=== PATIENT | female | born 1945 | race Caucasian/White ===

== ENCOUNTER → 2016-02-29 | Outpatient (CLI) | payer MEDICARE ==
[~2016-02-29] MED LIST: ASPI81TA85 PO; BRIL90TA PO; CALTTAB10 PO; FARX1TAB2 PO; FERR325T3 PO; GLIP2.5T6 PO; INDE1CAP5 PO; IRBE150T12 PO; METF1000 PO; METO25TAB PO; OMEP40CA2 PO; SIMV40TA2 PO
[2016-02-29 13:32] LABS: BASO % 0.5 % (0.0-1.0); EOS # 0.2 K/mm3 (0.0-0.50); EOS % 5.9 % (0.0-3.0); LARGE UNSTAINED CELL # 0.1 K/mm3 (0.0-0.4); LARGE UNSTAINED CELL % 2.6 % (0.0-4.0); LYMPH # 1.1 K/mm3 (1.5-4.5); LYMPH % 27.1 % (24.0-44.0); MEAN CORPUSCULAR HEMOGLOBIN 29.6 pg (27.0-33.0); MEAN CORPUSCULAR HGB CONC 32.6 g/dl (32.0-36.5); MEAN CORPUSCULAR VOLUME 90.7 fl (80.0-96.0); MONO # 0.3 K/mm3 (0.0-0.8); NEUTROPHILS # 2.3 K/mm3 (1.8-7.7); NEUTROPHILS % 55.9 % (36.0-66.0); PLATELET COUNT, AUTOMATED 119 k/mm3 (150-450); RED CELL DISTRIBUTION WIDTH 12.7 % (11.5-14.5); WHITE BLOOD COUNT 4.1 K/mm3 (4.0-10.0)
[2016-02-29 13:44] LABS: VITAMIN B12 LEVEL 396 PG/ML
[2016-02-29 13:45] LABS: FOLATE 14.1 NG/ML
[2016-02-29 14:07] LABS: ALBUMIN 3.6 GM/DL (3.2-5.2); ALBUMIN/GLOBULIN RATIO 1.13 (1.00-1.93); ALKALINE PHOSPHATASE 115 U/L (45-117); ALT/SGPT 27 U/L (12-78); ANION GAP 9 MEQ/L (8-16); AST/SGOT 19 U/L (15-37); BILIRUBIN,TOTAL 0.6 MG/DL (0.2-1.0); BLOOD UREA NITROGEN 12 MG/DL (7-18); CALCIUM LEVEL 9.6 MG/DL (8.8-10.2); CARBON DIOXIDE LEVEL 29 MEQ/L (21-32); CHLORIDE LEVEL 108 MEQ/L (98-107); CHOLESTEROL LEVEL 194 MG/DL (<200); CREATININE FOR GFR 0.79 MG/DL (0.55-1.02); FERRITIN 16 NG/ML (8-252); GLOMERULAR FILTRATION RATE > 60.0 (>39); GLUCOSE, FASTING 318 MG/DL (83-110); POTASSIUM SERUM 4.6 MEQ/L (3.5-5.1); SODIUM LEVEL 146 MEQ/L (136-145); TOTAL PROTEIN 6.8 GM/DL (6.4-8.2); TRIGLYCERIDES LEVEL 185 MG/DL (<150)
== END ==
LOC: M SMT 09:26
PROVIDERS: ATTEND Family Medicine
DX: E11.65 Type 2 diabetes mellitus with hyperglycemia (principal); D50.9 Iron deficiency anemia, unspecified; E78.2 Mixed hyperlipidemia

== ENCOUNTER → 2016-04-11 | Outpatient (CLI) | payer MEDICARE ==
[2016-04-11 15:24] LABS: INR 1.15
[2016-04-11 17:01] LABS: ALBUMIN 4.2 GM/DL (3.2-5.2); ALBUMIN/GLOBULIN RATIO 1.24 (1.00-1.93); BILIRUBIN,DIRECT 0.2 MG/DL (0.0-0.2); BILIRUBIN,TOTAL 0.7 MG/DL (0.2-1.0); TOTAL PROTEIN 7.6 GM/DL (6.4-8.2)
== END ==
LOC: M LAB 14:18
PROVIDERS: ATTEND Internal Medicine Gastroenterology
DX: I85.00 Esophageal varices without bleeding (principal); Z79.899 Other long term (current) drug therapy

== ENCOUNTER → 2016-04-14 | Outpatient (CLI) | payer MEDICARE ==
--- NOTE | 2016-04-14 08:48 | REP ---
Clinical: Abdominal pain. History of cirrhosis. Comparison: 07/19/2015. Findings: The patient is status post cholecystectomy. Liver and pancreas are normal in contour, size, echogenicity without focal hepatic or pancreatic lesions identified. No intrahepatic biliary ductal dilatation is appreciated. Compensatory dilatation to the common bile duct up to 9 mm. Right kidney is normal in reniform shape without hydronephrosis and measures 12.0 x 6.2 x 5.4 cm with extrarenal pelvis noted. Visualized abdominal aorta normal. No ascites. Impression: No acute pathology noted. Signed by Cr Alexander MD 04/14/2016 08:41 A
== END ==
LOC: M RAD 07:05
PROVIDERS: ATTEND Internal Medicine Gastroenterology
DX: K74.60 Unspecified cirrhosis of liver (principal); K76.0 Fatty (change of) liver, not elsewhere classified

== ENCOUNTER → 2016-05-02 | Outpatient (CLI) | payer MEDICARE ==
[~2016-05-02] VITALS: Ht 162.6 cm; Wt 68.4 kg
[~2016-05-02] MED LIST changes: +CRES40TA PO; +LIDOCAINE 2% INJ 100 MG/5 ML SDV (FOR ANES.) As Ordered ONE; +NS 1,000 ML IV SCH; +PROPOFOL 200 MG/20 ML VIAL As Ordered ONE
--- NOTE | 2016-05-02 16:10 | ROOR ---
Patient Name: Claribel Mccain Procedure Date: 05/02/2016 3:50 PM Date of : 1945 Age: 71 Room: [facility] Gender: Female Note Status: Finalized Procedure: Upper GI endoscopy Indications: Cirrhosis rule out esophageal varices Providers: Lance FERNANDEZ MD Referring MD: Gricel DONNELLY DO Requesting Provider: Medicines: Monitored Anesthesia Care Complications: No immediate complications. Procedure: Pre-Anesthesia Assessment: - The heart rate, respiratory rate, oxygen saturations, blood pressure, adequacy of pulmonary ventilation, and response to care were monitored throughout the procedure. The Endoscope was introduced through the mouth, and advanced to the second part of duodenum. The upper GI endoscopy was accomplished without difficulty. The patient tolerated the procedure well. Findings: Grade I/II varices were found in the lower third of the esophagus. Three bands were successfully placed with complete eradication, resulting in deflation of varices. Mild portal hypertensive gastropathy was found in the gastric antrum. The exam was otherwise without abnormality. Impression: - One Grade II esophageal varix and a few smaller confluent (grade 1) varices. Completely eradicated. Banded x 3. - Mild portal hypertensive gastropathy in antrum. - The examination was otherwise normal. - No specimens collected. Recommendation: - Continue present medications. - Repeat upper endoscopy in 3 months for retreatment. - Return to my office as previously scheduled. Lance Fernandez MD Lance FERNANDEZ MD 05/02/2016 4:10:31 PM This report has been signed electronically. Number of Addenda: 0 Note Initiated On: 05/02/2016 3:50 PM Estimated Blood Loss: Estimated blood loss: none.
[2016-05-02 16:30] VITALS: BP 171/77
== END | disposition home or self-care (01) ==
LOC: M OPP 12:47
PROVIDERS: ATTEND Internal Medicine Gastroenterology
DX: K74.60 Unspecified cirrhosis of liver (principal); I85.11 Secondary esophageal varices with bleeding; K76.6 Portal hypertension; I10 Essential (primary) hypertension; E11.9 Type 2 diabetes mellitus without complications; D64.9 Anemia, unspecified; E78.5 Hyperlipidemia, unspecified; Z88.2 Allergy status to sulfonamides

== ENCOUNTER → 2016-06-22 | Outpatient (CLI) | payer MEDICARE ==
[~2016-06-22] MED LIST changes: +CALTCHW5 PO; +FERR324T2 PO; +INVO100T PO; +LIDO1SOL7 MT; -LIDOCAINE 2% INJ 100 MG/5 ML SDV (FOR ANES.) As Ordered ONE; -NS 1,000 ML IV SCH; +PROP40TA PO; -PROPOFOL 200 MG/20 ML VIAL As Ordered ONE
[2016-06-22 13:38] LABS: BASO % 0.7 % (0.0-1.0); EOS # 0.2 K/mm3 (0.0-0.50); EOS % 4.4 % (0.0-3.0); LARGE UNSTAINED CELL # 0.1 K/mm3 (0.0-0.4); LARGE UNSTAINED CELL % 2.4 % (0.0-4.0); LYMPH # 1.1 K/mm3 (1.5-4.5); LYMPH % 27.3 % (24.0-44.0); MEAN CORPUSCULAR HGB CONC 34.8 g/dl (32.0-36.5); MONO # 0.3 K/mm3 (0.0-0.8); MONO % 6.8 % (0.0-5.0); NEUTROPHILS # 2.3 K/mm3 (1.8-7.7); NEUTROPHILS % 58.4 % (36.0-66.0); PLATELET COUNT, AUTOMATED 125 k/mm3 (150-450); RED CELL DISTRIBUTION WIDTH 13.1 % (11.5-14.5)
[2016-06-22 14:05] LABS: ANION GAP 7 MEQ/L (8-16); BLOOD UREA NITROGEN 12 MG/DL (7-18); CALCIUM LEVEL 8.8 MG/DL (8.8-10.2); CARBON DIOXIDE LEVEL 29 MEQ/L (21-32); CHLORIDE LEVEL 106 MEQ/L (98-107); CREATININE FOR GFR 0.66 MG/DL (0.55-1.02); GLOMERULAR FILTRATION RATE > 60.0 (>39); GLUCOSE, FASTING 233 MG/DL (83-110); POTASSIUM SERUM 4.3 MEQ/L (3.5-5.1); SODIUM LEVEL 142 MEQ/L (136-145)
== END ==
LOC: M SMT 09:59
PROVIDERS: ATTEND Physician Assistant
DX: E11.65 Type 2 diabetes mellitus with hyperglycemia (principal); I85.01 Esophageal varices with bleeding

== ENCOUNTER → 2016-06-27 | Outpatient (CLI) | payer MEDICARE ==
[~2016-06-27] VITALS: Ht 162.6 cm; Wt 70.8 kg
[~2016-06-27] MED LIST changes: +LIDOCAINE 2% INJ 100 MG/5 ML SDV (FOR ANES.) As Ordered ONE; +NS 1,000 ML IV SCH; +PROPOFOL 200 MG/20 ML VIAL As Ordered ONE; +fentaNYL 100 MCG/2 ML INJECTION (J3010) As Ordered ONE
--- NOTE | 2016-06-27 09:24 | ROOR ---
Patient Name: Claribel Mccain Procedure Date: 06/27/2016 9:12 AM Date of : 1945 Age: 71 Room: [facility] Gender: Female Note Status: Finalized Procedure: Upper GI endoscopy Indications: Cirrhosis rule out esophageal varices Providers: Lance FERNANDEZ MD Referring MD: Gricel DONNELLY DO Requesting Provider: Medicines: Monitored Anesthesia Care Complications: No immediate complications. Procedure: Pre-Anesthesia Assessment: - The heart rate, respiratory rate, oxygen saturations, blood pressure, adequacy of pulmonary ventilation, and response to care were monitored throughout the procedure. The Endoscope was introduced through the mouth, and advanced to the second part of duodenum. The upper GI endoscopy was accomplished without difficulty. The patient tolerated the procedure well. Findings: Grade I varices were found in the lower third of the esophagus. They were small in size. Small varices-no endoscopic therapy indicated The exam of the esophagus was otherwise normal. Moderate portal hypertensive gastropathy was found in the gastric antrum. The exam of the stomach was otherwise normal. The examined duodenum was normal. Impression: - Grade I esophageal varices. - Portal hypertensive gastropathy. - Normal examined duodenum. - No specimens collected. Recommendation: - Observe patient's clinical course. - Repeat upper endoscopy in 1 year for surveillance. - Continue present medications. - Continue a Non-selective Beta Rg such as Propranolol or Nadolol, titrate to heart rate. Lance Fernandez MD Lance FERNANDEZ MD 06/27/2016 9:24:24 AM This report has been signed electronically. Number of Addenda: 0 Note Initiated On: 06/27/2016 9:12 AM Estimated Blood Loss: Estimated blood loss: none.
[2016-06-27 09:45] VITALS: BP 188/85
== END | disposition home or self-care (01) ==
LOC: M OPP 07:52
PROVIDERS: ATTEND Internal Medicine Gastroenterology
DX: K74.60 Unspecified cirrhosis of liver (principal); I85.00 Esophageal varices without bleeding; K76.6 Portal hypertension; K31.89 Other diseases of stomach and duodenum; I10 Essential (primary) hypertension; E78.5 Hyperlipidemia, unspecified; E11.9 Type 2 diabetes mellitus without complications; R12 Heartburn; D64.9 Anemia, unspecified; Z95.5 Presence of coronary angioplasty implant and graft; Z80.0 Family history of malignant neoplasm of digestive organs; Z80.41 Family history of malignant neoplasm of ovary; Z88.2 Allergy status to sulfonamides; Z91.041 Radiographic dye allergy status; Z79.82 Long term (current) use of aspirin
CPT/HCPCS: 43235; 99156; J3010

== ENCOUNTER → 2016-07-12 | Outpatient (CLI) | payer MEDICARE ==
[~2016-07-12] MED LIST changes: -LIDOCAINE 2% INJ 100 MG/5 ML SDV (FOR ANES.) As Ordered ONE; -NS 1,000 ML IV SCH; -PROPOFOL 200 MG/20 ML VIAL As Ordered ONE; -fentaNYL 100 MCG/2 ML INJECTION (J3010) As Ordered ONE
[2016-07-12 13:09] LABS: ANION GAP 7 MEQ/L (8-16); BLOOD UREA NITROGEN 25 MG/DL (7-18); CALCIUM LEVEL 9.7 MG/DL (8.8-10.2); CARBON DIOXIDE LEVEL 28 MEQ/L (21-32); CHLORIDE LEVEL 107 MEQ/L (98-107); GLOMERULAR FILTRATION RATE > 60.0 (>39); GLUCOSE, FASTING 163 MG/DL (83-110); POTASSIUM SERUM 4.7 MEQ/L (3.5-5.1); SODIUM LEVEL 142 MEQ/L (136-145)
== END ==
LOC: M SMT 07:52
PROVIDERS: ATTEND Physician Assistant
DX: E11.65 Type 2 diabetes mellitus with hyperglycemia (principal)

== ENCOUNTER → 2016-11-01 | Outpatient (CLI) | payer MEDICARE ==
[~2016-11-01] MED LIST changes: -FARX1TAB2 PO; +FARX1TAB3 PO; -METF1000 PO; +METF10004 PO
--- NOTE | 2016-11-01 10:54 | REP ---
Clinical: Cirrhosis Technique: Holly scale ultrasound using curved array transducer. Findings: The liver and pancreas are normal in contour, size, and echogenicity without focal hepatic or pancreatic lesions identified. The the patient is status post cholecystectomy. No biliary ductal dilatation is appreciated, and the common bile duct measures 7.0 mm diameter. The right kidney is normal in reniform shape without hydronephrosis and measures 11.7 x 3.8 x 6.1 cm. No ascites in the visualized right upper quadrant. Visualized portions of the abdominal aorta normal. Impression: Prior cholecystectomy. Normal appearance to the liver. No ascites in the right upper quadrant. Signed by Cr Alexander MD 11/01/2016 10:46 A
== END ==
LOC: M RAD 09:10
PROVIDERS: ATTEND Internal Medicine Gastroenterology
DX: K74.60 Unspecified cirrhosis of liver (principal)

== ENCOUNTER → 2016-12-22 | Outpatient (CLI) | payer MEDICARE ==
[2016-12-22 14:20] LABS: BASO % 0.8 % (0.0-1.0); EOS # 0.3 10^3/uL (0.0-0.50); EOS % 4.7 % (0.0-3.0); IMMATURE GRANULOCYTE % 0.4 % (0-0); LYMPH # 1.3 10^3/uL (1.5-4.5); LYMPH % 24.6 % (24.0-44.0); MEAN CORPUSCULAR HEMOGLOBIN 30.8 pg (27.0-33.0); MEAN CORPUSCULAR HGB CONC 33.1 g/dl (32.0-36.5); MEAN CORPUSCULAR VOLUME 93.1 fl (80.0-96.0); MONO # 0.6 10^3/uL (0.0-0.8); NEUTROPHILS # 3.1 10^3/uL (1.8-7.7); NEUTROPHILS % 57.5 % (36.0-66.0); PLATELET COUNT, AUTOMATED 144 10^3/uL (150-450); RED CELL DISTRIBUTION WIDTH 13.1 % (11.5-14.5); WHITE BLOOD COUNT 5.3 10^3/uL (4.0-10.0)
[2016-12-22 14:34] LABS: ALBUMIN 4.1 GM/DL (3.2-5.2); ALBUMIN/GLOBULIN RATIO 1.32 (1.00-1.93); ALKALINE PHOSPHATASE 80 U/L (45-117); ALT/SGPT 36 U/L (12-78); ANION GAP 8 MEQ/L (8-16); AST/SGOT 19 U/L (15-37); BILIRUBIN,TOTAL 0.6 MG/DL (0.2-1.0); BLOOD UREA NITROGEN 20 MG/DL (7-18); CALCIUM LEVEL 10.1 MG/DL (8.8-10.2); CARBON DIOXIDE LEVEL 27 MEQ/L (21-32); CHLORIDE LEVEL 108 MEQ/L (98-107); CHOLESTEROL LEVEL 196 MG/DL (<200); CREATININE FOR GFR 0.75 MG/DL (0.55-1.02); FERRITIN 27 NG/ML (8-252); GLOMERULAR FILTRATION RATE > 60.0 (>39); GLUCOSE, FASTING 207 MG/DL (83-110); POTASSIUM SERUM 4.9 MEQ/L (3.5-5.1); SODIUM LEVEL 143 MEQ/L (136-145); TOTAL PROTEIN 7.2 GM/DL (6.4-8.2); TRIGLYCERIDES LEVEL 315 MG/DL (<150)
[2016-12-22 14:37] LABS: FOLATE 20.6 NG/ML; VITAMIN B12 LEVEL 509 PG/ML
== END ==
LOC: M SMT 09:23
PROVIDERS: ATTEND Family Medicine
DX: E11.65 Type 2 diabetes mellitus with hyperglycemia (principal); D50.9 Iron deficiency anemia, unspecified; E78.2 Mixed hyperlipidemia

== ENCOUNTER → 2017-03-13 | Outpatient (CLI) | payer MEDICARE ==
[2017-03-13 19:04] LABS: BASO # 0.1 10^3/uL (0.0-0.2); BASO % 0.9 % (0.0-1.0); EOS # 0.2 10^3/uL (0.0-0.50); EOS % 3.1 % (0.0-3.0); HEMATOCRIT 34.4 % (36.0-47.0); HEMOGLOBIN 11.6 g/dl (12.0-16.0); IMMATURE GRANULOCYTE % 0.2 % (0-0); LYMPH # 1.8 10^3/uL (1.5-4.5); LYMPH % 30.4 % (24.0-44.0); MEAN CORPUSCULAR HEMOGLOBIN 30.9 pg (27.0-33.0); MEAN CORPUSCULAR HGB CONC 33.7 g/dl (32.0-36.5); MEAN CORPUSCULAR VOLUME 91.5 fl (80.0-96.0); MONO # 0.7 10^3/uL (0.0-0.8); MONO % 11.3 % (0.0-5.0); NEUTROPHILS # 3.1 10^3/uL (1.8-7.7); NEUTROPHILS % 54.1 % (36.0-66.0); PLATELET COUNT, AUTOMATED 148 10^3/uL (150-450); RED BLOOD COUNT 3.76 10^6/uL (4.00-5.40); RED CELL DISTRIBUTION WIDTH 12.7 % (11.5-14.5); WHITE BLOOD COUNT 5.8 10^3/uL (4.0-10.0)
[2017-03-13 19:16] LABS: ALBUMIN 4.2 GM/DL (3.2-5.2); ALBUMIN/GLOBULIN RATIO 1.24 (1.00-1.93); ALKALINE PHOSPHATASE 97 U/L (45-117); ALT/SGPT 35 U/L (12-78); ANION GAP 8 MEQ/L (8-16); AST/SGOT 30 U/L (7-37); BILIRUBIN,TOTAL 0.6 MG/DL (0.2-1.0); BLOOD UREA NITROGEN 19 MG/DL (7-18); CALCIUM LEVEL 9.8 MG/DL (8.8-10.2); CARBON DIOXIDE LEVEL 26 MEQ/L (21-32); CHLORIDE LEVEL 106 MEQ/L (98-107); CREATININE FOR GFR 0.86 MG/DL (0.55-1.02); FERRITIN 25 NG/ML (8-252); GLOMERULAR FILTRATION RATE > 60.0 (>39); GLUCOSE, FASTING 158 MG/DL (83-110); IRON (FE) 92 UG/DL (50-170); PERCENT SATURATION 18.5 % (13.2-45.0); POTASSIUM SERUM 4.4 MEQ/L (3.5-5.1); SODIUM LEVEL 140 MEQ/L (136-145); TOTAL IRON BINDING CAPACITY 496 UG/DL (250-450); TOTAL PROTEIN 7.6 GM/DL (6.4-8.2)
[2017-03-13 19:20] LABS: VITAMIN B12 LEVEL 558 PG/ML (247-911)
[2017-03-13 20:00] LABS: ESTIMATED AVERAGE GLUCOSE 235 MG/DL (60-110); HEMOGLOBIN A1c 9.8 %
[2017-03-13 20:59] LABS: CREATININE, URINE 88.4 MG/DL; MAU/CREAT RATIO 226.2 MCG/MG (0.0-30.0)
== END ==
LOC: M SMT 10:45
DX: E11.65 Type 2 diabetes mellitus with hyperglycemia (principal); D50.9 Iron deficiency anemia, unspecified; D51.3 Other dietary vitamin B12 deficiency anemia
CPT/HCPCS: 83550

== ENCOUNTER → 2017-04-12 | Outpatient (CLI) | payer MEDICARE ==
[2017-04-13 11:30] LABS: ALPHA FETOPROTEIN TUMOR QUANT 3.3 NG/ML (<8.1)
== END ==
LOC: M LAB 07:20
DX: K75.81 Nonalcoholic steatohepatitis (NASH) (principal); K74.60 Unspecified cirrhosis of liver
CPT/HCPCS: 76705

== ENCOUNTER → 2017-06-13 | Outpatient (CLI) | payer MEDICARE ==
[2017-06-13 14:14] LABS: ANION GAP 6 MEQ/L (8-16); BLOOD UREA NITROGEN 9 MG/DL (7-18); CALCIUM LEVEL 9.5 MG/DL (8.8-10.2); CARBON DIOXIDE LEVEL 27 MEQ/L (21-32); CHLORIDE LEVEL 114 MEQ/L (98-107); CREATININE FOR GFR 0.74 MG/DL (0.55-1.30); GLOMERULAR FILTRATION RATE > 60.0 (>39); GLUCOSE, FASTING 139 MG/DL (70-100); POTASSIUM SERUM 4.7 MEQ/L (3.5-5.1); SODIUM LEVEL 147 MEQ/L (136-145)
[2017-06-13 15:24] LABS: ESTIMATED AVERAGE GLUCOSE 203 MG/DL (60-110); HEMOGLOBIN A1c 8.7 %
== END ==
LOC: M SMT 10:42
DX: E11.65 Type 2 diabetes mellitus with hyperglycemia (principal)
CPT/HCPCS: 83036

== ENCOUNTER → 2017-11-13 | Outpatient (CLI) | payer MEDICARE | LOC: M RAD 08:08 | DX: K75.81 Nonalcoholic steatohepatitis (NASH) (principal) | CPT/HCPCS: 76705 ==

== ENCOUNTER → 2017-12-31 | Outpatient (CLI) | payer MEDICARE ==
[2017-12-31 16:36] LABS: BASO # 0.1 10^3/uL (0.0-0.2); BASO % 0.9 % (0.0-1.0); EOS # 0.5 10^3/uL (0.0-0.50); EOS % 8.1 % (0.0-3.0); HEMATOCRIT 35.9 % (36.0-47.0); HEMOGLOBIN 12.2 g/dl (12.0-15.5); IMMATURE GRANULOCYTE % 0.2 % (0-3.0); LYMPH # 1.9 10^3/uL (1.5-4.5); LYMPH % 29.5 % (24.0-44.0); MEAN CORPUSCULAR HEMOGLOBIN 31.8 pg (27.0-33.0); MEAN CORPUSCULAR VOLUME 93.5 fl (80.0-96.0); MONO # 0.9 10^3/uL (0.0-0.8); MONO % 13.4 % (0.0-5.0); NEUTROPHILS # 3.1 10^3/uL (1.8-7.7); NEUTROPHILS % 47.9 % (36.0-66.0); PLATELET COUNT, AUTOMATED 162 10^3/uL (150-450); RED BLOOD COUNT 3.84 10^6/uL (4.00-5.40); RED CELL DISTRIBUTION WIDTH 13.2 % (11.5-14.5); WHITE BLOOD COUNT 6.4 10^3/uL (4.0-10.0)
[2017-12-31 16:46] LABS: INR 1.14; PROTHROMBIN TIME 14.8 SECONDS (12.1-14.4)
[2017-12-31 17:10] LABS: ALBUMIN 4.1 GM/DL (3.2-5.2); ALBUMIN/GLOBULIN RATIO 1.21 (1.00-1.93); ALKALINE PHOSPHATASE 90 U/L (45-117); ALT/SGPT 31 U/L (12-78); ANION GAP 8 MEQ/L (8-16); AST/SGOT 24 U/L (7-37); BILIRUBIN,DIRECT 0.2 MG/DL (0.0-0.2); BLOOD UREA NITROGEN 21 MG/DL (7-18); CALCIUM LEVEL 10.6 MG/DL (8.8-10.2); CARBON DIOXIDE LEVEL 28 MEQ/L (21-32); CHLORIDE LEVEL 107 MEQ/L (98-107); CREATININE FOR GFR 0.94 MG/DL (0.55-1.30); GLOMERULAR FILTRATION RATE > 60.0 (>39); GLUCOSE, FASTING 72 MG/DL (70-100); POTASSIUM SERUM 4.4 MEQ/L (3.5-5.1); SODIUM LEVEL 143 MEQ/L (136-145); TOTAL PROTEIN 7.5 GM/DL (6.4-8.2)
[2018-01-01 10:13] LABS: ALPHA FETOPROTEIN TUMOR QUANT 2.9 NG/ML (<8.1)
== END ==
LOC: M LAB 16:11
DX: K74.69 Other cirrhosis of liver (principal)
CPT/HCPCS: 82248

== ENCOUNTER 2018-01-04 12:16 | Day surgery (SDC) | payer MEDICARE ==
[2018-01-04] MEDS ORDERED: PROPOFOL 200 MG/20 ML VIAL As Ordered (13:01)
[2018-01-04] MEDS ORDERED: LIDOCAINE 2% INJ 100 MG/5 ML SDV (FOR ANES.) As Ordered (13:01)
[2018-01-04] MEDS: NS 1,000 ML IV (13:29)
== END 2018-01-04 14:55 | disposition home or self-care (01) ==
LOC: M OPP 12:16
DX: K74.60 Unspecified cirrhosis of liver (principal); I85.10 Secondary esophageal varices without bleeding; K31.89 Other diseases of stomach and duodenum; I10 Essential (primary) hypertension; E78.00 Pure hypercholesterolemia, unspecified; E11.9 Type 2 diabetes mellitus without complications; D64.9 Anemia, unspecified; R12 Heartburn; Z95.5 Presence of coronary angioplasty implant and graft; Z98.890 Other specified postprocedural states; Z91.041 Radiographic dye allergy status; Z88.1 Allergy status to other antibiotic agents; Z88.2 Allergy status to sulfonamides; Z79.82 Long term (current) use of aspirin; Z79.899 Other long term (current) drug therapy; Z79.01 Long term (current) use of anticoagulants; Z79.84 Long term (current) use of oral hypoglycemic drugs
CPT/HCPCS: 43239

== ENCOUNTER → 2018-01-14 | Outpatient (CLI) | payer MEDICARE ==
[2018-01-14 13:16] LABS: BASO # 0.1 10^3/uL (0.0-0.2); BASO % 1.3 % (0.0-1.0); EOS # 0.3 10^3/uL (0.0-0.50); EOS % 5.8 % (0.0-3.0); HEMATOCRIT 39.3 % (36.0-47.0); HEMOGLOBIN 13.2 g/dl (12.0-15.5); LYMPH # 1.4 10^3/uL (1.5-4.5); LYMPH % 26.5 % (24.0-44.0); MEAN CORPUSCULAR HEMOGLOBIN 31.7 pg (27.0-33.0); MEAN CORPUSCULAR HGB CONC 33.6 g/dl (32.0-36.5); MEAN CORPUSCULAR VOLUME 94.2 fl (80.0-96.0); MONO # 0.7 10^3/uL (0.0-0.8); MONO % 12.3 % (0.0-5.0); NEUTROPHILS # 2.9 10^3/uL (1.8-7.7); NEUTROPHILS % 54.1 % (36.0-66.0); PLATELET COUNT, AUTOMATED 149 10^3/uL (150-450); RED BLOOD COUNT 4.17 10^6/uL (4.00-5.40); WHITE BLOOD COUNT 5.4 10^3/uL (4.0-10.0)
[2018-01-14 13:53] LABS: ALBUMIN 3.8 GM/DL (3.2-5.2); ALBUMIN/GLOBULIN RATIO 1.03 (1.00-1.93); ALKALINE PHOSPHATASE 99 U/L (45-117); ALT/SGPT 35 U/L (12-78); ANION GAP 7 MEQ/L (8-16); AST/SGOT 26 U/L (7-37); BILIRUBIN,TOTAL 0.8 MG/DL (0.2-1.0); BLOOD UREA NITROGEN 13 MG/DL (7-18); CALCIUM LEVEL 9.6 MG/DL (8.8-10.2); CARBON DIOXIDE LEVEL 28 MEQ/L (21-32); CHLORIDE LEVEL 111 MEQ/L (98-107); CHOLESTEROL LEVEL 210 MG/DL (<200); CHOLESTEROL RISK RATIO 4.375 (<5); CREATININE FOR GFR 0.89 MG/DL (0.55-1.30); FOLATE 14.6 NG/ML; FREE T4 0.96 NG/DL (0.76-1.46); GLOMERULAR FILTRATION RATE > 60.0 (>39); GLUCOSE, FASTING 158 MG/DL (70-100); HDL CHOLESTEROL 48 MG/DL (>40); LDL CHOLESTEROL 108 MG/DL (<100); NON-HDL-C 162 MG/DL; POTASSIUM SERUM 4.9 MEQ/L (3.5-5.1); SODIUM LEVEL 146 MEQ/L (136-145); TOTAL PROTEIN 7.5 GM/DL (6.4-8.2); TRIGLYCERIDES LEVEL 271 MG/DL (<150); VITAMIN B12 LEVEL 530 PG/ML
[2018-01-14 14:06] LABS: ESTIMATED AVERAGE GLUCOSE 194 MG/DL (60-110); HEMOGLOBIN A1c 8.4 %
== END ==
LOC: M SMT 10:58
DX: E11.65 Type 2 diabetes mellitus with hyperglycemia (principal); E78.2 Mixed hyperlipidemia; D50.9 Iron deficiency anemia, unspecified; D51.3 Other dietary vitamin B12 deficiency anemia
CPT/HCPCS: 82746

== ENCOUNTER → 2018-05-18 | Outpatient (CLI) | payer MEDICARE ==
[~2018-05-18] MED LIST changes: +CLOP75TA2 PO; +GLIM4TAB PO; -INDE1CAP5 PO; +INDE60CA4 PO; -PROP40TA PO; +PROP40TA62 PO
[2018-05-18 11:08] LABS: CREATININE, URINE 78.5 MG/DL; MAU/CREAT RATIO 166.8 MCG/MG (0.0-30.0)
[2018-05-18 11:15] LABS: HEMOGLOBIN A1c 8.5 %
[2018-05-18 11:18] LABS: BLOOD UREA NITROGEN 22 MG/DL (7-18); CALCIUM LEVEL 9.5 MG/DL (8.8-10.2); CARBON DIOXIDE LEVEL 28 MEQ/L (21-32); CHLORIDE LEVEL 111 MEQ/L (98-107); FREE T4 1.02 NG/DL (0.76-1.46); GLOMERULAR FILTRATION RATE > 60.0 (>39); GLUCOSE, FASTING 172 MG/DL (70-100); POTASSIUM SERUM 4.3 MEQ/L (3.5-5.1); SODIUM LEVEL 145 MEQ/L (136-145)
== END ==
LOC: M LAB 09:55
PROVIDERS: ATTEND Physician Assistant
DX: E11.65 Type 2 diabetes mellitus with hyperglycemia (principal); E78.2 Mixed hyperlipidemia

== ENCOUNTER → 2018-07-12 | Outpatient (CLI) | payer MEDICARE ==
[~2018-07-12] MED LIST changes: -LIDO1SOL7 MT; +LIDO1SOL8 MT; +METO-346 PO; -METO25TAB PO; +SUCR1SS PO
--- NOTE | 2018-07-12 14:53 | REP ---
Right quadrant sonography: History: Unspecified cirrhosis of the liver. Comparison sonography November 13, 2017. Comparison CT study May 13, 2014. Sonographic findings: Scanning through the right upper quadrant of the abdomen demonstrates a mildly coarse liver texture. No focal liver lesion is seen. No evidence of hepatic enlargement. Common bile duct is normal measuring 0.6 cm in greatest diameter. The gallbladder is surgically absent. There is no evidence of ascites. Limited views of the pancreas are unremarkable. There is no right renal abnormality. Right kidney measures 12.7 x 5.4 x 5.3 cm. Impression: Post cholecystectomy. Somewhat coarse liver texture. Otherwise negative. Electronically Signed by Humberto Hartley MD 07/12/2018 06:31 P
== END ==
LOC: M RAD 07:06
PROVIDERS: ATTEND Internal Medicine Gastroenterology
DX: K74.60 Unspecified cirrhosis of liver (principal)

== ENCOUNTER 2018-07-23 18:33 | Emergency (ER) | payer MEDICARE ==
[~2018-07-23 18:33] MED LIST changes: -SUCR1SS PO
[2018-07-23] MEDS ORDERED: SUCRALFATE SUSP 1GM/10ML UD PO ONE (19:30)
--- NOTE | 2018-07-23 20:04 | REP ---
Clinical: Abdominal pain. Technique: Axial noncontrast images from the lung bases to the pubic symphysis with coronal and sagittal re-formations. Comparison: 05/13/2014. Findings: Inflammatory stranding noted in the upper abdomen and anterior retroperitoneal space. Differential diagnosis includes but is not limited to pancreatitis and duodenitis/gastritiis. Mild splenomegaly. Liver is grossly normal for noncontrast evaluation. Bilateral adrenal glands and kidneys are normal. The enteric system is without obstruction or acute inflammatory process scattered sigmoid diverticula noted without acute diverticulitis. Pelvis demonstrates normal bladder and age-appropriate uterus/adnexa. No ascites. No free air. Abdominal aorta without aneurysm. Musculoskeletal structures demonstrate age-related changes. Lung bases demonstrate minimal chronic fibroatelectatic changes. Impression: 1. Inflammatory stranding noted in the upper abdomen and anterior retroperitoneal space. Differential diagnosis includes but is not limited to pancreatitis and duodenitis/gastritis. 2. Mild splenomegaly and possible cirrhosis. Electronically Signed by Cr Alexander MD 07/23/2018 07:56 P
[2018-07-23 20:20] LABS: BASO % 0.7 % (0.0-1.0); EOS % 0.7 % (0.0-3.0); HEMATOCRIT 37.7 % (36.0-47.0); HEMOGLOBIN 13.1 g/dl (12.0-15.5); LYMPH % 18.2 % (24.0-44.0); MEAN CORPUSCULAR HEMOGLOBIN 32.6 pg (27.0-33.0); MEAN CORPUSCULAR HGB CONC 34.7 g/dl (32.0-36.5); MEAN CORPUSCULAR VOLUME 93.8 fl (80.0-96.0); MONO # 0.4 10^3/uL (0.0-0.8); MONO % 7.9 % (0.0-5.0); NEUTROPHILS % 72.3 % (36.0-66.0); PLATELET COUNT, AUTOMATED 112 10^3/uL (150-450); RED BLOOD COUNT 4.02 10^6/uL (4.00-5.40); WHITE BLOOD COUNT 5.6 10^3/uL (4.0-10.0)
[2018-07-23 20:40] LABS: INR 1.17; PROTHROMBIN TIME 15.1 SECONDS (12.1-14.4)
[2018-07-23 20:41] LABS: ALBUMIN 3.7 GM/DL (3.2-5.2); ALT/SGPT 37 U/L (12-78); BILIRUBIN,DIRECT 0.2 MG/DL (0.0-0.2); BILIRUBIN,TOTAL 1.1 MG/DL (0.2-1.0); CPK CREATINE PHOSPHOKINASE 106 U/L (26-192); LIPASE 203 U/L (73-393); MB/CK RELATIVE INDEX 2.55 (< OR =4); TOTAL PROTEIN 7.1 GM/DL (6.4-8.2); TROPONIN I < 0.02 NG/ML (< 0.10)
--- NOTE | 2018-07-23 21:14 | ECGEPIP ---
[facility] - ED Test Date: 2018-07-23 Pat Name: PADMA LAWRENCE Department: Room: - Gender: Female [employer] In[employer]: ANGELINA : 1945 Requested By: Marni Nieves Order Number: [id number] Reading MD: Marni Nieves Measurements Intervals [place] Rate: 49 P: 38 CO: 153 QRS: 10 QRSD: 94 T: 31 QT: 474 QTc: 431 Interpretive Statements SINUS BRADYCARDIA INCOMPLETE RIGHT BUNDLE BRANCH BLOCK PROBABLE INFERIOR MYOCARDIAL INFARCTION, PROBABLY OLD NO PRIOR FOR COMPARISON Electronically Signed on 07-23-2018 21:14:05 EDT by Marni Nieves
[2018-07-23] MEDS ORDERED: SUCR1SS PO (21:15)
[2018-07-23 21:30] VITALS: BP 162/71
--- NOTE | 2018-07-24 18:18 | ED PDOC ---
Post-Departure Follow-Up dr dima dunne faxed formal report of ct abd/p for fu Ray Sena MD July 24, 2018 18:18
[2018-07-26] MEDS ORDERED: GLIM4TAB PO (11:10)
== END 2018-07-23 21:38 | disposition home or self-care (01) ==
LOC: EDBD 18:33 → M ED 18:33
DX: K29.70 Gastritis, unspecified, without bleeding (principal); E11.9 Type 2 diabetes mellitus without complications; I10 Essential (primary) hypertension; K21.9 Gastro-esophageal reflux disease without esophagitis; D50.9 Iron deficiency anemia, unspecified; K75.81 Nonalcoholic steatohepatitis (NASH); Z79.899 Other long term (current) drug therapy; Z79.84 Long term (current) use of oral hypoglycemic drugs; Z79.82 Long term (current) use of aspirin; Z88.1 Allergy status to other antibiotic agents; Z88.2 Allergy status to sulfonamides; Z91.040 Latex allergy status

== ENCOUNTER 2018-08-09 09:20 | Day surgery (SDC) | payer MEDICARE ==
[~2018-08-09] VITALS: Ht 160 cm; Wt 72.0 kg
[~2018-08-09 09:20] MED LIST changes: +NS 1,000 ML IV ONE; +PROPOFOL 500 MG/50 ML VIAL As Ordered ONE; +SUCR1SS PO; +fentaNYL 100 MCG/2 ML INJECTION (J3010) As Ordered ONE
[2018-08-09] MEDS ORDERED: D5W 250 ML IV SCH (10:30)
[2018-08-09] MEDS ORDERED: LIDOCAINE 2% INJ 100 MG/5 ML SDV (FOR ANES.) As Ordered ONE (10:32)
--- NOTE | 2018-08-09 10:46 | ROOR ---
Patient Name: Claribel Mccain Procedure Date: 08/09/2018 10:26 AM Date of : 1945 Age: 73 Room: [facility] Gender: Female Note Status: Finalized Procedure: Upper GI endoscopy Indications: Epigastric abdominal pain, Cirrhosis rule out esophageal varices Providers: Lance FERNANDEZ MD Referring MD: Gricel DONNELLY DO Requestmarla Provider: Medicines: Monitored Anesthesia Care Complications: No immediate complications. Procedure: Pre-Anesthesia Assessment: - The heart rate, respiratory rate, oxygen saturations, blood pressure, adequacy of pulmonary ventilation, and response to care were monitored throughout the procedure. The Endoscope was introduced through the mouth, and advanced to the second part of duodenum. The upper GI endoscopy was accomplished without difficulty. Findings: Grade I varices were found in the lower third of the esophagus. They were small in size. (Varices are small today, primary prevention/eradication not indicated today) The exam of the esophagus was otherwise normal. Moderate portal hypertensive gastropathy was found in the gastric antrum. This was biopsied with a cold forceps for histology. The exam of the stomach was otherwise normal. The examined duodenum was normal. Impression: - Grade I esophageal varices. - Portal hypertensive gastropathy. Biopsied. - Normal examined duodenum. Recommendation: - Observe patient's clinical course. - Start/continue a Non-selective Beta Rg such as Propranolol or Nadolol, titrate to heart rate. - Telephone endoscopist for pathology results in 2 weeks. Lance Fernandez MD Lance FERNANDEZ MD 08/09/2018 10:46:00 AM Electronically signed by Lance FERNANDEZ MD Number of Addenda: 0 Note Initiated On: 08/09/2018 10:26 AM Estimated Blood Loss: Estimated blood loss: none.
[2018-08-09] MEDS ORDERED: ONDANSETRON 4MG/2ML VIAL (J2405) As Ordered ONE (11:00)
--- NOTE | 2018-08-09 11:09 | ROOR ---
Patient Name: Claribel Mccain Procedure Date: 08/09/2018 10:27 AM Date of : 1945 Age: 73 Room: [facility] Gender: Female Note Status: Finalized Procedure: Colonoscopy Indications: High risk colon cancer surveillance: Personal history of colonic polyps, Last colonoscopy: April 2014 Providers: Lance FERNANDEZ MD Referring MD: Gricel DONNELLY DO Requesting Provider: Medicines: Monitored Anesthesia Care Complications: No immediate complications. Procedure: Pre-Anesthesia Assessment: - The heart rate, respiratory rate, oxygen saturations, blood pressure, adequacy of pulmonary ventilation, and response to care were monitored throughout the procedure. The Colonoscope was introduced through the anus and advanced to the cecum, identified by appendiceal orifice and ileocecal valve. The colonoscopy was performed without difficulty. The patient tolerated the procedure well. The quality of the bowel preparation was good. Findings: The perianal and digital rectal examinations were normal. Medium sized rectal varices were found. Two sessile polyps were found in the ascending colon. The polyps were 4 to 5 mm in size. These polyps were removed with a cold snare. Resection and retrieval were complete. To close a defect after polypectomy, four hemostatic clips were successfully placed. There was no bleeding at the end of the procedure. The exam was otherwise without abnormality on direct and retroflexion views. Impression: - Internal hemorrhoids/moderate rectal varices. - Two 4 to 5 mm polyps in the ascending colon, removed with a cold snare. Resected and retrieved. Clips were placed. - The examination was otherwise normal on direct and retroflexion views. Recommendation: - Resume Plavix (clopidogrel) at prior dose tomorrow. - Telephone endoscopist for pathology results in 2 weeks. Lance Fernandez MD Lance FERNANDEZ MD 08/09/2018 11:09:15 AM Electronically signed by Lance FERNANDEZ MD Number of Addenda: 0 Note Initiated On: 08/09/2018 10:27 AM Estimated Blood Loss: Estimated blood loss: none.
[2018-08-09 11:25] VITALS: BP 145/67
== END 2018-08-09 11:42 | disposition home or self-care (01) ==
LOC: M OPP 09:20
PROVIDERS: ATTEND Internal Medicine Gastroenterology
DX: D12.2 Benign neoplasm of ascending colon (principal); K64.8 Other hemorrhoids; K62.89 Other specified diseases of anus and rectum; R10.13 Epigastric pain; K74.60 Unspecified cirrhosis of liver; I85.10 Secondary esophageal varices without bleeding; K76.6 Portal hypertension; K31.89 Other diseases of stomach and duodenum; Z86.010 Personal history of colon polyps
CPT/HCPCS: 43239; 45385; 88305; J2405; J3010

== ENCOUNTER → 2018-08-19 | Outpatient (CLI) | payer MEDICARE ==
[~2018-08-19] MED LIST changes: -NS 1,000 ML IV ONE; -PROPOFOL 500 MG/50 ML VIAL As Ordered ONE; -fentaNYL 100 MCG/2 ML INJECTION (J3010) As Ordered ONE
[2018-08-19 13:49] LABS: BASO # 0.1 10^3/uL (0.0-0.2); EOS # 0.4 10^3/uL (0.0-0.50); EOS % 7.2 % (0.0-3.0); HEMATOCRIT 32.4 % (36.0-47.0); HEMOGLOBIN 10.7 g/dl (12.0-15.5); LYMPH # 1.2 10^3/uL (1.5-4.5); LYMPH % 23.8 % (24.0-44.0); MEAN CORPUSCULAR VOLUME 93.9 fl (80.0-96.0); MONO # 0.7 10^3/uL (0.0-0.8); MONO % 12.6 % (0.0-5.0); NEUTROPHILS # 2.9 10^3/uL (1.8-7.7); NEUTROPHILS % 55.4 % (36.0-66.0); PLATELET COUNT, AUTOMATED 131 10^3/uL (150-450); RED BLOOD COUNT 3.45 10^6/uL (4.00-5.40); WHITE BLOOD COUNT 5.2 10^3/uL (4.0-10.0)
[2018-08-19 14:09] LABS: ALBUMIN 3.6 GM/DL (3.2-5.2); ALT/SGPT 36 U/L (12-78); BILIRUBIN,TOTAL 0.8 MG/DL (0.2-1.0); BLOOD UREA NITROGEN 10 MG/DL (7-18); CALCIUM LEVEL 9.4 MG/DL (8.8-10.2); CARBON DIOXIDE LEVEL 27 MEQ/L (21-32); CHLORIDE LEVEL 111 MEQ/L (98-107); CHOLESTEROL LEVEL 133 MG/DL (<200); CREATININE FOR GFR 0.58 MG/DL (0.55-1.30); FERRITIN 38 NG/ML (8-252); GLOMERULAR FILTRATION RATE > 60.0 (>39); GLUCOSE, FASTING 83 MG/DL (70-100); HDL CHOLESTEROL 39 MG/DL (>40); LDL CHOLESTEROL 56 MG/DL (<100); NON-HDL-C 94 MG/DL; POTASSIUM SERUM 4.2 MEQ/L (3.5-5.1); SODIUM LEVEL 145 MEQ/L (136-145); TRIGLYCERIDES LEVEL 189 MG/DL (<150); VITAMIN B12 LEVEL 699 PG/ML (247-911)
[2018-08-19 14:20] LABS: HEMOGLOBIN A1c 8.5 %
== END ==
LOC: M SMT 10:28
PROVIDERS: ATTEND Family Medicine
DX: D50.9 Iron deficiency anemia, unspecified (principal); E78.2 Mixed hyperlipidemia; E11.65 Type 2 diabetes mellitus with hyperglycemia

== ENCOUNTER 2018-10-11 02:07 | Emergency (ER) | payer MEDICARE ==
[~2018-10-11] VITALS: Ht 160 cm; Wt 71.8 kg
[2018-10-11] MEDS ORDERED: IBUP-1022 PO (05:40)
[2018-10-11] MEDS ORDERED: ROBA750T4 PO (05:40)
[2018-10-11] MEDS ORDERED: METHOCARBAMOL 750 MG TAB PO ONE (05:45)
[2018-10-11] MEDS ORDERED: IBUPROFEN 600 MG TAB PO ONE (05:45)
[2018-10-11 05:52] VITALS: BP 170/73
--- NOTE | 2018-10-11 07:57 | REP ---
PELVIS, LEFT HIP: Three views. HISTORY: Left groin pain. FINDINGS: AP view of the pelvis shows an intact bony pelvic ring. There are three endoscopic fiducial markers in the colon on the right. Psoas margins and flank stripes are intact. Femoral heads are smooth and rounded. No hip or pelvic fracture is seen. No sacral fractures noted. Left hip AP and lateral views show smooth rounded femoral head and intact hip joint space. There is tendon insertion site spurring along the lateral margin of the pelvis. Some spurring is seen at the greater trochanter as well. IMPRESSION: No acute bony abnormality. Electronically Signed by Humberto Hartley MD 10/11/2018 08:16 A
== END 2018-10-11 05:57 | disposition home or self-care (01) ==
LOC: M ED 02:07
DX: R10.2 Pelvic and perineal pain (principal); Z79.899 Other long term (current) drug therapy; Z79.84 Long term (current) use of oral hypoglycemic drugs; Z79.82 Long term (current) use of aspirin; Z88.1 Allergy status to other antibiotic agents; Z88.2 Allergy status to sulfonamides; Z91.041 Radiographic dye allergy status

== ENCOUNTER → 2018-12-09 | Outpatient (CLI) | payer MEDICARE ==
[~2018-12-09] MED LIST changes: -GLIM4TAB PO; +GLIM4TAB3 PO; +IBUP-1022 PO; -OMEP40CA2 PO; +OMEP40CA97 PO; +ROBA750T4 PO
[2018-12-09 18:13] LABS: BASO # 0.1 10^3/uL (0.0-0.2); EOS # 0.4 10^3/uL (0.0-0.5); EOS % 7.6 % (0.0-3.0); HEMATOCRIT 32.5 % (36.0-47.0); HEMOGLOBIN 10.6 g/dl (12.0-15.5); LYMPH # 0.9 10^3/uL (1.5-5.0); LYMPH % 17.9 % (24.0-44.0); MEAN CORPUSCULAR HEMOGLOBIN 31.7 pg (27.0-33.0); MEAN CORPUSCULAR HGB CONC 32.6 g/dl (32.0-36.5); MEAN CORPUSCULAR VOLUME 97.3 fl (80.0-96.0); MONO # 0.7 10^3/uL (0.0-0.8); MONO % 14.9 % (0.0-5.0); NEUTROPHILS # 2.9 10^3/uL (1.5-8.5); NEUTROPHILS % 58.4 % (36.0-66.0); PLATELET COUNT, AUTOMATED 161 10^3/uL (150-450); RED BLOOD COUNT 3.34 10^6/uL (4.00-5.40)
[2018-12-09 18:40] LABS: BLOOD UREA NITROGEN 14 MG/DL (7-18); CALCIUM LEVEL 9.4 MG/DL (8.8-10.2); CARBON DIOXIDE LEVEL 27 MEQ/L (21-32); CHLORIDE LEVEL 107 MEQ/L (98-107); CREATININE FOR GFR 0.96 MG/DL (0.55-1.30); GLOMERULAR FILTRATION RATE > 60.0 (>39); GLUCOSE, FASTING 96 MG/DL (70-100); POTASSIUM SERUM 3.8 MEQ/L (3.5-5.1); SODIUM LEVEL 141 MEQ/L (136-145)
[2018-12-09 18:55] LABS: HEMOGLOBIN A1c 8.4 %
== END ==
LOC: M SMT 11:04
PROVIDERS: ATTEND Physician Assistant
DX: E11.65 Type 2 diabetes mellitus with hyperglycemia (principal); K74.60 Unspecified cirrhosis of liver

== ENCOUNTER 2018-12-18 07:30 | Emergency (ER) | payer MEDICARE ==
[~2018-12-18] VITALS: Ht 160 cm; Wt 72.1 kg
[2018-12-18 07:30] VITALS: BP 160/67
--- NOTE | 2018-12-18 09:12 | REP ---
LEFT ANKLE: Four views. There is no evidence of an acute fracture, dislocation or intrinsic bone disease. There is linear calcification in the distal end of the Achilles tendon. There is moderate inferior calcaneal spurring. There are vascular calcifications present. IMPRESSION: No fracture or dislocation. Electronically Signed by Don Holly MD 12/18/2018 02:17 P
--- NOTE | 2018-12-18 09:13 | REP ---
LEFT LOWER LEG, AP AND LATERAL: There is no evidence of an acute fracture, dislocation or intrinsic bone disease. IMPRESSION: No fracture or dislocation. Electronically Signed by Don Holly MD 12/18/2018 02:17 P
== END 2018-12-18 08:40 | disposition home or self-care (01) ==
LOC: M ED 07:30
DX: S83.92XA Sprain of unspecified site of left knee, initial encounter (principal); S93.402A Sprain of unspecified ligament of left ankle, initial encounter; W01.0XXA Fall on same level from slipping, tripping and stumbling without subsequent striking against object, initial encounter; Y92.018 Other place in single-family (private) house as the place of occurrence of the external cause; I10 Essential (primary) hypertension; E11.9 Type 2 diabetes mellitus without complications; E78.00 Pure hypercholesterolemia, unspecified; K21.9 Gastro-esophageal reflux disease without esophagitis; Z79.899 Other long term (current) drug therapy; Z79.84 Long term (current) use of oral hypoglycemic drugs; Z79.82 Long term (current) use of aspirin; Z79.02 Long term (current) use of antithrombotics/antiplatelets; Z88.1 Allergy status to other antibiotic agents; Z88.2 Allergy status to sulfonamides; Z91.041 Radiographic dye allergy status

== ENCOUNTER → 2019-06-05 | Outpatient (CLI) | payer MEDICARE ==
[~2019-06-05] MED LIST changes: -GLIM4TAB3 PO; +GLIM4TAB5 PO; -IRBE150T12 PO; +IRBE150T7 PO; -LIDO1SOL8 MT; +LIDO2SOL17 MT; -SIMV40TA2 PO; +SIMV40TA20 PO
[2019-06-05 07:56] LABS: BASO # 0.1 10^3/uL (0.0-0.2); BASO % 1.2 % (0.0-1.0); EOS # 0.4 10^3/uL (0.0-0.5); EOS % 7.6 % (0.0-3.0); HEMATOCRIT 32.9 % (36.0-47.0); HEMOGLOBIN 10.7 g/dl (12.0-15.5); LYMPH # 1.2 10^3/uL (1.5-5.0); LYMPH % 24.3 % (24.0-44.0); MEAN CORPUSCULAR HEMOGLOBIN 31.8 pg (27.0-33.0); MEAN CORPUSCULAR HGB CONC 32.5 g/dl (32.0-36.5); MEAN CORPUSCULAR VOLUME 97.6 fl (80.0-96.0); MONO # 0.7 10^3/uL (0.0-0.8); MONO % 13.3 % (0.0-5.0); NEUTROPHILS # 2.6 10^3/uL (1.5-8.5); NEUTROPHILS % 53.4 % (36.0-66.0); PLATELET COUNT, AUTOMATED 152 10^3/uL (150-450); RED BLOOD COUNT 3.37 10^6/uL (4.00-5.40); WHITE BLOOD COUNT 4.9 10^3/uL (4.0-10.0)
[2019-06-05 08:08] LABS: INR 1.22; PROTHROMBIN TIME 15.1 SECONDS (11.8-14.0)
[2019-06-05 08:28] LABS: ALBUMIN 3.6 GM/DL (3.2-5.2); ALT/SGPT 32 U/L (12-78); BILIRUBIN,DIRECT 0.2 MG/DL (0.0-0.2); BILIRUBIN,TOTAL 0.6 MG/DL (0.2-1.0); BLOOD UREA NITROGEN 12 MG/DL (7-18); CALCIUM LEVEL 9.1 MG/DL (8.8-10.2); CARBON DIOXIDE LEVEL 27 MEQ/L (21-32); CHLORIDE LEVEL 112 MEQ/L (98-107); CREATININE FOR GFR 0.76 MG/DL (0.55-1.30); GLOMERULAR FILTRATION RATE > 60.0 (>39); GLUCOSE, FASTING 115 MG/DL (70-100); POTASSIUM SERUM 4.1 MEQ/L (3.5-5.1); SODIUM LEVEL 144 MEQ/L (136-145); TOTAL PROTEIN 7.3 GM/DL (6.4-8.2)
== END ==
LOC: M LAB 07:18
PROVIDERS: ATTEND Internal Medicine Gastroenterology
DX: K76.0 Fatty (change of) liver, not elsewhere classified (principal)

== ENCOUNTER → 2019-06-05 | Outpatient (CLI) | payer MEDICARE ==
--- NOTE | 2019-06-05 09:16 | REP ---
REASON: Followup. COMPARISON: 07/12/2018. Multiple ultrasonographic images of the liver show no significant changes from the prior exam. Patchy increased echoes are seen throughout with a coarsened echotexture. There is no change in the hepatic surface. No discrete masses are identified. There is no intrahepatic or extrahepatic ductal dilatation. The common bile duct measures 7 mm. The imaged portion of the right kidney and pancreas are again seen to be within normal limits. There is no free fluid. IMPRESSION: No significant change from the prior exam. Findings as described above. Fatty infiltration of the liver is likely. Electronically Signed by Kenyon Griggs DO 06/05/2019 09:20 A
== END ==
LOC: M RAD 07:31
PROVIDERS: ATTEND Internal Medicine Gastroenterology
DX: K76.0 Fatty (change of) liver, not elsewhere classified (principal); K74.60 Unspecified cirrhosis of liver

== ENCOUNTER → 2019-07-01 | Outpatient (CLI) | payer MEDICARE ==
[2019-07-01 18:41] LABS: BASO % 0.9 % (0.0-1.0); EOS % 0.7 % (0.0-3.0); HEMATOCRIT 30.6 % (36.0-47.0); HEMOGLOBIN 9.8 g/dl (12.0-15.5); LYMPH # 1.1 10^3/uL (1.5-5.0); LYMPH % 25.6 % (24.0-44.0); MEAN CORPUSCULAR HEMOGLOBIN 31.8 pg (27.0-33.0); MEAN CORPUSCULAR VOLUME 99.4 fl (80.0-96.0); MONO # 0.5 10^3/uL (0.0-0.8); MONO % 12.1 % (0.0-5.0); NEUTROPHILS # 2.7 10^3/uL (1.5-8.5); NEUTROPHILS % 60.7 % (36.0-66.0); PLATELET COUNT, AUTOMATED 127 10^3/uL (150-450); RED BLOOD COUNT 3.08 10^6/uL (4.00-5.40); WHITE BLOOD COUNT 4.4 10^3/uL (4.0-10.0)
[2019-07-01 19:09] LABS: PERCENT SATURATION 10.9 % (13.2-45.0)
== END ==
LOC: M LAB 15:58
PROVIDERS: ATTEND Internal Medicine Gastroenterology
DX: D64.9 Anemia, unspecified (principal)

== ENCOUNTER → 2019-08-08 | Outpatient (CLI) | payer MEDICARE ==
--- NOTE | 2019-08-08 14:55 | REP ---
KUB ABDOMEN AND PELVIS: Two KUB films of the abdomen and pelvis performed. Bowel gas pattern is normal with no obstruction. Metallic clip is seen in the right upper quadrant status post cholecystectomy. No other radiopaque foreign body is seen along the course of the GI tract. Electronically Signed by Don Holly MD 08/12/2019 06:36 P
== END ==
LOC: M RAD 13:26
PROVIDERS: ATTEND Internal Medicine Gastroenterology
DX: T18.3XXA Foreign body in small intestine, initial encounter (principal); Y92.89 Other specified places as the place of occurrence of the external cause

== ENCOUNTER → 2019-10-25 | Outpatient (CLI) | payer MEDICARE ==
[~2019-10-25] MED LIST changes: -ASPI81TA85 PO; +ASPI81TA86 PO; +EQ HPAD EX; +OMEP-218 PO; +PROC1AER16 PR
== END ==
LOC: M LABSMTC 10:18
PROVIDERS: ATTEND Anesthesiology
DX: Z01.812 Encounter for preprocedural laboratory examination (principal); Z20.828 Contact with and (suspected) exposure to other viral communicable diseases
CPT/HCPCS: C9803; U0003

== ENCOUNTER 2019-10-30 06:58 | Day surgery (SDC) | payer MEDICARE ==
[~2019-10-30] VITALS: Ht 162.6 cm; Wt 69.6 kg
[~2019-10-30 06:58] MED LIST changes: -EQ HPAD EX; +NS 1,000 ML IV ONE; -PROC1AER16 PR
[2019-10-30] MEDS ORDERED: LIDOCAINE 2% 100MG/5ML SDV (FOR ANES.) As Ordered ONE (08:31)
[2019-10-30] MEDS ORDERED: propofoL 200 MG/20 ML VIAL As Ordered ONE ×2 (08:31→09:01)
[2019-10-30] MEDS ORDERED: GLUCAGON INJ 1MG VIAL As Ordered ONE (08:51)
[2019-10-30 09:28] VITALS: BP 134/29
--- NOTE | 2019-11-05 11:37 | ROOR ---
Patient Name: Claribel Mccain Procedure Date: 10/30/2019 7:36 AM Date of : 1945 Age: 74 Room: [facility] Gender: Female Note Status: Finalized Procedure: Colonoscopy Indications: Therapeutic procedure, Abnormal video capsule endoscopy Providers: Lance FERNANDEZ MD Referring MD: Gricel DONNELLY DO Requesting Provider: Medicines: Monitored Anesthesia Care Complications: No immediate complications. Procedure: Pre-Anesthesia Assessment: - The heart rate, respiratory rate, oxygen saturations, blood pressure, adequacy of pulmonary ventilation, and response to care were monitored throughout the procedure. The Colonoscope was introduced through the anus and advanced to the cecum, identified by appendiceal orifice and ileocecal valve. The colonoscopy was performed without difficulty. The patient tolerated the procedure well. The quality of the bowel preparation was good. Findings: The perianal and digital rectal examinations were normal. Three sessile polyps were found in the hepatic flexure, ascending colon and cecum. The polyps were diminutive in size. These polyps were removed with a cold snare. Resection and retrieval were complete. A single small angioectasia with bleeding on contact was found in the ascending colon. Coagulation for tissue destruction using argon plasma at 0.8 liters/minute and 20 morales was successful. To prevent bleeding post-maneuver, one hemostatic clip was successfully placed. A scattered area of nodular and melanotic mucosa was found from rectum to transverse colon. Biopsies were taken with a cold forceps for histology. Medium sized, non-bleeding rectal varices were found. Impression: - Three diminutive polyps at the hepatic flexure, in the ascending colon and in the cecum, removed with a cold snare. Resected and retrieved. - A single colonic angioectasia. Treated with argon plasma coagulation (APC). Clip was placed. - Mucosa with many small punctate nodularities scattered diffusely from rectum to transverse colon. Biopsied--r/o colitis, r/o melanosis. - Moderate rectal varices. Recommendation: - Telephone endoscopist for pathology results in 2 weeks. Lance Fernandez MD Lance FERNANDEZ MD 10/30/2019 9:14:55 AM Electronically signed by Lance FERNANDEZ MD Number of Addenda: 0 Note Initiated On: 10/30/2019 7:36 AM Estimated Blood Loss: Estimated blood loss: none.
== END 2019-10-30 09:30 | disposition home or self-care (01) ==
LOC: M OPP 06:58
PROVIDERS: ATTEND Internal Medicine Gastroenterology
DX: K55.20 Angiodysplasia of colon without hemorrhage (principal); K63.5 Polyp of colon; K63.89 Other specified diseases of intestine; K64.8 Other hemorrhoids; R93.3 Abnormal findings on diagnostic imaging of other parts of digestive tract; E11.9 Type 2 diabetes mellitus without complications; I10 Essential (primary) hypertension; Z79.82 Long term (current) use of aspirin; Z79.84 Long term (current) use of oral hypoglycemic drugs; Z79.899 Other long term (current) drug therapy; Z88.2 Allergy status to sulfonamides; Z91.041 Radiographic dye allergy status; Z95.5 Presence of coronary angioplasty implant and graft
CPT/HCPCS: 45380; 45382; 45385; 88305; J1610

== ENCOUNTER 2019-11-09 13:28 | Emergency (ER) | payer MEDICARE ==
[~2019-11-09] VITALS: Ht 160 cm; Wt 70.2 kg
[2019-11-09 13:28] VITALS: BP 194/77
[~2019-11-09 13:28] MED LIST changes: -NS 1,000 ML IV ONE
[2019-11-09] MEDS ORDERED: EQ HPAD EX (14:09)
[2019-11-09] MEDS ORDERED: PROC1AER16 PR (14:09)
== END 2019-11-09 14:15 | disposition home or self-care (01) ==
LOC: M ED 13:28
DX: K64.8 Other hemorrhoids (principal); I10 Essential (primary) hypertension; E78.5 Hyperlipidemia, unspecified; Z79.82 Long term (current) use of aspirin; Z79.84 Long term (current) use of oral hypoglycemic drugs; Z79.899 Other long term (current) drug therapy; Z88.1 Allergy status to other antibiotic agents; Z91.041 Radiographic dye allergy status; Z95.818 Presence of other cardiac implants and grafts

== ENCOUNTER → 2019-12-30 | Outpatient (CLI) | payer MEDICARE ==
[~2019-12-30] MED LIST changes: +EQ HPAD EX; +PROC1AER16 PR
[2019-12-30 18:14] LABS: BASO # 0.1 10^3/uL (0.0-0.2); EOS # 0.4 10^3/uL (0.0-0.5); EOS % 8.5 % (0.0-3.0); HEMATOCRIT 33.8 % (36.0-47.0); HEMOGLOBIN 10.7 g/dl (12.0-15.5); LYMPH % 21.3 % (24.0-44.0); MEAN CORPUSCULAR HEMOGLOBIN 31.5 pg (27.0-33.0); MEAN CORPUSCULAR HGB CONC 31.7 g/dl (32.0-36.5); MEAN CORPUSCULAR VOLUME 99.4 fl (80.0-96.0); MONO # 0.6 10^3/uL (0.0-0.8); NEUTROPHILS # 2.8 10^3/uL (1.5-8.5); PLATELET COUNT, AUTOMATED 133 10^3/uL (150-450); WHITE BLOOD COUNT 4.8 10^3/uL (4.0-10.0)
[2019-12-30 20:33] LABS: ALBUMIN 3.7 GM/DL (3.2-5.2); ALT/SGPT 37 U/L (12-78); BILIRUBIN,TOTAL 0.7 MG/DL (0.2-1.0); BLOOD UREA NITROGEN 14 MG/DL (7-18); CALCIUM LEVEL 9.7 MG/DL (8.8-10.2); CARBON DIOXIDE LEVEL 27 MEQ/L (21-32); CHLORIDE LEVEL 110 MEQ/L (98-107); CREATININE FOR GFR 0.76 MG/DL (0.55-1.30); GLOMERULAR FILTRATION RATE > 60.0 (>39); GLUCOSE, FASTING 188 MG/DL (70-100); SODIUM LEVEL 143 MEQ/L (136-145); TOTAL PROTEIN 7.2 GM/DL (6.4-8.2)
== END ==
LOC: M PLALAB 15:21
PROVIDERS: ATTEND Internal Medicine Gastroenterology
DX: K74.60 Unspecified cirrhosis of liver (principal)

== ENCOUNTER → 2020-01-20 | Outpatient (CLI) | payer MEDICARE ==
[~2020-01-20] MED LIST changes: +ECOT81TA5 PO
== END ==
LOC: M LABSMTC 11:54
PROVIDERS: ATTEND Anesthesiology
DX: Z01.812 Encounter for preprocedural laboratory examination (principal); Z20.828 Contact with and (suspected) exposure to other viral communicable diseases; K62.89 Other specified diseases of anus and rectum
CPT/HCPCS: 36415; 80076; 82565; 84520; 85025; 85610; U0002

== ENCOUNTER → 2020-01-20 | Outpatient (CLI) | payer MEDICARE ==
[2020-01-20 12:53] LABS: BASO # 0.1 10^3/uL (0.0-0.2); BASO % 1.2 % (0.0-1.0); EOS % 0.4 % (0.0-3.0); HEMOGLOBIN 11.5 g/dl (12.0-15.5); LYMPH # 0.8 10^3/uL (1.5-5.0); LYMPH % 15.8 % (24.0-44.0); MEAN CORPUSCULAR HEMOGLOBIN 31.9 pg (27.0-33.0); MEAN CORPUSCULAR HGB CONC 31.9 g/dl (32.0-36.5); MONO # 0.6 10^3/uL (0.0-0.8); MONO % 11.6 % (0.0-5.0); NEUTROPHILS # 3.4 10^3/uL (1.5-8.5); PLATELET COUNT, AUTOMATED 139 10^3/uL (150-450); WHITE BLOOD COUNT 4.8 10^3/uL (4.0-10.0)
[2020-01-20 13:09] LABS: INR 1.04; PROTHROMBIN TIME 13.8 SECONDS (12.5-14.3)
[2020-01-20 13:18] LABS: ALBUMIN 3.7 GM/DL (3.2-5.2); ALT/SGPT 46 U/L (12-78); BILIRUBIN,DIRECT 0.1 MG/DL (0.0-0.2); BILIRUBIN,TOTAL 0.5 MG/DL (0.2-1.0); BLOOD UREA NITROGEN 15 MG/DL (7-18); CREATININE FOR GFR 0.88 MG/DL (0.55-1.30); GLOMERULAR FILTRATION RATE > 60.0 (>39); TOTAL PROTEIN 7.4 GM/DL (6.4-8.2)
== END ==
LOC: M PLALAB 09:51
PROVIDERS: ATTEND Internal Medicine Gastroenterology
DX: K62.89 Other specified diseases of anus and rectum (principal)

== ENCOUNTER 2020-01-21 12:59 | Day surgery (SDC) | payer MEDICARE ==
[~2020-01-21] VITALS: Ht 162.6 cm; Wt 68.0 kg
[2020-01-21] MEDS ORDERED: LIDOCAINE 2% 100MG/5ML SDV (FOR ANES.) As Ordered ONE (13:33)
[2020-01-21] MEDS ORDERED: propofoL 200 MG/20 ML VIAL As Ordered ONE (13:33)
--- NOTE | 2020-01-21 15:08 | ROOR ---
Patient Name: Claribel Mccain Procedure Date: 01/21/2020 2:38 PM Date of : 1945 Age: 74 Room: [facility] Gender: Female Note Status: Finalized Procedure: Flexible Sigmoidoscopy Indications: Anal pain, Rectal pain. Failed to respond to empiric lidocaine/nitrobid Providers: Lance FERNANDEZ MD Referring MD: Gricel DONNELLY DO Requesting Provider: Medicines: Monitored Anesthesia Care Complications: No immediate complications. Procedure: Pre-Anesthesia Assessment: - The heart rate, respiratory rate, oxygen saturations, blood pressure, adequacy of pulmonary ventilation, and response to care were monitored throughout the procedure. The Colonoscope was introduced through the anus and advanced to the descending colon. The flexible sigmoidoscopy was accomplished without difficulty. The patient tolerated the procedure well. The quality of the bowel preparation was adequate. Findings: Non thrombosed external Hemorrhoids were found on perianal exam. Medium sized, non-bleeding rectal varices were found. Redundant mucosal fold in mid rectum (right side). (I note that the previously seen mucosal changes have resolved) Impression: - Non thrombosed external hemorrhoids found on perianal exam. - Small/medium rectal varices. - Redundant mucosal/submucosal fold in mid rectum (right side). soft, normal mucosal pattern. (very dubious significance) - The examination was otherwise normal. (I note that the previously seen mucosal changes have resolved) - No specimens collected. Recommendation: - Perform CT scan (computed tomography) of the rectum/pelvis with contrast at the next available appointment. (r/o extrinsic rectal impression) - Will refer to colorectal surgeon to further evauate rectal pain Procedure Code(s): --- Professional --- 69274, Sigmoidoscopy, flexible; diagnostic, including collection of specimen(s) by brushing or washing, when performed (separate procedure) Diagnosis Code(s): --- Professional --- K62.89, Other specified diseases of anus and rectum K64.8, Other hemorrhoids K64.9, Unspecified hemorrhoids CPT copyright 2019 [employer]. All rights reserved. The codes documented in this report are preliminary and upon obstetric anaesthetist review may be revised to meet current compliance requirements. Lance Fernandez MD Lance FERNANDEZ MD 01/21/2020 3:08:19 PM Electronically signed by Lance FERNANDEZ MD Number of Addenda: 0 Note Initiated On: 01/21/2020 2:38 PM Estimated Blood Loss: Estimated blood loss: none.
[2020-01-21 15:15] VITALS: BP 136/78
== END 2020-01-21 15:23 | disposition home or self-care (01) ==
LOC: M OPP 12:59
PROVIDERS: ATTEND Internal Medicine Gastroenterology
DX: K64.8 Other hemorrhoids (principal); K62.89 Other specified diseases of anus and rectum; I10 Essential (primary) hypertension; Z79.82 Long term (current) use of aspirin; Z79.84 Long term (current) use of oral hypoglycemic drugs; Z79.899 Other long term (current) drug therapy; Z86.010 Personal history of colon polyps; Z91.040 Latex allergy status

== ENCOUNTER → 2020-01-26 | Outpatient (CLI) | payer MEDICARE ==
[~2020-01-26] MED LIST changes: +GASTROGRAFIN SOLUTION 30ML (Q9963) As Ordered ONE; +READI-CAT 2 As Ordered ONE
--- NOTE | 2020-01-26 17:08 | REP ---
INDICATION: RECTAL PAIN, BLOOD IN STOOL, EVAL FOR ABSCESS. COMPARISON: 07/23/2018 TECHNIQUE: Oral bowel preparatory contrast only FINDINGS: The lack of intravenous contrast decreases the sensitivity of the exam. There is mild splenomegaly status quo. Limited evaluation of the liver shows no gross abnormality. Limited evaluation of the pancreas shows mild peripancreatic fatty infiltration with thickening of the lateroconal fascia bilaterally. The appearance of this has increased from the prior exam. There is mild thickening of the earl of the jejunum. There is evidence of circumferential thickening of the rectal earl. There is no evidence of free fluid or free air. Borderline para-aortic lymph nodes are again noted. There is no significant change in appearance of the adrenal glands or kidneys. There is no significant change in appearance of the imaged osseous structures. There is no change in the lung bases. IMPRESSION: 1. Splenomegaly unchanged. 2. Peripancreatic fatty infiltration with generalized mesenteric congestion and thickening of the lateroconal fascia bilaterally. Acute pancreatitis cannot be ruled out. 3. Bowel wall thickening, as described above, etiology uncertain correlate clinically. 4. Edema and thickening of the rectal earl. Etiology uncertain. 5. Other findings and limitations as described above. <Electronically signed by Kenyon Griggs > 01/26/20 [id number]
== END ==
LOC: M RAD 14:47
PROVIDERS: ATTEND Internal Medicine Gastroenterology
DX: K61.1 Rectal abscess (principal); K86.81 Exocrine pancreatic insufficiency; K62.89 Other specified diseases of anus and rectum

== ENCOUNTER 2020-01-31 20:37 | Emergency (ER) | payer MEDICARE ==
[~2020-01-31] VITALS: Ht 162.6 cm; Wt 66.8 kg
[~2020-01-31 20:37] MED LIST changes: -GASTROGRAFIN SOLUTION 30ML (Q9963) As Ordered ONE; -READI-CAT 2 As Ordered ONE
[2020-01-31 21:19] LABS: BASO # 0.1 10^3/uL (0.0-0.2); BASO % 0.9 % (0.0-1.0); EOS # 0.2 10^3/uL (0.0-0.5); EOS % 4.4 % (0.0-3.0); HEMATOCRIT 36.4 % (36.0-47.0); LYMPH # 1.1 10^3/uL (1.5-5.0); MEAN CORPUSCULAR HEMOGLOBIN 31.3 pg (27.0-33.0); MEAN CORPUSCULAR VOLUME 94.8 fl (80.0-96.0); MONO # 0.9 10^3/uL (0.0-0.8); MONO % 16.1 % (0.0-5.0); NEUTROPHILS % 57.4 % (36.0-66.0); PLATELET COUNT, AUTOMATED 188 10^3/uL (150-450); RED BLOOD COUNT 3.84 10^6/uL (4.00-5.40); WHITE BLOOD COUNT 5.3 10^3/uL (4.0-10.0)
[2020-01-31 21:42] LABS: ALBUMIN 3.3 GM/DL (3.2-5.2); ALT/SGPT 27 U/L (12-78); BILIRUBIN,DIRECT 0.2 MG/DL (0.0-0.2); BILIRUBIN,TOTAL 0.5 MG/DL (0.2-1.0); BLOOD UREA NITROGEN 11 MG/DL (7-18); CALCIUM LEVEL 9.1 MG/DL (8.8-10.2); CARBON DIOXIDE LEVEL 27 MEQ/L (21-32); CHLORIDE LEVEL 107 MEQ/L (98-107); CREATININE FOR GFR 0.91 MG/DL (0.55-1.30); GLOMERULAR FILTRATION RATE > 60.0 (>39); GLUCOSE, FASTING 220 MG/DL (70-100); LIPASE 178 U/L (73-393); POTASSIUM SERUM 3.7 MEQ/L (3.5-5.1); SODIUM LEVEL 141 MEQ/L (136-145); TOTAL PROTEIN 6.9 GM/DL (6.4-8.2)
[2020-01-31] MEDS ORDERED: MORPHINE 4 MG/ML 1ML VIAL/SYRINGE (J2270) IV ONE (22:00)
--- NOTE | 2020-01-31 22:50 | REPVR ---
PROCEDURE INFORMATION: Exam: CT Abdomen And Pelvis Without Contrast Exam date and time: 01/31/2020 9:55 PM Age: 74 years old Clinical indication: Abdominal pain; Localized; Left upper quadrant (luq); Additional info: Luq, rectal pain TECHNIQUE: Imaging protocol: Computed tomography of the abdomen and pelvis without contrast. Radiation optimization: All CT scans at this facility use at least one of these dose optimization techniques: automated exposure control; mA and/or kV adjustment per patient size (includes targeted exams where dose is matched to clinical indication); or iterative reconstruction. COMPARISON: 1. CT ABD/PEL W/PO CONTRAST ONLY 01/26/2020 4:[address] ABD PELVIS W/O FOL BY WIT 05/13/2014 5:46:56 PM FINDINGS: Lungs: The imaged portions of the lung bases are clear. The lungs were not fully imaged. Heart: No cardiomegaly or pericardial effusion. Mitral annular and coronary artery calcifications are present. Diaphragm: Intact. Liver: The liver has a slightly nodular contour, which may indicate cirrhosis. No liver lesion is identified. No hepatomegaly is noted. Gallbladder and bile ducts: There has been a cholecystectomy. There is no fluid collection in the gallbladder fossa. No dilation of the bile ducts is noted. No calcified stones are seen in the common bile duct. Pancreas: There is fat stranding around the pancreas, which can be seen with acute pancreatitis. There is no evidence for a pseudocyst. No pancreatic mass is seen. No dilation of the main pancreatic duct is noted. Spleen: No splenic lesion is noted. The spleen is enlarged and measures 13.5 cm. Adrenal glands: Normal. No adrenal mass is noted. Kidneys and ureters: There is a 2 mm calculus in the left renal pelvis, which is unchanged compared to the prior CT on 01/26/2020. No calculi are seen in the right kidney or in the ureters. There is no hydronephrosis or hydroureter. No renal lesion is identified. Stomach and bowel: There is thickening of the wall of the rectum and fat stranding around the rectum, which can be seen with proctitis. There is thickening of the wall of the stomach and several loops of small bowel. There is colonic diverticulosis without evidence for diverticulitis. No bowel obstruction is noted. There is a 19 mm linear metallic object in the lumen of the ascending colon which can also be seen in the prior CT abdomen and pelvis on 01/26/2020 (image 29 of the sagittal series 203). Appendix: There are no findings to suggest acute appendicitis. Intraperitoneal space: No free air or abscess is noted. Retroperitoneal space: There is retroperitoneal fat stranding that is similar in appearance compared to the prior CT abdomen and pelvis on 01/26/2020. No retroperitoneal fluid collection or mass is identified. Vasculature: The abdominal aorta is normal in caliber. There are mild atherosclerotic calcifications. There is recanalization of the umbilical vein. Internal hemorrhoidal varices are noted. Incidental note is made of a circumaortic left renal vein. Incidental note is made of small round calcifications in the pelvis, which are compatible with phleboliths. Lymph nodes: No enlarged lymph nodes. Urinary bladder: The distended urinary bladder is normal in appearance. No stones or masses are seen in the bladder. Reproductive: The uterus is anterverted and unremarkable. The ovaries are unremarkable. Bones/joints: There is no fracture or dislocation. No suspicious osteolytic or osteoblastic lesion. There are degenerative changes involving the lumbar spine. Soft tissues: There is a tiny fat containing umbilical hernia. IMPRESSION: 1. Inflammatory fat stranding around the pancreas, which can be seen with acute pancreatitis. No abscess or pseudocyst. 2. Proctitis. 3. Thickening of the wall of the stomach and small bowel, which may indicate gastroenteritis or a portal hypertensive gastroenteropathy. 4. Colonic diverticulosis without evidence for diverticulitis. 5. Slightly nodular contour of the liver, which may indicate cirrhosis. 6. Evidence for portal hypertension, with recanalization of the umbilical vein, splenomegaly, and internal hemorrhoidal varices. 7. Retroperitoneal fat stranding that is similar in appearance compared to the prior CT abdomen and pelvis on 01/26/2020 and may represent retroperitoneal fibrosis or retroperitoneal inflammatory changes. 8. Nonobstructive left nephrolithiasis. 9. 19 mm linear metallic object in the lumen of the ascending colon which can also be seen in the prior CT abdomen and pelvis on 01/26/2020 and should be correlated with the patient's ingestion history. Electronically signed by: Basilio West On 01/31/2020 22:51:01 PM
[2020-01-31] MEDS ORDERED: DICYCLOMINE 10 MG CAP PO ONE (23:30)
[2020-01-31 23:38] LABS: BILIRUBIN, URINE MANUAL NEGATIVE (NEGATIVE); GLUCOSE, URINE (UA) MANUAL 4+(1000 MG/DL) mg/dL (NEGATIVE); KETONE, URINE MANUAL 1+ mg/dL (NEGATIVE); UROBILINOGEN, URINE MANUAL NORMAL (NORMAL)
[2020-01-31 23:42] LABS: RBC, URINE 0-1 /hpf (0-3); SQUAMOUS EPITHELIAL CELL URINE SMALL AMOUNT /hpf (SMALL AMT)
[2020-01-31 23:44] LABS: HYALINE CAST, URINE NONE SEEN /lpf (0-1); YEAST, URINE SMALL AMOUNT
[2020-01-31 23:45] LABS: BACTERIA, URINE SMALL AMOUNT
[2020-01-31] MEDS ORDERED: AMITRIPTYLINE 10 MG TAB PO ONE (23:45)
[2020-02-01] MEDS ORDERED: AMIT10TA PO (00:03)
[2020-02-01] MEDS ORDERED: DICY10CA13 PO (00:04)
[2020-02-01] MEDS ORDERED: PERC5TAB12 PO (00:05)
[2020-02-01 00:24] VITALS: BP 136/72
--- NOTE | 2020-02-01 06:31 | ED PDOC ---
Post-Departure Follow-Up jaison [facility] and andre faxed formal report of ct abd/p for fu Ray Sena MD Feb 01, 2020 06:31
== END 2020-02-01 00:25 | disposition home or self-care (01) ==
LOC: M ED 20:37
DX: K62.89 Other specified diseases of anus and rectum (principal); E11.9 Type 2 diabetes mellitus without complications; I10 Essential (primary) hypertension; E78.9 Disorder of lipoprotein metabolism, unspecified; Z79.899 Other long term (current) drug therapy; Z79.84 Long term (current) use of oral hypoglycemic drugs; Z79.82 Long term (current) use of aspirin; Z88.1 Allergy status to other antibiotic agents; Z88.2 Allergy status to sulfonamides; Z91.041 Radiographic dye allergy status
CPT/HCPCS: 74176; 80048; 80076; 81000; 83690; 85025; 87086; 93041; 96374; 99285; J2270

== ENCOUNTER 2020-06-26 18:30 | Emergency (ER) | payer MEDICARE ==
[~2020-06-26] VITALS: Ht 160 cm; Wt 68.6 kg
[~2020-06-26 18:30] MED LIST changes: +AMIT10TA7 PO; +DICY10CA13 PO; +PERC5TAB12 PO
[2020-06-26 19:37] LABS: BASO # 0.1 10^3/uL (0.0-0.2); BASO % 0.9 % (0.0-1.0); EOS # 0.6 10^3/uL (0.0-0.5); EOS % 11.5 % (0.0-3.0); HEMOGLOBIN 12.1 g/dl (12.0-15.5); LYMPH # 1.5 10^3/uL (1.5-5.0); LYMPH % 28.6 % (24.0-44.0); MEAN CORPUSCULAR HEMOGLOBIN 32.6 pg (27.0-33.0); MEAN CORPUSCULAR HGB CONC 33.6 g/dl (32.0-36.5); MONO # 0.6 10^3/uL (0.0-0.8); MONO % 10.5 % (2.0-8.0); NEUTROPHILS # 2.6 10^3/uL (1.5-8.5); NEUTROPHILS % 48.1 % (36.0-66.0); PLATELET COUNT, AUTOMATED 131 10^3/uL (150-450); RED BLOOD COUNT 3.71 10^6/uL (4.00-5.40); WHITE BLOOD COUNT 5.3 10^3/uL (4.0-10.0)
[2020-06-26 20:06] LABS: ALBUMIN 3.8 GM/DL (3.2-5.2); BILIRUBIN,DIRECT 0.3 MG/DL (0.0-0.2); BILIRUBIN,TOTAL 0.8 MG/DL (0.2-1.0); TOTAL PROTEIN 7.5 GM/DL (6.4-8.2)
[2020-06-26 20:18] LABS: INR 1.11; PROTHROMBIN TIME 14.5 SECONDS (12.5-14.3)
[2020-06-26] MEDS ORDERED: COLA100C5 PO (20:46)
[2020-06-26] MEDS ORDERED: PROC1CRE TOP (20:46)
[2020-06-26 20:55] VITALS: BP 155/71
== END 2020-06-26 20:59 | disposition home or self-care (01) ==
LOC: M ED 18:30
DX: K64.8 Other hemorrhoids (principal); E11.9 Type 2 diabetes mellitus without complications; I10 Essential (primary) hypertension; E78.5 Hyperlipidemia, unspecified; K21.9 Gastro-esophageal reflux disease without esophagitis; Z79.82 Long term (current) use of aspirin; Z88.1 Allergy status to other antibiotic agents; Z88.2 Allergy status to sulfonamides; Z91.041 Radiographic dye allergy status

== ENCOUNTER → 2020-07-29 | Outpatient (CLI) | payer MEDICARE ==
[~2020-07-29] MED LIST changes: +COLA100C5 PO; +PROC1CRE TOP
[2020-07-29 13:33] LABS: BASO # 0.1 10^3/uL (0.0-0.2); BASO % 1.3 % (0.0-1.0); EOS # 0.5 10^3/uL (0.0-0.5); EOS % 11.4 % (0.0-3.0); HEMATOCRIT 35.9 % (36.0-47.0); HEMOGLOBIN 11.5 g/dl (12.0-15.5); LYMPH % 26.3 % (24.0-44.0); MEAN CORPUSCULAR HEMOGLOBIN 31.8 pg (27.0-33.0); MEAN CORPUSCULAR VOLUME 99.2 fl (80.0-96.0); MONO # 0.4 10^3/uL (0.0-0.8); MONO % 11.1 % (2.0-8.0); NEUTROPHILS % 49.4 % (36.0-66.0); PLATELET COUNT, AUTOMATED 117 10^3/uL (150-450); RED BLOOD COUNT 3.62 10^6/uL (4.00-5.40)
[2020-07-29 14:10] LABS: ALBUMIN 3.7 GM/DL (3.2-5.2); ALT/SGPT 35 U/L (12-78); BILIRUBIN,TOTAL 0.7 MG/DL (0.2-1.0); BLOOD UREA NITROGEN 19 MG/DL (7-18); CALCIUM LEVEL 9.6 MG/DL (8.8-10.2); CARBON DIOXIDE LEVEL 25 MEQ/L (21-32); CHLORIDE LEVEL 110 MEQ/L (98-107); CHOLESTEROL LEVEL 161 MG/DL (<200); CREATININE FOR GFR 0.81 MG/DL (0.55-1.30); FERRITIN 32 NG/ML (8-252); FREE T4 0.97 NG/DL (0.76-1.46); GLOMERULAR FILTRATION RATE > 60.0 (>39); GLUCOSE, FASTING 156 MG/DL (70-100); HDL CHOLESTEROL 50 MG/DL (>40); IRON (FE) 57 UG/DL (50-170); LDL CHOLESTEROL 75 MG/DL (<100); NON-HDL-C 111 MG/DL; PERCENT SATURATION 12.7 % (13.2-45.0); POTASSIUM SERUM 4.1 MEQ/L (3.5-5.1); SODIUM LEVEL 142 MEQ/L (136-145); TOTAL IRON BINDING CAPACITY 448 UG/DL (250-450); TOTAL PROTEIN 7.2 GM/DL (6.4-8.2); TRIGLYCERIDES LEVEL 179 MG/DL (<150)
[2020-07-29 14:29] LABS: HEMOGLOBIN A1c 7.8 %
== END ==
LOC: M PLALAB 09:48
PROVIDERS: ATTEND Physician Assistant
DX: E11.65 Type 2 diabetes mellitus with hyperglycemia (principal); D50.9 Iron deficiency anemia, unspecified; E78.2 Mixed hyperlipidemia

== ENCOUNTER → 2020-08-13 | Outpatient (REF) | payer MEDICARE ==
[~2020-08-13] MED LIST changes: +OMEP40CA4 PO; -OMEP40CA97 PO
== END ==
LOC: M LAB REF 15:21
PROVIDERS: ATTEND Physician Assistant
DX: L02.412 Cutaneous abscess of left axilla (principal)

== ENCOUNTER → 2020-09-23 | Outpatient (CLI) | payer MEDICARE ==
--- NOTE | 2020-09-23 09:34 | REP ---
INDICATION: CIRRHOSIS- LABS FIRST. COMPARISON: CT 01/31/2020, hepatic ultrasound 06/05/2019 TECHNIQUE: Transabdominal right upper quadrant scanning with some color flow imaging also performed. FINDINGS: The liver is homogeneous but has coarsened echotexture. Mildly prominent left hepatic lobe but no visible mass, intrahepatic biliary dilatation, cyst or perihepatic ascites. The gallbladder is surgically absent. The common duct is 8.6 mm, normal for post cholecystectomy. Pancreas is limited in its evaluation due to gas shadowing. Those portions seen were unremarkable. The right kidney is 12.4 x 5.6 x 6 cm and without hydronephrosis or stone. Visualized aorta unremarkable. No upper abdominal ascites. IMPRESSION: 1. Findings consistent with a chronic liver disease as before. No hepatic mass, biliary dilatation or ascites. 2. Common duct normal for post cholecystectomy patient. Visualized pancreas unremarkable. Right kidney intact. <Electronically signed by Casey Hidalgo > 09/23/20 [id number]
[2020-09-23 09:46] LABS: ALBUMIN 3.6 GM/DL (3.2-5.2); BILIRUBIN,DIRECT 0.3 MG/DL (0.0-0.2); TOTAL PROTEIN 7.2 GM/DL (6.4-8.2)
== END ==
LOC: M RAD 08:43
PROVIDERS: ATTEND Internal Medicine Gastroenterology
DX: K74.69 Other cirrhosis of liver (principal); K75.81 Nonalcoholic steatohepatitis (NASH)

== ENCOUNTER → 2020-11-25 | Outpatient (CLI) | payer MEDICARE ==
--- NOTE | 2020-11-25 10:37 | REP ---
INDICATION: OTH DISORDERS OF CIRCULATORY SYSTEM COMPARISON: None. TECHNIQUE: Real-time ultrasound evaluation and duplex Doppler interrogation of the extracranial carotid vasculature is performed. FINDINGS: Antegrade flow is observed in both vertebral arteries. Right carotid: The right common carotid artery shows diffuse intimal thickening but is otherwise unremarkable. There ismild mixed plaquing in the right carotid bulb and proximal ICA on two-dimensional scanning. Color flow and spectral Doppler interrogation are unremarkable on the right. Velocity chart right carotid: Right CCA PSV: 76 cm/S Right ICA PSV: 84 cm/S Right ICA EDV: 18 cm/S Right ECA PSV: 144 cm/S Right ICA/CCA ratio: 1.1 Left carotid: The left common carotid artery shows diffuse intimal thickening but is otherwise unremarkable. There is mild mixed plaquing in the left carotid bulb and proximal ICA on two-dimensional scanning. Color flow and spectral Doppler interrogation are unremarkable on the left. Velocity chart left carotid: Left CCA PSV: 64 cm/S Left ICA PSV: 49 cm/S Left ICA EDV: 11 cm/S Left ECA PSV: 59 cm/S Left ICA/CCA ratio: 0.77 IMPRESSION: Less than 50% category narrowing in the right internal carotid artery by Doppler velocity criteria. Less than 50% category narrowing in the left ICA by Doppler velocity criteria. <Electronically signed by Eddie Hartley > 11/25/20 [id number]
== END ==
LOC: M RAD 09:47
PROVIDERS: ATTEND Family Medicine
DX: I65.21 Occlusion and stenosis of right carotid artery (principal)

== ENCOUNTER → 2021-01-22 | Outpatient (CLI) | payer MEDICARE | LOC: M LABSMTC 11:43 | PROVIDERS: ATTEND Anesthesiology | DX: Z01.818 Encounter for other preprocedural examination (principal); Z11.52 Encounter for screening for COVID-19 ==

== ENCOUNTER 2021-01-27 07:10 | Day surgery (SDC) | payer MEDICARE ==
[~2021-01-27] VITALS: Ht 160 cm; Wt 71.2 kg
[~2021-01-27 07:10] MED LIST changes: +NS 1,000 ML IV ONE
--- OUTSIDE RECORDS SUMMARY | 2021-01-27 07:15 | CCD | Continuity of Care Document ---
Author Author Claribel CHARLES PA Organization Unknown Address [address] [facility] [address] [place] [address] Phone [phone] Care Team Providers Care Fabric Machine Operator Name Role Phone Gricel Granados D.O. AUTM [phone] Jeovanny Mckeon M.D. AUTM [phone] Abad Hill M.D. AUTM [phone] Antoni Salazar M.D. AUTM [phone] [facility] AUTM Problems Active Problems Provider Date Epigastric pain Gricel Granados D.O. Onset: 2015 Type II diabetes mellitus uncontrolled Gricel Granados D.O. Onset: 05/18/2015 Hyperlipidemia Gricel Granados D.O. Onset: 2015 Iron deficiency anemia Gricel Granados D.O. Onset: Cobalamin deficiency Gricel Granados D.O. Onset: 05/17 Atherosclerotic heart disease of [place] coronary arter y without angina pectoris Gricel Granados D.O. Onset: 05/18/2015 Gastroesophageal reflux disease Gricel Granados D.O. O nset: 05/18/2015 Nonalcoholic steatohepatitis ([place]) Hannah Martinez Onset: 05/18/2015 Screening mammography Gricel Granados D.O. Onset: 04/27 Candidal vulvovaginitis Gricel Granados D.O. Onset: Mixed hyperlipidemia Gricel Granados D.O. Onset: 06/21 Helicobacter pylori Gricel Granados D.O. Onset: 2015 Low back pain Gricel Granados D.O. Onset: 2015 Pain in thoracic spine Gricel Granados D.O. Onset: 07/2015 Degenerative joint disease involving multiple joints Gricel Ibarra D.O. Onset: 07/09/2015 Cirrhosis of liver Gricel Granados D.O. Onset: 2015 Disorder of urinary tract Gricel Granados D.O. Onset: 07/22/2015 Impacted cerumen Gricel Granados D.O. 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 Onset: 05/03/2016 Portal hypertensive gastropathy Gricel Granados D.O. O nset: 05/03/2016 Note: Endoscopy Dr. Fernandez 05/02/16 Diabetic retinopathy LAILA Vaughan Onset: 10/06/2016 Social History Type Date Description Comments Sex Unknown ETOH Use Rarely consumes alcohol Tobacco Use Start: Unknown Patient has never smoked Recreational Drug Use Denies Drug Use Smoking Status Reviewed: 11/18/20 Patient has never smoked Exercise Type/Frequency Walks daily 3-5 mile s Sun Exposure Uses sunscreen Seat Belt/Car Seat Always uses seat belt Allergies, Adverse Reactions, Alerts Active Allergies Criticality Reaction | Severity Comments Date Bactrim Unable to assess criticality Contact dermatitis | Mode rate 01/17/2016 Sulfa Unable to assess criticality 12/10/2018 Inactive Allergies NKDA Unable to assess criticality 05/11/2015 Medications Active Medications SIG Qnty Indications Ordering Provide r Date Proctocort 30mg Suppository 1 by rectum nightly as needed. 12units Gricel Granados D.O. Farxiga 10mg Tablets 1 by mouth every day 90tabs E11.65 Hannah MartinezOPop 09/22/2016 Rosuvastatin Calcium 40mg Tablets take one tablet by mouth every night at bedtime 90tabs E78.2 Hannah ManningOPop 06/22/[address] take 1 capsule by mouth twice daily 180caps K21.9 Hannah MartinezOPop 05/18/2015 Irbesartan 150mg Tablets 1 by mouth every day 90tabs Hannah MartinezOPop 05/10 Propranolol HCL 40mg Tablets 2 tablet by mouth twice daily 120tabs Hannah MartinezOPop Ferrous Sulfate 324(65Fe) mg Table ts DR 2 tablets by mouth daily Hannah MartinezO Pop 05/11/2015 Metformin HCL 1000mg Tablets take 1 tablet by mouth twice a day with meals 180tabs Hannah WilsonOPop 05/11/2015 Aspirin Ec 81mg Tablets DR 1 by mouth every day 90tabs Hannah MartinezOPop 05/10 Calcium + D3 [id number] Tablet s 1 by mouth every day Gricel Granados D.O. 05/10 Acetaminophen 500mg Tablets 1 tab by mouth twice a day for pain Unknown Glimepiride 4mg Tablets 1 by mouth twice a day 180tabs Hannah MartinezOPop History Medications Doxycycline Monohydrate 100mg Tabl ets 1 tab by mouth twice a day until gone 20tabs L02.412 Hannah LiceaOPop 08/13/2020 - 11/18/2020 Immunizations CPT Code Status Date Vaccine Lot # [id number] Given 12/14/2016 Influenza Vaccin e Quadrivalent Preser/Antibiotic Free Im Use [id number] Vital Signs Date Vital Result Comment 11/22/2020 9:22am BP Systolic 132 mmHg BP Diastolic 68 mmHg Height 63 inches 5'3" Weight 156.50 lb BMI (Body Mass Index) 27.7 kg/m2 Heart Rate 56 /min Respiratory Rate 18 /min Body Temperature 97.1 F O2 % BldC Oximetry 99 % [place] Body Weight 115 lb 11/18/2020 9:21am BP Systolic 118 mmHg BP Diastolic 76 mmHg Height 63 inches 5'3" Weight 161.00 lb BMI (Body Mass Index) 28.5 kg/m2 Heart Rate 57 /min Respiratory Rate 18 /min Body Temperature 98.0 F O2 % BldC Oximetry 99 % [place] Body Weight 115 lb Results Test Acquired Date Facility Test Result H/L Range Note Liver Profile 09/23/2020 [facility] Outpatient Testi ng (Registration) [address] [place], [place] [address] [phone] Ast/Sgot 41 U/L High 7-37 Alt/SGPT 45 U/L Normal 12-78 Alkaline Phosphatase 117 U/L Normal 45-117 Bilirubin,Total 1.0 mg/dL Normal 0.2-1.0 Bilirubin,Direct 0.3 mg/dL High 0.0-0.2 Total Protein 7.2 GM/DL Normal 6.4-8.2 Albumin 3.6 GM/DL Normal 3.2-5.2 Albumin/Globulin Ratio 1.0 Low 1.2-2.2 Laboratory test finding 09/23/2020 [facility] Outpatient T esting (Registration) [address] [place] [address] [phone] Alpha Fetoprotein Tumor Quant 2.6 NG/ML Normal <8 .1 1 Abscess Culture And Gram Stain 08/13/2020 [facility] Outpa tient Testing (Registration) [address] [place] [address] [phone] Gram Stain (SEE NOTE) Normal 2 Abscess Culture FULL REPORT IN L <SEE NOTE> Normal 3 Comprehensive Metabolic Profil 07/29/2020 [facility] Outpa tient Testing (Registration) [address] [place] [address] [phone] Glucose, Fasting 156 mg/dL High 70-100 Blood Urea Nitrogen 19 mg/dL High 7-18 Creatinine For GFR 0.81 mg/dL Normal 0.55-1.30 Glomerular Filtration Rate > 60.0 Normal >39 4 Sodium Level 142 mEq/L Normal 136-145 Potassium Serum 4.1 mEq/L Normal 3.5-5.1 Chloride Level 110 mEq/L High 98-107 Carbon Dioxide Level 25 mEq/L Normal 21-32 Anion Gap 7 mEq/L Low 8-16 Calcium Level 9.6 mg/dL Normal 8.8-10.2 Ast/Sgot 38 U/L High 7-37 Alt/SGPT 35 U/L Normal 12-78 Alkaline Phosphatase 93 U/L Normal 45-117 Bilirubin,Total 0.7 mg/dL Normal 0.2-1.0 Total Protein 7.2 GM/DL Normal 6.4-8.2 Albumin 3.7 GM/DL Normal 3.2-5.2 Albumin/Globulin Ratio 1.1 Low 1.2-2.2 CBC With Differential 07/29/2020 [facility] Outpatient Verito ting (Registration) [address] [place] [address] [phone] White Blood Count 4.0 10 Normal 4.0-10.0 Red Blood Count 3.62 10 Low 4.00-5.40 Hemoglobin 11.5 g/dL Low 12.0-15.5 Hematocrit 35.9 % Low 36.0-47.0 Mean Corpuscular Volume 99.2 fl High 80.0-96.0 Mean Corpuscular Hemoglobin 31.8 pg Normal 27.0-33.0 Mean Corpuscular HGB Conc 32.0 g/dL Normal 32.0-36.5 Red Cell Distribution Width 13.3 % Normal 11.5-14.5 Platelet Count, Automated 117 10 Low 150-450 Neutrophils % 49.4 % Normal 36.0-66.0 Lymph % 26.3 % Normal 24.0-44.0 Darke % 11.1 % High 2.0-8.0 Eos % 11.4 % High 0.0-3.0 Baso % 1.3 % High 0.0-1.0 Immature Granulocyte % 0.5 % Normal 0-3.0 Nucleated Red Blood Cell % 0.0 % Normal 0-0 Neutrophils # 2.0 10 Normal 1.5-8.5 Lymph # 1.0 10 Low 1.5-5.0 Darke # 0.4 10 Normal 0.0-0.8 Eos # 0.5 10 Normal 0.0-0.5 Baso # 0.1 10 Normal 0.0-0.2 Total Iron Binding Capacit 07/29/2020 [facility] Outpatien t Testing (Registration) [address] [place] [address] [phone] Iron (Fe) 57 g/dL Normal 50-170 Total Iron Binding Capacity 448 g/dL Normal 250-450 Percent Saturation 12.7 % Low 13.2-45.0 Laboratory test finding 07/29/2020 [facility] Outpatient T esting (Registration) [address] [id number] [phone] Ferritin 32 NG/ML Normal 8-252 Hemoglobin A1c 07/29/2020 [facility] Outpatient Testi ng (Registration) [address] [place] [address] [phone] Hemoglobin A1c 7.8 % Normal 5 Estimated Average Glucose 177 mg/dL High 60-110 Lipid Panel 07/29/2020 [facility] Outpatient Testi ng (Registration) [address] [place] [address] [phone] Triglycerides Level 179 mg/dL High <150 Cholesterol Level 161 mg/dL Normal <200 HDL Cholesterol 50 mg/dL Normal >40 LDL Cholesterol 75 mg/dL Normal <100 Non-HDL-C 111 mg/dL Normal Cholesterol Risk Ratio 3.220 Normal <5 FT4&TSH Panel 07/29/2020 [facility] Outpatient Testi ng (Registration) [address] [place] [address] [phone] Thyroid Stimulating Hormone 1.090 uIU/ML Normal 0. 358-3.740 Free T4 0.97 ng/dL Normal 0.76-1.46 Istat Chem8+ Panel 06/26/2020 [facility] Outpatient Testi ng (Registration) [address] [place] [address] [phone] iSTAT HCT 29.0 % Low 38.0-51.0 iSTAT Glucose 177 mg/dL High 70-105 iSTAT Sodium 139 mEq/L Normal 136-145 iSTAT Potassium 4.7 mEq/L Normal 3.5-5.1 iSTAT CA++ 4.5 mg/dL Normal 4.5-5.3 iSTAT Chloride 108 mEq/L Normal 98-109 iSTAT Co2 26.0 MM/L Normal 23.0-27.0 iSTAT BUN 29 mg/dL High 8-26 iSTAT Creatinine 0.8 mg/dL Normal 0.6-1.3 CBC With Differential 06/26/2020 [facility] Outpatient Verito ting (Registration) [address] [place], [place] [phone] White Blood Count 5.3 10 Normal 4.0-10.0 Red Blood Count 3.71 10 Low 4.00-5.40 Hemoglobin 12.1 g/dL Normal 12.0-15.5 Hematocrit 36.0 % Normal 36.0-47.0 Mean Corpuscular Volume 97.0 fl High 80.0-96.0 Mean Corpuscular Hemoglobin 32.6 pg Normal 27.0-33.0 Mean Corpuscular HGB Conc 33.6 g/dL Normal 32.0-36.5 Red Cell Distribution Width 13.1 % Normal 11.5-14.5 Platelet Count, Automated 131 10 Low 150-450 Neutrophils % 48.1 % Normal 36.0-66.0 Lymph % 28.6 % Normal 24.0-44.0 Darke % 10.5 % High 2.0-8.0 Eos % 11.5 % High 0.0-3.0 Baso % 0.9 % Normal 0.0-1.0 Immature Granulocyte % 0.4 % Normal 0-3.0 Nucleated Red Blood Cell % 0.0 % Normal 0-0 Neutrophils # 2.6 10 Normal 1.5-8.5 Lymph # 1.5 10 Normal 1.5-5.0 Darke # 0.6 10 Normal 0.0-0.8 Eos # 0.6 10 High 0.0-0.5 Baso # 0.1 10 Normal 0.0-0.2 Liver Profile 06/26/2020 [facility] Outpatient Testi ng (Registration) [address] [place] [address] [phone] Ast/Sgot 28 U/L Normal 7-37 Alt/SGPT 35 U/L Normal 12-78 Alkaline Phosphatase 96 U/L Normal 45-117 Bilirubin,Total 0.8 mg/dL Normal 0.2-1.0 Bilirubin,Direct 0.3 mg/dL High 0.0-0.2 Total Protein 7.5 GM/DL Normal 6.4-8.2 Albumin 3.8 GM/DL Normal 3.2-5.2 Albumin/Globulin Ratio 1.0 Low 1.2-2.2 Prothrombin Time/Inr 06/26/2020 [facility] Outpatient Test ing (Registration) [address] [place] [address] [phone] Prothrombin Time 14.5 seconds High 12.5-14.3 Inr 1.11 Normal 6 Laboratory test finding 06/26/2020 [facility] Outpatient T esting (Registration) [address] [place], [place] [phone] Partial Thromboplastin Time 34.0 seconds Normal 24 .2-38.5 1 THE AFP ASSAY IS PERFORMED O N THE [employer] | [employer] BY CHEMILUMINESCENCE AND SHOULD NOT BE COMPARED INTERCHANGEABLY WITH OTHER METHODS. IT SHOULD NOT BE USED ALONE A SCREENING TEST OR DIAGNOSIS FOR THE PRESENCE OR ABSENCE OF MALIGNANT DISEASE. THESE RESULTS ARE NOT INTERPRETABLE IN FEMALES. PREDICTIONS OF DISEASE RECURRENCE SHOULD NOT BE BASED SOLELY ON VALUES OBTAINED FROM SERIAL PATIENT SERUM VALUES. 2 FEW WBCS NO ORGANISMS SEEN 3 FULL REPORT IN LAB NOTES (eC W and Medpravin). ORGANISM 1: STAPHYLOCOCCUS AUREUS QUANTITY OF GROWTH MODERATE ORGANISM 1: STAPHYLOCOCCUS AUREUS STAPHYLOCOCCUS AUREUS: REACTION ICR (INDUCIBLE CC RESISTANCE) IV ICR TEST RESULT TETRACYCLINE PO 250 mg qid <=1 S PENICILLIN G IV 1 mu q6H 0.12 R PENICILLIN G IV 1 mu q6h 0.12 R PENICILLIN G PO 250mg q6h fasting 0.12 R TRIMETHOPRIM/SULFAMETHOXAZOLE IV 160mg TMP & 800mg SMXq6h <=10 S TRIMETHOPRIM/SULFAMETHOXAZOLE PO Bactrim DS Bid <=10 S ERYTHROMYCIN IV 500mg q6h >=8 R ERYTHROMYCIN PO 500mg q6h >=8 R GENTAMICIN IV 80mg q8h <=0.5 S CLINDAMYCIN IV 600mg q6h >=4 R CLINDAMYCIN PO 150mg q6h >=4 R OXACILLIN IV 500mg q6h 0.5 S VANCOMYCIN IV 500mg q8h <=0.5 S LINEZOLID (ZYVOX) IV 600MG Q12HR 2 S LINEZOLID (ZYVOX) PO 600MG Q12HR 2 S An isolate with a (+) POSITIVE ICR test is considered CLINDAMYCIN RESISTANT; however, clindamycin may still be effective in some patients. An isolate with a (-) NEGATIVE ICR test is considered CLIDAMYCIN SENSITIVE. Oxacillin result predicts susceptibility to all penicillinase-stable penicillins (Nafcillin, Dicloxacilin), Cephalosporins, Carbapenems, Amoxicillin/Clavulanate & Ampicillin/Sulbactam per CSLI standards. 4 Units are mL/min/1.73 m2 Chronic Kidney Disease Staging per NKF: Stage I & II GFR >=60 Normal to Mildly Decreased Stage III GFR 30-59 Moderately Decreased Stage IV GFR 15-29 Severely Decreased Stage V GFR <15 Very Little GFR Left ESRD GFR <15 on CASHIER AND SALESPERSON 5 REFERENCE RANGES: <=5.6% NORMAL 5.7-6.4% SUGGESTS IMPAIRED GLUCOSE META BOLISM/PREDIABETIC >= 6.5% ABNORMAL 6 THERAPUTIC HUMAN INR VALUES INDICATIONS NORMAL RANGES PROPHYLAXIS/TREATMENT OF: VENOUS THROMBOSIS 2.0-3.0 PULMONARY EMBOLISM 2.0-3.0 PREVENTION OF SYSTEMIC EMBOLISM FROM: TISSUE HEART VALVES 2.0-3.0 ACUTE MYOCARDIAL INFARCTION 2.0-3.0 VALVULAR HEART DISEASE 2.0-3.0 ATRIAL FIBRILLATION 2.0-3.0 MECHANICAL VALVES(HIGH RISK) 2.5-3.5 RECURRENT MYOCARDIAL INFARCTION 2.5-3.5 Procedures Date Code Description Status 11/22/2020 96843 Office/Outpatient Established Lo w MDM 20-29 Min Completed 11/22/2020 10453 Remove Impact Cerumen Irrigati C ompleted 11/18/2020 32303 Office/Outpatient Established Mo d MDM 30-39 Min Completed 08/13/2020 46264 Office/Outpatient Established Lo w MDM 20-29 Min Completed 08/13/2020 16408 I & D Abscess Simple Completed 07/29/2020 24496 Office/Outpatient Established Mo d MDM 30-39 Min Completed Medical Devices Description No Information Available Encounters Type Date Location Provider Dx Diagnosis Office Visit 11/22/2020 9:20a Family Medicine [facility] LAILA Vaughan H61.23 Impacted cerumen, bilateral H93.13 Tinnitus, bilateral Office Visit 11/18/2020 9:20a Family [facility] Gricel Granados D.O. E11.65 Type 2 diabetes mellitus wit h hyperglycemia E78.2 Mixed hyperlipidemia K74.60 Unspecified cirrhosis of janice er D50.9 Iron deficiency anemia, unsp ecified D51.3 Other dietary vitamin B12 de ficiency anemia I25.10 Athscl heart disease of [place] ve coronary artery w/o renaldo pctrs Z88.1 Allergy status to other anti biotic agents Z79.899 Other [facility] (current) dr ibis therapy Z79.82 shelter (current) use of a spirin Z79.84 shelter (current) use of o ral hypoglycemic drugs Z12.31 Encntr screen mammogram for malignant neoplasm of breast Z13.820 Encounter for screening for osteoporosis I99.8 Other disorder of skirt panel assembler y system Office Visit 08/13/2020 11:20a Family Medicine [facility] LAILA Vaughan L02.412 Cutaneous abscess of left ax illa Office Visit 07/29/2020 10:40a [facility] LAILA Vaughan E11.65 Type 2 diabetes mellitus wit h hyperglycemia E78.2 Mixed hyperlipidemia K74.60 Unspecified cirrhosis of janice er D50.9 Iron deficiency anemia, unsp ecified D51.3 Other dietary vitamin B12 de ficiency anemia I25.10 Athscl heart disease of [place] ve coronary artery w/o renaldo pctrs Z12.31 Encntr screen mammogram for malignant neoplasm of breast Assessments Date Code Description Provider 11/22/2020 H61.23 Impacted cerumen, bilateral Ricardo Charles, LAILA 11/22/2020 H93.13 Tinnitus, bilateral Carlo florez, LAILA 11/18/2020 E11.65 Type 2 diabetes mellitus with hy perglycemia Gricel Garcia D.O. 11/18/2020 E78.2 Mixed hyperlipidemia Gricel Khan D.O. 11/18/2020 K74.60 Unspecified cirrhosis of liver J willie Granados, D.O. 11/18/2020 D50.9 Iron deficiency anemia, unspecif ied Gricel Granados D.O. 11/18/2020 D51.3 Other dietary vitamin B12 defici ency anemia Gricel Garcia D.O. 11/18/2020 I25.10 Atherosclerotic hear t disease of [place] coronary artery without angina pectoris Vania Martinez.O. 11/18/2020 Z88.1 Allergy status to other antibiot ic agents Gricel Salesber, D.O. 11/18/2020 Z79.899 Other filler leaf cutter long (current) drug t herapy Gricel QuesadaJosse D.O. 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 Gricel SalesVania tate.OPop 11/18/2020 Z79.84 shelter (current) use of oral hypoglycemic drugs Gricel CoelhoOscar D.OPop 11/18/2020 Z12.31 Encounter for screen ing mammogram for malignant neoplasm of breast Gricel QuesadaJosse D.OPop 11/18/2020 Z13.820 Encounter for screening for oste oporosis Gricel Garcia D.OPop 11/18/2020 I99.8 Other disorder of circulatory sy stem Gricel DipakOscar D.OPop 08/13/2020 L02.412 Cutaneous abscess of left axilla LAILA Vaughan 07/29/2020 E11.65 Type 2 diabetes mellitus with hy perglycemia LAILA Vaughan 07/29/2020 E78.2 Mixed hyperlipidemia LAILA Gary 07/29/2020 K74.60 Unspecified cirrhosis of liver S LAILA Davidson 07/29/2020 D50.9 Iron deficiency anemia, unspecif ied LAILA Vaughan 07/29/2020 D51.3 Other dietary vitamin B12 defici ency anemia LAILA Vaughan 07/29/2020 I25.10 Atherosclerotic hear t disease of [place] coronary artery without angina pectoris LAILA Vaughan 07/29/2020 Z12.31 Encounter for screen ing mammogram for malignant neoplasm of breast LAILA Vaughan Plan of Treatment Future Appointment(s):* 02/24/2021 10:00 am - LAILA Vaughan at [facility] 11/22/2020 - LAILA Vaughan* H61.23 Impacted cerumen, bilateral* Comments: * Your ears were flushed today. Call for any concerns. * Follow up:* As already scheduled. * H93.13 Tinnitus, bilateral* Comments:* We will refer you to [facility] for further evaluation. * Referral:* [facility], Functional Status Description No Information Available Mental Status Description No Information Available Referrals Refer to Reason for Referral Status Appt Date [facility] 75 year old female with bila teral tinnitus, please eval and treat. [address] [place] [address] [phone]
--- OUTSIDE RECORDS SUMMARY | 2021-01-27 07:15 | CCD | Continuity of Care Document ---
Author Author Claribel GRANADOS D.O Organization Unknown Address [address] [place] [address] Phone [phone] Care Team Providers Care Magnet Placer Name Role Phone Gricel Granados D.O. AUTM [phone] Jeovanny Mckeon M.D. AUTM [phone] Abad Hill M.D. AUTM [phone] Antoni Salazar M.D. AUTM [phone] Problems Active Problems Provider Date Epigastric pain Gricel Granados D.O. Onset: 2015 Type II diabetes mellitus uncontrolled Gricel Granados D.O. Onset: 05/18/2015 Hyperlipidemia Gricel Granados D.O. Onset: 2015 Iron deficiency anemia Gricel Granados D.O. Onset: Cobalamin deficiency Gricel Granados D.O. Onset: 05/17 Atherosclerotic heart disease of [place] coronary arter y without angina pectoris Gricel Granados D.O. Onset: 05/18/2015 Gastroesophageal reflux disease Gricel Granados D.O. O nset: 05/18/2015 Nonalcoholic steatohepatitis ([place]) Hannah Martinez Onset: 05/18/2015 Screening mammography Gricel Granados D.O. Onset: 04/27 Candidal vulvovaginitis Hannah MartinezO. Onset: Mixed hyperlipidemia Gricel Granados D.O. Onset: [...] 1 by rectum nightly as needed. 12units Hannah MartinezOPop Farxiga 10mg Tablets 1 by mouth every day 90tabs E11.65 Hannah MartinezOPop 09/22/2016 Rosuvastatin Calcium 40mg Tablets take one tablet by mouth every night at bedtime 90tabs E78.2 Gricel Moore D.O. 06/22/[address] take 1 capsule by mouth twice daily 180caps K21.9 Gricel Granados D.O. 05/18/2015 Irbesartan 150mg Tablets 1 by mouth every day 90tabs Gricel Granados D.O. 05/10 Propranolol HCL 40mg Tablets 2 tablet by mouth twice daily 120tabs Vania Martinez.OPop Ferrous Sulfate 324(65Fe) mg Table ts DR 2 tablets by mouth daily Radha Martinez 05/11/2015 Metformin HCL 1000mg Tablets take 1 tablet by mouth twice a day with meals 180tabs Gricel martinez D.O. 05/11/2015 Aspirin Ec 81mg Tablets DR 1 by mouth every day 90tabs Hannah MartinezOPop 05/10 Calcium + D3 [id number] Tablet s 1 by mouth every day [...] CPT Code Status Date Vaccine Lot # [id number] Given 12/14/2016 Influenza Vaccin e Quadrivalent Preser/Antibiotic Free Im Use [id number] Vital Signs Date Vital Result Comment 11/18/2020 9:21am BP Systolic 118 mmHg BP Diastolic 76 mmHg Height 63 inches 5'3" Weight 161.00 lb BMI (Body Mass Index) 28.5 kg/m2 Heart Rate 57 /min Respiratory Rate 18 /min Body Temperature 98.0 F O2 % BldC Oximetry 99 % [place] Body Weight 115 lb 08/13/2020 11:12am BP Systolic 120 mmHg BP Diastolic 64 mmHg Height 63 inches 5'3" Weight 161.25 lb BMI (Body Mass Index) 28.6 kg/m2 Heart Rate 65 /min Respiratory Rate 18 /min Body Temperature 98.6 F O2 % BldC Oximetry 98 % [place] Body Weight 115 lb Results Test Acquired Date Facility Test Result H/L Range Note Liver Profile 09/23/2020 [facility] Outpatient Testi ng (Registration) [address] [place] [address] [phone] Ast/Sgot 41 U/L High 7-37 Alt/SGPT 45 U/L Normal 12-78 Alkaline Phosphatase 117 U/L Normal 45-117 Bilirubin,Total 1.0 mg/dL Normal 0.2-1.0 Bilirubin,Direct 0.3 mg/dL High 0.0-0.2 Total Protein 7.2 GM/DL Normal 6.4-8.2 Albumin 3.6 GM/DL Normal 3.2-5.2 Albumin/Globulin Ratio 1.0 Low 1.2-2.2 Laboratory test finding 09/23/2020 [facility] Outpatient T esting (Registration) [address] [place] [address] [phone] Alpha Fetoprotein Tumor Quant 2.6 NG/ML Normal <8 .1 1 Abscess Culture And Gram Stain 08/13/2020 [facility] Outpa tient Testing (Registration) [address] [place] [address] [phone] Gram Stain (SEE NOTE) Normal 2 Abscess Culture FULL REPORT IN L <SEE NOTE> Normal 3 Comprehensive Metabolic Profil 07/29/2020 [facility] Outpa tient Testing (Registration) [address] [place] [address] [phone] Glucose, Fasting 156 mg/dL High 70-100 Blood [...] 1.1 Low 1.2-2.2 CBC With Differential 07/29/2020 [facility] Outpatient Verito ting (Registration) [address] [place] [address] [phone] White Blood Count 4.0 10 Normal 4.0-10.0 [...] 36.0-66.0 Lymph % 26.3 % Normal 24.0-44.0 [place] % 11.1 % High 2.0-8.0 Eos % 11.4 % High 0.0-3.0 Baso % 1.3 % High 0.0-1.0 Immature Granulocyte % 0.5 % Normal 0-3.0 Nucleated Red Blood Cell % 0.0 % Normal 0-0 Neutrophils # 2.0 10 Normal 1.5-8.5 Lymph # 1.0 10 Low 1.5-5.0 [place] # 0.4 10 Normal 0.0-0.8 Eos # 0.5 10 Normal 0.0-0.5 Baso # 0.1 10 Normal 0.0-0.2 Total Iron Binding Capacit 07/29/2020 [facility] Outpatien t Testing (Registration) [address] [place] [address] [phone] Iron (Fe) 57 g/dL Normal 50-170 Total Iron Binding Capacity 448 g/dL Normal 250-450 Percent Saturation 12.7 % Low 13.2-45.0 Laboratory test finding 07/29/2020 [facility] Outpatient Farheen simmonsing (Registration) [address] [place] [address] [phone] Ferritin 32 NG/ML Normal 8-252 Hemoglobin A1c 07/29/2020 [facility] Outpatient Testi ng (Registration) [address] [id number] [phone] Hemoglobin A1c 7.8 % Normal 5 Estimated Average Glucose 177 mg/dL High 60-110 Lipid Panel 07/29/2020 [facility] Outpatient Testi ng (Registration) [address] [place] [address] [phone] Triglycerides Level 179 mg/dL High <150 Cholesterol Level 161 mg/dL Normal <200 HDL Cholesterol 50 mg/dL Normal >40 LDL Cholesterol 75 mg/dL Normal <100 Non-HDL-C 111 mg/dL Normal Cholesterol Risk Ratio 3.220 Normal <5 FT4&TSH Panel 07/29/2020 [facility] Outpatient Testi ng (Registration) [address] [place] [address] [phone] Thyroid Stimulating Hormone 1.090 uIU/ML Normal 0. 358-3.740 Free T4 0.97 ng/dL Normal 0.76-1.46 Istat Chem8+ Panel 06/26/2020 [facility] Outpatient Testi ng (Registration) [address] [place] [address] [phone] iSTAT HCT 29.0 % Low 38.0-51.0 iSTAT Glucose 177 mg/dL High 70-105 iSTAT Sodium 139 mEq/L Normal 136-145 iSTAT Potassium 4.7 mEq/L Normal 3.5-5.1 iSTAT CA++ 4.5 mg/dL Normal 4.5-5.3 iSTAT Chloride 108 mEq/L Normal 98-109 iSTAT Co2 26.0 MM/L Normal 23.0-27.0 iSTAT BUN 29 mg/dL High 8-26 iSTAT Creatinine 0.8 mg/dL Normal 0.6-1.3 CBC With Differential 06/26/2020 [facility] Outpatient Verito yeagerg (Registration) [address] [place] [address] [phone] White Blood Count 5.3 10 Normal 4.0-10.0 [...] 36.0-66.0 Lymph % 28.6 % Normal 24.0-44.0 [place] % 10.5 % High 2.0-8.0 Eos % 11.5 % High 0.0-3.0 Baso % 0.9 % Normal 0.0-1.0 Immature Granulocyte % 0.4 % Normal 0-3.0 Nucleated Red Blood Cell % 0.0 % Normal 0-0 Neutrophils # 2.6 10 Normal 1.5-8.5 Lymph # 1.5 10 Normal 1.5-5.0 [place] # 0.6 10 Normal 0.0-0.8 Eos # 0.6 10 High 0.0-0.5 Baso # 0.1 10 Normal 0.0-0.2 Liver Profile 06/26/2020 [facility] Outpatient Testi ng (Registration) [address] [place] [address] [phone] Ast/Sgot 28 U/L Normal 7-37 Alt/SGPT 35 U/L Normal 12-78 Alkaline Phosphatase 96 U/L Normal 45-117 Bilirubin,Total 0.8 mg/dL Normal 0.2-1.0 Bilirubin,Direct 0.3 mg/dL High 0.0-0.2 Total Protein 7.5 GM/DL Normal 6.4-8.2 Albumin 3.8 GM/DL Normal 3.2-5.2 Albumin/Globulin Ratio 1.0 Low 1.2-2.2 Prothrombin Time/Inr 06/26/2020 [facility] Outpatient Test ing (Registration) [address] [place], [place] [address] [phone] Prothrombin Time 14.5 seconds High 12.5-14.3 Inr 1.11 Normal 6 Laboratory test finding 06/26/2020 [facility] Outpatient T lyle (Registration) [address] [place] [address] [phone] Partial Thromboplastin Time 34.0 seconds Normal 24 .2-38.5 1 THE AFP ASSAY IS PERFORMED O N THE SIEMENS Respiderm CorporationAUR BY CHEMILUMINESCENCE AND SHOULD NOT BE COMPARED [...] Little GFR Left ESRD GFR <15 on [employer] 5 REFERENCE RANGES: <=5.6% NORMAL 5.7-6.4% SUGGESTS IMPAIRED GLUCOSE META BOLISM/PREDIABETIC >= 6.5% ABNORMAL 6 THERAPUTIC HUMAN INR VALUES INDICATIONS NORMAL RANGES PROPHYLAXIS/TREATMENT OF: VENOUS THROMBOSIS 2.0-3.0 PULMONARY EMBOLISM 2.0-3.0 PREVENTION OF SYSTEMIC EMBOLISM FROM: TISSUE HEART VALVES 2.0-3.0 ACUTE MYOCARDIAL INFARCTION 2.0-3.0 VALVULAR HEART DISEASE 2.0-3.0 ATRIAL FIBRILLATION 2.0-3.0 MECHANICAL VALVES(HIGH RISK) 2.5-3.5 RECURRENT MYOCARDIAL INFARCTION 2.5-3.5 Procedures Date Code Description Status 11/18/2020 16537 Office/Outpatient Established Mo d MDM 30-39 Min Completed 08/13/2020 86532 Office/Outpatient Established Lo w MDM 20-29 Min Completed 08/13/2020 24048 I & D Abscess Simple Completed 07/29/2020 24882 Office/Outpatient Established Mo d MDM 30-39 Min Completed Medical Devices Description No Information Available Encounters Type Date Location Provider Dx Diagnosis Office Visit 11/18/2020 9:20a [facility] Gricel Granados D.O. E11.65 Type 2 diabetes mellitus wit h hyperglycemia E78.2 Mixed hyperlipidemia K74.60 Unspecified cirrhosis of janice [place] D50.9 Iron deficiency anemia, unsp ecified D51.3 Other dietary vitamin B12 de ficiency anemia I25.10 Athscl heart disease of [place] coronary artery w/o ang pctrs Z88.1 Allergy status to other anti biotic agents Z79.899 Other senior care (current) dr baumann therapy Z79.82 USP (current) use of a spirin Z79.84 long term (current) use of o ral hypoglycemic drugs Z12.31 Encntr screen mammogram for malignant neoplasm of breast Z13.820 Encounter for screening for osteoporosis I99.8 Other disorder of manager critical care y system Office Visit 08/13/2020 11:20a Family Medicine [facility] LAILA Vaughan L02.412 Cutaneous abscess of left ax illa Office Visit 07/29/2020 10:40a [facility] LAILA Vaughan E11.65 Type 2 diabetes mellitus wit h hyperglycemia E78.2 Mixed hyperlipidemia K74.60 Unspecified cirrhosis of [place] D50.9 Iron deficiency anemia, unsp ecified D51.3 Other dietary vitamin B12 de ficiency anemia I25.10 Athscl heart disease of [place] coronary artery w/o ang pctrs Z12.31 Encntr screen mammogram for malignant neoplasm of breast Assessments Date Code Description Provider 11/18/2020 E11.65 Type 2 diabetes mellitus with hy perglycemia Gricel Garcia D.O. 11/18/2020 E78.2 Mixed hyperlipidemia Gricel Khan D.O. 11/18/2020 K74.60 Unspecified cirrhosis of liver Nannette Granados D.O. 11/18/2020 D50.9 Iron deficiency anemia, unspecif ied Gricel Granados D.O. 11/18/2020 D51.3 Other dietary vitamin B12 defici ency anemia Gricel Garcia D.O. 11/18/2020 I25.10 Atherosclerotic hear t disease of [place] coronary artery without angina pectoris Gricel Granados D.O. 11/18/2020 Z88.1 Allergy status to other antibiot ic agents Gricel Granados D.O. 11/18/2020 Z79.899 Other senior care (current) drug t herapy Gricel Granados D.O. 11/18/2020 Z79.82 USP (current) use of aspir in Gricel Granados D.O. 11/18/2020 Z79.84 long term (current) use of oral hypoglycemic drugs Gricel Granados D.O. 11/18/2020 Z12.31 Encounter for screen ing mammogram for malignant neoplasm of breast Vania Martinez.O. 11/18/2020 Z13.820 Encounter for screening for oste oporosis Gricel Garcia D.O. 11/18/2020 I99.8 Other disorder of circulatory sy stem Gricel Granados D.O. 08/13/2020 L02.412 Cutaneous abscess of left axilla LAILA Vaughan 07/29/2020 E11.65 Type 2 diabetes mellitus with hy perglycemia LAILA Vaughan 07/29/2020 E78.2 Mixed hyperlipidemia LAILA Gary 07/29/2020 K74.60 Unspecified cirrhosis of liver S LAILA Davidson 07/29/2020 D50.9 Iron deficiency anemia, unspecif ied LAILA Vaughan 07/29/2020 D51.3 Other dietary vitamin B12 defici ency anemia LAILA Vaughan 07/29/2020 I25.10 Atherosclerotic hear t disease of [place] coronary artery without angina pectoris LAILA Vaughan 07/29/2020 Z12.31 Encounter for screen ing mammogram for malignant neoplasm of breast LAILA Vaughan Plan of Treatment Future Appointment(s):* 02/24/2021 10:00 am - LAILA Vaughan at [facility] Functional Status Description No Information Available Mental Status Description No Information Available Referrals Description No Information Available
--- OUTSIDE RECORDS SUMMARY | 2021-01-27 07:15 | CCD | Continuity of Care Document ---
Author Author Claribel CHARLES PA Organization Unknown Address [address] [facility] [address] [place] [address] Phone [phone] Care Team Providers Care Repair Service Clerk Name Role Phone Gricel Granados D.O. AUTM Jeovanny Mckeon M.D. AUTM [phone] Abad Hill M.D. AUTM [phone] Antoni Salazar M.D. AUTM [phone] Problems Active Problems Provider Date Epigastric pain Gricel Granados D.O. Onset: 2015 Type II diabetes mellitus uncontrolled Gricel Granados D.O. Onset: 05/18/2015 Hyperlipidemia Gricel Granados D.O. Onset: 2015 Iron deficiency anemia Gricel Granados D.O. Onset: Cobalamin deficiency Gricel Granados D.O. Onset: 05/17 Atherosclerotic heart disease of [place] coronary arter y without angina pectoris Gricel [...] 1 by mouth every day 90tabs E11.65 Hananh MartinezOPop 09/22/2016 Rosuvastatin Calcium 40mg Tablets take [...] DR 1 by mouth every day 90tabs Gricel Granados D.O. 05/10 Calcium + D3 [id number] Tablet s 1 by mouth every day [...] CPT Code Status Date Vaccine Lot # [id number] Given 12/14/2016 Influenza Vaccin e Quadrivalent Preser/Antibiotic Free Im Use [id number] Vital Signs Date Vital Result Comment 11/22/2020 9:22am BP Systolic 132 mmHg BP Diastolic 68 mmHg Height 63 inches 5'3" Weight 156.50 lb BMI (Body Mass Index) 27.7 kg/m2 Heart Rate 56 /min Respiratory Rate 18 /min Body Temperature 97.1 F O2 % BldC Oximetry 99 % [place] Body Weight 115 lb 11/18/2020 9:21am BP Systolic 118 mmHg BP Diastolic 76 mmHg Height 63 inches 5'3" Weight 161.00 lb BMI (Body Mass Index) 28.5 kg/m2 Heart Rate 57 /min Respiratory Rate 18 /min Body Temperature 98.0 F O2 % BldC Oximetry 99 % [place] Body Weight 115 lb Results Test Acquired Date Facility Test Result H/L Range Note Liver Profile 09/23/2020 [facility] Outpatient Testi ng (Registration) [address] [place] [address] [id number] [phone] Ast/Sgot 41 U/L High 7-37 Alt/SGPT 45 U/L Normal 12-78 Alkaline Phosphatase 117 U/L Normal 45-117 Bilirubin,Total 1.0 mg/dL Normal 0.2-1.0 Bilirubin,Direct 0.3 mg/dL High 0.0-0.2 Total Protein 7.2 GM/DL Normal 6.4-8.2 Albumin 3.6 GM/DL Normal 3.2-5.2 Albumin/Globulin Ratio 1.0 Low 1.2-2.2 Laboratory test finding 09/23/2020 [facility] Outpatient T esting (Registration) [address] [place] [address] [id number] [phone] Alpha Fetoprotein Tumor Quant 2.6 NG/ML Normal <8 .1 1 Abscess Culture And Gram Stain 08/13/2020 [facility] Outpa tient Testing (Registration) [address] [place] [address] [id number] [phone] Gram Stain (SEE NOTE) Normal 2 Abscess Culture FULL REPORT IN L <SEE NOTE> Normal 3 Comprehensive Metabolic Profil 07/29/2020 [facility] Outpa tient Testing (Registration) [address] [place] [address] [id number] [phone] Glucose, Fasting 156 mg/dL High 70-100 Blood [...] 1.1 Low 1.2-2.2 CBC With Differential 07/29/2020 [facility] Outpatient Verito ting (Registration) [address] [place] [address] [phone] White Blood Count 4.0 10 Normal 4.0-10.0 [...] 36.0-66.0 Lymph % 26.3 % Normal 24.0-44.0 [place] % 11.1 % High 2.0-8.0 Eos % 11.4 % High 0.0-3.0 Baso % 1.3 % High 0.0-1.0 Immature Granulocyte % 0.5 % Normal 0-3.0 Nucleated Red Blood Cell % 0.0 % Normal 0-0 Neutrophils # 2.0 10 Normal 1.5-8.5 Lymph # 1.0 10 Low 1.5-5.0 [place] # 0.4 10 Normal 0.0-0.8 Eos # 0.5 10 Normal 0.0-0.5 Baso # 0.1 10 Normal 0.0-0.2 Total Iron Binding Capacit 07/29/2020 [facility] Outpatien t Testing (Registration) [address] [place] [address] [phone] Iron (Fe) 57 g/dL Normal 50-170 Total Iron Binding Capacity 448 g/dL Normal 250-450 Percent Saturation 12.7 % Low 13.2-45.0 Laboratory test finding 07/29/2020 [facility] Outpatient T troying (Registration) [address] [place] [address] [phone] Ferritin 32 NG/ML Normal 8-252 Hemoglobin A1c 07/29/2020 [facility] Outpatient Testi ng (Registration) [address] [place] [address] [phone] Hemoglobin A1c 7.8 % Normal 5 Estimated Average Glucose 177 mg/dL High 60-110 Lipid Panel 07/29/2020 [facility] Outpatient Testi ng (Registration) [address] [place], [place] [address] [phone] Triglycerides Level 179 mg/dL High <150 Cholesterol Level 161 mg/dL Normal <200 HDL Cholesterol 50 mg/dL Normal >40 LDL Cholesterol 75 mg/dL Normal <100 Non-HDL-C 111 mg/dL Normal Cholesterol Risk Ratio 3.220 Normal <5 FT4&TSH Panel 07/29/2020 [facility] Outpatient Testi ng (Registration) [address] [place] [address] [phone] Thyroid Stimulating Hormone 1.090 uIU/ML Normal 0. 358-3.740 Free T4 0.97 ng/dL Normal 0.76-1.46 Istat Chem8+ Panel 06/26/2020 [facility] Outpatient Testi ng (Registration) [address] [place] [address] [phone] iSTAT HCT 29.0 % Low 38.0-51.0 iSTAT Glucose 177 mg/dL High 70-105 iSTAT Sodium 139 mEq/L Normal 136-145 iSTAT Potassium 4.7 mEq/L Normal 3.5-5.1 iSTAT CA++ 4.5 mg/dL Normal 4.5-5.3 iSTAT Chloride 108 mEq/L Normal 98-109 iSTAT Co2 26.0 MM/L Normal 23.0-27.0 iSTAT BUN 29 mg/dL High 8-26 iSTAT Creatinine 0.8 mg/dL Normal 0.6-1.3 CBC With Differential 06/26/2020 [facility] Outpatient Verito ting (Registration) [address] [place] [address] [phone] White Blood Count 5.3 10 Normal 4.0-10.0 [...] 36.0-66.0 Lymph % 28.6 % Normal 24.0-44.0 [place] % 10.5 % High 2.0-8.0 Eos % 11.5 % High 0.0-3.0 Baso % 0.9 % Normal 0.0-1.0 Immature Granulocyte % 0.4 % Normal 0-3.0 Nucleated Red Blood Cell % 0.0 % Normal 0-0 Neutrophils # 2.6 10 Normal 1.5-8.5 Lymph # 1.5 10 Normal 1.5-5.0 [place] # 0.6 10 Normal 0.0-0.8 Eos # 0.6 10 High 0.0-0.5 Baso # 0.1 10 Normal 0.0-0.2 Liver Profile 06/26/2020 [facility] Outpatient Testi ng (Registration) [address] [place] [address] [phone] Ast/Sgot 28 U/L Normal 7-37 Alt/SGPT 35 U/L Normal 12-78 Alkaline Phosphatase 96 U/L Normal 45-117 Bilirubin,Total 0.8 mg/dL Normal 0.2-1.0 Bilirubin,Direct 0.3 mg/dL High 0.0-0.2 Total Protein 7.5 GM/DL Normal 6.4-8.2 Albumin 3.8 GM/DL Normal 3.2-5.2 Albumin/Globulin Ratio 1.0 Low 1.2-2.2 Prothrombin Time/Inr 06/26/2020 [facility] Outpatient Test ing (Registration) [address] [place] [address] [phone] Prothrombin Time 14.5 seconds High 12.5-14.3 Inr 1.11 Normal 6 Laboratory test finding 06/26/2020 [facility] Outpatient T lyle (Registration) [address] [place] [address] [phone] Partial Thromboplastin Time 34.0 seconds Normal 24 .2-38.5 1 THE AFP ASSAY IS PERFORMED O N THE SIEMENS JymobAUR BY CHEMILUMINESCENCE AND SHOULD NOT BE COMPARED [...] Little GFR Left ESRD GFR <15 on [employer] 5 REFERENCE RANGES: <=5.6% NORMAL 5.7-6.4% SUGGESTS [...] 2.5-3.5 Procedures Date Code Description Status 11/18/2020 72541 Office/Outpatient Established Mo d MDM 30-39 Min Completed 08/13/2020 45941 Office/Outpatient Established Lo w MDM 20-29 Min Completed 08/13/2020 58357 I & D Abscess Simple Completed 07/29/2020 08377 Office/Outpatient Established Mo d MDM 30-39 Min Completed Medical Devices Description No Information Available Encounters Type Date Location Provider Dx Diagnosis Office Visit 11/18/2020 9:20a Family Medicine [facility] w Lance Granados D.O. E11.65 Type 2 diabetes mellitus wit h hyperglycemia E78.2 Mixed hyperlipidemia K74.60 Unspecified cirrhosis of janice er D50.9 Iron deficiency anemia, unsp ecified D51.3 Other dietary vitamin B12 de ficiency anemia I25.10 Athscl heart disease of [place] coronary artery w/o ang pctrs Z88.1 Allergy status to other anti biotic agents Z79.899 Other jail (current) dr baumann therapy Z79.82 middle or intermediate school principal (current) use of a spirin Z79.84 middle or intermediate school principal (current) use of o ral hypoglycemic drugs Z12.31 Encntr screen mammogram for malignant neoplasm of breast Z13.820 Encounter for screening for osteoporosis I99.8 Other disorder of survey worker y system Office Visit 08/13/2020 11:20a Family Medicine [facility] LAILA Vaughan L02.412 Cutaneous abscess of left ax illa Office Visit 07/29/2020 10:40a [facility] LAILA Vaughan E11.65 Type 2 [...] Type 2 diabetes mellitus with hy perglycemia Vania Boyd.OPop 11/18/2020 E78.2 Mixed hyperlipidemia Gricel Khan D.OPop 11/18/2020 K74.60 Unspecified cirrhosis of liver Vania Olvera.OPop 11/18/2020 D50.9 Iron deficiency anemia, unspecif ied Vania Martinez.O. 11/18/2020 D51.3 Other dietary vitamin B12 defici ency anemia Vania Boyd.OPop 11/18/2020 I25.10 Atherosclerotic hear t disease of [place] coronary artery without angina pectoris Vania Martinez.O. 11/18/2020 Z88.1 Allergy status to other antibiot ic agents Vania Martinez.O. 11/18/2020 Z79.899 Other jail (current) drug t herapy Vania Martinez.O. 11/18/2020 Z79.82 custodial (current) use of aspir in Vania Martinez.OPop 11/18/2020 Z79.84 middle or intermediate school principal (current) use of oral hypoglycemic drugs Hannah MartinezOPop 11/18/2020 Z12.31 Encounter for screen ing mammogram for malignant neoplasm of breast Vania Martinez.OPop 11/18/2020 Z13.820 Encounter for screening for oste oporosis Vania Boyd.OPop 11/18/2020 I99.8 Other disorder of circulatory sy stem Vania Martinez.OPop 08/13/2020 L02.412 Cutaneous abscess of left axilla LAILA Vaughan 07/29/2020 E11.65 Type 2 diabetes mellitus with hy perglycemia LAILA Vaughan 07/29/2020 E78.2 Mixed hyperlipidemia LAILA Gary 07/29/2020 K74.60 Unspecified cirrhosis of liver S LAILA Davidson 07/29/2020 D50.9 Iron deficiency anemia, unspecif ied LAILA Vaughan 07/29/2020 D51.3 Other dietary vitamin B12 defici ency anemia LAILA Vaughan 07/29/2020 I25.10 Atherosclerotic hear t disease of [place] coronary artery without angina pectoris LAILA Vaughan 07/29/2020 Z12.31 Encounter for screen ing mammogram for malignant neoplasm of breast LAILA Vaughan Plan of Treatment Future Appointment(s):* 02/24/2021 10:00 am - LAILA Vaughan at [facility] 11/22/2020 - LAILA Vaughan* H61.23 Impacted cerumen, bilateral* Comments: * Your ears were flushed today. Call for any concerns. * Follow up:* As already scheduled. * H93.13 Tinnitus, bilateral* Comments:* We will refer you to [facility] for further evaluation. * Referral:* [facility], Functional Status Description No Information Available Mental Status Description No Information Available Referrals Refer to Reason for Referral Status Appt Date [facility] 75 year old female with bila teral tinnitus, please eval and treat. Created [address] [place], [place] [id number] [phone]
--- OUTSIDE RECORDS SUMMARY | 2021-01-27 07:15 | CCD | Continuity of Care Document ---
Author Author Claribel FERNANDEZ MD Organization Unknown Address [address] [place] [address] Phone [phone] Care Team Providers Care Precision Assembler Name Role Phone Jeovanny Mckeon M.D. AUTM [phone] Gricel Granados D.O. AUTM [phone] Carlo Charles AUTM [phone] [facility] AUTM [phone] Problems Description No Active Problems Social History Type Date Description Comments Sex Unknown ETOH Use Rarely Tobacco Use Start: Unknown Denies Smoking Recreational Drug Use Denies Drug Use Allergies, Adverse Reactions, Alerts Active Allergies Criticality Reaction | Severity Comments Date Sulfa Unable to assess criticality rash 04/11/2016 Inactive Allergies NKDA Unable to assess criticality 04/16/2014 Medications Active Medications SIG Qnty Indications Ordering Provide r Date Caltrate 600+D [id number] Tabl ets 2 by mouth every day Unknown Metformin HCL 1000mg Tablets 1 tab by mouth twice a day 60tabs Unknown Irbesartan 150mg Tablets by mouth once a day 60tabs Unknown Aspirin 81mg Tablets 1 by mouth every day Unknown Ferrous Sulfate 325(65Fe) mg Table ts 1 by mouth twice a day 180tabs Unknown Propranolol HCL 40mg Tablets 1 by mouth twice a day (angieka) 60tabs Unknown Farxiga 10mg Tablets 1 a day Unknown Crestor 40mg Tablets 1 a day Unknown Glimepiride 2mg Tablets 2 tabs twice a day Unknown Omeprazole 40mg Capsules DR 1 by mouth every day Unknown Nitro-bid 2% Ointment apply a pea sized amount to anal fissure twice a day for 3 weeks U nknown Immunizations Description No Information Available Vital Signs Date Vital Result Comment 10/21/2020 11:26am BP Systolic 126 mmHg BP Diastolic 60 mmHg Height 64 inches 5'4" Weight 155.00 lb BMI (Body Mass Index) 26.6 kg/m2 [place] Body Weight 120 lb Weight 70.308 kg BSA (Body Surface Area) 1.76 m2 06/29/2020 10:55am BP Systolic 141 mmHg BP Diastolic 69 mmHg Height 64 inches 5'4" Weight 156.00 lb BMI (Body Mass Index) 26.8 kg/m2 [place] Body Weight 120 lb Weight 70.762 kg BSA (Body Surface Area) 1.76 m2 Results Test Acquired Date Facility Test Result H/L Range Note Liver Profile 09/23/2020 [facility] Main Lab [address] [place] [address] [phone] Ast/Sgot 41 U/L High 7-37 Alt/SGPT 45 U/L Normal 12-78 Alkaline Phosphatase 117 U/L Normal 45-117 Bilirubin,Total 1.0 mg/dL Normal 0.2-1.0 Bilirubin,Direct 0.3 mg/dL High 0.0-0.2 Total Protein 7.2 GM/DL Normal 6.4-8.2 Albumin 3.6 GM/DL Normal 3.2-5.2 Albumin/Globulin Ratio 1.0 Low 1.2-2.2 Laboratory test finding 09/23/2020 [facility] Main Lab [address] [place], [place] [id number] [phone] Alpha Fetoprotein Tumor Quant 2.6 NG/ML Normal <8 .1 1, 2 1 THE AFP ASSAY IS PERFORMED O N THE [place] [employer] BY CHEMILUMINESCENCE AND SHOULD NOT BE COMPARED INTERCHANGEABLY WITH OTHER METHODS. IT SHOULD NOT BE USED ALONE A SCREENING TEST OR DIAGNOSIS FOR THE PRESENCE OR ABSENCE OF MALIGNANT DISEASE. THESE RESULTS ARE NOT INTERPRETABLE IN FEMALES. PREDICTIONS OF DISEASE RECURRENCE SHOULD NOT BE BASED SOLELY ON VALUES OBTAINED FROM SERIAL PATIENT SERUM VALUES. 2 09/24/20 (SunSep 24) 01:07 PM CHRISTOPHER FERNANDEZ ok Procedures Date Code Description Status 10/21/2020 45276 Office/Outpatient Established Dorina w MDM 20-29 Min Completed 06/29/2020 57529 Office/Outpatient Established Lo w MDM 20-29 Min Completed 2014 [id number] Colonoscopy Completed Medical Devices Description No Information Available Encounters Type Date Location Provider Dx Diagnosis Office Visit 10/21/2020 11:30a [facility] Gastroenterology [facility] kalee Fernandez MD K75.81 Nonalcoholic steatohepatitis ([place]) K74.69 Other cirrhosis of liver K76.6 Portal hypertension 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.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 K55.20 Angiodysplasia of colon with out hemorrhage Office Visit 06/29/2020 11:00a [facility] G[facility]enter[facility] kalee Fernandez MD K64.9 Unspecified hemorrhoids K75.81 Nonalcoholic steatohepatitis ([place]) K74.69 Other cirrhosis of liver K60.0 Acute anal fissure Assessments Date Code Description Provider 10/21/2020 K75.81 Nonalcoholic steatohepatitis ([place]) Christopher Fernandez MD 10/21/2020 K74.69 Other cirrhosis of liver Christopher giles MD 10/21/2020 K76.6 Portal hypertension Christopher Fernandez MD 10/21/2020 I85.00 Esophageal varices without bleed ing Christopher Fernandez MD 10/21/2020 K55.20 Angiodysplasia of colon without hemorrhage Christopher Fernandez MD 06/29/2020 K64.9 Unspecified hemorrhoids Christopher lara MD 06/29/2020 K75.81 Nonalcoholic steatohepatitis (Na sh) Christopher Fernandez MD 06/29/2020 K74.69 Other cirrhosis of liver Christopher giles MD 06/29/2020 K60.0 Acute anal fissure Christopher Fernandez MD Plan of Treatment 10/21/2020 - Christopher Fernandez MD* K75.81 Nonalcoholic steatohepatitis ([place]) * K74.69 Other cirrhosis of liver * K76.6 Portal hypertension * I85.00 Esophageal varices without bleeding * K55.20 Angiodysplasia of colon without hemorrhage * * Comments:* overall has been doing well. US and AFP stable/normal. Hb stable/normal. * Follow up:* 6 months (US/Labs before) * Recommendations:* Cont current mgmt. SHe is due for repeat EGD (1 year) to re assess for recurrent varices. Otherwise follow up in 6 months Functional Status Description No Information Available Mental Status Description No Information Available Referrals Description No Information Available
--- OUTSIDE RECORDS SUMMARY | 2021-01-27 07:15 | CCD | Continuity of Care Document ---
Author Author Claribel GRANADOS D.O Organization Unknown Address [address] [place] [address] Phone [phone] Care Team Providers Care Senior Analytic Consultant Name Role Phone Gricel Granados D.O. AUTM Jeovanny Mckeon M.D. AUTM [phone] Abad Hill M.D. AUTM [phone] Antoni Salazar M.D. AUTM [phone] Problems Active Problems Provider Date Epigastric pain Gricel Granados D.O. Onset: 2015 Type II diabetes mellitus uncontrolled Gricel Granados D.O. Onset: 05/18/2015 Hyperlipidemia Gricel Granados D.O. Onset: 2015 Iron deficiency anemia Gricel Granados D.O. Onset: Cobalamin deficiency Gricel Granados D.O. Onset: 05/17 Atherosclerotic heart disease of [place] coronary arter y without angina pectoris Gricel [...] 90tabs Hannah MartinezOPop 05/10 Calcium + D3 [id number] Tablet s 1 by mouth every day [...] CPT Code Status Date Vaccine Lot # [id number] Given 12/14/2016 Influenza Vaccin e Quadrivalent Preser/Antibiotic Free Im Use [id number] Vital Signs Date Vital Result Comment 11/18/2020 9:21am BP Systolic 118 mmHg BP Diastolic 76 mmHg Height 63 inches 5'3" Weight 161.00 lb BMI (Body Mass Index) 28.5 kg/m2 Heart Rate 57 /min Respiratory Rate 18 /min Body Temperature 98.0 F O2 % BldC Oximetry 99 % [place] Body Weight 115 lb 08/13/2020 11:12am BP Systolic 120 mmHg BP Diastolic 64 mmHg Height 63 inches 5'3" Weight 161.25 lb BMI (Body Mass Index) 28.6 kg/m2 Heart Rate 65 /min Respiratory Rate 18 /min Body Temperature 98.6 F O2 % BldC Oximetry 98 % [place] Body Weight 115 lb Results Test Acquired Date Facility Test Result H/L Range Note Liver Profile 09/23/2020 [facility] Outpatient Testi ng (Registration) [address] [place] [address] [phone] Ast/Sgot 41 U/L High 7-37 Alt/SGPT 45 U/L Normal 12-78 Alkaline Phosphatase 117 U/L Normal 45-117 Bilirubin,Total 1.0 mg/dL Normal 0.2-1.0 Bilirubin,Direct 0.3 mg/dL High 0.0-0.2 Total Protein 7.2 GM/DL Normal 6.4-8.2 Albumin 3.6 GM/DL Normal 3.2-5.2 Albumin/Globulin Ratio 1.0 Low 1.2-2.2 Laboratory test finding 09/23/2020 [facility] Outpatient T esting (Registration) [address] [place] [address] [phone] Alpha Fetoprotein Tumor Quant 2.6 NG/ML Normal <8 .1 1 Abscess Culture And Gram Stain 08/13/2020 [facility] Outpa tient Testing (Registration) [address] [place] [address] [phone] Gram Stain (SEE NOTE) Normal 2 Abscess Culture FULL REPORT IN L <SEE NOTE> Normal 3 Comprehensive Metabolic Profil 07/29/2020 [facility] Outpa tient Testing (Registration) [address] [place] [address] [phone] Glucose, Fasting 156 mg/dL High 70-100 Blood [...] 1.1 Low 1.2-2.2 CBC With Differential 07/29/2020 [facility] Outpatient Verito ting (Registration) [address] [place] [address] [phone] White Blood Count 4.0 10 Normal 4.0-10.0 [...] 36.0-66.0 Lymph % 26.3 % Normal 24.0-44.0 [place] % 11.1 % High 2.0-8.0 Eos % 11.4 % High 0.0-3.0 Baso % 1.3 % High 0.0-1.0 Immature Granulocyte % 0.5 % Normal 0-3.0 Nucleated Red Blood Cell % 0.0 % Normal 0-0 Neutrophils # 2.0 10 Normal 1.5-8.5 Lymph # 1.0 10 Low 1.5-5.0 [place] # 0.4 10 Normal 0.0-0.8 Eos # 0.5 10 Normal 0.0-0.5 Baso # 0.1 10 Normal 0.0-0.2 Total Iron Binding Capacit 07/29/2020 [facility] Outpatien t Testing (Registration) [address] [place] [address] [phone] Iron (Fe) 57 g/dL Normal 50-170 Total Iron Binding Capacity 448 g/dL Normal 250-450 Percent Saturation 12.7 % Low 13.2-45.0 Laboratory test finding 07/29/2020 [facility] Outpatient Farheen simmonsing (Registration) [address] [place] [address] [phone] Ferritin 32 NG/ML Normal 8-252 Hemoglobin A1c 07/29/2020 [facility] Outpatient Testi ng (Registration) [address] [id number] [phone] Hemoglobin A1c 7.8 % Normal 5 Estimated Average Glucose 177 mg/dL High 60-110 Lipid Panel 07/29/2020 [facility] Outpatient Testi ng (Registration) [address] [place] [address] [phone] Triglycerides Level 179 mg/dL High <150 Cholesterol Level 161 mg/dL Normal <200 HDL Cholesterol 50 mg/dL Normal >40 LDL Cholesterol 75 mg/dL Normal <100 Non-HDL-C 111 mg/dL Normal Cholesterol Risk Ratio 3.220 Normal <5 FT4&TSH Panel 07/29/2020 [facility] Outpatient Testi ng (Registration) [address] [place] [address] [phone] Thyroid Stimulating Hormone 1.090 uIU/ML Normal 0. 358-3.740 Free T4 0.97 ng/dL Normal 0.76-1.46 Istat Chem8+ Panel 06/26/2020 [facility] Outpatient Testi ng (Registration) [address] [place] [address] [phone] iSTAT HCT 29.0 % Low 38.0-51.0 iSTAT Glucose 177 mg/dL High 70-105 iSTAT Sodium 139 mEq/L Normal 136-145 iSTAT Potassium 4.7 mEq/L Normal 3.5-5.1 iSTAT CA++ 4.5 mg/dL Normal 4.5-5.3 iSTAT Chloride 108 mEq/L Normal 98-109 iSTAT Co2 26.0 MM/L Normal 23.0-27.0 iSTAT BUN 29 mg/dL High 8-26 iSTAT Creatinine 0.8 mg/dL Normal 0.6-1.3 CBC With Differential 06/26/2020 [facility] Outpatient Verito yeagerg (Registration) [address] [place] [address] [phone] White Blood Count 5.3 10 Normal 4.0-10.0 [...] 36.0-66.0 Lymph % 28.6 % Normal 24.0-44.0 [place] % 10.5 % High 2.0-8.0 Eos % 11.5 % High 0.0-3.0 Baso % 0.9 % Normal 0.0-1.0 Immature Granulocyte % 0.4 % Normal 0-3.0 Nucleated Red Blood Cell % 0.0 % Normal 0-0 Neutrophils # 2.6 10 Normal 1.5-8.5 Lymph # 1.5 10 Normal 1.5-5.0 [place] # 0.6 10 Normal 0.0-0.8 Eos # 0.6 10 High 0.0-0.5 Baso # 0.1 10 Normal 0.0-0.2 Liver Profile 06/26/2020 [facility] Outpatient Testi ng (Registration) [address] [place] [address] [phone] Ast/Sgot 28 U/L Normal 7-37 Alt/SGPT 35 U/L Normal 12-78 Alkaline Phosphatase 96 U/L Normal 45-117 Bilirubin,Total 0.8 mg/dL Normal 0.2-1.0 Bilirubin,Direct 0.3 mg/dL High 0.0-0.2 Total Protein 7.5 GM/DL Normal 6.4-8.2 Albumin 3.8 GM/DL Normal 3.2-5.2 Albumin/Globulin Ratio 1.0 Low 1.2-2.2 Prothrombin Time/Inr 06/26/2020 [facility] Outpatient Test ing (Registration) [address] [place], [place] [address] [phone] Prothrombin Time 14.5 seconds High 12.5-14.3 Inr 1.11 Normal 6 Laboratory test finding 06/26/2020 [facility] Outpatient T lyle (Registration) [address] [place] [address] [phone] Partial Thromboplastin Time 34.0 seconds Normal 24 .2-38.5 1 THE AFP ASSAY IS PERFORMED O N THE [employer] [employer] BY CHEMILUMINESCENCE AND SHOULD NOT BE COMPARED [...] Little GFR Left ESRD GFR <15 on ROUNDER AND BACKER 5 REFERENCE RANGES: <=5.6% NORMAL 5.7-6.4% SUGGESTS [...] 2.5-3.5 Procedures Date Code Description Status 11/18/2020 90963 Office/Outpatient Established Mo d MDM 30-39 Min Completed 08/13/2020 50521 Office/Outpatient Established Lo w MDM 20-29 Min Completed 08/13/2020 65802 I & D Abscess Simple Completed 07/29/2020 69659 Office/Outpatient Established Mo d MDM 30-39 Min Completed Medical Devices Description No Information Available Encounters Type Date Location Provider Dx Diagnosis Office Visit 11/18/2020 9:20a [facility] Gricel Granados D.O. E11.65 Type 2 diabetes mellitus wit h hyperglycemia E78.2 Mixed hyperlipidemia K74.60 Unspecified cirrhosis of janice er D50.9 Iron deficiency anemia, unsp ecified D51.3 Other dietary vitamin B12 de ficiency anemia I25.10 Athscl heart disease of [place] coronary artery w/o ang pctrs Z88.1 Allergy status to other anti biotic agents Z79.899 Other half-way (current) dr baumann therapy Z79.82 [facility] (current) use of a spirin Z79.84 [employer] (current) use of o ral hypoglycemic drugs Z12.31 Encntr screen mammogram for malignant neoplasm of breast Z13.820 Encounter for screening for osteoporosis I99.8 Other disorder of [employer] system Office Visit 08/13/2020 11:20a Family Medicine [facility] LAILA Vaughan L02.412 Cutaneous abscess of left ax illa Office Visit 07/29/2020 10:40a [facility] LAILA Vaughan E11.65 Type 2 diabetes mellitus [...] 11/18/2020 I25.10 Atherosclerotic hear t disease of [place] coronary artery without angina pectoris Gricel Granados D.O. 11/18/2020 Z88.1 Allergy status to other antibiot ic agents Gricel Granados D.O. 11/18/2020 Z79.899 Other half-way (current) drug t herapy Gricel Granados D.O. 11/18/2020 Z79.82 [facility] (current) use of aspir in Gricel Granados D.O. 11/18/2020 Z79.84 [employer] (current) use of oral hypoglycemic drugs Gricel [...] 07/29/2020 I25.10 Atherosclerotic hear t disease of [place] coronary artery without angina pectoris LAILA Vaughan 07/29/2020 Z12.31 Encounter for screen ing mammogram for malignant neoplasm of breast LAILA Vaughan Plan of Treatment Future Appointment(s):* 02/24/2021 10:00 am - LAILA Vaughan at [facility] Functional Status Description No Information Available Mental Status Description No Information Available Referrals Description No Information Available
--- OUTSIDE RECORDS SUMMARY | 2021-01-27 07:15 | CCD | Continuity of Care Document ---
Author Author Claribel GRANADOS D.O Organization Unknown Address [address] [place] [address] Phone [phone] Care Team Providers Care Outpatient Coder Name Role Phone Gricel Granados D.O. AUTM [phone] Jeovanny Mckeon M.D. AUTM [phone] Abad Hill M.D. AUTM [phone] Antoni Salazar M.D. AUTM [phone] [facility] AUTM [phone] Problems Active Problems Provider Date Epigastric pain Gricel Granados D.O. Onset: 2015 Type II diabetes mellitus uncontrolled Gricel Granados D.O. Onset: 05/18/2015 Hyperlipidemia Gricel Granados D.O. Onset: 2015 Iron deficiency anemia Gricel Granados D.O. Onset: Cobalamin deficiency Gricel Granados D.O. Onset: 05/17 Atherosclerotic heart disease of [place] coronary arter y without angina pectoris Gricel [...] Seat Belt/Car Seat Always uses seat belt Allergies and adverse reactions Active Allergies Criticality Reaction | Severity Comments Date Bactrim Unable to assess criticality Contact dermatitis | Mode rate 01/17/2016 Sulfa Unable to assess criticality 12/10/2018 Inactive Allergies NKDA Unable to assess criticality 05/11/2015 Medications Active Medications SIG Qnty Indications Ordering Provide r Date Proctocort 30mg Suppository 1 by rectum nightly as needed. 12units Hannah MartinezO. Farxiga 10mg Tablets 1 by mouth every [...] 90tabs Hannah MartinezOPop 05/10 Calcium + D3 791-317kg-Rrsf Tablet s 1 by mouth every day [...] CPT Code Status Date Vaccine Lot # [id number] Given 12/14/2016 Influenza Vaccin e Quadrivalent Preser/Antibiotic Free Im Use [id number] Vital Signs Date Vital Result Comment 11/22/2020 9:22am BP Systolic 132 mmHg BP Diastolic 68 mmHg Height 63 inches 5'3" Weight 156.50 lb BMI (Body Mass Index) 27.7 kg/m2 Heart Rate 56 /min Respiratory Rate 18 /min Body Temperature 97.1 F O2 % BldC Oximetry 99 % Wink Body Weight 115 lb 11/18/2020 9:21am BP Systolic 118 mmHg BP Diastolic 76 mmHg Height 63 inches 5'3" Weight 161.00 lb BMI (Body Mass Index) 28.5 kg/m2 Heart Rate 57 /min Respiratory Rate 18 /min Body Temperature 98.0 F O2 % BldC Oximetry 99 % Wink Body Weight 115 lb Results Test Acquired Date Facility Test Result H/L Range Note Coronavirus 2019 Nasopharygeal 01/22/2021 [facility] Outar tient Testing (Registration) [address] [place] [address] [phone] Coronavirus 2019 Nasopharygeal ASSAY INFORMATIO <SEE N OTE> 1 Liver Profile 09/23/2020 [facility] Outpatient Testi ng (Registration) [address] [place] [address] [phone] Ast/Sgot 41 U/L High 7-37 Alt/SGPT 45 U/L Normal 12-78 Alkaline Phosphatase 117 U/L Normal 45-117 Bilirubin,Total 1.0 mg/dL Normal 0.2-1.0 Bilirubin,Direct 0.3 mg/dL High 0.0-0.2 Total Protein 7.2 GM/DL Normal 6.4-8.2 Albumin 3.6 GM/DL Normal 3.2-5.2 Albumin/Globulin Ratio 1.0 Low 1.2-2.2 Laboratory test finding 09/23/2020 [facility] Outpatient T esting (Registration) [address] [place] [address] [phone] Alpha Fetoprotein Tumor Quant 2.6 NG/ML Normal <8 .1 2 Abscess Culture And Gram Stain 08/13/2020 [facility] Outpa tient Testing (Registration) [address] [place] [address] [phone] Gram Stain (SEE NOTE) Normal 3 Abscess Culture FULL REPORT IN L <SEE NOTE> Normal 4 Comprehensive Metabolic Profil 07/29/2020 [facility] [employer] Testing (Registration) [address] [place] [address] [phone] Glucose, Fasting 156 mg/dL High 70-100 Blood Urea Nitrogen 19 mg/dL High 7-18 Creatinine For GFR 0.81 mg/dL Normal 0.55-1.30 Glomerular Filtration Rate > 60.0 Normal >39 5 Sodium Level 142 mEq/L Normal 136-145 Potassium [...] 1.1 Low 1.2-2.2 CBC With Differential 07/29/2020 [facility] Outpatient Verito velazquez (Registration) [address] [place] [address] [phone] White Blood Count 4.0 10 Normal 4.0-10.0 [...] 36.0-66.0 Lymph % 26.3 % Normal 24.0-44.0 [place] % 11.1 % High 2.0-8.0 Eos % 11.4 % High 0.0-3.0 Baso % 1.3 % High 0.0-1.0 Immature Granulocyte % 0.5 % Normal 0-3.0 Nucleated Red Blood Cell % 0.0 % Normal 0-0 Neutrophils # 2.0 10 Normal 1.5-8.5 Lymph # 1.0 10 Low 1.5-5.0 [place] # 0.4 10 Normal 0.0-0.8 Eos # 0.5 10 Normal 0.0-0.5 Baso # 0.1 10 Normal 0.0-0.2 Total Iron Binding Capacit 07/29/2020 [facility] Outpatien t Testing (Registration) [address] [place] [address] [phone] Iron (Fe) 57 g/dL Normal 50-170 Total Iron Binding Capacity 448 g/dL Normal 250-450 Percent Saturation 12.7 % Low 13.2-45.0 Laboratory test finding 07/29/2020 [facility] Outpatient T esting (Registration) [address] [place] [address] [phone] Ferritin 32 NG/ML Normal 8-252 Hemoglobin A1c 07/29/2020 [facility] Outpatient Testi ng (Registration) [address] [place] [address] [phone] Hemoglobin A1c 7.8 % Normal 6 Estimated Average Glucose 177 mg/dL High 60-110 Lipid Panel 07/29/2020 [facility] Outpatient Testi ng (Registration) [address] [place] [address] [phone] Triglycerides Level 179 mg/dL High <150 Cholesterol Level 161 mg/dL Normal <200 HDL Cholesterol 50 mg/dL Normal >40 LDL Cholesterol 75 mg/dL Normal <100 Non-HDL-C 111 mg/dL Normal Cholesterol Risk Ratio 3.220 Normal <5 FT4&TSH Panel 07/29/2020 [facility] Outpatient Testi ng (Registration) [address] [place] [address] [phone] Thyroid Stimulating Hormone 1.090 uIU/ML Normal 0. 358-3.740 Free T4 0.97 ng/dL Normal 0.76-1.46 1 ASSAY INFORMATION: Real Time RT-PCR NOTE: The COVID-19 assay has been cleared by the U.S. Food and Drug Administration under the Emergency Use Authorization (EUA). [employer] [facility] [employer] [facility] are designated as high complexity laboratories by the Clinical Laboratory Improvement Amendments of 1988(CLIA) and are qualified to perform this test. Not Detected 2 THE AFP ASSAY IS PERFORMED O N THE [employer] BY CHEMILUMINESCENCE AND SHOULD NOT BE COMPARED INTERCHANGEABLY WITH OTHER METHODS. IT SHOULD NOT BE USED ALONE A SCREENING TEST OR DIAGNOSIS FOR THE PRESENCE OR ABSENCE OF MALIGNANT DISEASE. THESE RESULTS ARE NOT INTERPRETABLE IN FEMALES. PREDICTIONS OF DISEASE RECURRENCE SHOULD NOT BE BASED SOLELY ON VALUES OBTAINED FROM SERIAL PATIENT SERUM VALUES. 3 FEW WBCS NO ORGANISMS SEEN 4 FULL REPORT IN LAB NOTES (eC W [...] Carbapenems, Amoxicillin/Clavulanate & Ampicillin/Sulbactam per CSLI standards. 5 Units are mL/min/1.73 m2 Chronic Kidney Disease Staging per NKF: Stage I & II GFR >=60 Normal to Mildly Decreased Stage III GFR 30-59 Moderately Decreased Stage IV GFR 15-29 Severely Decreased Stage V GFR <15 Very Little GFR Left ESRD GFR <15 on BULK FOLDER 6 REFERENCE RANGES: <=5.6% NORMAL 5.7-6.4% SUGGESTS IMPAIRED GLUCOSE META BOLISM/PREDIABETIC >= 6.5% ABNORMAL Procedures Date Code Description Status 11/22/2020 09997 Office/Outpatient Established Lo w MDM 20-29 Min Completed 11/22/2020 70186 Remove Impact Cerumen Irrigati C ompleted 11/18/2020 21046 Office/Outpatient Established Mo d MDM 30-39 Min Completed 08/13/2020 06305 Office/Outpatient Established Lo w MDM 20-29 Min Completed 08/13/2020 22010 I & D Abscess Simple Completed 07/29/2020 09144 Office/Outpatient Established Mo d MDM 30-39 Min Completed Medical Devices Description No Information Available Encounters Type Date Location Provider Dx Diagnosis Office Visit 11/22/2020 9:20a Family Medicine [facility] LAILA Vaughan H61.23 Impacted cerumen, bilateral H93.13 Tinnitus, bilateral Office Visit 11/18/2020 9:20a [facility] Gricel Granados D.O. 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 Z79.82 residential (current) use of a spirin Z79.84 residential (current) use of o ral hypoglycemic drugs Z12.31 Encntr screen mammogram for malignant neoplasm of breast Z13.820 Encounter for screening for osteoporosis I99.8 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 11/18/2020 E78.2 Mixed hyperlipidemia Gricel Khan D.OPop 11/18/2020 K74.60 Unspecified cirrhosis of liver Nannette tapia Darwin D.O. 11/18/2020 D50.9 Iron deficiency anemia, unspecif ied Gricel Granados D.O. 11/18/2020 D51.3 Other dietary vitamin B12 defici ency anemia Gricel Garcia D.O. 11/18/2020 I25.10 Atherosclerotic hear t disease of [place] coronary artery without angina pectoris Gricel Granados D.O. 11/18/2020 Z88.1 Allergy status to other antibiot ic agents Gricel Granados D.O. 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 11/18/2020 Z79.82 terminal carman (current) use of aspir in Gricel DipakOscar D.O. 11/18/2020 Z79.84 residential (current) use of oral hypoglycemic drugs Gricel Granados D.O. 11/18/2020 Z12.31 Encounter for screen ing mammogram for malignant neoplasm of breast Gricel Granados D.OPop 11/18/2020 Z13.820 Encounter for screening for [...] 07/29/2020 I25.10 Atherosclerotic hear t disease of [place] coronary artery without angina pectoris LAILA Vaughan 07/29/2020 Z12.31 Encounter for screen ing mammogram for malignant neoplasm of breast LAILA Vaughan Plan of Treatment Future Appointment(s):* 02/24/2021 10:00 am - Whitney Ortega, ANP at [facility] 11/22/2020 - LAILA Vaughan* H61.23 Impacted cerumen, bilateral* Comments: * Your ears were flushed today. Call for any concerns. * Follow up:* As already scheduled. * H93.13 Tinnitus, bilateral* Comments:* We will refer you to [facility] [place] for further evaluation. * Referral:* [facility], Functional Status Description No Information Available Mental Status Description No Information Available Referrals Refer to Reason for Referral Status Appt Date [facility] 75 year old female with bila teral tinnitus, please eval and treat. Sent 02/17/[address] [place] [address] [phone]
--- OUTSIDE RECORDS SUMMARY | 2021-01-27 07:16 | CCD ---
Author Author [facility] Organization [facility] Address Unknown Phone Unavailable Care Team Providers Care Rehab Physician Name Role Phone CHRISTOPHER FERNANDEZ MD Unavailable Unavailable CHRISTOPHER FERNANDEZ MD Unavailable CHRISTOPHER Warren MD Unavailable Unavailable CHRISTOPHER FERNANDEZ MD Unavailable Unavailable CHRISTOPHER FERNANDEZ MD Unavailable Unavailable CHRISTOPHER FERNANDEZ MD Unavailable Unavailable CHRISTOPHER FERNANDEZ MD Unavailable Unavailable CHRISTOPHER FERNANDEZ MD Unavailable CHRISTOPHER Warren MD Unavailable Unavailable CHRISTOPHER FERNANDEZ MD Unavailable Unavailable CHRISTOPHER FERNANDEZ MD Unavailable Unavailable CHRISTOPHER FERNANDEZ MD Unavailable Unavailable CHRISTOPHER FERNANDEZ MD Unavailable Unavailable CHRISTOPHER FERNANDEZ MD Unavailable Unavailable CHRISTOPHER FERNANDEZ MD Unavailable Unavailable REINDL, CHRISTOPHER QUEVEDO Unavailable Unavailable REINDL, CHRISTOPHER QUEVEDO Unavailable Unavailable REINDL, CHRISTOPHER QUEVEDO Unavailable Unavailable REINDL, CHRISTOPHER QUEVEDO Unavailable Unavailable REINDL, CHRISTOPHER QUEVEDO Unavailable Unavailable REINDL, CHRISTOPHER QUEVEDO Unavailable Unavailable REINDL, CHRISTOPHER QUEVEDO Unavailable Unavailable REINDL, CHRISTOPHER QUEVEDO Unavailable Unavailable REINDL, CHRISTOPHER QUEVEDO Unavailable Unavailable REINDL, CHRISTOPHER QUEVEDO Unavailable Unavailable REINDL, CHRISTOPHER QUEVEDO Unavailable Unavailable REINDL, CHRISTOPHER QUEVEDO Unavailable Unavailable REINDL, CHRISTOPHER QUEVEDO Unavailable Unavailable REINDL, CHRISTOPHER QUEVEDO Unavailable Unavailable REINDL, CHRISTOPHER QUEVEDO Unavailable Unavailable REINDL, CHRISTOPHER QUEVEDO Unavailable Unavailable REINDL, CHRISTOPHER QUEVEDO Unavailable Unavailable REINDL, CHRISTOPHER QUEVEDO Unavailable Unavailable REINDL, CHRISTOPHER QUEVEDO Unavailable Unavailable REINDL, CHRISTOPHER QUEVEDO Unavailable Unavailable REINDL, CHRISTOPHER QUEVEDO Unavailable Unavailable REINDL, CHRISTOPHER QUEVEDO Unavailable Unavailable REINDL, CHRISTOPHER QUEVEDO Unavailable Unavailable REINDL, CHRISTOPHER QUEVEDO Unavailable Unavailable REINDL, CHRISTOPHER QUEVEDO Unavailable Unavailable REINDL, CHRISTOPHER QUEVEDO Unavailable Unavailable REINDL, CHRISTOPHER QUEVEDO Unavailable Unavailable Melvin, Carlo PA Unavailable Unavailable Melvin, Carlo PA Unavailable Unavailable Melvin, Carlo PA Unavailable Unavailable Melvin, Carlo PA Unavailable Unavailable Melvin, Carlo PA Unavailable Unavailable Melvin, Carlo PA Unavailable Unavailable Melvin, Carlo PA Unavailable Unavailable Melvin, Carlo PA Unavailable Unavailable Melvin, Carlo PA Unavailable Unavailable Melvin, Carlo PA Unavailable Unavailable Melvin, Carlo PA Unavailable Unavailable Melvin, Carlo PA Unavailable Unavailable Melvin, Carlo PA Unavailable Unavailable Melvin, Carlo PA Unavailable Unavailable Melvin, Carlo PA Unavailable Unavailable Melvin, Carlo PA Unavailable Unavailable Melvin, Carlo PA Unavailable Unavailable Melvin, Carlo PA Unavailable Unavailable Melvin, Carlo PA Unavailable Unavailable Melvin, Carlo PA Unavailable Unavailable Melvin, Carlo PA Unavailable Unavailable Melvin, Carlo PA Unavailable Unavailable Melvin, Carlo PA Unavailable Unavailable Melvin, Carlo PA Unavailable Unavailable Melvin, Carlo PA Unavailable Unavailable Melvin, Carlo PA Unavailable Unavailable Melvin, Carlo PA Unavailable Unavailable Melvin, Carlo PA Unavailable Unavailable Melvin, Carlo PA Unavailable Unavailable Melvin, Carlo PA Unavailable Unavailable Melvin, Carlo PA Unavailable Unavailable Melvin, Carlo PA Unavailable Unavailable Melvin, Carlo PA Unavailable Unavailable Melvin, Carlo PA Unavailable Unavailable Melvin, Carlo PA Unavailable Unavailable Melvin, Carlo PA Unavailable Unavailable Melvin, Carlo PA Unavailable Unavailable Melvin, Carlo PA Unavailable Unavailable Melvin, Carlo PA Unavailable Unavailable Melvin, Carlo PA Unavailable Unavailable Melvin, Carlo PA Unavailable Unavailable Melvin, Carlo PA Unavailable Unavailable Melvin, Carlo PA Unavailable Unavailable Melvin, Carlo PA Unavailable Unavailable Melvin, Carlo PA Unavailable Unavailable Melvin, Carlo PA Unavailable Unavailable Melvin, Carlo PA Unavailable Unavailable Melvin, Carlo PA Unavailable Unavailable Melvin, Carlo PA Unavailable Unavailable Melvin, Carlo PA Unavailable Unavailable Melvin, Carlo PA Unavailable Unavailable Melvin, Carlo PA Unavailable Unavailable Melvin, Carlo PA Unavailable Unavailable Melvin, Carlo PA Unavailable Unavailable Melvin, Carlo PA Unavailable Unavailable RAVINDER-SHARON, EZ DO Unavailable Unavailable RAVINDER-SHARON, EZ DO Unavailable Unavailable RAVINDER-SHARON, EZ DO Unavailable Unavailable RAVINDER-SHARON, EZ DO Unavailable Unavailable RAVINDER-SHARON, EZ DO Unavailable Unavailable RAVINDER-SHARON, EZ DO Unavailable Unavailable RAVINDER-SHARON, EZ DO Unavailable Unavailable RAVINDER-SHARON, EZ DO Unavailable Unavailable RAVINDER-SHARON, EZ DO Unavailable Unavailable RAVINDER-SHARON, EZ DO Unavailable Unavailable RAVINDER-SHARON, EZ DO Unavailable Unavailable RAVINDER-SHARON, EZ DO Unavailable Unavailable RAVINDER-SHARON, EZ DO Unavailable Unavailable RAVINDER-SHARON, EZ DO Unavailable Unavailable RAVINDER-SHARON, EZ DO Unavailable Unavailable RAVINDER-SAHRON, EZ DO Unavailable Unavailable RAVINDER-SHARON, EZ DO Unavailable Unavailable RAVINDER-SHARON, EZ DO Unavailable Unavailable RAVINDER-SHARON, EZ DO Unavailable Unavailable RAVINDER-SHARON, EZ DO Unavailable Unavailable RAVINDER-SHARON, EZ DO Unavailable Unavailable RAVINDER-SHARON, EZ DO Unavailable Unavailable RAVINDER-SHARON, EZ DO Unavailable Unavailable RAVINDER-SHARON, EZ DO Unavailable Unavailable RAVINDER-SHARON, EZ DO Unavailable Unavailable RAVINDER-SHARON, EZ DO Unavailable Unavailable RAVINDER-SHARON, EZ DO Unavailable Unavailable RAVINDER-SHARON, EZ DO Unavailable Unavailable RAVINDER-SHARON, EZ DO Unavailable Unavailable RAVINDER-SHARON, ZE DO Unavailable Unavailable RAVINDER-SHARON, EZ DO Unavailable Unavailable RAVINDER-SHARON, EZ DO Unavailable Unavailable RAVINDER-SHARON, EZ DO Unavailable Unavailable ARVINDER-SHARON, EZ DO Unavailable Unavailable RAVINDER-SHARON, EZ DO Unavailable Unavailable RAVINDER-SHARON, EZ DO Unavailable Unavailable RAVINDER-SHARON, EZ DO Unavailable Unavailable RAVINDER-SHARON, EZ DO Unavailable Unavailable RAVINDER-SHARON, EZ DO Unavailable Unavailable RAVINDER-SHARON, EZ DO Unavailable Unavailable RAVINDER-SHARON, EZ DO Unavailable Unavailable RAVINDER-SHARON, EZ DO Unavailable Unavailable RAVINDER-SHARON, EZ DO Unavailable Unavailable RAVINDER-SHARON, EZ DO Unavailable Unavailable RAVINDER-SHARON, EZ DO Unavailable Unavailable RAVINDER-SHARON, EZ DO Unavailable Unavailable RAVINDER-SHARON, EZ DO Unavailable Unavailable RAVINDER-SHARON, EZ DO Unavailable Unavailable RAVINDER-SHARON, EZ DO Unavailable Unavailable RAVINDER-SHARON, EZ DO Unavailable Unavailable RAVINDER-SHARON, EZ DO Unavailable Unavailable RAVINDER-SHARON, EZ DO Unavailable Unavailable RAVINDER-SHARON, EZ DO Unavailable Unavailable RAVINDER-SHARON, EZ DO Unavailable Unavailable RAVINDER-SHARON, EZ DO Unavailable Unavailable RAVINDER-SHARON, EZ DO Unavailable Unavailable RAVINDER-SHARON, EZ DO Unavailable Unavailable RAVINDER-SHARON, EZ DO Unavailable Unavailable RAVINDER-SHARON, EZ DO Unavailable Unavailable RAVINDER-SHARON, EZ DO Unavailable Unavailable RAVINDER-SHARON, EZ DO Unavailable Unavailable RAVINDER-SHARON, EZ DO Unavailable Unavailable RAVINDER-SHARON, EZ DO Unavailable Unavailable RAVINDER-SHARON, EZ DO Unavailable Unavailable RAVINDER-SHARON, EZ DO Unavailable Unavailable RAVINDER-SHARON, EZ DO Unavailable Unavailable RAVINDER-SHARON, EZ DO Unavailable Unavailable RAVINDER-SHARON, EZ DO Unavailable Unavailable RAVINDER-SHARON, EZ DO Unavailable Unavailable RAVINDER-SHARON, EZ DO Unavailable Unavailable RAVINDER-SHARON, EZ DO Unavailable Unavailable RAVINDER-SHARON, EZ DO Unavailable Unavailable RAVINDER-SHARON, EZ DO Unavailable Unavailable RAVINDER-SHARON, EZ DO Unavailable Unavailable RAVINDER-SHARON, EZ DO Unavailable Unavailable RAVINDER-SHARON, EZ DO Unavailable Unavailable RAVINDER-SHARON, EZ DO Unavailable Unavailable RAVINDER-SHARON, EZ DO Unavailable Unavailable RAVINDER-SHARON, EZ DO Unavailable Unavailable RAVINDER-SHARON, EZ DO Unavailable Unavailable RAVINDER-SHARON, EZ DO Unavailable Unavailable RAVINDER-SHARON, EZ DO Unavailable Unavailable RAVINDER-SHARON, EZ DO Unavailable Unavailable RAVINDER-SHARON, EZ DO Unavailable Unavailable Mari Cleaning MD Unavailable Unavailable Mari Cleaning MD Unavailable Unavailable CleaningMari swift MD Unavailable Unavailable Mari Cleaning MD Unavailable Unavailable Mari Cleaning MD Unavailable Unavailable Mari Cleaning MD Unavailable Unavailable Mari Cleaning MD Unavailable Unavailable Mari Cleaning MD Unavailable Unavailable Mari Cleaning MD Unavailable Unavailable Mari Cleaning MD Unavailable Unavailable Mari Cleaning MD Unavailable Unavailable Mari Cleaning MD Unavailable Unavailable Mari Cleaning MD Unavailable Unavailable Mari Cleaning MD Unavailable Unavailable Mari Cleaning MD Unavailable Unavailable Mari Cleaning MD Unavailable Unavailable Mari Cleaning MD Unavailable Unavailable Mari Cleaning MD Unavailable Unavailable Mari Cleaning MD Unavailable Unavailable Mari Cleaning MD Unavailable Unavailable Mari Cleaning MD Unavailable Unavailable Mari Cleaning MD Unavailable Unavailable Mari Cleaning MD Unavailable Unavailable Mari Cleaning MD Unavailable Unavailable Mari Cleaning MD Unavailable Unavailable Mari Cleaning MD Unavailable Unavailable Mari Cleaning MD Unavailable Unavailable Mari Cleaning MD Unavailable Unavailable Mari Cleaning MD Unavailable Unavailable Mari Cleaning MD Unavailable Unavailable Mari Cleaning MD Unavailable Unavailable Mari Cleaning MD Unavailable Unavailable Mari Cleaning MD Unavailable Unavailable Mari Cleaning MD Unavailable Unavailable Mari Cleaning MD Unavailable Unavailable Mari Cleaning MD Unavailable Unavailable CleaningMari currie MD Unavailable Unavailable CleaningMari MD Unavailable Unavailable CleaningMari MD Unavailable Unavailable CleaningMari MD Unavailable Unavailable CleaningMari MD Unavailable Unavailable CleaningMari currie MD Unavailable Unavailable CleaningMari currie MD Unavailable Unavailable CleaningMari currie MD Unavailable Unavailable CleaningMari MD Unavailable Unavailable CleaningMari MD Unavailable Unavailable CleaningMari MD Unavailable Unavailable CleaningMari MD Unavailable Unavailable CleaningMari currie MD Unavailable Unavailable CleaningMari currie MD Unavailable Unavailable CleaningMari MD Unavailable Unavailable CleaningMari currie MD Unavailable Unavailable CleaningMari currie MD Unavailable Unavailable CleaningMari currie MD Unavailable Unavailable CleaningMari currie MD Unavailable Unavailable CleaningMari currie MD Unavailable Unavailable CleaningMari currie MD Unavailable Unavailable CleaningMari currie MD Unavailable Unavailable CleaningMari currie MD Unavailable Unavailable CleaningMari currie MD Unavailable Unavailable CleaningMari currie MD Unavailable Unavailable Mari Cleaning MD Unavailable Unavailable CleaningMari currie MD Unavailable Unavailable CleaningMari currie MD Unavailable Unavailable CleaningMari currie MD Unavailable Unavailable CleaningMari currie MD Unavailable Unavailable CleaningMari currie MD Unavailable Unavailable CleaningMari currie MD Unavailable Unavailable CleaningMari currie MD Unavailable Unavailable CleaningMari currie MD Unavailable Unavailable Mari Cleaning MD Unavailable Unavailable Mari Cleaning MD Unavailable Unavailable Mari Cleaning MD Unavailable Unavailable Mari Cleaning MD Unavailable Unavailable Mari Cleaning MD Unavailable Unavailable CleaningMari currie MD Unavailable Unavailable Mari Cleaning MD Unavailable Unavailable Mari Cleaning MD Unavailable Unavailable Mari Cleaning MD Unavailable Unavailable Fons, M Ely COMPONENT ENGINEER Unavailable Unavailable Fons, M Ely COMPONENT ENGINEER Unavailable Unavailable Fons, M Ely COMPONENT ENGINEER Unavailable Unavailable Fons, M Ely COMPONENT ENGINEER Unavailable Unavailable Fons, M Ely COMPONENT ENGINEER Unavailable Unavailable Fons, M Ely COMPONENT ENGINEER Unavailable Unavailable Fons, M Ely COMPONENT ENGINEER Unavailable Unavailable Fons, M Ely COMPONENT ENGINEER Unavailable Unavailable Fons, M Ely COMPONENT ENGINEER Unavailable Unavailable Fons, M Ely COMPONENT ENGINEER Unavailable Unavailable Fons, M Ely COMPONENT ENGINEER Unavailable Unavailable Fons, M Ely COMPONENT ENGINEER Unavailable Unavailable Fons, M Ely COMPONENT ENGINEER Unavailable Unavailable Fons, M Ely COMPONENT ENGINEER Unavailable Unavailable Fons, M Ely COMPONENT ENGINEER Unavailable Unavailable Fons, M Ely COMPONENT ENGINEER Unavailable Unavailable Fons, M Ely COMPONENT ENGINEER Unavailable Unavailable Fons, M Ely COMPONENT ENGINEER Unavailable Unavailable Fons, M Ely COMPONENT ENGINEER Unavailable Unavailable Fons, M Ely COMPONENT ENGINEER Unavailable Unavailable Fons, M Ely COMPONENT ENGINEER Unavailable Unavailable Fons, M Ely COMPONENT ENGINEER Unavailable Unavailable Fons, M Ely COMPONENT ENGINEER Unavailable Unavailable Fons, M Ely COMPONENT ENGINEER Unavailable Unavailable Fons, M Ely COMPONENT ENGINEER Unavailable Unavailable Fons, M Ely COMPONENT ENGINEER Unavailable Unavailable Fons, M Ely COMPONENT ENGINEER Unavailable Unavailable Fons, M Ely COMPONENT ENGINEER Unavailable Unavailable Fons, M Ely COMPONENT ENGINEER Unavailable Unavailable Fons, M Ely COMPONENT ENGINEER Unavailable Unavailable Fons, M Ely COMPONENT ENGINEER Unavailable Unavailable Fons, M Ely COMPONENT ENGINEER Unavailable Unavailable Fons, M Ely COMPONENT ENGINEER Unavailable Unavailable Fons, M Ely COMPONENT ENGINEER Unavailable Unavailable Fons, M Ely COMPONENT ENGINEER Unavailable Unavailable Fons, M Ely COMPONENT ENGINEER Unavailable Unavailable Fons, M Ely COMPONENT ENGINEER Unavailable Unavailable Fons, M Ely COMPONENT ENGINEER Unavailable Unavailable Fons, M Ely COMPONENT ENGINEER Unavailable Unavailable Fons, M Ely COMPONENT ENGINEER Unavailable Unavailable Fons, M Ely COMPONENT ENGINEER Unavailable Unavailable Fons, M Ely COMPONENT ENGINEER Unavailable Unavailable Fons, M Ely COMPONENT ENGINEER Unavailable Unavailable Fons, M Ely COMPONENT ENGINEER Unavailable Unavailable Fons, M Ely COMPONENT ENGINEER Unavailable Unavailable Fons, M Ely COMPONENT ENGINEER Unavailable Unavailable Fons, M Ely COMPONENT ENGINEER Unavailable Unavailable Fons, M Ely COMPONENT ENGINEER Unavailable Unavailable Fons, M Ely COMPONENT ENGINEER Unavailable Unavailable Fons, M Ely COMPONENT ENGINEER Unavailable Unavailable Fons, M Ely COMPONENT ENGINEER Unavailable Unavailable Fons, M Ely COMPONENT ENGINEER Unavailable Unavailable Fons, M Ely COMPONENT ENGINEER Unavailable Unavailable Re-disclosure Warning The records that you are about to access may contain information from federally-assisted alcohol or drug abuse programs. If such information is present, then the following federally mandated warning applies: This information has been disclosed to you from records protected by federal confidentiality rules (42 CFR part 2). The federal rules prohibit you from making any further disclosure of this information unless further disclosure is expressly permitted by the written consent of the person to whom it pertains or as otherwise permitted by 42 CFR part 2. A general authorization for the release of medical or other information is NOT sufficient for this purpose. The Federal rules restrict any use of the information to criminally investigate or prosecute any alcohol or drug abuse patient.The records that you are about to access may contain highly sensitive health information, the redisclosure of which is protected by Article 27-F of the [facility] Public Health law. If you continue you may have access to information: Regarding HIV / AIDS; Provided by facilities licensed or operated by the [facility] Office of Mental Health; or Provided by the [facility] Office for People With Developmental Disabilities. If such information is present, then the following [facility] mandated warning applies: This information has been disclosed to you from confidential records which are protected by state law. State law prohibits you from making any further disclosure of this information without the specific written consent of the person to whom it pertains, or as otherwise permitted by law. Any unauthorized further disclosure in violation of state law may result in a fine or mcfp sentence or both. A general authorization for the release of medical or other information is NOT sufficient authorization for further disc losure. Family History Family Member Name Family Member Gender Family Member Status Date o f Status Description Data Source(s) Unknown Unknown Problem 01/20/2014 12:00:00 AM EST BEE ([facility], ) mother Dx age 47 Encounters Encounter Providers Location Date Indications Data Source(s ) Outpatient Attender: Ely Lange FNPReferrer: Ely JONES SJJosé Miguel .SHRUTHI-SJP 12/16/2020 10:09:24 AM EDT - 12/16/2020 11:35:01 AM EDT [facility] Outpatient Attender: Ely Lange FNPReferrer: Ely JONES SJJosé Miguel .SHRUTHI-SJP.SHRUTHI 12/16/2020 12:00:00 AM EDT - 12/16/2020 11:35:44 AM EDT [facility] Outpatient Attender: Carlo ULLOA [facility] 11/22/2020 09:20:00 AM EDT [facility] ([facility]) Outpatient Attender: EZ DONNELLY DO [facility] 11/18/2020 09:20:00 AM EDT [facility] ([facility]) Outpatient Attender: CHRISTOPHER Green/Virgilio/José/Rein dl 10/21/2020 11:30:00 AM EDT [facility] ([facility]) Outpatient Attender: Ely JONES SJP.SHRUTHI-SJP.SHRUTHI 07:55:17 AM EDT - 08/19/2020 08:43:38 AM EDT [facility] Outpatient Attender: Carlo ULLOA [facility] 08/13/2020 11:20:00 AM EDT [facility] ([facility]) Outpatient Attender: Carlo ULLOA [facility] 07/29/2020 10:40:00 AM EDT [facility] ([facility]) Outpatient Attender: CHRISTOPHER Green/Virgilio/José/Rein isaiah 06/29/2020 11:00:00 AM EDT [facility] ([facility]) Outpatient Attender: CHRISTOPHER Green/Virgilio/José/Rein isaiah 03/31/2020 07:30:00 AM EST [facility] ([facility]) Outpatient Attender: Js Butt 02/04/2020 02:30:00 PM EST [facility] ([facility]) Outpatient Attender: CHRISTOPHER Green/Virgilio/José/Rein dl 01/20/2020 07:30:00 AM EST [facility] ([facility]) Outpatient [address] [facility] [id number] 01/16/2020 12:00:00 AM EST eCW1 ([facility]) ([id number]) For Template [employer] [address] [place] [id number] 01/08/2020 12:00:00 AM EST eCW1 ([facility]) Outpatient Attender: CHRISTOPHER Green/Virgilio/José/Rein dl 01/01/2020 01:30:00 PM EST MED[facility] ([facility]) ([id number]) For Template [employer] [address] [place] [address] 12/25/2019 12:00:00 AM EDT eCW1 ([facility]) Outpatient [address] [facility] [address] 12/11/2019 12:00:00 AM EDT eCW1 ([facility]) ([id number]) For Template [employer] [address] [place] [address] 12/04/2019 12:00:00 AM EDT eCW1 ([facility]) Unknown [address] [facility] [address] 12/03/2019 12:00:00 AM EDT eCW1 ([facility]) Immunizations Vaccine Date Status Description Data Source(s) COVID-19 VACCINE Moderna 05/26/2020 12:00:00 AM EDT completed [place] Vaccine Series Complete: YESThis Data wa s Submitted to [facility] Via [employer]. COVID-19 VACCINE Moderna 05/02/2020 12:00:00 AM EST completed [facility] Vaccine Series Complete: NOThis Data was Submitted to [facility] [employer]. IIV3. This is one of two codes replacing CVX 15, which is being retired. 12/11/2019 03:22:00 PM EDT completed eCW1 ([facility]) IIV3. This is one of two codes replacing CVX 15, which is being retired. 12/11/2019 03:22:00 PM EDT completed eCW1 ([facility]) IIV3. This is one of two codes replacing CVX 15, which is being retired. 12/11/2019 03:22:00 PM EDT completed eCW1 ([facility]) IIV3. This is one of two codes replacing CVX 15, which is being retired. 12/11/2019 03:22:00 PM EDT completed eCW1 ([facility]) IIV3. This is one of two codes replacing CVX 15, which is being retired. 12/11/2019 03:22:00 PM EDT completed eCW1 ([facility]) IIV3. This is one of two codes replacing CVX 15, which is being retired. 12/11/2019 03:22:00 PM EDT completed eCW1 ([facility]) Medications Medication Brand Name Start Date Product Form Dose Route Admi nistrative Instructions Pharmacy Instructions Status Indications Reaction Description Data Source(s) Propranolol Hydrochloride 40 MG Oral Tablet propranolo l (INDERAL) 40 MG tablet propranolol (INDERAL) 40 MG tablet 12/15/2020 12:00:00 AM EDT 40 mg Oral active Take 1 tablet (40 mg total) by m out 2 (two) times a day [facility] Doxycycline Monohydrate 100 MG Oral Tablet doxycycline (ADOXA) 100 MG tablet doxycycline (ADOXA) 100 MG tablet 08/13/2020 12:00:00 AM EDT active TAKE 1 TABLET BY MOUTH TWICE DAILY UNTIL GONE [facility] Doxycycline Monohydrate 100 MG Oral Tablet Doxycycline Monoh ydrate 08/13/2020 12:00:00 AM EDT ORAL completed MEDENT ([facility]) Propranolol Hydrochloride 40 MG Oral Tablet propranolo l (INDERAL) 40 MG tablet propranolol (INDERAL) 40 MG tablet 05/27/2020 12:00:00 AM EDT 40 mg Oral active Take 1 tablet (40 mg total) by out 2 (two) times a day [facility] 24 HR mesalamine 375 MG Extended Release Oral Capsule [facility] 02/04/2020 12:00:00 AM EST ORAL active M EDENT ([facility]) Amitriptyline Hydrochloride 10 MG Oral Tablet Amitriptyline HCL 02/02/2020 12:00:00 AM EST ORAL active M EDENT ([facility]) Rosuvastatin calcium 40 MG Oral Tablet rosuvastatin (C RESTOR) 40 MG tablet rosuvastatin (CRESTOR) 40 MG tablet 01/27/2020 12:00:00 AM EST active TAKE 1 TABLET BY MOUTH DAILY [facility] Sodium Phosphate, Dibasic 35.5 MG/ML / S odium Phosphate, Monobasic 96.4 MG/ML Enema Fleet Enema 01/20/2020 12:00:00 AM EST compl eted MEDENT ([facility], ) Nitroglycerin 0.02 MG/MG Topical Ointment [Nitro-Bid] Nitro- bid 01/01/2020 12:00:00 AM EST completed MEDENT ([facility], ) Lidocaine 25 MG/ML / Prilocaine 25 MG/ML Topical Cream Lidoc gladis-Prilocaine 12/31/2019 12:00:00 AM EST active MEDENT ([facility], ) Omeprazole 20 MG TBDD [address]-5 20 mg Oral abo rted Take 20 mg by mouth daily [facility] Insurance Providers Payer name Policy type / Coverage type Policy ID Covered democrat ID Covered democrat's relationship to [employer] Policy [employer] Plan Information MEDICARE [id number] SP [id number] [facility] [id number] SP [id number] MEDICARE [id number] SP [id number] MEDICARE [id number] Tasha [id number] M62 [facility] 2 [id number] 1 [id number] [facility] Part B [id number] Self [id number] [facility] OPTIONS [id number] SP [id number] [facility] OPTIONS [id number] SP [id number] [facility] OPTIONS [id number] SP [id number] [facility] [facility] [id number] SP [id number] [facility] [id number] SP [id number] [place] Primary [id number] .[id number] Self [id number] Medicare [place] Medicare Primary [id number] Self [id number] [place] Medicare Primary [id number] 2.16840.1.651449.3.227.99.806.1866.0 Self [id number] Medicare [place] Medicare Primary [id number] 2.16840.1.968641.3.227.99.806.1866.0 Self [id number] [facility] [id number] SP [id number] [facility] [id number] SP [id number] [facility] [id number] 24 [id number] [facility] [id number] Tasha [id number] [facility] [id number] Tasha [id number] [employer] [id number] 2.0.1.796217.3.227.99.806.1866.0 Self [id number] [facility] Medigap Part B [id number] 2.0.1.673325.3.227.99.8646.77373.0 Self [id number] Medicare [facility] Medicare Primary [id number] 2.0.1.715243.3.227.99.8646.46211.0 Self [id number] [facility] [id number] 2.0.1.568599.3.227.99.8646.8 4986.0 Self [id number] [place] Medicare Primary [id number] 2.840.1.730212.3.227.99.8646.98201.0 Self [id number] [employer] [id number] 2.0.1.190835.3.227.99.806.1866.0 Self [id number] [place] Medicare Primary [id number] 2.0.1.570330.3.227.99.806.1866.0 Self 10 [id number] [employer] [id number] 2.16.840.1.166255.3.227.99.806.1866.0 Self [id number] [place] Medicare Primary [id number] 2.16.840.1.485397.3.227.99.806.1866.0 Self 10 [id number] [facility] Medigap Part B [id number] 2.16.840.1.043602.3.227.99.8646.78614.0 Self [id number] Aar Medigap Part B [id number] 2.16.840.1.660664.3.227.99.8646.849 86.0 Self [id number] [place]/[facility] Medicare Primary [id number] 2.16840.1.679907.3.227.99.8646.82199.0 Self [id number] [employer] [id number] 2.840.1.673527.3.227.99.806.1866.0 Self [id number] Medicare [facility] Medicare Primary [id number] 2.16.840.1.911138.3.227.99.806.1866.0 Self 10 [id number] [employer] Medicare Complete Medigap Part B [id number] 2.16840.1.437914.3.227.99.1767.91739.0 Self [id number] Medicare [facility] Medicare Primary [id number] 2.16.840.1.867324.3.227.99.1767.63272.0 Self [id number] [employer] [id number] 2.16840.1.614257.3.227.99.806.1866.0 Self [id number] Medicare [place] Medicare Primary [id number] 2.16840.1.178981.3.227.99.806.1866.0 Self 10 [id number] AARP O [id number] S [id number] 911 [employer] [id number] 2.16.840.1.251717.3.227.99.806.1866.0 Self [id number] Medicare [place] Medicare Primary [id number] 2.16.840.1.997698.3.227.99.806.1866.0 Self 10 [id number] [facility] Part B [id number] 2.16.840.1.345591.3.227.99.8646.86909.0 Self [id number] [facility] Part B [id number] 2.16.840.1.201682.3.227.99.8646.849 86.0 Self [id number] [place]/[facility] Medicare Primary [id number] 2.16.840.1.020799.3.227.99.8646.93005.0 Self [id number] MEDICARE [id number] Tasha [id number] A [facility] PI PI MEDICARE PI PI [facility] [id number] Tasha [id number] 911 [facility] Part B [id number] 2.16.840.1.478673.3.227.99.8646.51576.0 Self [id number] [facility] Part B [id number] 2.16.840.1.912471.3.227.99.8646.849 86.0 Self [id number] [place]/[facility] Medicare Primary [id number] 2.16.840.1.655988.3.227.99.8646.65941.0 Self [id number] [employer] [id number] 2.16.840.1.636807.3.227.99.806.1866.0 Self [id number] Medicare [place] Medicare Primary [id number] 2.840.1.551449.3.227.99.806.1866.0 Self 10 [id number] [facility] -O/P [id number] 18 [id number] MEDICARE PART A -O/P [id number] 18 [id number] [employer] [id number] 2.840.1.671064.3.227.99.806.1866.0 Self [id number] Medicare [place] Medicare Primary [id number] 2.0.1.498095.3.227.99.806.1866.0 Self 10 [id number] [facility] [id number] SP [id number] MEDICARE [id number] SP [id number] A [facility] Medigap Part B [id number] Self [employer] Medigap Part B [id number] Self Medicare [place]/NGS Medicare Primary [id number] Self [employer] 1950 Self Medicare [place] Medicare Primary 1949 Self [facility] Medigap Part B [id number] Self [facility] Medigap Part B [id number] Self [facility] Medigap Part B [id number] Self [facility] Medigap Part B [id number] Self [facility] 2 [id number] 1 [id number] SELF PAY 2 UNAVAILABLE 1 UNAVAILA BLE [id number] A [facility] [id number] SP [id number] MEDICARE [id number] Tasha [id number] MEDICARE [id number] [facility] [id number] Tasha [id number] 911 MEDICARE [id number] SP [id number] [facility] C[facility] OPTIONS [id number] SP [id number] MEDICARE C [id number] S [id number] AARP O [id number] S [id number] 911 Medicare [place] Medicare Primary [id number] Self [id number] [employer] [id number] Self [id number] [facility] Part B [id number] 2..1.065516.3.227.99.8646.56295.0 Self [id number] [place]/[facility] Medicare Primary [id number] 2..1.539321.3.227.99.8646.68908.0 Self [id number] [place]/[facility] Medicare Primary [id number] 2..1.550957.3.227.99.8646.76056.0 Self [id number] Medicare [place] Medicare Primary [id number] 2..1.899657.3.227.99.806.1866.0 Self 10 [id number] [employer] [id number] 2..1.990120.3.227.99.806.1866.0 Self [id number] Medicare [place] Medicare Primary [id number] 2..1.760128.3.227.99.806.1866.0 Self 10 [id number] [employer] [id number] 2..1.098522.3.227.99.806.1866.0 Self [id number] [facility] Health Care Options [facility] Part B [id number] 2..1.731493.3.227.99.1767.67472.0 Self [id number] Medicare Natl Gov't Servi Medicare Primary [id number] 2..1.352368.3.227.99.1767.52479.0 Self [id number] MEDICARE C [id number] S [id number] A Medicare [place] Medicare Primary [id number] [id number]06.1866.0 Self 10 [id number] Problems, Conditions, and Diagnoses Code Display Name Description Problem Type Effective Dates Data Source(s) I10 Essential (primary) hypertension Essential (primary) h ypertension Diagnosis 12/16/2020 11:17:59 AM EDT [facility] E78.00 Pure hypercholesterolemia, unspecified P ure hypercholesterolemia, unspecified Diagnosis 12/16/2020 11:17:59 AM EDT [facility] E11.59 Type 2 diabetes mellitus with other circ ulatory complications Type 2 diabetes mellitus with other circ Diagnosis 12/16/2020 11:17:59 AM EDT [facility] I25.10 Atherosclerotic heart diseas e of [place] coronary artery without angina pectoris Atherosclerotic heart disease of [place] Diagnosis 12/16/2020 11:17:59 AM EDT [facility] D64.9 Anemia, unspecified Anemia, unspecified Diagnosis 1 11:17:59 AM EDT [facility] I35.8 Other nonrheumatic aortic valve disorder s Other nonrheumatic aortic valve disorder Diagnosis 12/16/2020 10:09:24 AM EDT [facility] Z98.61 Coronary angioplasty status Coronary angioplasty statu s Diagnosis 08/19/2020 07:55:17 AM EDT [facility] [id number] Essential hypertension Essential hypertension Problem 02/05/2020 12:00:00 AM EST [facility] ([facility]) Surgeries/Procedures Procedure Description Date Indications Data Source(s) Remove Impact Cerumen Irrigati 11/22/2020 12:00:00 AM EDT [facility] ([facility]) OFFICE OUTPATIENT VISIT 15 MINUTES 11/22/2020 12:00:00 AM EDT [facility] ([facility]) OFFICE OUTPATIENT VISIT 25 MINUTES 11/18/2020 12:00:00 AM EDT [facility] ([facility]) OFFICE OUTPATIENT VISIT 15 MINUTES [facility] I & D Abscess Simple 08/13/2020 12:00:00 AM [facility] ([facility]) OFFICE OUTPATIENT VISIT 15 MINUTES 08/13/2020 12:00:00 AM [facility] ([facility]) OFFICE OUTPATIENT VISIT 25 MINUTES 07/29/2020 12:00:00 AM [facility] ([facility]) BLOOD COUNT COMPLETE AUTO&AUTO DIFRNTL WBC COUNT <td>C BC AND DIFFERENTIAL</td><td>Routine</td><td>07/29/2020</td><td></td><td> </td> 07/29/2020 12:00:00 AM [facility] THYROID STIMULATING HORMONE TSH <td>TSH</td><td>Routine</td><td>07/29/2020</td><td></td><td> </td> 07/29/2020 12:00:00 AM [facility] IRON <td>IRON</td><td>Routine</td ><td>07/29/2020</td><td></td><td> </td> 07/29/2020 12:00:00 AM [facility] HEMOGLOBIN GLYCOSYLATED A1C <td>HEMOGLOBIN A1C</td><td>Routine</td><td>07/29/2020</td><td></td><td> </td> 07/29/2020 12:00:00 AM [facility] FERRITIN <td>FERRITIN</td><td>Routine </td><td>07/29/2020</td><td></td><td> </td> 07/29/2020 12:00:00 AM EDT [facility] HEPATIC FUNCTION PANEL <td>HEPATIC FUNCTION PANEL</td><td>Routine</td><td>07/29/2020</td><td></td><td> </td> 07/29/2020 12:00:00 AM EDT [facility] LIPID PANEL <td>LIPID PANEL</td><td>Rout ine</td><td>07/29/2020</td><td></td><td> </td> 07/29/2020 12:00:00 AM EDT [facility] BASIC METABOLIC PANEL CALCIUM TOTAL <td>BASIC METABOLI C PANEL</td><td>Routine</td><td>07/29/2020</td><td></td><td> </td> 07/29/2020 12:00:00 AM EDT [facility] OFFICE OUTPATIENT VISIT 15 MINUTES 06/29/2020 12:00:00 AM EDT [facility] ([facility], ) OFFICE OUTPATIENT VISIT 15 MINUTES 03/31/2020 12:00:00 AM EST [facility] ([facility], ) SIGMOIDOSCOPY FLX W/BIOPSY SINGLE/MULTIPLE 02/04/2020 12:00:00 AM EST [facility] ([facility]) Sigmoidoscopy, Flexible;Diagnostic W/Or W/O Collection Of Sp ecime 01/21/2020 12:00:00 AM EST [facility] ([facility], ) FINE NEEDLE ASPIRATION W/O IMAGING GUIDANCE 01/16/2020 12:00:00 AM EST [facility] FINE NEEDLE ASPIRATION W/O IMAGING GUIDANCE 12/25/2019 12:00:00 AM EDT [facility] FINE NEEDLE ASPIRATION W/O IMAGING GUIDANCE 12/11/2019 12:00:00 AM EDT [facility] FINE NEEDLE ASPIRATION W/O IMAGING GUIDANCE 12/04/2019 12:00:00 AM EDT [facility] Results ID Date Data Source [id number] 01/22/2021 11:45:00 AM EST [facility] Name Value Range Interpretation Code Description Data Kimberly rce(s) Supporting Document(s) SARS-CoV-2 (COVID-19) RNA [Presence] in Respiratory specimen by BRITTON with probe detection Not Detected [facility] This lab was ordered by [facility] and reported by [employer] ID Date Data Source [id number] 01/22/2021 11:45:00 AM EST [facility] ([facility]) Name Value Range Interpretation Code Description Data Kimberly rce(s) Supporting Document(s) Coronavirus 2019 Nasopharygeal Laboratory test result [facility] ([facility]) ASSAY INFORMATION: Real Time RT-PCR NOTE: The COVID-19 assay has been cleared by the U.S. Food and Drug Administration under the Emergency Use Authorization (EUA). [employer] are designated as high complexity laboratories by the Clinical Laboratory Improvement Amendments of 1988(CLIA) and are qualified to perform this test. Not Detected ID Date Data Source [id number] 12/17/2020 01:23:51 PM EDT [facility] Name Value Range Interpretation Code Description Data Kimberly rce(s) Supporting Document(s) &PDF [facility] GDKYVu7gQtMUXnJz00/NMAfdPPRxz4NjHUmpJMz2OXfsVMJfQ3FhaPshNJLJY6zXHqcKKIkUYMSnFDFg FcG [file] AgICAgICAgICAgICAgICAgICAgICAgICAgICAgICAgICAgICAgICAgICAgICAgICAgICAgICAgICAgIC AgICAgICAgICAgICAgICANCiAgICAgICAgICAgICAgICAgICAgICAgICAgICAgICAgICAgICAgICAgIC AgICAgICAgICAgICAgICAgICAgICAgICAgICAgICAg ICAgICAgICAgICAgICAgICAgICAgICAgICANCiAgICAgICAgICAgICAgICAgICAgICAgICAgICAgICAg ICAgICAgICAgICAgICAgICAgICAgICAgICAgICAgICAgICAgICAgICAgICAgICAgICAgICAgICAgICAg ICAgICAgICANCiAgICAgICAgICAgICAgICAgICAgIC AgICAgICAgICAgICAgICAgICAgICAgICAgICAgICAgICAgICAgICAgICAgICAgICAgICAgICAgICAgIC AgICAgICAgICAgICAgICAgICANCiAgICAgICAgICAgICAgICAgICAgICAgICAgICAgICAgICAgICAgIC AgICAgICAgICAgICAgICAgICAgICAgICAgICAgICAg ICAgICAgICAgICAgICAgICAgICAgICAgICAgICANCiAgICAgICAgICAgICAgICAgICAgICAgICAgICAg ICAgICAgICAgICAgICAgICAgICAgICAgICAgICAgICAgICAgICAgICAgICAgICAgICAgICAgICAgICAg ICAgICAgICAgICANCiAgICAgICAgICAgICAgICAgIC AgICAgICAgICAgICAgICAgICAgICAgICAgICAgICAgICAgICAgICAgICAgICAgICAgICAgICAgICAgIC AgICAgICAgICAgICAgICAgICAgICANCiAgICAgICAgICAgICAgICAgICAgICAgICAgICAgICAgICAgIC AgICAgICAgICAgICAgICAgICAgICAgICAgICAgICAg ICAgICAgICAgICAgICAgICAgICAgICAgICAgICAgICANCiAgICAgICAgICAgICAgICAgICAgICAgICAg ICAgICAgICAgICAgICAgICAgICAgICAgICAgICAgICAgICAgICAgICAgICAgICAgICAgICAgICAgICAg ICAgICAgICAgICAgICANCiAgICAgICAgICAgICAgIC AgICAgICAgICAgICAgICAgICAgICAgICAgICAgICAgICAgICAgICAgICAgICAgICAgICAgICAgICAgIC AgICAgICAgICAgICAgICAgICAgICAgICANCjw/uBTpZ8scbCOmxnN7U3qtRb1NLv6CHN5vb5TgTUMfNH iozxBnQipFHlTsYBDzSdoUHfe1KTtaOM9TrMXrI7Ru F9QrNKtmAR7WAXQuRRZsaNDbGARwHNMwLoV8ZNZjZMreWI1WlHEqJZeeUAEzDSRsKbMjBGGtMPZgONPo OM0DWBXjX659rgYsCx9SQg9CKwZcPN5waj1MOgQqSDEyPbqBHmv9JDghJJ1NqBRsS9NsgOHon6gIYxAg M9DSRKNxRVMkEk6ZEUCbCqEkWGKqQNwrMP5jIGJjCX RHwWyrjjQ2TM7QDO5dsnGlDU3GGxPuDx9hLl0QZwLsB7HzL8KxSEFfBFPWYPjlSA5RZOEnPLE7OIPrXW YgJMQHLsZyZ53oJG8CL4Ool06cTxR1CTQeOwLbNVepDF44dVigkiNlkLJgqBmpIW5FGz6+DQplbmRvYm cLUqqyUFSXVmLhHeOOOpYrJGEfTARaDMEkPtO8OwOe Pn2JLMOqUOTjVZUuOzYuSPCtOTMiTCjpKSSeMONsNyK8HYMiWKLlEU0JNyVoUZHxRnR7AkUbCNMyRLLw ko5XQBNuMYVxOVT8WMXmZPRrKYFpGCfaYGYhUUCrZlW1OLErKRXuLB2IUmRhOSPeOGE2QDveBRVqUHGg ox0MYPZoXFGxBdK3YPOpQHOeGAHgSSckKKVyHZE5Fi k1RGDbAXDyAT3MFdXfLVGfRPe0JzxcIXAhMHQoyn9BEEHqQDVrEIl3BWKgSPRjRPBgNWezGNTeITTnPV NjWXWrDOFdUG6YObTiQWEzOND9QXdsPPWuEKQyxe4XFNZsKUMpYGJ0PXYyKTDjNQBmBGalUGJeXWLrKI WuMUVzONDmWO3KUhIlXTXzVPTaHZYlYVNaVSDsbx4C ERIcWWDrGgKdAHOoWOEqEUBeNBbyKETjKTH8Cbu5XVSwJHUzQV7KYjFoHRQwYCt2QXLsWFEjJAAvrs3F AKKoSIQkMnpuPQWlFIMnLZWzWXgeMTJaYQM4CJH1CQTzDIImFJ7MIkWmCVMyETqxEORmEIZoGTVkto9J DNZdFKNuGUV3ZCQmFAOfYUGmLFhqJPZlSJD4PWO0MY SbIQFeDM5XBgAzEBHrYFd6WPRhHFCxAHEzgf5UXWPkFSGaFWV6ZANqZKUyFYDsUCyeKHQzEYYsNtL5GS GpAOCgZN8GMvVrDGTnDqO9IHUmJYTaSNJvad9RABCmDMKvVNImFIIoRJAoZBBzCFtrUBNfHIJuJXI1RU GaUCRvSR8QJjRpSWNkFfJ7DqTrTMYmJKSdnh4MZMXv IJCeQnW8MgQpHOFmKZRiZFofWBLdOLWwTug6YFFjMFEmFG4ENoKvSSKfVuY6MGNdDGIzZLJujf3SYHKj HIDaBlE6JDFdGXIoTSKaDZscZNKvAXF6NuBoBLHzDLLaHE7PRtIlRPneCAYXJfn1QLkbR5x1UUIwYl2V P9Ste2IbLnIxEORLXIhpYG0irgYvEFZuPz0MZ1cYUh w1OuD0WyAhTTXhYQZ7SWP7PvrhBGFgGVAaPHBzTwU6HK0eTJDzTQYqJBReQiO1WxbrKlJhR9VqJiG9GP IdTCXcGgu1AwFlOC7LHf3ORxE7FOY5lXEdNl9PBnK8CBrEUmImKK6NIUl= ID Date Data Source [id number] 09/23/2020 08:57:00 AM EDT [facility] ([facility]) Name Value Range Interpretation Code Description Data Kimberly rce(s) Supporting Document(s) Paahl-3-kdyvsuyfkrx.tumor marker [Mass/volume] in Serum or Plasm a 2.6 ng/mL Normal (applies to non-numeric results) [facility] ([facility]) THE AFP ASSAY IS PERFORMED ON THE Qwiki BY CHEMILUMINESCENCE AND SHOULD NOT BE COMPARED INTERCHANGEABLY WITH OTHER METHODS. IT SHOULD NOT BE USED ALONE A SCREENING TEST OR DIAGNOSIS FOR THE PRESENCE OR ABSENCE OF MALIGNANT DISEASE. THESE RESULTS ARE NOT INTERPRETABLE IN FEMALES. PREDICTIONS OF DISEASE RECURRENCE SHOULD NOT BE BASED SOLELY ON VALUES OBTAINED FROM SERIAL PATIENT SERUM VALUES. ID Date Data Source [id number] 09/23/2020 08:57:00 AM EDT [facility] Name Value Range Interpretation Code Description Data Kimberly rce(s) Supporting Document(s) Ast/Sgot 41 U/L 7-37 Above high normal [facility] ([facility]) Alt/SGPT 45 U/L 12-78 Normal (applies to non-numeric resul ts) [facility] ([facility]) Alkaline Phosphatase 117 U/L 45-117 Normal (applies to non-num kermit results) [facility] ([facility]) Bilirubin,Total 1.0 mg/dL 0.2-1.0 Normal (applies to non-numeric results) [facility] ([facility]) Bilirubin,Direct 0.3 mg/dL 0.0-0.2 Above high normal [facility]) Albumin 3.6 GM/DL 3.2-5.2 Normal (applies to non-numeric resul ts) [facility] ([facility]) Total Protein 7.2 GM/DL 6.4-8.2 Normal (applies to non-numeric re sults) [facility] ([facility]) Albumin/Globulin Ratio 1.0 1.2-2.2 Below low normal [facility] ([facility]) ID Date Data Source [id number] 09/23/2020 08:57:00 AM EDT [facility] ([facility], ) Name Value Range Interpretation Code Description Data Kimberly rce(s) Supporting Document(s) Iqloa-7-Oewidrofjvn [Mass/volume] in Serum or Plasma 2.6 ng/mL Normal (applies to non-numeric results) [facility] ([facility], ) THE AFP ASSAY IS PERFORMED ON THE TRAR BY CHEMILUMINESCENCE AND SHOULD NOT BE COMPARED INTERCHANGEABLY WITH OTHER METHODS. IT SHOULD NOT BE USED ALONE A SCREENING TEST OR DIAGNOSIS FOR THE PRESENCE OR ABSENCE OF MALIGNANT DISEASE. THESE RESULTS ARE NOT INTERPRETABLE IN FEMALES. PREDICTIONS OF DISEASE RECURRENCE SHOULD NOT BE BASED SOLELY ON VALUES OBTAINED FROM SERIAL PATIENT SERUM VALUES. ID Date Data Source [id number] 09/23/2020 08:57:00 [facility] Name Value Range Interpretation Code Description Data Kimberyl rce(s) Supporting Document(s) Alt/SGPT 45 U/L 12-78 Normal (applies to non-numeric resul ts) [facility] ([facility]) Ast/Sgot 41 U/L 7-37 [facility] Bilirubin,Total 1.0 mg/dL 0.2-1.0 Normal (applies to non-numeric results) [facility] ([facility]) Alkaline Phosphatase 117 U/L 45-117 Normal (applies to non-num kermit results) [facility] ([facility]) Total Protein 7.2 GM/DL 6.4-8.2 Normal (applies to non-numeric re sults) [facility] ([facility]) Albumin 3.6 GM/DL 3.2-5.2 Normal (applies to non-numeric resul ts) [facility] ([facility]) Bilirubin,Direct 0.3 mg/dL 0.0-0.2 Above high normal [facility] Albumin/Globulin Ratio 1.0 1.2-2.2 Below low normal [facility] ([facility]) ID Date Data Source [id number] 08/13/2020 11:41:00 AM EDT [facility] ([facility]) Name Value Range Interpretation Code Description Data Kimberly rce(s) Supporting Document(s) Gram Stain Laboratory test result Normal (applies to non-n umeric results) [facility] ([facility]) FEW WBCS NO ORGANISMS SEEN Abscess Culture Laboratory test result Normal (a pplies to non-numeric results) [facility] ([facility]) <content>FULL REPORT IN LAB NOTES ([facility] a nd [facility]).</content>
<content></content>
<content>ORGANISM 1: STAPHYLOCOCCUS AUREUS</content>
<content></content>
<content>QUANTITY OF GROWTH MODERATE</content>
<content></content>
<content></content>
<content> ORGANISM 1: STAPHYLOCOCCUS AUREUS</content>
<content></content>
<content>STAPHYLOCOCCUS AUREUS: REACTION</content>
<content>ICR (INDUCIBLE CC RESISTANCE) IV ICR TEST RESULT</content>
<content>TETRACYCLINE PO 250 mg qid <=1 S</content>
<content>PENICILLIN G IV 1 mu q6H 0.12 R</content>
<content>PENICILLIN G IV 1 mu q6h 0.12 R</content>
<content>PENICILLIN G PO 250mg q6h fasting 0.12 R</content>
<content> TRIMETHOPRIM/SULFAMETHOXAZOLE IV 160mg TMP & 800mg SMXq6h <=10 S</content>
<content>TRIMETHOPRIM/SULFAMETHOXAZOLE PO Bactrim DS Bid <=10 S</content>
<content>ERYTHROMYCIN IV 500mg q6h >=8 R</content>
<content>ERYTHROMYCIN PO 500mg q6h >=8 R</content>
<content>GENTAMICIN IV 80mg q8h <=0.5 S</content>
<content>CLINDAMYCIN IV 600mg q6h >=4 R</content>
<content>CLINDAMYCIN PO 150mg q6h >=4 R</content>
<content>OXACILLIN IV 500mg q6h 0.5 S</content>
<content>VANCOMYCIN IV 500mg q8h <=0.5 S</content>
<content>LINEZOLID (ZYVOX) IV 600MG Q12HR 2 S</content>
<content> LINEZOLID (ZYVOX) PO 600MG Q12HR 2 S</content>
<content>An isolate with a (+) POSITIVE ICR test is considered</content>
<content>CLINDAMYCIN RESISTANT; however, clindamycin may still</content>
<content>be effective in some patients.</content>
<content>An isolate with a (-) NEGATIVE ICR test is considered</content>
<content>CLIDAMYCIN SENSITIVE.</content>
<content>Oxacillin result predicts susceptibility to all penicillinase-stable</content>
<content>penicillins (Nafcillin, Dicloxacilin), Cephalosporins, Carbapenems,</content>
<content>Amoxicillin/Clavulanate & Ampicillin/Sulbactam per [facility] standards.</content>
<content></content> ID Date Data Source [id number] 07/29/2020 02:01:00 PM EDT [facility] ([facility]) Name Value Range Interpretation Code Description Data Kimberly rce(s) Supporting Document(s) Thyroid Stimulating Hormone 1.090 uIU/ML 0.358-3.740 Norm al (applies to non- numeric results) [facility]) Free T4 0.97 ng/dL 0.76-1.46 Normal (applies to non-numeric resul ts) [facility] ([facility]) ID Date Data Source [id number] 07/29/2020 02:01:00 PM EDT [facility] ([facility]) Name Value Range Interpretation Code Description Data Kimberly rce(s) Supporting Document(s) Triglycerides Level 179 mg/dL Above high normal [facility] ([facility]) Cholesterol Level 161 mg/dL Normal (applies to non-numeri c results) [facility]) HDL Cholesterol 50 mg/dL Normal (applies to non-numeric results) [facility] ([facility]) Non-HDL-C 111 mg/dL Normal (applies to non-numeric resul ts) [facility]) LDL Cholesterol 75 mg/dL Normal (applies to non-numeric results) [facility] ([facility]) Cholesterol Risk Ratio 3.220 Normal (applies to non-n umeric results) [facility] ([facility]) ID Date Data Source [id number] 07/29/2020 02:01:00 PM EDT [facility] ([facility]) Name Value Range Interpretation Code Description Data Kimberly rce(s) Supporting Document(s) Estimated Average Glucose 177 mg/dL 60-110 Above high normal [facility] Hemoglobin A1c 7.8 % Normal (applies to non-numeric r esults) [facility] ([facility]) <content>REFERENCE RANGES:</content><br/ ><content></content>
<content><=5.6% NORMAL</content>
<content>5.7-6.4% SUGGESTS IMPAIRED GLUCOSE METABOLISM/PREDIABETIC</content>
<content>>= 6.5% ABNORMAL</content>
<content></content> ID Date Data Source [id number] 07/29/2020 02:01:00 PM EDT [facility] ([facility]) Name Value Range Interpretation Code Description Data Kimberly rce(s) Supporting Document(s) Ferritin [Mass/volume] in Serum or Plasma 32 ng/mL 8-252 Normal (applies to non- numeric results) [facility] ([facility]) ID Date Data Source [id number] 07/29/2020 02:01:00 PM EDT [facility] ([facility]) Name Value Range Interpretation Code Description Data Kimberly rce(s) Supporting Document(s) Iron (Fe) 57 ug/dL 50-170 Normal (applies to non-numeric resul ts) [facility] [facility] Total Iron Binding Capacity 448 ug/dL 250-450 Norm al (applies to non-numeric results) [facility] ([facility]) Percent Saturation 12.7 % 13.2-45.0 Below low normal [facility] ([facility]) ID Date Data Source [id number] 07/29/2020 02:01:00 PM EDT [facility] ([facility]) Name Value Range Interpretation Code Description Data Kimberly rce(s) Supporting Document(s) Red Blood Count 3.62 10 4.00-5.40 Below low normal [facility] ([facility]) White Blood Count 4.0 10 4.0-10.0 Normal (applies to non-numeri c results) [facility] ([facility]) Hemoglobin 11.5 g/dL 12.0-15.5 Below low normal [facility] ( [facility]) Hematocrit 35.9 % 36.0-47.0 Below low normal [facility] ( [facility]) Mean Corpuscular Hemoglobin 31.8 pg 27.0-33.0 Norm al (applies to non-numeric results) [facility] ([facility]) Mean Corpuscular HGB Conc 32.0 g/dL 32.0-36.5 Normal (applies to non-numeric results) [facility] ([facility]) Mean Corpuscular Volume 99.2 fl 80.0-96.0 Above high normal [facility] ([facility]) Platelet Count, Automated 117 10 150-450 Below low normal [facility] ([facility]) Red Cell Distribution Width 13.3 % 11.5-14.5 Norm al (applies to non-numeric results) [facility] ([facility]) Neutrophils % 49.4 % 36.0-66.0 Normal (applies to non-numeric re sults) [facility] ([facility]) Campbell % 11.1 % 2.0-8.0 Above high normal [facility] ([facility]) Lymph % 26.3 % 24.0-44.0 Normal (applies to non-numeric resul ts) [facility] ([facility]) Eos % 11.4 % 0.0-3.0 Above high normal [facility] ([facility]) Baso % 1.3 % 0.0-1.0 Above high normal [facility] ([facility]) Immature Granulocyte % 0.5 % 0-3.0 Normal (applies to non-n umeric results) [facility] ([facility]) Nucleated Red Blood Cell % 0.0 % 0-0 Normal (applies to n on-numeric results) [facility] ([facility]) Neutrophils # 2.0 10 1.5-8.5 Normal (applies to non-numeric re sults) [facility] ([facility]) Lymph # 1.0 10 1.5-5.0 Below low normal [facility] ( [facility]) Campbell # 0.4 10 0.0-0.8 Normal (applies to non-numeric resul ts) [facility] ([facility]) Eos # 0.5 10 0.0-0.5 Normal (applies to non-numeric resul ts) [facility] ([facility]) Baso # 0.1 10 0.0-0.2 Normal (applies to non-numeric resul ts) [facility] ([facility]) ID Date Data Source [id number] 07/29/2020 02:01:00 PM EDT [facility] ([facility]) Name Value Range Interpretation Code Description Data Kimberly rce(s) Supporting Document(s) Blood Urea Nitrogen 19 mg/dL 7-18 Above high normal [facility] Glucose, Fasting 156 mg/dL 70-100 Above high normal [facility] ([facility]) Glomerular Filtration Rate Laboratory test result Normal (applies to non- numeric results) [facility]) <content>Units are mL/min/1.73 m2</content>
<content></content>
<content>Chronic Kidney Disease Staging per NKF:</content>
<content></content>
<content>Stage I & II GFR >=60 Normal to Mildly Decreased</content>
<content>Stage III GFR 30- 59 Moderately Decreased</content>
<content>Stage IV GFR 15-29 Severely Decreased</content>
<content>Stage V GFR <15 Very Little GFR Left</content>
<content>ESRD GFR <15 on CAMPUS MANAGER</content>
<content></content> Creatinine For GFR 0.81 mg/dL 0.55-1.30 Normal (applies to non -numeric results) [facility] ([facility]) Sodium Level 142 meq/L 136-145 Normal (applies to non-numeric res ults) [facility]) Potassium Serum 4.1 meq/L 3.5-5.1 Normal (applies to non-numeric results) [facility] ([facility]) Carbon Dioxide Level 25 meq/L 21-32 Normal (applies to non-num kermit results) [facility] ([facility]) Anion Gap 7 meq/L 8-16 [facility] low [facility] Chloride Level 110 meq/L 98-107 Above high normal [facility] ([facility]) Ast/Sgot 38 U/L 7-37 Above high normal [facility] Calcium Level 9.6 mg/dL 8.8-10.2 Normal (applies to non-numeric re sults) [facility] ([facility]) Alkaline Phosphatase 93 U/L 45-117 Normal (applies to non-num kermit results) [facility] Bilirubin,Total 0.7 mg/dL 0.2-1.0 Normal (applies to non-numeric results) [facility] ([facility]) Alt/SGPT 35 U/L 12-78 Normal (applies to non-numeric resul ts) [facility] ([facility]) Total Protein 7.2 GM/DL 6.4-8.2 Normal (applies to non-numeric re sults) [facility] ([facility]) Albumin 3.7 GM/DL 3.2-5.2 Normal (applies to non-numeric resul ts) [facility] ([facility]) Albumin/Globulin Ratio 1.1 1.2-2.2 Below low normal [facility] ([facility]) ID Date Data Source [id number] 06/26/2020 07:47:00 PM EDT [facility] ([facility]) Name Value Range Interpretation Code Description Data Kimberly rce(s) Supporting Document(s) Laboratory test finding (navigational concept) 29.0 % 3 8.0-51.0 Below low normal [facility]) Laboratory test finding (navigational concept) 139 meq/L 1 36-145 Normal (applies to non-numeric results) [facility] ([facility]) Laboratory test finding (navigational concept) 177 mg/dL 7 0-105 Above high normal [facility] ([facility]) Laboratory test finding (navigational concept) 108 meq/L 9 8-109 Normal (applies to non-numeric results) [facility] ([facility]) Laboratory test finding (navigational concept) 4.5 mg/dL 4 .5-5.3 Normal (applies to non-numeric results) [facility] ([facility]) Laboratory test finding (navigational concept) 4.7 meq/L 3 .5-5.1 Normal (applies to non-numeric results) [facility] ([facility]) Laboratory test finding (navigational concept) 26.0 MM/L 2 3.0-27.0 Normal (applies to non-numeric results) [facility] ([facility]) Laboratory test finding (navigational concept) 0.8 mg/dL 0 .6-1.3 Normal (applies to non-numeric results) [facility] ([facility]) Laboratory test finding (navigational concept) 29 mg/dL 8-26 Above high normal [facility] ([facility]) ID Date Data Source [id number] 06/26/2020 07:28:00 PM EDT [facility] ([facility]) Name Value Range Interpretation Code Description Data Kimberly rce(s) Supporting Document(s) aPTT in Platelet poor plasma by Coagulation assay 34.0 s 24.2-38.5 Normal (applies to non-numeric results) [facility] ([facility]) ID Date Data Source [id number] 06/26/2020 07:28:00 PM EDT [facility] ([facility]) Name Value Range Interpretation Code Description Data Kimberly rce(s) Supporting Document(s) Inr 1.11 Normal (applies to non-numeric resul ts) [facility] ([facility]) THERAPUTIC HUMAN INR VALUES INDICATIONS NORMAL RANGES PROPHYLAXIS/TREATMENT OF: VENOUS THROMBOSIS 2.0-3.0 PULMONARY EMBOLISM 2.0-3.0 PREVENTION OF SYSTEMIC EMBOLISM FROM: TISSUE HEART VALVES 2.0-3.0 ACUTE MYOCARDIAL INFARCTION 2.0-3.0 VALVULAR HEART DISEASE 2.0-3.0 ATRIAL FIBRILLATION 2.0-3.0 MECHANICAL VALVES(HIGH RISK) 2.5-3.5 RECURRENT MYOCARDIAL INFARCTION 2.5-3.5 Prothrombin Time 14.5 s 12.5-14.3 Above high [facility] ID Date Data Source [id number] 06/26/2020 07:28:00 PM EDT [facility] ([facility]) Name Value Range Interpretation Code Description Data Kimberly rce(s) Supporting Document(s) Ast/Sgot 28 U/L 7-37 Normal (applies to non-numeric resul ts) [facility] ([facility]) Alt/SGPT 35 U/L 12-78 Normal (applies to non-numeric resul ts) [facility] ([facility]) Alkaline Phosphatase 96 U/L 45-117 Normal (applies to non-num kermit results) [facility] ([facility]) Bilirubin,Total 0.8 mg/dL 0.2-1.0 Normal (applies to non-numeric results) [facility] ([facility]) Bilirubin,Direct 0.3 mg/dL 0.0-0.2 Above high normal [facility] ([facility]) Total Protein 7.5 GM/DL 6.4-8.2 Normal (applies to non-numeric re sults) [facility] ([facility]) Albumin/Globulin Ratio 1.0 1.2-2.2 Below low normal [facility] ([facility]) Albumin 3.8 GM/DL 3.2-5.2 Normal (applies to non-numeric resul ts) [facility] ([facility]) ID Date Data Source [id number] 06/26/2020 07:28:00 PM EDT [facility] ([facility]) Name Value Range Interpretation Code Description Data Kimberly rce(s) Supporting Document(s) White Blood Count 5.3 10 4.0-10.0 Normal (applies to non-numeri c results) [facility] ([facility]) Hemoglobin 12.1 g/dL 12.0-15.5 Normal (applies to non-numeric resul ts) [facility] ([facility]) Red Blood Count 3.71 10 4.00-5.40 Below low normal [facility] ([facility]) Mean Corpuscular Volume 97.0 fl 80.0-96.0 Above high normal [facility] ([facility]) Hematocrit 36.0 % 36.0-47.0 Normal (applies to non-numeric resul ts) [facility] ([facility]) Mean Corpuscular Hemoglobin 32.6 pg 27.0-33.0 Norm al (applies to non-numeric results) [facility] ([facility]) Platelet Count, Automated 131 10 150-450 Below low normal [facility] ([facility]) Mean Corpuscular HGB Conc 33.6 g/dL 32.0-36.5 Normal (applies to non-numeric results) [facility] ([facility]) Red Cell Distribution Width 13.1 % 11.5-14.5 Norm al (applies to non-numeric results) [facility] ([facility]) Neutrophils % 48.1 % 36.0-66.0 Normal (applies to non-numeric re sults) [facility] ([facility]) Lymph % 28.6 % 24.0-44.0 Normal (applies to non-numeric resul ts) [facility] ([facility]) Eos % 11.5 % 0.0-3.0 Above high normal [facility] ([facility]) Campbell % 10.5 % 2.0-8.0 Above high normal [facility] ([facility]) Baso % 0.9 % 0.0-1.0 Normal (applies to non-numeric resul ts) [facility] ([facility]) Immature Granulocyte % 0.4 % 0-3.0 Normal (applies to non-n umeric results) [facility] ([facility]) Neutrophils # 2.6 10 1.5-8.5 Normal (applies to non-numeric re sults) [facility] ([facility]) Nucleated Red Blood Cell % 0.0 % 0-0 Normal (applies to n on-numeric results) [facility] ([facility]) Lymph # 1.5 10 1.5-5.0 Normal (applies to non-numeric resul ts) [facility] ([facility]) Eos # 0.6 10 0.0-0.5 Above high normal [facility] ([facility]) Baso # 0.1 10 0.0-0.2 Normal (applies to non-numeric resul ts) [facility] ([facility]) Campbell # 0.6 10 0.0-0.8 Normal (applies to non-numeric resul ts) [facility] ([facility]) ID Date Data Source [id number] 02/04/2020 05:07:00 PM EST [facility] ([facility]) Name Value Range Interpretation Code Description Data Kimberly rce(s) Supporting Document(s) Surgical pathology study Laboratory test result [facility] ([facility]) [facility] [address] [place] [address] Surgical Pathology Report Patient Name:PADMA LAWRENCE Patient :1945 Ordering Physician:JS CLEANING MD Specimen(s) Received A: Rectal biopsy (3 samples) Clinical Diagnosis and History K62.89 DIAGNOSIS RECTUM, BIOPSIES: BENIGN COLORECTAL TISSUE WITH NO SIGNIFICANT PATHOLOGIC FINDINGS. Note: There is rare, mild acute inflammation, but no crypt abscesses are seen. The lamina propria is mildly expanded by chronic inflammation, but no architectural distortion of the colonic mucosa is seen. Gross Description Received in formalin labeled with the patient's name and date of are three collado-pink irregular fragments of tissue ranging from 0.3 to 0.5 cm. Entirely submitted as A1. Multilevel. jgl ratnar/juan Reported: 02/09/2020 Electronically Signed Out By Abad Duque MD [facility] [address] [place] [address] ICD code: K62.89 CPT code: A: 36106N Technical component performed at [facility] [employer] [facility] [employer] [facility], Histopathology, [address] [place] [address], [id number]. Reported at [facility], [address] [place] [address], [phone]. This report may include immunohistochemical or in-situ hybridization results. Testing was developed and the performance characteristics determined by [employer] as required by CLIA '88. The FDA has determined that approval for specific use is not necessary for clinical use. The quality of Hematoxylin and Eosin stains and as applicable, for all immunohistochemical and/or special stains, including positive and negative controls, were reviewed and considered appropriate. ID Date Data Source [id number] 01/31/2020 09:07:00 PM EST [facility] ([facility]) Name Value Range Interpretation Code Description Data Kimberly rce(s) Supporting Document(s) Lipase [Enzymatic activity/volume] in Serum or Plasma 178 U/L 73-393 Normal (applies to non-numeric results) [facility]) ID Date Data Source [id number] 01/31/2020 09:07:00 PM EST [facility] ([facility]) Name Value Range Interpretation Code Description Data Kimberly rce(s) Supporting Document(s) Blood Urea Nitrogen 11 mg/dL 7-18 Normal (applies to non-nume april results) [facility] ([facility]) Glucose, Fasting 220 mg/dL 70-100 Above high normal [facility] Creatinine For GFR 0.91 mg/dL 0.55-1.30 Normal (applies to non -numeric results) [facility] ([facility]) Glomerular Filtration Rate Laboratory test result Normal (applies to non- numeric results) [facility] ([facility]) <content>Units are mL/min/1.73 m2</content>
<content></content>
<content>Chronic Kidney Disease Staging per NKF:</content>
<content></content>
<content>Stage I & II GFR >=60 Normal to Mildly Decreased</content>
<content>Stage III GFR 30-59 Moderately Decreased</content>
<content>Stage IV GFR 15-29 Severely Decreased</content>
<content>Stage V GFR <15 Very Little GFR Left</content>
<content>ESRD GFR <15 on CAMPUS MANAGER</content>
<content></content> Sodium Level 141 meq/L 136-145 Normal (applies to non-numeric res ults) [facility] ([facility]) Potassium Serum 3.7 meq/L 3.5-5.1 Normal (applies to non-numeric results) [facility] ([facility]) Chloride Level 107 meq/L 98-107 Normal (applies to non-numeric r esults) [facility] ([facility]) Carbon Dioxide Level 27 meq/L 21-32 Normal (applies to non-num kermit results) [facility] ([facility]) Anion Gap 7 meq/L 8-16 Below low normal [facility] ( [facility]) Calcium Level 9.1 mg/dL 8.8-10.2 Normal (applies to non-numeric re sults) [facility] ([facility]) ID Date Data Source [id number] 01/31/2020 09:07:00 PM EST [facility] ([facility]) Name Value Range Interpretation Code Description Data Kimberly rce(s) Supporting Document(s) Alt/SGPT 27 U/L 12-78 Normal (applies to non-numeric resul ts) [facility] ([facility]) Ast/Sgot 22 U/L 7-37 Normal (applies to non-numeric resul ts) [facility] ([facility]) Alkaline Phosphatase 134 U/L 45-117 Above high normal [facility] ([facility]) Bilirubin,Total 0.5 mg/dL 0.2-1.0 Normal (applies to non-numeric results) [facility] ([facility]) Bilirubin,Direct 0.2 mg/dL 0.0-0.2 Normal (applies to non-numeric results) [facility] ([facility]) Total Protein 6.9 GM/DL 6.4-8.2 Normal (applies to non-numeric re sults) [facility] ([facility]) Albumin/Globulin Ratio 0.9 1.2-2.2 Below low normal [facility] ([facility]) Albumin 3.3 GM/DL 3.2-5.2 Normal (applies to non-numeric resul ts) [facility] ([facility]) ID Date Data Source [id number] 01/31/2020 09:07:00 PM EST [facility] ([facility]) Name Value Range Interpretation Code Description Data Kimberly rce(s) Supporting Document(s) White Blood Count 5.3 10 4.0-10.0 Normal (applies to non-numeri c results) [facility] ([facility]) Hemoglobin 12.0 g/dL 12.0-15.5 Normal (applies to non-numeric resul ts) [facility] ([facility]) Red Blood Count 3.84 10 4.00-5.40 Below low normal [facility] ([facility]) Hematocrit 36.4 % 36.0-47.0 Normal (applies to non-numeric resul ts) [facility] ([facility]) Mean Corpuscular Volume 94.8 fl 80.0-96.0 Normal ( applies to non-numeric results) [facility] ([facility]) Red Cell Distribution Width 12.6 % 11.5-14.5 Norm al (applies to non-numeric results) [facility] ([facility]) Mean Corpuscular Hemoglobin 31.3 pg 27.0-33.0 Norm al (applies to non-numeric results) [facility] ([facility]) Mean Corpuscular HGB Conc 33.0 g/dL 32.0-36.5 Normal (applies to non-numeric results) [facility] ([facility]) Neutrophils % 57.4 % 36.0-66.0 Normal (applies to non-numeric re sults) [facility] ([facility]) Platelet Count, Automated 188 10 150-450 Normal (applies to non-numeric results) [facility] ([facility]) Campbell % 16.1 % 0.0-5.0 Above high normal [facility] ([facility]) Lymph % 21.0 % 24.0-44.0 Below low normal [facility] ( [facility]) Eos % 4.4 % 0.0-3.0 Above high normal [facility] ([facility]) Baso % 0.9 % 0.0-1.0 Normal (applies to non-numeric resul ts) [facility] ([facility]) Nucleated Red Blood Cell % 0.0 % 0-0 Normal (applies to n on-numeric results) [facility] ([facility]) Immature Granulocyte % 0.2 % 0-3.0 Normal (applies to non-n umeric results) [facility] ([facility]) Neutrophils # 3.0 10 1.5-8.5 Normal (applies to non-numeric re sults) [facility] ([facility]) Lymph # 1.1 10 1.5-5.0 Below low normal [facility] ( [facility]) Campbell # 0.9 10 0.0-0.8 Above high normal [facility] ([facility]) Eos # 0.2 10 0.0-0.5 Normal (applies to non-numeric resul ts) [facility] ([facility]) Baso # 0.1 10 0.0-0.2 Normal (applies to non-numeric resul ts) [facility] ([facility]) ID Date Data Source [id number] 01/31/2020 09:06:00 PM EST [facility] ([facility]) Name Value Range Interpretation Code Description Data Kimberly rce(s) Supporting Document(s) Reflex Urine Culture Laboratory test result Norm al (applies to non-numeric results) [facility] ([facility]) FULL REPORT IN LAB NOTES ([facility] and [facility] ). SPECIMEN APPEARS CONTAMINATED ID Date Data Source [id number] 01/31/2020 09:06:00 PM EST [facility] ([facility]) Name Value Range Interpretation Code Description Data Kimberly rce(s) Supporting Document(s) WBC, Urine Man RFX Laboratory test result 0-3 Above high mee l [facility] ([facility]) RBC, Urine Laboratory test result 0-3 Normal (applies to non-n umeric results) [facility] ([facility]) Squamous Epithelial Cell Urine Laboratory test result Normal (applies to non- numeric results) [facility] ([facility]) Bacteria, Urine Laboratory test result Above high normal [facility] ([facility]) Hyaline Cast, Urine Laboratory test result 0-1 Mee l (applies to non-numeric results) [facility] ([facility]) Microscopic Exam Laboratory test result Normal ( applies to non-numeric results) [facility] ([facility]) Yeast, Urine Laboratory test result Above high normal [facility] ([facility]) ID Date Data Source [id number] 01/31/2020 09:06:00 PM EST [facility] ([facility]) Name Value Range Interpretation Code Description Data Kimberly rce(s) Supporting Document(s) Appearance, Urine Manual RFX Laboratory test result Above high normal [facility] ([facility]) Color, Urine Manual Reflex Laboratory test result Normal (applies to non- numeric results) [facility] ([facility]) SP Ash,Urine Manual Reflex 1.015 1.002-1.035 N ormal (applies to non-numeric results) [facility] PH,Urine Man Reflex 5.0 units 5.0-7.0 Normal (applies to non-nume april results) [facility]) Glucose, Urine (Ua) Manual Laboratory test result Above hi gh normal [facility]) Protein, Urine Manual Reflex Laboratory test result Above high normal [facility] ([facility]) Urobilinogen, Urine Manual Laboratory test result Normal (applies to non- numeric results) [facility] ([facility]) Ketone, Urine Manual Laboratory test result Above high nor mal [facility] ([facility]) Bilirubin, Urine Manual Laboratory test result N ormal (applies to non-numeric results) [facility]) Nitrite, Urine Manual RFX Laboratory test result Normal (applies to non- numeric results) [facility] ([facility]) Blood Urine Manual RFX Laboratory test result Above high n ormal [facility]) Leukocyte Esterase, Ur Man RFX Laboratory test result Abov e high normal [facility] ([facility]) ID Date Data Source [id number] 01/20/2020 10:00:00 AM EST [facility] ) Name Value Range Interpretation Code Description Data Kimberly rce(s) Supporting Document(s) Prothrombin Time 13.8 s 12.5-14.3 Normal (applies to non-numeric results) [facility] ) Inr 1.04 Normal (applies to non-numeric resul ts) [facility] ([facility], ) THERAPUTIC HUMAN INR VALUES INDICATIONS NORMAL RANGES PROPHYLAXIS/TREATMENT OF: VENOUS THROMBOSIS 2.0-3.0 PULMONARY EMBOLISM 2.0-3.0 PREVENTION OF SYSTEMIC EMBOLISM FROM: TISSUE HEART VALVES 2.0-3.0 ACUTE MYOCARDIAL INFARCTION 2.0-3.0 VALVULAR HEART DISEASE 2.0-3.0 ATRIAL FIBRILLATION 2.0-3.0 MECHANICAL VALVES(HIGH RISK) 2.5-3.5 RECURRENT MYOCARDIAL INFARCTION 2.5-3.5 ID Date Data Source [id number] 01/20/2020 10:00:00 AM EST [facility] ([facility]) Name Value Range Interpretation Code Description Data Kimberly rce(s) Supporting Document(s) Ast/Sgot 42 U/L 7-37 Above high normal [facility], ) Alt/SGPT 46 U/L 12-78 Normal (applies to non-numeric resul ts) [facility] ([facility]) Bilirubin,Total 0.5 mg/dL 0.2-1.0 Normal (applies to non-numeric results) [facility] ([facility]) Alkaline Phosphatase 114 U/L 45-117 Normal (applies to non-num kermit results) [facility]) Bilirubin,Direct 0.1 mg/dL 0.0-0.2 Normal (applies to non-numeric results) [facility]) Total Protein 7.4 GM/DL 6.4-8.2 Normal (applies to non-numeric re sults) [facility] ([facility]) Albumin 3.7 GM/DL 3.2-5.2 Normal (applies to non-numeric resul ts) [facility]) Albumin/Globulin Ratio 1.0 1.2-2.2 Below low normal [facility] ([facility]) ID Date Data Source [id number] 01/20/2020 10:00:00 AM EST [facility] Name Value Range Interpretation Code Description Data Kimberly rce(s) Supporting Document(s) White Blood Count 4.8 10 4.0-10.0 Normal (applies to non-numeri c results) [facility] Red Blood Count 3.60 10 4.00-5.40 Below low normal [facility] ([facility]) Hemoglobin 11.5 g/dL 12.0-15.5 Below low normal [facility]) Hematocrit 36.0 % 36.0-47.0 Normal (applies to non-numeric resul ts) [facility] Mean Corpuscular Volume 100.0 fl 80.0-96.0 Above high normal [facility] ([facility]) Mean Corpuscular HGB Conc 31.9 g/dL 32.0-36.5 Below low normal [facility] ([facility]) Mean Corpuscular Hemoglobin 31.9 pg 27.0-33.0 Norm al (applies to non-numeric results) [facility] ([facility]) Red Cell Distribution Width 13.2 % 11.5-14.5 Norm al (applies to non-numeric results) [facility] ([facility]) Platelet Count, Automated 139 10 150-450 Below low normal [facility] ([facility]) Lymph % 15.8 % 24.0-44.0 Below low normal [facility] ( [facility]) Neutrophils % 71.0 % 36.0-66.0 Above high normal [facility] ([facility]) Eos % 0.4 % 0.0-3.0 Normal (applies to non-numeric resul ts) [facility] ([facility]) [place] % 11.6 % 0.0-5.0 Above high normal [facility] ([facility]) Immature Granulocyte % 0.0 % 0-3.0 Normal (applies to non-n umeric results) [facility] ([facility]) Baso % 1.2 % 0.0-1.0 Above high normal [facility] ([facility]) Nucleated Red Blood Cell % 0.0 % 0-0 Normal (applies to n on-numeric results) [facility] ([facility]) Lymph # 0.8 10 1.5-5.0 Below low normal [facility] ( [facility]) Neutrophils # 3.4 10 1.5-8.5 Normal (applies to non-numeric re sults) [facility] ([facility]) [place] # 0.6 10 0.0-0.8 Normal (applies to non-numeric resul ts) [facility] ([facility]) Eos # 0.0 10 0.0-0.5 Normal (applies to non-numeric resul ts) [facility] ([facility]) Baso # 0.1 10 0.0-0.2 Normal (applies to non-numeric resul ts) [facility]) ID Date Data Source [id number] 01/20/2020 10:00:00 AM EST [facility] ([facility]) Name Value Range Interpretation Code Description Data Kimberly rce(s) Supporting Document(s) Creatinine For GFR 0.88 mg/dL 0.55-1.30 Normal (applies to non -numeric results) [facility] ([facility]) Glomerular Filtration Rate Laboratory test result Normal (applies to non- numeric results) [facility]) <content>Units are mL/min/1.73 m2</content>
<content></content>
<content>Chronic Kidney Disease Staging per NKF:</content>
<content></content>
<content>Stage I & II GFR >=60 Normal to Mildly Decreased</content>
<content>Stage III GFR 30-59 Moderately Decreased</content>
<content>Stage IV GFR 15-29 Severely Decreased</content>
<content>Stage V GFR <15 Very Little GFR Left</content>
<content>ESRD GFR <15 on CAMPUS MANAGER</content>
<content></content> ID Date Data Source [id number] 01/20/2020 10:00:00 AM EST [facility]) Name Value Range Interpretation Code Description Data Kimberly rce(s) Supporting Document(s) Urea nitrogen [Mass/volume] in Serum or Plasma 15 mg/dL 7 -18 Normal (applies to non-numeric results) [facility]) ID Date Data Source [id number] 12/30/2019 03:29:00 PM EST [facility]) Name Value Range Interpretation Code Description Data Kimberly rce(s) Supporting Document(s) Bbjrf-0-Ldubycrmdoi [Mass/volume] in Serum or Plasma 3.2 ng/mL Normal (applies to non-numeric results) [facility]) THE AFP ASSAY IS PERFORMED ON THE Qwiki BY CHEMILUMINESCENCE AND SHOULD NOT BE COMPARED INTERCHANGEABLY WITH OTHER METHODS. IT SHOULD NOT BE USED ALONE A SCREENING TEST OR DIAGNOSIS FOR THE PRESENCE OR ABSENCE OF MALIGNANT DISEASE. THESE RESULTS ARE NOT INTERPRETABLE IN FEMALES. PREDICTIONS OF DISEASE RECURRENCE SHOULD NOT BE BASED SOLELY ON VALUES OBTAINED FROM SERIAL PATIENT SERUM VALUES. ID Date Data Source [id number] 12/30/2019 03:29:00 PM EST [facility] ([facility], ) Name Value Range Interpretation Code Description Data Kimberly rce(s) Supporting Document(s) Glucose, Fasting 188 mg/dL 70-100 Above high normal [facility] ) Blood Urea Nitrogen 14 mg/dL 7-18 Normal (applies to non-nume april results) [facility] ([facility]) Creatinine For GFR 0.76 mg/dL 0.55-1.30 Normal (applies to non -numeric results) [facility] ([facility]) Glomerular Filtration Rate Laboratory test result Normal (applies to non- numeric results) [facility]) <content>Units are mL/min/1.73 m2</content>
<content></content>
<content>Chronic Kidney Disease Staging per NKF:</content>
<content></content>
<content>Stage I & II GFR >=60 Normal to Mildly Decreased</content>
<content>Stage III GFR 30- 59 Moderately Decreased</content>
<content>Stage IV GFR 15-29 Severely Decreased</content>
<content>Stage V GFR <15 Very Little GFR Left</content>
<content>ESRD GFR <15 on CAMPUS MANAGER</content>
<content></content> Potassium Serum 4.0 meq/L 3.5-5.1 Normal (applies to non-numeric results) [facility] ([facility], ) Chloride Level 110 meq/L 98-107 Above high normal [facility]) Sodium Level 143 meq/L 136-145 Normal (applies to non-numeric res ults) [facility]) Anion Gap 6 meq/L 8-16 Below low normal [facility] ( [facility]) Carbon Dioxide Level 27 meq/L 21-32 Normal (applies to non-num kermit results) [facility] ([facility]) Calcium Level 9.7 mg/dL 8.8-10.2 Normal (applies to non-numeric re sults) [facility] ([facility]) Ast/Sgot 28 U/L 7-37 Normal (applies to non-numeric resul ts) [facility] ([facility]) Alt/SGPT 37 U/L 12-78 Normal (applies to non-numeric resul ts) [facility] ([facility]) Alkaline Phosphatase 94 U/L 45-117 Normal (applies to non-num kermit results) [facility] ([facility]) Total Protein 7.2 GM/DL 6.4-8.2 Normal (applies to non-numeric re sults) [facility] ([facility]) Bilirubin,Total 0.7 mg/dL 0.2-1.0 Normal (applies to non-numeric results) [facility] ([facility]) Albumin 3.7 GM/DL 3.2-5.2 Normal (applies to non-numeric resul ts) [facility] Albumin/Globulin Ratio 1.1 1.2-2.2 Below low normal [facility] ([facility]) ID Date Data Source [id number] 12/30/2019 03:29:00 PM EST [facility] ([facility]) Name Value Range Interpretation Code Description Data Kimberly rce(s) Supporting Document(s) White Blood Count 4.8 10 4.0-10.0 Normal (applies to non-numeri c results) [facility] Red Blood Count 3.40 10 4.00-5.40 Below low normal [facility] ([facility]) Hematocrit 33.8 % 36.0-47.0 Below low normal [facility] ( [facility]) Hemoglobin 10.7 g/dL 12.0-15.5 Below low normal [facility] ( [facility]) Mean Corpuscular Hemoglobin 31.5 pg 27.0-33.0 Norm al (applies to non-numeric results) [facility] ([facility]) Mean Corpuscular Volume 99.4 fl 80.0-96.0 Above high normal [facility] ([facility]) Mean Corpuscular HGB Conc 31.7 g/dL 32.0-36.5 Below low normal [facility] ([facility]) Platelet Count, Automated 133 10 150-450 [facility] Red Cell Distribution Width 14.3 % 11.5-14.5 Norm al (applies to non-numeric results) [facility] ([facility]) Neutrophils % 57.0 % 36.0-66.0 Normal (applies to non-numeric re sults) [facility] Lymph % 21.3 % 24.0-44.0 Below low normal [facility] Eos % 8.5 % 0.0-3.0 Above high normal [facility] ([facility]) Campbell % 12.0 % 0.0-5.0 Above high normal [facility] ([facility]) Baso % 1.0 % 0.0-1.0 Normal (applies to non-numeric resul ts) [facility] ([facility]) Immature Granulocyte % 0.2 % 0-3.0 Normal (applies to non-n umeric results) [facility] ([facility]) Neutrophils # 2.8 10 1.5-8.5 Normal (applies to non-numeric re sults) [facility] ([facility]) Nucleated Red Blood Cell % 0.0 % 0-0 Normal (applies to n on-numeric results) [facility] ([facility]) Eos # 0.4 10 0.0-0.5 Normal (applies to non-numeric resul ts) [facility]) Lymph # 1.0 10 1.5-5.0 Below low normal [facility] ( [facility]) [place] # 0.6 10 0.0-0.8 Normal (applies to non-numeric resul ts) [facility] ([facility]) Baso # 0.1 10 0.0-0.2 Normal (applies to non-numeric resul ts) [facility] ([facility], ) ID Date Data Source [id number] 12/11/2019 12:00:00 AM EDT [facility] Christopher Fernandez MD Patient Name: SANDRA LAWRENCE [facility] Date of : [id number] [id number] Date of Exam: 12/11/2019PH#: Fax: [phone] EXAM: US ABDOMEN, LIMITED SINGLE ORGAN,QUADRANTCLINICAL INFORMATION: History of cirrhosis.The latest prior for comparison is 06/05/2019 which showed stable findingsfrom the next latest prior of 07/12/2018 which showed a coarsened hepaticecho texture without evidence of a mass or ductal dilatation.Multiple ultrasonographic images of the liver again show a coarsenedsomewhat patchy parenchymal echo pattern, status quo. No discrete masseshave developed. The common bile duct measures 6 mm. There is nointrahepatic ductal dilatation. There is no change in the appearance ofthe pancreas or right kidney. The patient is status post cholecystectomy.IMPRESSION:No significant change when compared to the prior exams.Accredited by the [employer] in General Ultrasound.VASU Ritchie/aMrlee you for referring PADMA RODRÍGUEZ to our office. Electronically Signed - NICO MILLER DO 12/11/19 14:26 Name Value Range Interpretation Code Description Data Kimberly rce(s) Supporting Document(s) Procedure Social History Code Duration Value Status Description Data Source(s ) Smoking 11/18/2020 12:00:00 AM EDT Patient has never smoked co mpleted Patient has never smoked [facility] ([facility]) Alcohol intake 08/19/2020 12:00:00 AM EDT Current drinker of al cohol (finding) completed Current drinker of alcohol (finding) [facility] Vital Signs ID Date Data Source UNK Name Value Range Interpretation Code Description Data Source(s) Body mass index (BMI) [Ratio] 26.43 kg/m2 26.43 kg/m2 [facility] Systolic blood pressure 120 mm[Hg] 120 mm[Hg] [facility] Diastolic blood pressure 60 mm[Hg] 60 mm[Hg] [facility] Heart rate 80 /min 80 /min [facility] Body height 162.6 cm 162.6 cm [facility] Body weight 69.854 kg 69.854 kg [facility] Body height 63 [in_i] 63 [in_i] [facility] ([facility]) 5'3" Systolic blood pressure 132 mm[Hg] 132 mm[Hg] [facility] ([facility]) Body mass index (BMI) [Ratio] 27.7 kg/m2 27.7 k g/m2 [facility] ([facility]) Diastolic blood pressure 68 mm[Hg] 68 mm[Hg] [facility] ([facility]) Oxygen saturation in Arterial blood by Pulse oximetry 99 % 99 % [facility] ([facility]) [place] body weight 115 [lb_av] 115 [lb_av] [facility] ([facility]) Body weight 156.50 [lb_av] 156.50 [lb_av] [facility] ([facility]) Heart rate 56 /min 56 /min [facility] ([facility]) Respiratory rate 18 /min 18 /min [facility] ( [facility]) Body temperature 97.1 [degF] 97.1 [degF] [facility] ([facility]) Heart rate 57 /min 57 /min [facility] ([facility]) Body mass index (BMI) [Ratio] 28.5 kg/m2 28.5 k g/m2 [facility] Respiratory rate 18 /min 18 /min [facility] ( [facility]) Oxygen saturation in Arterial blood by Pulse oximetry 99 % 99 % [facility] ([facility]) Body temperature 98.0 [degF] 98.0 [degF] [facility] ([facility]) [place] body weight 115 [lb_av] 115 [lb_av] [facility] ([facility]) Systolic blood pressure 118 mm[Hg] 118 mm[Hg] [facility] ([facility]) Diastolic blood pressure 76 mm[Hg] 76 mm[Hg] [facility] ([facility]) Body height 63 [in_i] 63 [in_i] [facility] ([facility]) 5'3" Body weight 161.00 [lb_av] 161.00 [lb_av] [facility] ([facility]) Body mass index (BMI) [Ratio] 26.6 kg/m2 26.6 k g/m2 [facility] Systolic blood pressure 126 mm[Hg] 126 mm[Hg] [facility] ([facility], ) Diastolic blood pressure 60 mm[Hg] 60 mm[Hg] [facility] ([facility], ) Body height 64 [in_i] 64 [in_i] [facility] ([facility], ) 5'4" Body weight 155.00 [lb_av] 155.00 [lb_av] [facility] [place] body weight 120 [lb_av] 120 [lb_av] [facility] ([facility], ) Body weight 70.308 kg 70.308 kg [facility] ([facility], ) Body surface area Derived from formula 1.76 m2 1.76 m2 [facility] ([facility], ) Systolic blood pressure 110 mm[Hg] 110 mm[Hg] [facility] Diastolic blood pressure 62 mm[Hg] 62 mm[Hg] [facility] Heart rate 71 /min 71 /min [facility] Body height 162.6 cm 162.6 cm [facility] Body weight 72.122 kg 72.122 kg [facility] Body mass index (BMI) [Ratio] 27.29 kg/m2 27.29 kg/m2 [facility] Oxygen saturation in Arterial blood by Pulse oximetry 99 % 99 % [facility] Body height 63 [in_i] 63 [in_i] [facility] ([facility]) 5'3" Systolic blood pressure 120 mm[Hg] 120 mm[Hg] [facility] ([facility]) Diastolic blood pressure 64 mm[Hg] 64 mm[Hg] [facility] ([facility]) Respiratory rate 18 /min 18 /min [facility] ( [facility]) Body temperature 98.6 [degF] 98.6 [degF] [facility] Oxygen saturation in Arterial blood by Pulse oximetry 98 % 98 % [facility] ([facility]) [place] body weight 115 [lb_av] 115 [lb_av] [facility] ([facility]) Body weight 161.25 [lb_av] 161.25 [lb_av] [facility] ([facility]) Body mass index (BMI) [Ratio] 28.6 kg/m2 28.6 k g/m2 [facility] ([facility]) Heart rate 65 /min 65 /min [facility] ([facility]) Systolic blood pressure 134 mm[Hg] 134 mm[Hg] [facility] ([facility]) Oxygen saturation in Arterial blood by Pulse oximetry 97 % 97 % [facility] Body mass index (BMI) [Ratio] 28.1 kg/m2 28.1 k g/m2 [facility] ([facility]) Body weight 158.50 [lb_av] 158.50 [lb_av] [facility] ([facility]) Heart rate 60 /min 60 /min [facility] ([facility]) Body temperature 97.3 [degF] 97.3 [degF] [facility] ([facility]) [place] body weight 115 [lb_av] 115 [lb_av] [facility] ([facility]) Respiratory rate 18 /min 18 /min [facility] ( [facility]) Diastolic blood pressure 64 mm[Hg] 64 mm[Hg] [facility] ([facility]) Body height 63 [in_i] 63 [in_i] [facility] ([facility]) 5'3" Systolic blood pressure 141 mm[Hg] 141 mm[Hg] [facility] Diastolic blood pressure 69 mm[Hg] 69 mm[Hg] [facility] ([facility]) Body height 64 [in_i] 64 [in_i] [facility] ([facility]) 5'4" Body weight 156.00 [lb_av] 156.00 [lb_av] [facility] ([facility]) Body mass index (BMI) [Ratio] 26.8 kg/m2 26.8 k g/m2 [facility] ([facility]) [place] body weight 120 [lb_av] 120 [lb_av] [facility] ([facility]) Body weight 70.762 kg 70.762 kg [facility] ([facility]) Body surface area Derived from formula 1.76 m2 1.76 m2 [facility] ([facility]) Body weight 69.854 kg 69.854 kg [facility] ([facility]) Body mass index (BMI) [Ratio] 26.4 kg/m2 26.4 k g/m2 [facility] ([facility]) [place] body weight 120 [lb_av] 120 [lb_av] [facility] ([facility]) Body height 64 [in_i] 64 [in_i] [facility] ([facility]) 5'4" Body weight 154.00 [lb_av] 154.00 [lb_av] [facility] ([facility]) Body surface area Derived from formula 1.75 m2 1.75 m2 [facility] ([facility]) Systolic blood pressure 136 mm[Hg] 136 mm[Hg] [facility] ([facility]) Diastolic blood pressure 63 mm[Hg] 63 mm[Hg] [facility] ([facility]) Body height 64 [in_i] 64 [in_i] [facility] ([facility]) 5'4" Body weight 154.00 [lb_av] 154.00 [lb_av] [facility] ([facility]) Body mass index (BMI) [Ratio] 26.4 kg/m2 26.4 k g/m2 [facility] ([facility]) [place] body weight 120 [lb_av] 120 [lb_av] [facility] ([facility]) Body weight 69.854 kg 69.854 kg [facility] ([facility]) Body surface area Derived from formula 1.75 m2 1.75 m2 [facility] ([facility]) Respiratory rate 16 /min 16 /min [facility] ( [facility]) Body height 64 [in_i] 64 [in_i] [facility] ([facility]) 5'4" Diastolic blood pressure 64 mm[Hg] 64 mm[Hg] [facility] ([facility]) Systolic blood pressure 104 mm[Hg] 104 mm[Hg] [facility] ([facility]) Heart rate 83 /min 83 /min [facility] ([facility]) Body temperature 98.0 [degF] 98.0 [degF] [facility] ([facility]) Body weight 145.00 [lb_av] 145.00 [lb_av] [facility] ([facility]) Body mass index (BMI) [Ratio] 24.9 kg/m2 24.9 k g/m2 [facility] ([facility]) Body surface area Derived from formula 1.74 m2 1.74 m2 [facility] ([facility]) Systolic blood pressure 120 mm[Hg] 120 mm[Hg] [facility] Diastolic blood pressure 80 mm[Hg] 80 mm[Hg] [facility] ([facility]) Body height 64 [in_i] 64 [in_i] [facility] ([facility]) 5'4" Body weight 152.00 [lb_av] 152.00 [lb_av] [facility] ([facility]) Body mass index (BMI) [Ratio] 26.1 kg/m2 26.1 k g/m2 [facility] ([facility]) [place] body weight 120 [lb_av] 120 [lb_av] [facility] ([facility]) Body weight 68.947 kg 68.947 kg [facility] ([facility]) Body weight 152 [lb_av] 152 [lb_av] eCW1 ([facility] to [facility]) Body weight kg eCW1 ([facility]) Body height [in_i] eCW1 ([facility]) Body mass index (BMI) [Ratio] 26.09 kg/m2 26.09 kg/m2 [facility] ([facility]) Heart rate 60 /min 60 /min eCW1 ([facility]) Respiratory rate 18 /min 18 /min eCW1 ([facility]) Body temperature 97.3 [degF] 97.3 [degF] [facility] ( [facility]) Systolic blood pressure 149 mm[Hg] 149 mm[Hg] e CW1 ([facility]) Diastolic blood pressure 67 mm[Hg] 67 mm[Hg] [facility] ([facility]) Body weight 152 [lb_av] 152 [lb_av] eCW1 ([facility] to [facility]) Body weight kg eCW1 ([facility]) Body height [in_i] eCW1 ([facility]) Body mass index (BMI) [Ratio] 26.09 kg/m2 26.09 kg/m2 e[facility]1 ([facility]) Heart rate 57 /min 57 /min eCW1 ([facility]) Respiratory rate 18 /min 18 /min eCW1 ([facility]) Body temperature 96.8 [degF] 96.8 [degF] eCW1 ( [facility]) Systolic blood pressure 145 mm[Hg] 145 mm[Hg] e CW1 ([facility]) Diastolic blood pressure 65 mm[Hg] 65 mm[Hg] eCW1 ([facility]) Systolic blood pressure 132 mm[Hg] 132 mm[Hg] [facility] ([facility]) Diastolic blood pressure 65 mm[Hg] 65 mm[Hg] [facility] Body height 64 [in_i] 64 [in_i] [facility] ([facility]) 5'4" Body weight 154.00 [lb_av] 154.00 [lb_av] [facility] ([facility]) Body mass index (BMI) [Ratio] 26.4 kg/m2 26.4 k g/m2 [facility] ([facility]) [place] body weight 120 [lb_av] 120 [lb_av] [facility] ([facility]) Body weight 69.854 kg 69.854 kg [facility] ([facility]) Body surface area Derived from formula 1.75 m2 1.75 m2 [facility] ([facility]) Body weight 152 [lb_av] 152 [lb_av] eCW1 ([facility]ending sale to [facility]) Body weight kg eCW1 ([facility]) Body height [in_i] eCW1 ([facility]) Body mass index (BMI) [Ratio] 26.09 kg/m2 26.09 kg/m2 W[facility] ([facility]) Heart rate 77 /min 77 /min eCW1 ([facility]) Respiratory rate 18 /min 18 /min eCW1 ([facility]) Body temperature 97.4 [degF] 97.4 [degF] eCW1 ( [facility]) Systolic blood pressure 151 mm[Hg] 151 mm[Hg] e CW1 ([facility]) Diastolic blood pressure 63 mm[Hg] 63 mm[Hg] eCW1 ([facility]) Body weight 152 [lb_av] 152 [lb_av] eCW1 ([facility]ending [facility] to [facility]) Body weight kg eCW1 ([facility]) Body height [in_i] eCW1 ([facility]) Body mass index (BMI) [Ratio] 26.09 kg/m2 26.09 kg/m2 eCW1 ([facility]) Heart rate 70 /min 70 /min eCW1 ([facility]) Respiratory rate 18 /min 18 /min eCW1 ([facility]) Body temperature 98.4 [degF] 98.4 [degF] eCW1 ( [facility]) Systolic blood pressure 161 mm[Hg] 161 mm[Hg] e CW1 ([facility]) Diastolic blood pressure 67 mm[Hg] 67 mm[Hg] eCW1 ([facility]) Body weight 152 [lb_av] 152 [lb_av] eCW1 ([facility] to [facility]) Body height [in_i] eCW1 ([facility]) Body mass index (BMI) [Ratio] 26.09 kg/m2 26.09 kg/m2 eCW1 ([facility]) Heart rate 65 /min 65 /min eCW1 ([facility]) Respiratory rate 18 /min 18 /min eCW1 ([facility]) Body temperature 97.2 [degF] 97.2 [degF] eCW1 ( [facility]) Systolic blood pressure 134 mm[Hg] 134 mm[Hg] e CW1 ([facility]) Diastolic blood pressure 65 mm[Hg] 65 mm[Hg] eCW1 ([facility]) Patient Treatment Plan of Care Planned Activity Planned Date Details Description Data Source (s) Propranolol Hydrochloride 40 MG Oral Tablet 12/15/2020 12:00:00 AM EDT [facility] Doxycycline Monohydrate 100 MG Oral Tablet 08/13/2020 12:00:00 AM E DT [facility] Propranolol Hydrochloride 40 MG Oral Tablet 05/27/2020 12:00:00 AM EDT [facility] Rosuvastatin calcium 40 MG Oral Tablet 01/27/2020 12:00:00 AM EST [facility] Omeprazole 20 MG TBDD [facility]
[2021-01-27] MEDS ORDERED: LIDOCAINE 2% 100MG/5ML SDV (FOR ANES.) As Ordered ONE (07:20)
[2021-01-27] MEDS ORDERED: propofoL 200 MG/20 ML VIAL As Ordered ONE (07:20)
[2021-01-27] MEDS ORDERED: fentaNYL 100 MCG/2 ML INJECTION (J3010) As Ordered ONE (07:52)
--- NOTE | 2021-01-27 08:53 | ROOR ---
Patient Name: Claribel Mccain Procedure Date: 01/27/2021 8:34 AM Date of : 1945 Age: 75 Room: [facility] Gender: Female Note Status: Finalized Procedure: Upper GI endoscopy Indications: Cirrhosis rule out esophageal varices Providers: Lance Fernandez MD Referring MD: Gricel DONNELLY DO Requesting Provider: Medicines: Monitored Anesthesia Care Complications: No immediate complications. Procedure: Pre-Anesthesia Assessment: - The heart rate, respiratory rate, oxygen saturations, blood pressure, adequacy of pulmonary ventilation, and response to care were monitored throughout the procedure. The Endoscope was introduced through the mouth, and advanced to the second part of duodenum. The upper GI endoscopy was accomplished without difficulty. The patient tolerated the procedure well. Findings: Grade I varices were found in the lower third of the esophagus. They were small/medium in size. (Varices flatten with insufflation today, primary prevention/eradication not indicated today) Scattered inflammation characterized by erythema and granularity was found in the gastric antrum. Biopsies were taken with a cold forceps for histology. Portal hypertensive gastropathy was found in the gastric antrum. The examined duodenum was normal. Impression: - Grade I/II esophageal varices. (flatten with insufflation) - Mild portal hypertensive gastropathy and mild antral gastritis. Biopsied.- - Normal examined duodenum. Recommendation: - Repeat upper endoscopy in 6 months for surveillance. - Continue present medications. (propranolol) Procedure Code(s): --- Professional --- 93616, Esophagogastroduodenoscopy, flexible, transoral; with biopsy, single or multiple Diagnosis Code(s): --- Professional --- K74.60, Unspecified cirrhosis of liver K31.89, Other diseases of stomach and duodenum K76.6, Portal hypertension K29.70, Gastritis, unspecified, without bleeding I85.10, Secondary esophageal varices without bleeding CPT copyright 2019 [employer]. All rights reserved. The codes documented in this report are preliminary and upon weed science research technician review may be revised to meet current compliance requirements. Lance Fernandez MD Lance Fernandez MD 01/27/2021 8:52:52 AM Electronically signed by Lance Fernandez MD Number of Addenda: 0 Note Initiated On: 01/27/2021 8:34 AM Estimated Blood Loss: Estimated blood loss: none.
[2021-01-27 09:15] VITALS: BP 140/68
== END 2021-01-27 09:30 | disposition home or self-care (01) ==
LOC: M OPP 07:10
PROVIDERS: ATTEND Internal Medicine Gastroenterology
DX: K74.60 Unspecified cirrhosis of liver (principal); K31.89 Other diseases of stomach and duodenum; K76.6 Portal hypertension; K29.70 Gastritis, unspecified, without bleeding; I85.10 Secondary esophageal varices without bleeding; Z79.82 Long term (current) use of aspirin; Z79.84 Long term (current) use of oral hypoglycemic drugs; Z79.899 Other long term (current) drug therapy; Z88.2 Allergy status to sulfonamides; Z91.041 Radiographic dye allergy status; Z95.5 Presence of coronary angioplasty implant and graft
CPT/HCPCS: 43239; 88305; J3010

== ENCOUNTER → 2021-04-07 | Outpatient (CLI) | payer MEDICARE ==
[~2021-04-07] MED LIST changes: -NS 1,000 ML IV ONE; +OMEP-173 PO; -OMEP-218 PO
[2021-04-07 09:18] LABS: INR 1.08; PROTHROMBIN TIME 14.4 SECONDS (12.7-14.5)
[2021-04-07 09:23] LABS: ALBUMIN 3.8 GM/DL (3.2-5.2); BILIRUBIN,DIRECT 0.2 MG/DL (0.0-0.2); BILIRUBIN,TOTAL 0.7 MG/DL (0.2-1.0); TOTAL PROTEIN 7.6 GM/DL (6.4-8.2)
== END ==
LOC: M RAD 08:05
PROVIDERS: ATTEND Internal Medicine Gastroenterology
DX: K74.69 Other cirrhosis of liver (principal); K75.81 Nonalcoholic steatohepatitis (NASH); E11.65 Type 2 diabetes mellitus with hyperglycemia; D50.9 Iron deficiency anemia, unspecified; D51.3 Other dietary vitamin B12 deficiency anemia; E78.2 Mixed hyperlipidemia

== ENCOUNTER → 2021-04-07 | Outpatient (CLI) | payer MEDICARE ==
[2021-04-07 13:40] LABS: BASO # 0.1 10^3/uL (0.0-0.2); BASO % 1.6 % (0.0-1.0); EOS # 0.4 10^3/uL (0.0-0.5); EOS % 9.4 % (0.0-3.0); HEMATOCRIT 35.9 % (36.0-47.0); HEMOGLOBIN 11.8 g/dl (12.0-15.5); MEAN CORPUSCULAR HEMOGLOBIN 32.1 pg (27.0-33.0); MEAN CORPUSCULAR HGB CONC 32.9 g/dl (32.0-36.5); MEAN CORPUSCULAR VOLUME 97.6 fl (80.0-96.0); MONO # 0.4 10^3/uL (0.0-0.8); MONO % 10.1 % (2.0-8.0); NEUTROPHILS # 2.4 10^3/uL (1.5-8.5); NEUTROPHILS % 55.7 % (36.0-66.0); PLATELET COUNT, AUTOMATED 112 10^3/uL (150-450); RED BLOOD COUNT 3.68 10^6/uL (4.00-5.40); WHITE BLOOD COUNT 4.4 10^3/uL (4.0-10.0)
[2021-04-07 14:03] LABS: CREATININE, URINE 96.9 MG/DL; MALB URINE SIEMENS 81.5 MG/L; MAU/CREAT RATIO 84.1 MCG/MG (0.0-30.0)
[2021-04-07 14:14] LABS: ALBUMIN 3.6 GM/DL (3.2-5.2); ALT/SGPT 39 U/L (12-78); BILIRUBIN,TOTAL 0.7 MG/DL (0.2-1.0); BLOOD UREA NITROGEN 15 MG/DL (7-18); CALCIUM LEVEL 9.8 MG/DL (8.8-10.2); CARBON DIOXIDE LEVEL 29 MEQ/L (21-32); CHLORIDE LEVEL 110 MEQ/L (98-107); CHOLESTEROL LEVEL 165 MG/DL (<200); CHOLESTEROL RISK RATIO 3.437 (<5); CREATININE FOR GFR 0.82 MG/DL (0.55-1.30); FERRITIN 45 NG/ML (8-252); FREE T4 1.08 NG/DL (0.76-1.46); GLOMERULAR FILTRATION RATE > 60.0 (>39); GLUCOSE, FASTING 101 MG/DL (70-100); HDL CHOLESTEROL 48 MG/DL (>40); IRON (FE) 69 UG/DL (50-170); LDL CHOLESTEROL 81 MG/DL (<100); NON-HDL-C 117 MG/DL; POTASSIUM SERUM 4.4 MEQ/L (3.5-5.1); SODIUM LEVEL 144 MEQ/L (136-145); TOTAL IRON BINDING CAPACITY 431 UG/DL (250-450); TOTAL PROTEIN 7.1 GM/DL (6.4-8.2); TRIGLYCERIDES LEVEL 182 MG/DL (<150)
[2021-04-07 14:17] LABS: VITAMIN B12 LEVEL 473 PG/ML (247-911)
== END ==
LOC: M PLALAB 09:32
PROVIDERS: ATTEND Family Medicine
DX: E11.65 Type 2 diabetes mellitus with hyperglycemia (principal); D50.9 Iron deficiency anemia, unspecified; D51.3 Other dietary vitamin B12 deficiency anemia; E78.2 Mixed hyperlipidemia

== ENCOUNTER → 2021-04-28 | Outpatient (CLI) | payer MEDICARE | LOC: M WHC 09:40 | PROVIDERS: ATTEND Family Medicine | DX: Z12.31 Encounter for screening mammogram for malignant neoplasm of breast (principal); Z13.820 Encounter for screening for osteoporosis; M81.0 Age-related osteoporosis without current pathological fracture ==

== ENCOUNTER → 2021-07-13 | Outpatient (CLI) | payer MEDICARE ==
[2021-07-13 17:26] LABS: BASO # 0.1 10^3/uL (0.0-0.2); BASO % 1.2 % (0.0-1.0); EOS # 0.6 10^3/uL (0.0-0.5); EOS % 11.6 % (0.0-3.0); HEMATOCRIT 33.2 % (36.0-47.0); HEMOGLOBIN 11.2 g/dl (12.0-15.5); LYMPH # 1.2 10^3/uL (1.5-5.0); LYMPH % 24.1 % (24.0-44.0); MEAN CORPUSCULAR HEMOGLOBIN 32.6 pg (27.0-33.0); MEAN CORPUSCULAR HGB CONC 33.7 g/dl (32.0-36.5); MEAN CORPUSCULAR VOLUME 96.5 fl (80.0-96.0); MONO # 0.6 10^3/uL (0.0-0.8); MONO % 12.4 % (2.0-8.0); NEUTROPHILS # 2.4 10^3/uL (1.5-8.5); NEUTROPHILS % 50.5 % (36.0-66.0); PLATELET COUNT, AUTOMATED 126 10^3/uL (150-450); RED BLOOD COUNT 3.44 10^6/uL (4.00-5.40); WHITE BLOOD COUNT 4.8 10^3/uL (4.0-10.0)
[2021-07-13 17:37] LABS: ALBUMIN 3.7 GM/DL (3.2-5.2); ALT/SGPT 36 U/L (12-78); BILIRUBIN,TOTAL 0.9 MG/DL (0.2-1.0); BLOOD UREA NITROGEN 16 MG/DL (7-18); CALCIUM LEVEL 9.4 MG/DL (8.8-10.2); CARBON DIOXIDE LEVEL 28 MEQ/L (21-32); CHLORIDE LEVEL 110 MEQ/L (98-107); CREATININE FOR GFR 0.79 MG/DL (0.55-1.30); GLOMERULAR FILTRATION RATE > 60.0 (>39); GLUCOSE, FASTING 76 MG/DL (70-100); HEMOGLOBIN A1c 8.6 %; SODIUM LEVEL 141 MEQ/L (136-145); TOTAL PROTEIN 6.8 GM/DL (6.4-8.2)
== END ==
LOC: M PLALAB 15:15
PROVIDERS: ATTEND Nurse Practitioner Adult Health
DX: E11.65 Type 2 diabetes mellitus with hyperglycemia (principal); E78.2 Mixed hyperlipidemia; K74.60 Unspecified cirrhosis of liver

== ENCOUNTER → 2021-07-14 | Outpatient (CLI) | payer MEDICARE | LOC: M PLALAB 10:34 | PROVIDERS: ATTEND Nurse Practitioner Adult Health | DX: R10.13 Epigastric pain (principal) ==

== ENCOUNTER → 2021-09-16 | Outpatient (CLI) | payer MEDICARE ==
[2021-09-16 14:30] LABS: BASO # 0.1 10^3/uL (0.0-0.2); BASO % 1.1 % (0.0-1.0); EOS # 0.3 10^3/uL (0.0-0.5); EOS % 5.4 % (0.0-3.0); HEMOGLOBIN 10.1 g/dl (12.0-15.5); LYMPH # 0.9 10^3/uL (1.5-5.0); LYMPH % 19.7 % (24.0-44.0); MEAN CORPUSCULAR HEMOGLOBIN 31.1 pg (27.0-33.0); MEAN CORPUSCULAR HGB CONC 32.6 g/dl (32.0-36.5); MEAN CORPUSCULAR VOLUME 95.4 fl (80.0-96.0); MONO # 0.6 10^3/uL (0.0-0.8); MONO % 13.7 % (2.0-8.0); NEUTROPHILS # 2.8 10^3/uL (1.5-8.5); NEUTROPHILS % 59.9 % (36.0-66.0); PLATELET COUNT, AUTOMATED 136 10^3/uL (150-450); RED BLOOD COUNT 3.25 10^6/uL (4.00-5.40); WHITE BLOOD COUNT 4.7 10^3/uL (4.0-10.0)
[2021-09-16 15:17] LABS: ALBUMIN 3.1 GM/DL (3.2-5.2); ALT/SGPT 46 U/L (12-78); BILIRUBIN,TOTAL 1.1 MG/DL (0.2-1.0); BLOOD UREA NITROGEN 10 MG/DL (7-18); CALCIUM LEVEL 9.1 MG/DL (8.8-10.2); CARBON DIOXIDE LEVEL 25 MEQ/L (21-32); CHLORIDE LEVEL 114 MEQ/L (98-107); CHOLESTEROL LEVEL 80 MG/DL (<200); CHOLESTEROL RISK RATIO 1.951 (<5); CREATININE FOR GFR 0.82 MG/DL (0.55-1.30); GLOMERULAR FILTRATION RATE > 60.0 (>39); GLUCOSE, FASTING 170 MG/DL (70-100); HDL CHOLESTEROL 41 MG/DL (>40); LDL CHOLESTEROL 23 MG/DL (<100); NON-HDL-C 39 MG/DL; NT-PRO BNP 235 PG/ML (<450); POTASSIUM SERUM 4.4 MEQ/L (3.5-5.1); SODIUM LEVEL 142 MEQ/L (136-145); TOTAL PROTEIN 6.3 GM/DL (6.4-8.2); TRIGLYCERIDES LEVEL 79 MG/DL (<150)
== END ==
LOC: M PLALAB 09:31
PROVIDERS: ATTEND Nurse Practitioner Adult Health
DX: E11.65 Type 2 diabetes mellitus with hyperglycemia (principal); E78.2 Mixed hyperlipidemia; K64.8 Other hemorrhoids

== ENCOUNTER → 2021-10-24 | Outpatient (CLI) | payer MEDICARE ==
[2021-10-24 13:50] LABS: INR 1.13; PROTHROMBIN TIME 14.9 SECONDS (12.7-14.5)
[2021-10-24 14:05] LABS: ALBUMIN 3.4 GM/DL (3.2-5.2); ALT/SGPT 39 U/L (12-78); BILIRUBIN,DIRECT 0.3 MG/DL (0.0-0.2); BILIRUBIN,TOTAL 0.8 MG/DL (0.2-1.0); BLOOD UREA NITROGEN 14 MG/DL (7-18); CALCIUM LEVEL 9.9 MG/DL (8.8-10.2); CARBON DIOXIDE LEVEL 27 MEQ/L (21-32); CHLORIDE LEVEL 111 MEQ/L (98-107); CREATININE FOR GFR 0.78 MG/DL (0.55-1.30); GLOMERULAR FILTRATION RATE > 60.0 (>39); GLUCOSE, FASTING 183 MG/DL (70-100); POTASSIUM SERUM 4.7 MEQ/L (3.5-5.1); SODIUM LEVEL 143 MEQ/L (136-145); TOTAL PROTEIN 6.9 GM/DL (6.4-8.2)
[2021-10-24 14:40] LABS: BASO % 0.7 % (0.0-1.0); EOS # 0.2 10^3/uL (0.0-0.5); EOS % 4.2 % (0.0-3.0); HEMOGLOBIN 10.5 g/dl (12.0-15.5); LYMPH # 0.9 10^3/uL (1.5-5.0); LYMPH % 21.5 % (24.0-44.0); MEAN CORPUSCULAR HEMOGLOBIN 31.1 pg (27.0-33.0); MEAN CORPUSCULAR HGB CONC 32.8 g/dl (32.0-36.5); MEAN CORPUSCULAR VOLUME 94.7 fl (80.0-96.0); MONO # 0.6 10^3/uL (0.0-0.8); MONO % 13.3 % (2.0-8.0); NEUTROPHILS # 2.6 10^3/uL (1.5-8.5); NEUTROPHILS % 60.1 % (36.0-66.0); RED BLOOD COUNT 3.38 10^6/uL (4.00-5.40); WHITE BLOOD COUNT 4.3 10^3/uL (4.0-10.0)
[2021-10-24 14:41] LABS: PLATELET COUNT, AUTOMATED 98 10^3/uL (150-450)
== END ==
LOC: M PLALAB 09:33
PROVIDERS: ATTEND Internal Medicine Gastroenterology
DX: K74.69 Other cirrhosis of liver (principal); R18.8 Other ascites; Z90.49 Acquired absence of other specified parts of digestive tract

== ENCOUNTER → 2021-10-24 | Outpatient (CLI) | payer MEDICARE | LOC: M WHC 08:47 | PROVIDERS: ATTEND Internal Medicine Gastroenterology | DX: R18.8 Other ascites (principal); K74.69 Other cirrhosis of liver; Z90.49 Acquired absence of other specified parts of digestive tract ==

== ENCOUNTER 2021-12-26 09:08 | Emergency (ER) | payer MEDICARE ==
[~2021-12-26] VITALS: Ht 160 cm; Wt 71.8 kg
[2021-12-26 09:55] LABS: BASO % 0.7 % (0.0-1.0); EOS # 0.1 10^3/uL (0.0-0.5); EOS % 2.2 % (0.0-3.0); HEMATOCRIT 25.2 % (36.0-47.0); HEMOGLOBIN 8.2 g/dl (12.0-15.5); LYMPH # 0.8 10^3/uL (1.5-5.0); LYMPH % 15.3 % (24.0-44.0); MEAN CORPUSCULAR HEMOGLOBIN 31.3 pg (27.0-33.0); MEAN CORPUSCULAR HGB CONC 32.5 g/dl (32.0-36.5); MEAN CORPUSCULAR VOLUME 96.2 fl (80.0-96.0); MONO # 0.6 10^3/uL (0.0-0.8); MONO % 11.8 % (2.0-8.0); NEUTROPHILS # 3.8 10^3/uL (1.5-8.5); NEUTROPHILS % 69.8 % (36.0-66.0); PLATELET COUNT, AUTOMATED 140 10^3/uL (150-450); RED BLOOD COUNT 2.62 10^6/uL (4.00-5.40); WHITE BLOOD COUNT 5.4 10^3/uL (4.0-10.0)
[2021-12-26 10:50] LABS: BILIRUBIN,DIRECT 0.3 MG/DL (0.0-0.2); BILIRUBIN,TOTAL 0.7 MG/DL (0.2-1.0); CALCIUM LEVEL 9.6 MG/DL (8.8-10.2); CREATININE FOR GFR 1.06 MG/DL (0.55-1.30); GLOMERULAR FILTRATION RATE 53.7 (>39); POTASSIUM SERUM 3.9 MEQ/L (3.5-5.1); THYROID STIMULATING HORMONE 2.35 uIU/ML (0.358-3.740); TOTAL PROTEIN 6.7 GM/DL (6.4-8.2)
[2021-12-26 10:57] LABS: CK-MB VALUE MASS < 1.0 NG/ML (<3.6); CPK CREATINE PHOSPHOKINASE 88 U/L (26-192); MB/CK RELATIVE INDEX 1.14 (< OR =4)
[2021-12-26 11:20] LABS: RSV AMPLIFICATION NEGATIVE (NEGATIVE)
[2021-12-26 11:25] LABS: CK-MB VALUE MASS 1.1 NG/ML (<3.6); MB/CK RELATIVE INDEX 1.34 (< OR =4)
[2021-12-26 12:21] LABS: PERCENT SATURATION 12.5 % (13.2-45.0)
[2021-12-26 13:35] VITALS: BP 154/95
== END 2021-12-26 13:40 | disposition home or self-care (01) ==
LOC: M ED 09:08
DX: R07.89 Other chest pain (principal); D64.9 Anemia, unspecified; E11.9 Type 2 diabetes mellitus without complications; I10 Essential (primary) hypertension; E78.5 Hyperlipidemia, unspecified; Z79.84 Long term (current) use of oral hypoglycemic drugs; Z79.899 Other long term (current) drug therapy; Z79.82 Long term (current) use of aspirin; Z88.2 Allergy status to sulfonamides; Z91.041 Radiographic dye allergy status

== ENCOUNTER → 2022-01-10 | Outpatient (CLI) | payer MEDICARE ==
[2022-01-10 15:37] LABS: BASO % 0.8 % (0.0-1.0); EOS # 0.3 10^3/uL (0.0-0.5); EOS % 5.6 % (0.0-3.0); HEMATOCRIT 29.9 % (36.0-47.0); HEMOGLOBIN 9.3 g/dl (12.0-15.5); LYMPH % 18.6 % (24.0-44.0); MEAN CORPUSCULAR HEMOGLOBIN 30.3 pg (27.0-33.0); MEAN CORPUSCULAR HGB CONC 31.1 g/dl (32.0-36.5); MEAN CORPUSCULAR VOLUME 97.4 fl (80.0-96.0); MONO # 0.7 10^3/uL (0.0-0.8); MONO % 12.8 % (2.0-8.0); NEUTROPHILS # 3.3 10^3/uL (1.5-8.5); NEUTROPHILS % 61.8 % (36.0-66.0); PLATELET COUNT, AUTOMATED 163 10^3/uL (150-450); RED BLOOD COUNT 3.07 10^6/uL (4.00-5.40); WHITE BLOOD COUNT 5.3 10^3/uL (4.0-10.0)
[2022-01-10 18:37] LABS: HEMOGLOBIN A1c 6.5 % (4.0-6.0)
[2022-01-10 23:10] LABS: ALBUMIN 3.1 G/DL (3.2-5.2); ALT/SGPT 42 U/L (7.0-40); BILIRUBIN,DIRECT 0.4 MG/DL (<0.4); BILIRUBIN,TOTAL 0.9 MG/DL (0.3-1.2); BLOOD UREA NITROGEN 17 MG/DL (9-23); CALCIUM LEVEL 9.4 MG/DL (8.3-10.6); CARBON DIOXIDE LEVEL 26 MMOL/L (20-31); CHLORIDE LEVEL 108 MMOL/L (98-107); CHOLESTEROL LEVEL 74 MG/DL (<200); CHOLESTEROL RISK RATIO 2.47 (<5); CREATININE FOR GFR 0.78 MG/DL (0.55-1.30); FERRITIN 28.7 NG/ML (7.3-270.7); GLOMERULAR FILTRATION RATE > 60.0 (>39); GLUCOSE, FASTING 74 MG/DL (74-106); HDL CHOLESTEROL 29.9 MG/DL (>40); IRON (FE) 34 UG/DL (50-170); LDL CHOLESTEROL 22.7 MG/DL (<100); NON-HDL-C 44 MG/DL; PERCENT SATURATION 8.8 % (13.2-45.0); POTASSIUM SERUM 3.7 MMOL/L (3.5-5.1); SODIUM LEVEL 146 MMOL/L (136-145); TOTAL IRON BINDING CAPACITY 388 UG/DL (250-425); TOTAL PROTEIN 6.4 G/DL; TRIGLYCERIDES LEVEL 107 MG/DL (<150); VITAMIN B12 LEVEL 330 PG/ML (232-1245)
[2022-01-10 23:14] LABS: FOLATE 16.9 NG/ML (>3.0)
== END ==
LOC: M PLALAB 10:39
PROVIDERS: ATTEND Physician Assistant
DX: D50.9 Iron deficiency anemia, unspecified (principal); D51.3 Other dietary vitamin B12 deficiency anemia; E11.65 Type 2 diabetes mellitus with hyperglycemia; E78.2 Mixed hyperlipidemia

== ENCOUNTER 2022-01-13 06:19 | Emergency (ER) | payer MEDICARE ==
[~2022-01-13] VITALS: Ht 160 cm; Wt 71.7 kg
[2022-01-13] MEDS ORDERED: LASI20TA3 PO (06:32)
[2022-01-13 10:08] LABS: BASO % 0.7 % (0.0-1.0); EOS # 0.3 10^3/uL (0.0-0.5); EOS % 7.4 % (0.0-3.0); HEMATOCRIT 27.6 % (36.0-47.0); HEMOGLOBIN 8.7 g/dl (12.0-15.5); LYMPH # 0.8 10^3/uL (1.5-5.0); LYMPH % 19.6 % (24.0-44.0); MEAN CORPUSCULAR HGB CONC 31.5 g/dl (32.0-36.5); MEAN CORPUSCULAR VOLUME 95.2 fl (80.0-96.0); MONO # 0.5 10^3/uL (0.0-0.8); MONO % 12.6 % (2.0-8.0); NEUTROPHILS # 2.4 10^3/uL (1.5-8.5); NEUTROPHILS % 59.2 % (36.0-66.0); PLATELET COUNT, AUTOMATED 127 10^3/uL (150-450)
[2022-01-13 10:21] LABS: INR 1.24; PARTIAL THROMBOPLASTIN TIME 34.6 SECONDS (24.8-34.2); PROTHROMBIN TIME 15.9 SECONDS (12.5-14.5)
[2022-01-13] MEDS ORDERED: PANTOPRAZOLE 40MG VIAL IV ONE (10:40)
[2022-01-13 10:42] LABS: ALT/SGPT 37 U/L (7.0-40); BILIRUBIN,DIRECT 0.3 MG/DL (<0.4); BILIRUBIN,TOTAL 0.7 MG/DL (0.3-1.2); BLOOD UREA NITROGEN 13 MG/DL (9-23); CALCIUM LEVEL 9.4 MG/DL (8.3-10.6); CARBON DIOXIDE LEVEL 25 MMOL/L (20-31); CHLORIDE LEVEL 107 MMOL/L (98-107); CREATININE FOR GFR 0.71 MG/DL (0.55-1.30); GLOMERULAR FILTRATION RATE > 60.0 (>39); GLUCOSE, FASTING 161 MG/DL (74-106); LIPASE 35 U/L (12-53); POTASSIUM SERUM 3.7 MMOL/L (3.5-5.1); SODIUM LEVEL 142 MMOL/L (136-145); TOTAL PROTEIN 6.3 G/DL (5.7-8.2)
[2022-01-13] MEDS ORDERED: diphenhydrAMINE 50MG/ML VIAL IV ONE (10:55)
[2022-01-13] MEDS ORDERED: NS 1,000 ML IV SCH (10:55)
[2022-01-13] MEDS ORDERED: methylPREDNISolone 125MG 2ML VIAL IV ONE (10:55)
[2022-01-13] MEDS ORDERED: NS 500 ML IV SCH (11:00)
[2022-01-13] MEDS ORDERED: ISOVUE-370 76% 100ML VIAL As Ordered ONE (11:54)
[2022-01-13 11:58] LABS: RSV AMPLIFICATION NEGATIVE (NEGATIVE)
[2022-01-13] MEDS: READI-CAT 2 PO SCH ×2 (12:19→12:20)
[2022-01-13] MEDS ORDERED: OCTREOTIDE ACETATE 100MCG/ML VIAL **IV ADMINISTRATION ONLY IV ONE (12:40)
[2022-01-13] MEDS ORDERED: OCTREOTIDE ACETATE 1,200 MCG in NS 238.8 ML IV SCH (15:00)
[2022-01-13 15:54] VITALS: BP 167/72
== END 2022-01-13 14:09 | disposition short-term general hospital (02) ==
LOC: M ED 06:19
DX: K62.5 Hemorrhage of anus and rectum (principal); D64.9 Anemia, unspecified; R18.8 Other ascites; K74.60 Unspecified cirrhosis of liver; K76.6 Portal hypertension; I85.01 Esophageal varices with bleeding; R16.1 Splenomegaly, not elsewhere classified; E11.9 Type 2 diabetes mellitus without complications; I11.0 Hypertensive heart disease with heart failure; I50.9 Heart failure, unspecified; I25.10 Atherosclerotic heart disease of native coronary artery without angina pectoris; K21.9 Gastro-esophageal reflux disease without esophagitis; Z90.89 Acquired absence of other organs; Z90.49 Acquired absence of other specified parts of digestive tract; Z95.5 Presence of coronary angioplasty implant and graft; Z88.2 Allergy status to sulfonamides; Z91.041 Radiographic dye allergy status; Z79.84 Long term (current) use of oral hypoglycemic drugs; Z79.899 Other long term (current) drug therapy
CPT/HCPCS: 36415; 36430; 74177; 80048; 80076; 83605; 83690; 85025; 85610; 85730; 86850; 86870; 86900; 86901; 86920; 87631; 93005; 93041; 94760; 96361; 96365; 96366; 96375; 99285; C9113; J1200; J2354; J2930; P9016; Q9967

== ENCOUNTER → 2022-02-08 | Outpatient (CLI) | payer MEDICARE ==
[~2022-02-08] MED LIST changes: +CYCL-707 PO; +EZET10TA21 PO; +LACT20EL PO; +LASI20TA3 PO; +PANT40TA29 PO; +SUCR1TAB56 PO
== END ==
LOC: M LABSMTC 11:04
PROVIDERS: ATTEND Anesthesiology
DX: Z01.812 Encounter for preprocedural laboratory examination (principal); Z11.52 Encounter for screening for COVID-19

== ENCOUNTER → 2022-02-08 | Outpatient (CLI) | payer MEDICARE ==
[~2022-02-08] MED LIST changes: +ASPI81CH33 PO; +LIDO15SO4 MT; -LIDO2SOL17 MT; +SUCR1TA PO
[2022-02-08 14:20] LABS: BASO % 0.5 % (0.0-1.0); EOS # 0.3 10^3/uL (0.0-0.5); EOS % 4.9 % (0.0-3.0); HEMATOCRIT 28.2 % (36.0-47.0); HEMOGLOBIN 8.9 g/dl (12.0-15.5); LYMPH % 18.4 % (24.0-44.0); MEAN CORPUSCULAR HEMOGLOBIN 30.4 pg (27.0-33.0); MEAN CORPUSCULAR HGB CONC 31.6 g/dl (32.0-36.5); MEAN CORPUSCULAR VOLUME 96.2 fl (80.0-96.0); MONO # 0.8 10^3/uL (0.0-0.8); MONO % 13.4 % (2.0-8.0); NEUTROPHILS # 3.5 10^3/uL (1.5-8.5); NEUTROPHILS % 62.4 % (36.0-66.0); PLATELET COUNT, AUTOMATED 110 10^3/uL (150-450); RED BLOOD COUNT 2.93 10^6/uL (4.00-5.40); WHITE BLOOD COUNT 5.7 10^3/uL (4.0-10.0)
[2022-02-08 14:49] LABS: ERYTHROCYTE SEDIMENTATION RATE 56 mm/hr (0-30)
[2022-02-08 15:05] LABS: C REACTIVE PROTEIN QUANTITATIV 0.6 MG/DL (<1.0)
[2022-02-08 15:06] LABS: ALBUMIN 2.9 G/DL (3.2-5.2); BILIRUBIN,TOTAL 1.3 MG/DL (0.3-1.2); CALCIUM LEVEL 9.5 MG/DL (8.3-10.6); CREATININE FOR GFR 1.15 MG/DL (0.55-1.30); GLOMERULAR FILTRATION RATE 48.8 (>39); POTASSIUM SERUM 4.7 MMOL/L (3.5-5.1); TOTAL PROTEIN 6.5 G/DL (5.7-8.2)
[2022-02-08 15:07] LABS: FERRITIN 145.1 NG/ML (7.3-270.7); PERCENT SATURATION 20.8 % (13.2-45.0)
== END ==
LOC: M PLALAB 10:26
PROVIDERS: ATTEND Family Medicine
DX: K29.01 Acute gastritis with bleeding (principal); D50.9 Iron deficiency anemia, unspecified; G93.41 Metabolic encephalopathy; D51.3 Other dietary vitamin B12 deficiency anemia

== ENCOUNTER 2022-02-13 06:39 | Day surgery (SDC) | payer MEDICARE ==
[~2022-02-13] VITALS: Ht 160 cm; Wt 64.9 kg
[~2022-02-13 06:39] MED LIST changes: -ASPI81CH33 PO; -LIDO15SO4 MT; +LIDO2SOL17 MT; +NS 1,000 ML IV ONE; -SUCR1TA PO
[2022-02-13] MEDS ORDERED: fentaNYL 100 MCG/2 ML INJECTION As Ordered ONE (07:21)
[2022-02-13] MEDS ORDERED: propofoL 200 MG/20 ML VIAL As Ordered ONE (07:22)
[2022-02-13] MEDS ORDERED: LIDOCAINE 2% 100MG/5ML SDV (FOR ANES.) As Ordered ONE (07:23)
[2022-02-13] MEDS ORDERED: ePHEDrine SULFATE 25 MG/5 ML(5MG/ML) SYRINGE As Ordered ONE (08:08)
[2022-02-13 08:53] VITALS: BP 121/56
== END 2022-02-13 09:10 | disposition home or self-care (01) ==
LOC: M OPP 06:39
PROVIDERS: ATTEND Internal Medicine Gastroenterology
DX: D12.2 Benign neoplasm of ascending colon (principal); D62 Acute posthemorrhagic anemia; K64.4 Residual hemorrhoidal skin tags; K64.8 Other hemorrhoids; K57.30 Diverticulosis of large intestine without perforation or abscess without bleeding; K92.1 Melena; K31.819 Angiodysplasia of stomach and duodenum without bleeding; I85.01 Esophageal varices with bleeding; Z86.010 Personal history of colon polyps; Z80.0 Family history of malignant neoplasm of digestive organs; Z79.02 Long term (current) use of antithrombotics/antiplatelets; Z79.52 Long term (current) use of systemic steroids; Z79.82 Long term (current) use of aspirin; Z79.84 Long term (current) use of oral hypoglycemic drugs; Z79.899 Other long term (current) drug therapy; Z88.2 Allergy status to sulfonamides; Z91.041 Radiographic dye allergy status; E11.9 Type 2 diabetes mellitus without complications; K74.60 Unspecified cirrhosis of liver; E78.00 Pure hypercholesterolemia, unspecified; Z80.3 Family history of malignant neoplasm of breast; Z80.41 Family history of malignant neoplasm of ovary
CPT/HCPCS: 43244; 43255; 45385; 88305; J3010

== ENCOUNTER 2022-02-23 19:58 | Emergency (ER) | payer MEDICARE ==
[~2022-02-23] VITALS: Ht 160 cm; Wt 70.0 kg
[~2022-02-23 19:58] MED LIST changes: -NS 1,000 ML IV ONE
[2022-02-23] MEDS ORDERED: ASPI81CH33 PO (20:35)
[2022-02-23] MEDS ORDERED: PANT40TA29 PO (20:35)
[2022-02-23] MEDS ORDERED: SUCR1TA PO (20:35)
[2022-02-23] MEDS ORDERED: GLIM4TAB5 PO (20:35)
[2022-02-23] MEDS ORDERED: LACT20EL PO (20:35)
[2022-02-24 05:14] LABS: BASO % 0.5 % (0.0-1.0); EOS % 0.2 % (0.0-3.0); LYMPH # 0.9 10^3/uL (1.5-5.0); LYMPH % 21.3 % (24.0-44.0); MEAN CORPUSCULAR HEMOGLOBIN 31.7 pg (27.0-33.0); MEAN CORPUSCULAR HGB CONC 32.7 g/dl (32.0-36.5); MONO # 0.6 10^3/uL (0.0-0.8); NEUTROPHILS # 2.7 10^3/uL (1.5-8.5); PLATELET COUNT, AUTOMATED 141 10^3/uL (150-450); RED BLOOD COUNT 2.02 10^6/uL (4.00-5.40); WHITE BLOOD COUNT 4.2 10^3/uL (4.0-10.0)
[2022-02-24 05:15] LABS: HEMATOCRIT 19.6 % (36.0-47.0)
[2022-02-24 05:18] LABS: HEMOGLOBIN 6.4 g/dl (12.0-15.5)
[2022-02-24 05:44] LABS: ALBUMIN 2.8 G/DL (3.2-5.2); BILIRUBIN,DIRECT 0.4 MG/DL (<0.4); BILIRUBIN,TOTAL 0.8 MG/DL (0.3-1.2); CALCIUM LEVEL 9.6 MG/DL (8.3-10.6); CREATININE FOR GFR 1.82 MG/DL (0.55-1.30); GLOMERULAR FILTRATION RATE 28.8 (>39); POTASSIUM SERUM 4.2 MMOL/L (3.5-5.1)
[2022-02-24 05:45] LABS: MB/CK RELATIVE INDEX 0.82 (< OR =4)
[2022-02-24] MEDS ORDERED: LIDOCAINE 5% (LIDODERM) PATCH TD ONE (06:30)
[2022-02-24] MEDS ORDERED: CYCLOBENZAPRINE 5MG TABLET PO ONE (06:35)
[2022-02-24 06:48] LABS: CK-MB VALUE MASS 1.3 NG/ML (<3.6)
[2022-02-24 06:50] LABS: MB/CK RELATIVE INDEX 1.09 (< OR =4)
[2022-02-24 06:51] LABS: INR 1.24; PARTIAL THROMBOPLASTIN TIME 33.5 SECONDS (24.8-34.2); PROTHROMBIN TIME 15.9 SECONDS (12.5-14.5)
[2022-02-24] MEDS ORDERED: OCTREOTIDE ACETATE 100MCG/ML VIAL **IV ADMINISTRATION ONLY IV ONE (07:00)
[2022-02-24] MEDS: PANTOPRAZOLE SODIUM 40 MG in D5W MINI-BAG PLUS 50 ML IV SCH ×2 (08:30→13:15)
[2022-02-24] MEDS ORDERED: OCTREOTIDE ACETATE 1,200 MCG in NS 238.8 ML IV SCH (09:00)
[2022-02-24 12:27] VITALS: BP 135/62
[2022-02-24 12:43] VITALS: BP 150/67
[2022-02-24 12:44] LABS: BASO % 0.4 % (0.0-1.0); EOS # 0.2 10^3/uL (0.0-0.5); EOS % 6.2 % (0.0-3.0); LYMPH # 0.8 10^3/uL (1.5-5.0); LYMPH % 30.9 % (24.0-44.0); MEAN CORPUSCULAR HEMOGLOBIN 31.5 pg (27.0-33.0); MEAN CORPUSCULAR HGB CONC 32.3 g/dl (32.0-36.5); MEAN CORPUSCULAR VOLUME 97.6 fl (80.0-96.0); MONO # 0.3 10^3/uL (0.0-0.8); MONO % 12.4 % (2.0-8.0); NEUTROPHILS # 1.3 10^3/uL (1.5-8.5); NEUTROPHILS % 49.3 % (36.0-66.0); RED BLOOD COUNT 1.65 10^6/uL (4.00-5.40); WHITE BLOOD COUNT 2.6 10^3/uL (4.0-10.0)
[2022-02-24 12:45] LABS: RSV AMPLIFICATION NEGATIVE (NEGATIVE)
[2022-02-24 12:57] VITALS: BP 144/65
[2022-02-24 13:04] LABS: HEMATOCRIT 16.1 % (36.0-47.0)
[2022-02-24 13:05] LABS: PLATELET COUNT, AUTOMATED 98 10^3/uL (150-450)
[2022-02-24 13:06] LABS: HEMOGLOBIN 5.2 g/dl (12.0-15.5)
[2022-02-24 13:08] VITALS: BP 144/68
[2022-02-24 13:27] VITALS: BP 140/67
== END 2022-02-24 13:33 | disposition short-term general hospital (02) ==
LOC: M ED 19:58
DX: K92.2 Gastrointestinal hemorrhage, unspecified (principal); K76.6 Portal hypertension; I70.0 Atherosclerosis of aorta; N20.0 Calculus of kidney; D61.818 Other pancytopenia; M65.231 Calcific tendinitis, right forearm; D64.9 Anemia, unspecified; R74.8 Abnormal levels of other serum enzymes; K74.60 Unspecified cirrhosis of liver; Z87.19 Personal history of other diseases of the digestive system; I25.10 Atherosclerotic heart disease of native coronary artery without angina pectoris; I50.9 Heart failure, unspecified; E11.9 Type 2 diabetes mellitus without complications; E78.5 Hyperlipidemia, unspecified; Z95.5 Presence of coronary angioplasty implant and graft; K57.90 Diverticulosis of intestine, part unspecified, without perforation or abscess without bleeding; Z79.84 Long term (current) use of oral hypoglycemic drugs; Z79.899 Other long term (current) drug therapy; Z91.041 Radiographic dye allergy status; Z88.2 Allergy status to sulfonamides
CPT/HCPCS: 36430; 71045; 71250; 73090; 74176; 80048; 80076; 81000; 81015; 82140; 82550; 82553; 83605; 83690; 84484; 85025; 85049; 85055; 85610; 85730; 86850; 86870; 86900; 86901; 86905; 86920; 87631; 93005; 93041; 94760; 96374; 96375; 99285; C9113; J2354; P9016

== ENCOUNTER → 2022-03-07 | Outpatient (CLI) | payer MEDICARE ==
[~2022-03-07] MED LIST changes: +ASPI81CH33 PO; +SUCR1TA PO
[2022-03-07 14:21] LABS: BASO # 0.1 10^3/uL (0.0-0.2); BASO % 1.2 % (0.0-1.0); EOS # 0.6 10^3/uL (0.0-0.5); EOS % 10.9 % (0.0-3.0); HEMATOCRIT 24.6 % (36.0-47.0); HEMOGLOBIN 7.6 g/dl (12.0-15.5); LYMPH % 19.3 % (24.0-44.0); MEAN CORPUSCULAR HEMOGLOBIN 30.8 pg (27.0-33.0); MEAN CORPUSCULAR HGB CONC 30.9 g/dl (32.0-36.5); MEAN CORPUSCULAR VOLUME 99.6 fl (80.0-96.0); MONO # 0.8 10^3/uL (0.0-0.8); MONO % 15.4 % (2.0-8.0); NEUTROPHILS # 2.7 10^3/uL (1.5-8.5); NEUTROPHILS % 52.8 % (36.0-66.0); PLATELET COUNT, AUTOMATED 128 10^3/uL (150-450); RED BLOOD COUNT 2.47 10^6/uL (4.00-5.40); WHITE BLOOD COUNT 5.1 10^3/uL (4.0-10.0)
[2022-03-07 14:57] LABS: ALBUMIN 2.5 G/DL (3.2-5.2); BILIRUBIN,TOTAL 0.6 MG/DL (0.3-1.2); CALCIUM LEVEL 9.5 MG/DL (8.3-10.6); CREATININE FOR GFR 1.36 MG/DL (0.55-1.30); GLOMERULAR FILTRATION RATE 40.2 (>39); POTASSIUM SERUM 5.6 MMOL/L (3.5-5.1); TOTAL PROTEIN 5.7 G/DL (5.7-8.2)
== END ==
LOC: M PLALAB 11:05
PROVIDERS: ATTEND Nurse Practitioner Adult Health
DX: D64.9 Anemia, unspecified (principal)

== ENCOUNTER → 2022-03-08 | Outpatient (CLI) | payer MEDICARE | LOC: M PLALAB 10:21 | PROVIDERS: ATTEND Nurse Practitioner Adult Health | DX: K92.2 Gastrointestinal hemorrhage, unspecified (principal); D64.9 Anemia, unspecified ==

== ENCOUNTER 2022-03-09 09:20 | Outpatient (CLI) | payer MEDICARE ==
[~2022-03-09] VITALS: Ht 160 cm; Wt 70.0 kg
[2022-03-09 09:28] VITALS: BP 161/71
[2022-03-09 09:49] VITALS: BP 161/71
[2022-03-09 10:05] VITALS: BP 116/55
[2022-03-09 11:30] VITALS: BP 130/63
[2022-03-09 11:45] VITALS: BP 132/63
[2022-03-09 13:21] VITALS: BP 145/70
== END 2022-03-09 13:25 ==
LOC: M INFU 09:20
PROVIDERS: ATTEND Nurse Practitioner Adult Health
DX: D64.9 Anemia, unspecified (principal); Z88.2 Allergy status to sulfonamides
CPT/HCPCS: 36430; P9016

== ENCOUNTER → 2022-03-13 | Outpatient (CLI) | payer MEDICARE ==
[~2022-03-13] MED LIST changes: +AMLO1TAB24 PO; +CRES10TA PO; +FURO20TA2 PO; +LIDO15SO4 MT; -LIDO2SOL17 MT; +LIDO2SOL9 SS; +MIRA1POW3 PO; +SENN18TA PO
[2022-03-13 15:24] LABS: BASO % 0.9 % (0.0-1.0); EOS # 0.3 10^3/uL (0.0-0.5); EOS % 7.7 % (0.0-3.0); HEMATOCRIT 26.7 % (36.0-47.0); HEMOGLOBIN 8.4 g/dl (12.0-15.5); LYMPH # 0.8 10^3/uL (1.5-5.0); LYMPH % 17.5 % (24.0-44.0); MEAN CORPUSCULAR HEMOGLOBIN 30.2 pg (27.0-33.0); MEAN CORPUSCULAR HGB CONC 31.5 g/dl (32.0-36.5); MONO # 0.6 10^3/uL (0.0-0.8); MONO % 14.1 % (2.0-8.0); NEUTROPHILS # 2.6 10^3/uL (1.5-8.5); NEUTROPHILS % 59.3 % (36.0-66.0); PLATELET COUNT, AUTOMATED 122 10^3/uL (150-450); RED BLOOD COUNT 2.78 10^6/uL (4.00-5.40); WHITE BLOOD COUNT 4.4 10^3/uL (4.0-10.0)
== END ==
LOC: M PLALAB 13:42
PROVIDERS: ATTEND Nurse Practitioner Adult Health
DX: D64.9 Anemia, unspecified (principal)

== ENCOUNTER → 2022-03-13 | Outpatient (CLI) | payer MEDICARE ==
[~2022-03-13] MED LIST changes: -AMLO1TAB24 PO; -CRES10TA PO; -FURO20TA2 PO; -LIDO15SO4 MT; +LIDO2SOL17 MT; -LIDO2SOL9 SS; -MIRA1POW3 PO; -SENN18TA PO
== END ==
LOC: M LABSMTC 09:23
PROVIDERS: ATTEND Anesthesiology
DX: Z01.818 Encounter for other preprocedural examination (principal)

== ENCOUNTER 2022-03-17 10:52 | Day surgery (SDC) | payer MEDICARE ==
[~2022-03-17] VITALS: Ht 160 cm; Wt 71.1 kg
[~2022-03-17 10:52] MED LIST changes: +LIDOCAINE 2% 100MG/5ML SDV (FOR ANES.) As Ordered ONE; +NS 1,000 ML IV ONE; +propofoL 200 MG/20 ML VIAL As Ordered ONE
[2022-03-17 12:55] VITALS: BP 171/79
== END 2022-03-17 13:20 | disposition home or self-care (01) ==
LOC: M OPP 10:52
PROVIDERS: ATTEND Internal Medicine Gastroenterology
DX: K74.60 Unspecified cirrhosis of liver (principal); D50.0 Iron deficiency anemia secondary to blood loss (chronic); K31.819 Angiodysplasia of stomach and duodenum without bleeding; I85.10 Secondary esophageal varices without bleeding; Z79.02 Long term (current) use of antithrombotics/antiplatelets; Z79.82 Long term (current) use of aspirin; Z79.84 Long term (current) use of oral hypoglycemic drugs; Z79.899 Other long term (current) drug therapy; Z88.2 Allergy status to sulfonamides; Z91.041 Radiographic dye allergy status; E11.9 Type 2 diabetes mellitus without complications; I25.10 Atherosclerotic heart disease of native coronary artery without angina pectoris; I10 Essential (primary) hypertension; E78.5 Hyperlipidemia, unspecified; Z86.010 Personal history of colon polyps; Z95.5 Presence of coronary angioplasty implant and graft; Z80.0 Family history of malignant neoplasm of digestive organs; Z80.3 Family history of malignant neoplasm of breast; Z80.41 Family history of malignant neoplasm of ovary

== ENCOUNTER → 2022-03-28 | Outpatient (CLI) | payer MEDICARE ==
[~2022-03-28] MED LIST changes: +AMLO1TAB24 PO; +CONS10SO3 PO; +CRES10TA PO; +FURO20TA2 PO; +FURO40TA2 PO; +LIDO15SO4 MT; -LIDO2SOL17 MT; +LIDO2SOL9 SS; -LIDOCAINE 2% 100MG/5ML SDV (FOR ANES.) As Ordered ONE; +MIRA1POW3 PO; -NS 1,000 ML IV ONE; +ROSU20TA5 PO; +SENN18TA PO; +SPIR50TA4 PO; -propofoL 200 MG/20 ML VIAL As Ordered ONE
== END ==
LOC: M WHC 08:06
PROVIDERS: ATTEND Nurse Practitioner Adult Health
DX: R22.32 Localized swelling, mass and lump, left upper limb (principal); M79.602 Pain in left arm; M54.10 Radiculopathy, site unspecified

== ENCOUNTER → 2022-03-31 | Outpatient (CLI) | payer MEDICARE ==
[~2022-03-31] MED LIST changes: -AMLO1TAB24 PO; -CONS10SO3 PO; -CRES10TA PO; -FURO20TA2 PO; -FURO40TA2 PO; -LIDO2SOL9 SS; -MIRA1POW3 PO; -ROSU20TA5 PO; -SENN18TA PO; -SPIR50TA4 PO
[2022-03-31 09:18] VITALS: BP 137/71
[2022-03-31 09:26] VITALS: BP 141/57
[2022-03-31 09:39] VITALS: BP 145/67
[2022-03-31 09:56] VITALS: BP 136/67
[2022-03-31 10:08] VITALS: BP 135/72
== END ==
LOC: M IRPRO 08:40
PROVIDERS: ATTEND Internal Medicine Gastroenterology
DX: K74.69 Other cirrhosis of liver (principal); R18.8 Other ascites; K76.6 Portal hypertension
CPT/HCPCS: 49083; 96365; P9047

== ENCOUNTER 2022-04-09 23:22 | Inpatient (IN) | payer MEDICARE ==
[~2022-04-09] VITALS: Ht 160 cm; Wt 64.2 kg
[2022-04-09] MEDS ORDERED: FERR325T3 PO (23:45)
[2022-04-10] VITALS (11 sets, daily range): BP systolic 115–174; BP diastolic 50–78
[2022-04-10 00:40] LABS: CK-MB VALUE MASS < 1.0 NG/ML (<3.6)
[2022-04-10 00:42] LABS: ALBUMIN 2.7 G/DL (3.2-5.2); ALKALINE PHOSPHATASE 126 U/L (46-116); ALT/SGPT 27 U/L (7.0-40); AST/SGOT 18 U/L (<34); BILIRUBIN,DIRECT 0.3 MG/DL (<0.4); BILIRUBIN,TOTAL 0.5 MG/DL (0.3-1.2); BLOOD UREA NITROGEN 31 MG/DL (9-23); CALCIUM LEVEL 8.1 MG/DL (8.3-10.6); CARBON DIOXIDE LEVEL 25 MMOL/L (20-31); CHLORIDE LEVEL 113 MMOL/L (98-107); CPK CREATINE PHOSPHOKINASE 66 U/L (34-145); CREATININE FOR GFR 1.44 MG/DL (0.55-1.30); GLOMERULAR FILTRATION RATE 37.7 (>39); GLUCOSE, FASTING 370 MG/DL (74-106); MB/CK RELATIVE INDEX 1.51 (< OR =4); POTASSIUM SERUM 5.1 MMOL/L (3.5-5.1); SODIUM LEVEL 142 MMOL/L (136-145); TOTAL PROTEIN 5.8 G/DL (5.7-8.2)
[2022-04-10 00:52] LABS: BASO # 0.1 10^3/uL (0.0-0.2); EOS # 0.6 10^3/uL (0.0-0.5); EOS % 13.4 % (0.0-3.0); LYMPH # 0.7 10^3/uL (1.5-5.0); LYMPH % 15.5 % (24.0-44.0); MEAN CORPUSCULAR HEMOGLOBIN 31.6 pg (27.0-33.0); MEAN CORPUSCULAR HGB CONC 31.3 g/dl (32.0-36.5); MONO # 0.7 10^3/uL (0.0-0.8); MONO % 13.6 % (2.0-8.0); NEUTROPHILS # 2.7 10^3/uL (1.5-8.5); NEUTROPHILS % 56.1 % (36.0-66.0); PLATELET COUNT, AUTOMATED 144 10^3/uL (150-450); RED BLOOD COUNT 1.96 10^6/uL (4.00-5.40); WHITE BLOOD COUNT 4.8 10^3/uL (4.0-10.0)
[2022-04-10 00:58] LABS: HEMATOCRIT 19.8 % (36.0-47.0); HEMOGLOBIN 6.2 g/dl (12.0-15.5)
[2022-04-10 02:49] LABS: BASO % 0.7 % (0.0-1.0); EOS # 0.9 10^3/uL (0.0-0.5); EOS % 14.1 % (0.0-3.0); LYMPH % 15.6 % (24.0-44.0); MEAN CORPUSCULAR HEMOGLOBIN 31.6 pg (27.0-33.0); MEAN CORPUSCULAR HGB CONC 31.6 g/dl (32.0-36.5); MONO # 0.8 10^3/uL (0.0-0.8); MONO % 12.4 % (2.0-8.0); NEUTROPHILS # 3.5 10^3/uL (1.5-8.5); NEUTROPHILS % 56.9 % (36.0-66.0); PLATELET COUNT, AUTOMATED 152 10^3/uL (150-450); RED BLOOD COUNT 2.09 10^6/uL (4.00-5.40); WHITE BLOOD COUNT 6.2 10^3/uL (4.0-10.0)
[2022-04-10 03:05] LABS: HEMATOCRIT 20.9 % (36.0-47.0); HEMOGLOBIN 6.6 g/dl (12.0-15.5)
[2022-04-10 05:14] LABS: RSV AMPLIFICATION NEGATIVE (NEGATIVE)
[2022-04-10] MEDS ORDERED: DEXTROSE 50% 50ML SYRINGE IV PRN (05:30)
[2022-04-10] MEDS ORDERED: PANTOPRAZOLE 40MG VIAL IV ONE (05:30)
[2022-04-10] MEDS ORDERED: GLUCAGON INJ 1MG VIAL SC PRN (05:30)
[2022-04-10] MEDS ORDERED: GLUCOSE 4GM CHEW TABLET PO PRN (05:30)
[2022-04-10] MEDS ORDERED: OCTREOTIDE ACETATE 100MCG/ML VIAL **IV ADMINISTRATION ONLY IV ONE (06:00)
[2022-04-10] MEDS: cefTRIAXone SOD 1 GM in D5W MINI-BAG PLUS 50 ML IV SCH (06:23)
[2022-04-10] MEDS ORDERED: HOME MED LIST COMPLETE! XX SCH (06:30)
[2022-04-10] MEDS: PANTOPRAZOLE SODIUM 40 MG in D5W 50 ML IV SCH ×4 (06:46→20:12)
[2022-04-10] MEDS: INSULIN LISPRO (NovoLOG) PER UNIT SC SCH ×3 (06:54→18:00)
[2022-04-10] MEDS: OCTREOTIDE ACETATE 1,200 MCG in NS 238.8 ML IV SCH (07:05)
[2022-04-10] MEDS ORDERED: LIDOCAINE 2% 100MG/5ML SDV (FOR ANES.) As Ordered ONE (15:52)
[2022-04-10] MEDS ORDERED: propofoL 200 MG/20 ML VIAL As Ordered ONE ×2 (15:52→15:54)
[2022-04-10] MEDS ORDERED: fentaNYL 100 MCG/2 ML INJECTION As Ordered ONE (15:53)
[2022-04-10 16:19] LABS: HEMATOCRIT 30.4 % (36.0-47.0); HEMOGLOBIN 9.8 g/dl (12.0-15.5)
[2022-04-10] MEDS ORDERED: LIDOCAINE VISCOUS 2% SOLN 15ML UDC SS PRN (18:40)
[2022-04-10 19:15] LABS: HEMATOCRIT 29.8 % (36.0-47.0); HEMOGLOBIN 9.2 g/dl (12.0-15.5)
[2022-04-10] MEDS: SUCRALFATE 1 GM TAB PO SCH (20:11)
[2022-04-10] MEDS: OMEPRAZOLE 20MG CAP PO SCH (20:11)
[2022-04-11] VITALS (12 sets, daily range): BP systolic 140–170; BP diastolic 65–79
[2022-04-11] MEDS: INSULIN LISPRO (NovoLOG) PER UNIT SC SCH ×5 (00:21→20:20)
[2022-04-11 01:06] LABS: HEMOGLOBIN 8.6 g/dl (12.0-15.5)
[2022-04-11] MEDS: PANTOPRAZOLE SODIUM 40 MG in D5W 50 ML IV SCH ×3 (01:23→12:12)
[2022-04-11 04:17] LABS: BASO % 0.9 % (0.0-1.0); EOS # 0.7 10^3/uL (0.0-0.5); EOS % 16.7 % (0.0-3.0); HEMOGLOBIN 8.8 g/dl (12.0-15.5); LYMPH # 0.8 10^3/uL (1.5-5.0); LYMPH % 17.8 % (24.0-44.0); MEAN CORPUSCULAR HEMOGLOBIN 30.8 pg (27.0-33.0); MEAN CORPUSCULAR HGB CONC 32.6 g/dl (32.0-36.5); MEAN CORPUSCULAR VOLUME 94.4 fl (80.0-96.0); MONO # 0.5 10^3/uL (0.0-0.8); MONO % 11.7 % (2.0-8.0); NEUTROPHILS # 2.2 10^3/uL (1.5-8.5); NEUTROPHILS % 52.7 % (36.0-66.0); PLATELET COUNT, AUTOMATED 116 10^3/uL (150-450); RED BLOOD COUNT 2.86 10^6/uL (4.00-5.40); WHITE BLOOD COUNT 4.3 10^3/uL (4.0-10.0)
[2022-04-11 04:45] LABS: CALCIUM LEVEL 7.8 MG/DL (8.3-10.6); CREATININE FOR GFR 1.51 MG/DL (0.55-1.30); GLOMERULAR FILTRATION RATE 35.7 (>39); POTASSIUM SERUM 4.6 MMOL/L (3.5-5.1)
[2022-04-11] MEDS: OCTREOTIDE ACETATE 1,200 MCG in NS 238.8 ML IV SCH (05:24)
[2022-04-11] MEDS: cefTRIAXone SOD 1 GM in D5W MINI-BAG PLUS 50 ML IV SCH (05:24)
[2022-04-11] MEDS ORDERED: PREVNAR-20 VACCINE 0.5ML SYRINGE IM.IMMUN ONE (09:00)
[2022-04-11] MEDS ORDERED: IRBESARTAN 150MG TAB PO SCH (09:00)
[2022-04-11] MEDS: OMEPRAZOLE 20MG CAP PO SCH ×2 (09:28→20:09)
[2022-04-11] MEDS: SUCRALFATE 1 GM TAB PO SCH ×3 (09:28→20:09)
[2022-04-11] MEDS: FUROSEMIDE 20 MG TAB PO SCH ×2 (09:28→16:48)
[2022-04-11 11:37] LABS: INR 1.31; PROTHROMBIN TIME 16.5 SECONDS (12.5-14.5)
[2022-04-11 11:38] LABS: PARTIAL THROMBOPLASTIN TIME 34.6 SECONDS (24.8-34.2)
[2022-04-11] MEDS ORDERED: GLUCOSE 4GM CHEW TABLET PO PRN (12:05)
[2022-04-11] MEDS ORDERED: DEXTROSE 50% 50ML SYRINGE IV PRN (12:05)
[2022-04-11] MEDS ORDERED: GLUCAGON INJ 1MG VIAL SC PRN (12:05)
[2022-04-11 12:45] LABS: ALBUMIN 2.5 G/DL (3.2-5.2); BILIRUBIN,TOTAL 2.7 MG/DL (0.3-1.2); TOTAL PROTEIN 5.6 G/DL (5.7-8.2)
[2022-04-11 13:34] LABS: APPEARANCE, URINE CLEAR (CLEAR); BILIRUBIN, URINE AUTO NEGATIVE (NEGATIVE); BLOOD, URINE BLOOD NEGATIVE (NEGATIVE); COLOR, URINE YELLOW (YELLOW); GLUCOSE, URINE (UA) AUTO NEGATIVE (NEGATIVE); KETONE, URINE AUTO NEGATIVE (NEGATIVE); LEUKOCYTE ESTERASE, URINE AUTO NEGATIVE (NEGATIVE); NITRITE, URINE AUTO NEGATIVE (NEGATIVE); PROTEIN, URINE AUTO NEGATIVE (NEGATIVE); SPECIFIC GRAVITY URINE AUTO 1.012 (1.002-1.035); UROBILINOGEN, URINE AUTO 0.2 mg/dL (0.0-2.0)
[2022-04-11 13:42] LABS: BACTERIA, URINE AUTO NEGATIVE (NEGATIVE); MUCUS, URINE SMALL (NEGATIVE); RBC, URINE AUTO 1 /HPF (0-3); SQUAMOUS EPITHELIAL CELL UR AU 1 /HPF (0-6); WBC, URINE AUTO 2 /HPF (0-3)
[2022-04-11 16:50] LABS: SOURCE, BODY FLUID ALBUMIN ASCITES
[2022-04-11 16:55] LABS: SOURCE, BODY FLUID GLUCOSE ASCITES
[2022-04-11 16:57] LABS: SOURCE, BODY FLUID TOT PROTEIN ASCITES; TOTAL PROTEIN, BODY FLUID < 2.0 G/DL (NOT ESTABLISHED)
[2022-04-11 16:59] LABS: APPEARANCE, BODY FLUID CLEAR (CLEAR); ASCITES FL COLOR YELLOW (COLORLESS); SOURCE, BODY FLUID ASCITES
[2022-04-11] MEDS: EZETIMIBE 10MG TABLET (ZETIA) PO SCH (20:09)
[2022-04-11] MEDS: HEPARIN SOD (PORCINE) 5000UNITS/ML 1ML VIAL/SYRINGE SQ SCH (20:09)
[2022-04-11] MEDS: ROSUVASTATIN 10 MG TAB (CRESTOR) PO SCH (20:10)
[2022-04-12] VITALS (11 sets, daily range): BP systolic 123–174; BP diastolic 58–72
[2022-04-12 04:48] LABS: BASO % 0.7 % (0.0-1.0); EOS # 0.4 10^3/uL (0.0-0.5); EOS % 8.9 % (0.0-3.0); HEMATOCRIT 23.1 % (36.0-47.0); HEMOGLOBIN 7.6 g/dl (12.0-15.5); LYMPH # 0.8 10^3/uL (1.5-5.0); LYMPH % 16.5 % (24.0-44.0); MEAN CORPUSCULAR HEMOGLOBIN 30.8 pg (27.0-33.0); MEAN CORPUSCULAR HGB CONC 32.9 g/dl (32.0-36.5); MEAN CORPUSCULAR VOLUME 93.5 fl (80.0-96.0); MONO # 0.6 10^3/uL (0.0-0.8); MONO % 12.2 % (2.0-8.0); NEUTROPHILS # 2.8 10^3/uL (1.5-8.5); NEUTROPHILS % 61.3 % (36.0-66.0); PLATELET COUNT, AUTOMATED 101 10^3/uL (150-450); RED BLOOD COUNT 2.47 10^6/uL (4.00-5.40); WHITE BLOOD COUNT 4.6 10^3/uL (4.0-10.0)
[2022-04-12 05:18] LABS: ALBUMIN 2.6 G/DL (3.2-5.2); BILIRUBIN,TOTAL 1.2 MG/DL (0.3-1.2); CALCIUM LEVEL 8.2 MG/DL (8.3-10.6); CREATININE FOR GFR 1.6 MG/DL (0.55-1.30); GLOMERULAR FILTRATION RATE 33.4 (>39); POTASSIUM SERUM 4.6 MMOL/L (3.5-5.1); TOTAL PROTEIN 5.2 G/DL (5.7-8.2)
[2022-04-12] MEDS: cefTRIAXone SOD 1 GM in D5W MINI-BAG PLUS 50 ML IV SCH (05:47)
[2022-04-12] MEDS: OCTREOTIDE ACETATE 1,200 MCG in NS 238.8 ML IV SCH (05:47)
[2022-04-12] MEDS: HEPARIN SOD (PORCINE) 5000UNITS/ML 1ML VIAL/SYRINGE SQ SCH ×2 (08:09→20:45)
[2022-04-12] MEDS: FUROSEMIDE 20 MG TAB PO SCH ×2 (08:10→18:05)
[2022-04-12] MEDS: SUCRALFATE 1 GM TAB PO SCH ×3 (08:10→20:43)
[2022-04-12] MEDS: OMEPRAZOLE 20MG CAP PO SCH ×2 (08:10→20:44)
[2022-04-12] MEDS: INSULIN LISPRO (NovoLOG) PER UNIT SC SCH ×4 (08:11→21:07)
[2022-04-12] MEDS ORDERED: SENNA 8.6 MG TAB (SENOKOT) PO ONE (09:20)
[2022-04-12 09:31] LABS: HEMATOCRIT 27.1 % (36.0-47.0); HEMOGLOBIN 8.7 g/dl (12.0-15.5)
[2022-04-12] MEDS: MIRALAX *UNIT DOSE* 17GM PACKET PO SCH (11:35)
[2022-04-12] MEDS: EZETIMIBE 10MG TABLET (ZETIA) PO SCH (20:43)
[2022-04-12] MEDS: ROSUVASTATIN 10 MG TAB (CRESTOR) PO SCH (20:44)
[2022-04-13 04:00] VITALS: BP 138/65
[2022-04-13 04:49] LABS: EOS # 0.7 10^3/uL (0.0-0.5); EOS % 16.9 % (0.0-3.0); HEMATOCRIT 25.2 % (36.0-47.0); HEMOGLOBIN 8.3 g/dl (12.0-15.5); LYMPH # 0.8 10^3/uL (1.5-5.0); LYMPH % 18.1 % (24.0-44.0); MEAN CORPUSCULAR HEMOGLOBIN 31.1 pg (27.0-33.0); MEAN CORPUSCULAR HGB CONC 32.9 g/dl (32.0-36.5); MEAN CORPUSCULAR VOLUME 94.4 fl (80.0-96.0); MONO # 0.5 10^3/uL (0.0-0.8); MONO % 12.8 % (2.0-8.0); NEUTROPHILS # 2.2 10^3/uL (1.5-8.5); PLATELET COUNT, AUTOMATED 114 10^3/uL (150-450); RED BLOOD COUNT 2.67 10^6/uL (4.00-5.40); WHITE BLOOD COUNT 4.2 10^3/uL (4.0-10.0)
[2022-04-13 05:11] LABS: ALBUMIN 2.6 G/DL (3.2-5.2); BILIRUBIN,TOTAL 0.8 MG/DL (0.3-1.2); CREATININE FOR GFR 1.62 MG/DL (0.55-1.30); GLOMERULAR FILTRATION RATE 32.9 (>39); POTASSIUM SERUM 4.5 MMOL/L (3.5-5.1); TOTAL PROTEIN 5.3 G/DL (5.7-8.2)
[2022-04-13] MEDS: cefTRIAXone SOD 1 GM in D5W MINI-BAG PLUS 50 ML IV SCH (05:22)
[2022-04-13 07:43] VITALS: BP 143/65
[2022-04-13] MEDS: SUCRALFATE 1 GM TAB PO SCH ×3 (08:30→20:07)
[2022-04-13] MEDS: INSULIN LISPRO (NovoLOG) PER UNIT SC SCH ×4 (08:30→20:05)
[2022-04-13] MEDS: HEPARIN SOD (PORCINE) 5000UNITS/ML 1ML VIAL/SYRINGE SQ SCH ×2 (08:31→20:07)
[2022-04-13] MEDS: MIRALAX *UNIT DOSE* 17GM PACKET PO SCH (08:31)
[2022-04-13] MEDS: FUROSEMIDE 20 MG TAB PO SCH ×2 (08:32→17:00)
[2022-04-13] MEDS: OMEPRAZOLE 20MG CAP PO SCH ×2 (08:32→20:07)
[2022-04-13] MEDS ORDERED: MOM 30ML SUSPENSION UDC PO SCH (09:00)
[2022-04-13] MEDS ORDERED: DOCUSATE SOD LIQ 100MG/10ML UDC PO SCH (09:00)
[2022-04-13] MEDS ORDERED: SENNA 8.6 MG TAB (SENOKOT) PO SCH (09:00)
[2022-04-13] MEDS ORDERED: MOM 30ML SUSPENSION UDC PO PRN (09:25)
[2022-04-13] MEDS ORDERED: DOCUSATE SOD LIQ 100MG/10ML UDC PO PRN (09:25)
[2022-04-13] MEDS ORDERED: MIRALAX *UNIT DOSE* 17GM PACKET PO PRN (09:25)
[2022-04-13] MEDS ORDERED: SENNA 8.6 MG TAB (SENOKOT) PO PRN (09:25)
[2022-04-13] MEDS ORDERED: DOCUSATE SODIUM 100MG CAPSULE PO PRN (10:30)
[2022-04-13 12:15] VITALS: BP 129/61
[2022-04-13 12:23] LABS: HEMATOCRIT 25.7 % (36.0-47.0); HEMOGLOBIN 8.4 g/dl (12.0-15.5)
[2022-04-13 20:00] VITALS: BP 135/62
[2022-04-13] MEDS: ROSUVASTATIN 10 MG TAB (CRESTOR) PO SCH (20:07)
[2022-04-13] MEDS: EZETIMIBE 10MG TABLET (ZETIA) PO SCH (20:07)
[2022-04-14 04:00] VITALS: BP 127/60
[2022-04-14 04:42] LABS: EOS # 0.5 10^3/uL (0.0-0.5); HEMATOCRIT 25.8 % (36.0-47.0); HEMOGLOBIN 8.5 g/dl (12.0-15.5); LYMPH # 0.8 10^3/uL (1.5-5.0); LYMPH % 20.5 % (24.0-44.0); MEAN CORPUSCULAR HGB CONC 32.9 g/dl (32.0-36.5); MEAN CORPUSCULAR VOLUME 94.2 fl (80.0-96.0); MONO # 0.5 10^3/uL (0.0-0.8); MONO % 13.3 % (2.0-8.0); NEUTROPHILS # 2.1 10^3/uL (1.5-8.5); NEUTROPHILS % 52.9 % (36.0-66.0); PLATELET COUNT, AUTOMATED 112 10^3/uL (150-450); RED BLOOD COUNT 2.74 10^6/uL (4.00-5.40)
[2022-04-14 05:04] LABS: ALBUMIN 2.7 G/DL (3.2-5.2); BILIRUBIN,TOTAL 0.8 MG/DL (0.3-1.2); CALCIUM LEVEL 8.3 MG/DL (8.3-10.6); CREATININE FOR GFR 1.61 MG/DL (0.55-1.30); GLOMERULAR FILTRATION RATE 33.1 (>39); POTASSIUM SERUM 4.2 MMOL/L (3.5-5.1); TOTAL PROTEIN 5.5 G/DL (5.7-8.2)
[2022-04-14 08:00] VITALS: BP 143/64
[2022-04-14] MEDS: INSULIN LISPRO (NovoLOG) PER UNIT SC SCH ×2 (08:10→13:03)
[2022-04-14] MEDS: HEPARIN SOD (PORCINE) 5000UNITS/ML 1ML VIAL/SYRINGE SQ SCH (08:11)
[2022-04-14] MEDS: SUCRALFATE 1 GM TAB PO SCH (08:11)
[2022-04-14] MEDS: FUROSEMIDE 20 MG TAB PO SCH (08:11)
[2022-04-14 08:12] VITALS: BP 143/64
[2022-04-14] MEDS: OMEPRAZOLE 20MG CAP PO SCH (08:12)
[2022-04-14] MEDS ORDERED: ASPIRIN 81MG ENTERIC TABLET PO SCH (09:00)
[2022-04-14] MEDS ORDERED: SENN18TA PO (11:52)
[2022-04-14] MEDS ORDERED: OMEP-173 PO (11:52)
[2022-04-14] MEDS ORDERED: LIDO2SO SS (11:52)
[2022-04-14] MEDS ORDERED: CRES10TA PO (11:52)
[2022-04-14] MEDS ORDERED: SUCR1TA PO (11:52)
[2022-04-14] MEDS ORDERED: MIRA1POW3 PO (11:52)
[2022-04-14] MEDS ORDERED: AMLO1TAB24 PO (11:52)
[2022-04-14] MEDS ORDERED: FURO20TA2 PO (11:52)
[2022-04-14 14:00] VITALS: BP 101/77
== END 2022-04-14 14:40 | disposition home or self-care (01) | DRG 432 ==
LOC: EDUNIT# 23:22 → M ED 23:22 → EDBD 23:22 → M ED INP 04-10 05:30 → ENRESERV 04-10 12:27 → M PCU 04-10 14:16 → M MS5PR 04-14 10:42
PROVIDERS: ADMIT Internal Medicine; ATTEND Internal Medicine
PROC: 0W3P8ZZ Control Bleeding in Gastrointestinal Tract, Via Natural or Artificial Opening Endoscopic (ICD-10-PCS; principal; 2022-04-10 15:00)
PROC: 0W9G3ZX Drainage of Peritoneal Cavity, Percutaneous Approach, Diagnostic (ICD-10-PCS; 2022-04-11)
PROC: 30233J1 Transfusion of Nonautologous Serum Albumin into Peripheral Vein, Percutaneous Approach (ICD-10-PCS; 2022-04-11)
DX: K70.31 Alcoholic cirrhosis of liver with ascites (principal); K31.811 Angiodysplasia of stomach and duodenum with bleeding; K76.7 Hepatorenal syndrome; K76.6 Portal hypertension; D62 Acute posthemorrhagic anemia; I85.00 Esophageal varices without bleeding; N17.9 Acute kidney failure, unspecified; E11.22 Type 2 diabetes mellitus with diabetic chronic kidney disease; E78.5 Hyperlipidemia, unspecified; I12.9 Hypertensive chronic kidney disease with stage 1 through stage 4 chronic kidney disease, or unspecified chronic kidney disease; K57.30 Diverticulosis of large intestine without perforation or abscess without bleeding; K31.89 Other diseases of stomach and duodenum; I25.10 Atherosclerotic heart disease of native coronary artery without angina pectoris; N18.30 Chronic kidney disease, stage 3 unspecified; E78.00 Pure hypercholesterolemia, unspecified; Z95.5 Presence of coronary angioplasty implant and graft; Z79.82 Long term (current) use of aspirin; Z79.84 Long term (current) use of oral hypoglycemic drugs; Z79.899 Other long term (current) drug therapy; Z88.2 Allergy status to sulfonamides; Z90.49 Acquired absence of other specified parts of digestive tract; Z91.041 Radiographic dye allergy status

== ENCOUNTER → 2022-04-28 | Outpatient (REF) | payer MEDICARE ==
[~2022-04-28] MED LIST changes: +AMLO1TAB24 PO; +CRES10TA PO; +FURO20TA2 PO; +LIDO2SOL9 SS; +MIRA1POW3 PO; +SENN18TA PO
[2022-04-28 18:34] LABS: PERCENT SATURATION 11.2 % (13.2-45.0)
== END ==
LOC: M LAB REF 16:53
PROVIDERS: ATTEND Internal Medicine Nephrology
DX: D50.9 Iron deficiency anemia, unspecified (principal)

== ENCOUNTER → 2022-05-10 | Outpatient (CLI) | payer MEDICARE ==
[~2022-05-10] MED LIST changes: +CONS10SO3 PO; +FURO40TA2 PO; +ROSU20TA5 PO; +SPIR50TA4 PO
== END ==
LOC: M LABSMTC 11:27
PROVIDERS: ATTEND Anesthesiology
DX: Z01.818 Encounter for other preprocedural examination (principal); Z11.52 Encounter for screening for COVID-19

== ENCOUNTER 2022-05-15 12:45 | Day surgery (SDC) | payer MEDICARE ==
[~2022-05-15] VITALS: Ht 160 cm; Wt 68.9 kg
[~2022-05-15 12:45] MED LIST changes: +NS 1,000 ML IV ONE
[2022-05-15] MEDS ORDERED: propofoL 200 MG/20 ML VIAL As Ordered ONE (13:23)
[2022-05-15] MEDS ORDERED: LIDOCAINE 2% INJ 100 MG/5 ML SYRINGE As Ordered ONE (13:23)
[2022-05-15] MEDS ORDERED: fentaNYL 100 MCG/2 ML INJECTION As Ordered ONE (13:23)
[2022-05-15] MEDS ORDERED: ePHEDrine SULFATE 25 MG/5 ML(5MG/ML) SYRINGE As Ordered ONE (14:48)
[2022-05-15 15:15] VITALS: BP 139/60
== END 2022-05-15 15:25 | disposition home or self-care (01) ==
LOC: M OPP 12:45
PROVIDERS: ATTEND Internal Medicine Gastroenterology
DX: I85.00 Esophageal varices without bleeding (principal); K31.811 Angiodysplasia of stomach and duodenum with bleeding; K76.6 Portal hypertension; K31.89 Other diseases of stomach and duodenum; D50.9 Iron deficiency anemia, unspecified; Z79.02 Long term (current) use of antithrombotics/antiplatelets; Z79.82 Long term (current) use of aspirin; Z79.83 Long term (current) use of bisphosphonates; Z79.84 Long term (current) use of oral hypoglycemic drugs; Z79.899 Other long term (current) drug therapy; Z91.041 Radiographic dye allergy status; Z86.010 Personal history of colon polyps; Z95.5 Presence of coronary angioplasty implant and graft; Z80.3 Family history of malignant neoplasm of breast; Z80.41 Family history of malignant neoplasm of ovary
CPT/HCPCS: 43255; J3010

== ENCOUNTER → 2022-05-16 | Outpatient (CLI) | payer MEDICARE ==
[~2022-05-16] MED LIST changes: -NS 1,000 ML IV ONE
[2022-05-16 12:20] LABS: BASO % 0.7 % (0.0-1.0); EOS # 0.2 10^3/uL (0.0-0.5); EOS % 4.1 % (0.0-3.0); HEMOGLOBIN 7.4 g/dl (12.0-15.5); LYMPH # 0.8 10^3/uL (1.5-5.0); LYMPH % 14.8 % (24.0-44.0); MEAN CORPUSCULAR HEMOGLOBIN 31.2 pg (27.0-33.0); MEAN CORPUSCULAR HGB CONC 32.2 g/dl (32.0-36.5); MONO # 0.6 10^3/uL (0.0-0.8); MONO % 11.2 % (2.0-8.0); NEUTROPHILS # 3.7 10^3/uL (1.5-8.5); NEUTROPHILS % 68.8 % (36.0-66.0); PLATELET COUNT, AUTOMATED 127 10^3/uL (150-450); RED BLOOD COUNT 2.37 10^6/uL (4.00-5.40); WHITE BLOOD COUNT 5.4 10^3/uL (4.0-10.0)
[2022-05-16 13:35] LABS: ALBUMIN 2.6 G/DL (3.2-5.2); BILIRUBIN,TOTAL 0.8 MG/DL (0.3-1.2); CALCIUM LEVEL 8.7 MG/DL (8.3-10.6); CREATININE FOR GFR 1.68 MG/DL (0.55-1.30); GLOMERULAR FILTRATION RATE 31.5 (>39); TOTAL PROTEIN 5.8 G/DL (5.7-8.2)
[2022-05-16 15:35] LABS: HEMOGLOBIN A1c 6.8 % (4.0-6.0)
== END ==
LOC: M LAB 11:54
PROVIDERS: ATTEND Nurse Practitioner Adult Health
DX: K70.31 Alcoholic cirrhosis of liver with ascites (principal); E11.65 Type 2 diabetes mellitus with hyperglycemia

== ENCOUNTER 2022-05-22 21:14 | Inpatient (IN) | payer MEDICARE ==
[~2022-05-22] VITALS: Ht 160 cm; Wt 68.2 kg
[2022-05-22 22:15] LABS: BASO % 0.7 % (0.0-1.0); EOS # 0.2 10^3/uL (0.0-0.5); EOS % 5.5 % (0.0-3.0); LYMPH # 0.5 10^3/uL (1.5-5.0); LYMPH % 12.4 % (24.0-44.0); MEAN CORPUSCULAR HEMOGLOBIN 30.6 pg (27.0-33.0); MEAN CORPUSCULAR HGB CONC 31.7 g/dl (32.0-36.5); MEAN CORPUSCULAR VOLUME 96.6 fl (80.0-96.0); MONO # 0.6 10^3/uL (0.0-0.8); MONO % 14.5 % (2.0-8.0); NEUTROPHILS # 2.8 10^3/uL (1.5-8.5); NEUTROPHILS % 66.7 % (36.0-66.0); PLATELET COUNT, AUTOMATED 154 10^3/uL (150-450); RED BLOOD COUNT 2.06 10^6/uL (4.00-5.40); WHITE BLOOD COUNT 4.2 10^3/uL (4.0-10.0)
[2022-05-22 22:19] LABS: HEMATOCRIT 19.9 % (36.0-47.0); HEMOGLOBIN 6.3 g/dl (12.0-15.5)
[2022-05-22] MEDS ORDERED: GI COCKTAIL 50ML BTL(HYOSCYAMINE/MAALOX/LIDOCAINE VISCOUS)(1:3:1) PO ONE (22:20)
[2022-05-22] MEDS ORDERED: PANTOPRAZOLE 40MG VIAL IV ONE (22:20)
[2022-05-22 22:25] LABS: INR 1.3; PROTHROMBIN TIME 16.4 SECONDS (12.5-14.5)
[2022-05-22 22:26] LABS: PARTIAL THROMBOPLASTIN TIME 33.3 SECONDS (24.8-34.2)
[2022-05-22 22:54] LABS: ALBUMIN 2.4 G/DL (3.2-5.2); BILIRUBIN,DIRECT 0.2 MG/DL (<0.4); BILIRUBIN,TOTAL 0.5 MG/DL (0.3-1.2); CALCIUM LEVEL 8.6 MG/DL (8.3-10.6); CREATININE FOR GFR 1.93 MG/DL (0.55-1.30); GLOMERULAR FILTRATION RATE 26.8 (>39); MB/CK RELATIVE INDEX 1.58 (< OR =4); POTASSIUM SERUM 4.5 MMOL/L (3.5-5.1); THYROID STIMULATING HORMONE 1.5 uIU/ML (0.55-4.78); TOTAL PROTEIN 5.6 G/DL (5.7-8.2)
[2022-05-22 23:32] LABS: CK-MB VALUE MASS 1.3 NG/ML (<3.6)
[2022-05-22 23:34] LABS: MB/CK RELATIVE INDEX 1.96 (< OR =4)
[2022-05-23] VITALS (9 sets, daily range): BP systolic 135–152; BP diastolic 59–69
[2022-05-23] MEDS ORDERED: HumuLIN R (REGULAR) INSULIN (NovoLIN R) **100U/ML** PER UNIT IV ONE
[2022-05-23] MEDS ORDERED: GLUCAGON INJ 1MG VIAL SC PRN (01:25)
[2022-05-23] MEDS ORDERED: GLUCOSE 4GM CHEW TABLET PO PRN (01:25)
[2022-05-23] MEDS ORDERED: SODIUM CHLORIDE 0.9% 1000ML IV ONE (01:25)
[2022-05-23] MEDS ORDERED: DEXTROSE 50% 50ML SYRINGE IV PRN ×2 (01:25→17:55)
[2022-05-23 01:27] LABS: CK-MB VALUE MASS 1.3 NG/ML (<3.6)
[2022-05-23 01:33] LABS: MB/CK RELATIVE INDEX 1.91 (< OR =4)
[2022-05-23 02:17] LABS: RSV AMPLIFICATION NEGATIVE (NEGATIVE)
[2022-05-23] MEDS: cefTRIAXone SOD 1 GM in D5W MINI-BAG PLUS 50 ML IV SCH (02:53)
[2022-05-23] MEDS: INSULIN LISPRO (NovoLOG) PER UNIT SC SCH ×3 (05:56→17:43)
[2022-05-23] MEDS ORDERED: OMEP1CAP73 PO (06:31)
[2022-05-23] MEDS ORDERED: CALTTAB2 PO (06:31)
[2022-05-23] MEDS ORDERED: AMLO1TAB24 PO (06:31)
[2022-05-23] MEDS ORDERED: MIRA1POW3 PO (06:34)
[2022-05-23] MEDS ORDERED: METF10004 PO (06:34)
[2022-05-23] MEDS ORDERED: ZETI10TA16 PO (06:34)
[2022-05-23] MEDS ORDERED: HOME MED LIST COMPLETE! XX SCH (06:35)
[2022-05-23 08:40] LABS: HEMATOCRIT 22.5 % (36.0-47.0); HEMOGLOBIN 7.1 g/dl (12.0-15.5)
[2022-05-23 09:12] LABS: CK-MB VALUE MASS 2.6 NG/ML (<3.6)
[2022-05-23 09:13] LABS: MB/CK RELATIVE INDEX 3.29 (< OR =4)
[2022-05-23] MEDS: PANTOPRAZOLE 40MG VIAL IV SCH ×2 (10:36→21:48)
[2022-05-23 12:20] LABS: CALCIUM LEVEL 8.6 MG/DL (8.3-10.6); CREATININE FOR GFR 1.92 MG/DL (0.55-1.30); POTASSIUM SERUM 4.1 MMOL/L (3.5-5.1)
[2022-05-23] MEDS: CARVedilol 6.25 MG TAB PO SCH ×2 (13:23→21:48)
[2022-05-23 13:42] LABS: HEMOGLOBIN 8.6 g/dl (12.0-15.5)
[2022-05-23] MEDS: D5W 1,000 ML IV SCH (18:15)
[2022-05-23 18:39] LABS: HEMATOCRIT 25.9 % (36.0-47.0); HEMOGLOBIN 8.7 g/dl (12.0-15.5)
[2022-05-23 19:02] LABS: CK-MB VALUE MASS 1.6 NG/ML (<3.6)
[2022-05-23 19:03] LABS: MB/CK RELATIVE INDEX 2.38 (< OR =4)
[2022-05-23] MEDS: SUCRALFATE 1 GM TAB PO SCH (21:48)
[2022-05-23] MEDS: LACTULOSE 20GM/30ML SYRUP UDC PO SCH (21:48)
[2022-05-24] VITALS (13 sets, daily range): BP systolic 119–161; BP diastolic 58–96
[2022-05-24 00:35] LABS: CK-MB VALUE MASS 1.2 NG/ML (<3.6)
[2022-05-24 00:37] LABS: MB/CK RELATIVE INDEX 2.44 (< OR =4)
[2022-05-24] MEDS: cefTRIAXone SOD 1 GM in D5W MINI-BAG PLUS 50 ML IV SCH (03:00)
[2022-05-24 06:00] LABS: HEMATOCRIT 25.4 % (36.0-47.0); HEMOGLOBIN 8.4 g/dl (12.0-15.5)
[2022-05-24] MEDS: INSULIN LISPRO (NovoLOG) PER UNIT SC SCH ×5 (06:00→20:46)
[2022-05-24 06:25] LABS: CK-MB VALUE MASS 1.4 NG/ML (<3.6)
[2022-05-24 06:26] LABS: MB/CK RELATIVE INDEX 3.04 (< OR =4)
[2022-05-24 06:27] LABS: CALCIUM LEVEL 8.4 MG/DL (8.3-10.6); CREATININE FOR GFR 1.76 MG/DL (0.55-1.30); GLOMERULAR FILTRATION RATE 29.8 (>39); POTASSIUM SERUM 3.6 MMOL/L (3.5-5.1)
[2022-05-24] MEDS: CARVedilol 6.25 MG TAB PO SCH ×2 (09:00→21:35)
[2022-05-24] MEDS: LACTULOSE 20GM/30ML SYRUP UDC PO SCH ×2 (09:22→21:34)
[2022-05-24] MEDS: SUCRALFATE 1 GM TAB PO SCH (09:22)
[2022-05-24] MEDS: D5W 1,000 ML IV SCH (09:23)
[2022-05-24] MEDS: PANTOPRAZOLE 40MG VIAL IV SCH (09:23)
[2022-05-24] MEDS: SUCRALFATE SUSP 1GM/10ML UD PO SCH ×3 (12:57→21:34)
[2022-05-24 13:48] LABS: CK-MB VALUE MASS < 1.0 NG/ML (<3.6)
[2022-05-24 13:49] LABS: CPK CREATINE PHOSPHOKINASE 62 U/L (34-145); MB/CK RELATIVE INDEX 1.61 (< OR =4)
[2022-05-24] MEDS ORDERED: FERRIC CARBOXYMALTOSE INJ 750 MG, VIAL MATE ADAPTER 1 EACH in NS 250 ML IV ONE (14:00)
[2022-05-24 18:18] LABS: HEMATOCRIT 26.6 % (36.0-47.0); HEMOGLOBIN 8.8 g/dl (12.0-15.5)
[2022-05-24 18:36] LABS: CK-MB VALUE MASS 1.2 NG/ML (<3.6)
[2022-05-24 18:38] LABS: MB/CK RELATIVE INDEX 1.96 (< OR =4)
[2022-05-24] MEDS: PANTOPRAZOLE 40MG TAB (PROTONIX) PO SCH (21:34)
[2022-05-25 00:39] LABS: CK-MB VALUE MASS < 1.0 NG/ML (<3.6)
[2022-05-25 00:40] LABS: CPK CREATINE PHOSPHOKINASE 56 U/L (34-145); MB/CK RELATIVE INDEX 1.78 (< OR =4)
[2022-05-25] MEDS: cefTRIAXone SOD 1 GM in D5W MINI-BAG PLUS 50 ML IV SCH (03:26)
[2022-05-25 03:52] VITALS: BP 132/61
[2022-05-25 05:35] LABS: HEMATOCRIT 23.9 % (36.0-47.0); HEMOGLOBIN 8.1 g/dl (12.0-15.5)
[2022-05-25 06:13] LABS: BLOOD UREA NITROGEN 19 MG/DL (9-23); CALCIUM LEVEL 8.5 MG/DL (8.3-10.6); CARBON DIOXIDE LEVEL 24 MMOL/L (20-31); CHLORIDE LEVEL 109 MMOL/L (98-107); CREATININE FOR GFR 1.59 MG/DL (0.55-1.30); GLOMERULAR FILTRATION RATE 33.5 (>39); GLUCOSE, FASTING 79 MG/DL (74-106); POTASSIUM SERUM 3.5 MMOL/L (3.5-5.1); SODIUM LEVEL 142 MMOL/L (136-145)
[2022-05-25] MEDS: INSULIN LISPRO (NovoLOG) PER UNIT SC SCH ×4 (07:30→20:59)
[2022-05-25 07:41] VITALS: BP 128/63
[2022-05-25] MEDS: SUCRALFATE SUSP 1GM/10ML UD PO SCH ×4 (07:49→20:59)
[2022-05-25 08:35] LABS: CK-MB VALUE MASS < 1.0 NG/ML (<3.6); CPK CREATINE PHOSPHOKINASE 55 U/L (34-145); MB/CK RELATIVE INDEX 1.81 (< OR =4)
[2022-05-25] MEDS: LACTULOSE 20GM/30ML SYRUP UDC PO SCH ×2 (08:42→20:59)
[2022-05-25] MEDS: PANTOPRAZOLE 40MG TAB (PROTONIX) PO SCH ×2 (08:42→20:58)
[2022-05-25] MEDS: CARVedilol 6.25 MG TAB PO SCH ×2 (08:42→20:59)
[2022-05-25] MEDS ORDERED: NITROGLYCERIN 0.4MG SUBL TABLET SL PRN (10:30)
[2022-05-25] MEDS ORDERED: MORPHINE 2 MG/ML 1ML VIAL IV ONE (10:30)
[2022-05-25] MEDS ORDERED: oxyCODONE 5MG TAB PO ONE (10:30)
[2022-05-25] MEDS ORDERED: oxyCODONE 5MG TAB PO PRN (10:35)
[2022-05-25] MEDS: LIDOCAINE 5% (LIDODERM) PATCH TD SCH (10:39)
[2022-05-25 11:43] VITALS: BP 127/86
[2022-05-25 15:08] VITALS: BP 136/63
[2022-05-25 18:24] LABS: HEMATOCRIT 28.2 % (36.0-47.0); HEMOGLOBIN 8.9 g/dl (12.0-15.5)
[2022-05-25 20:33] VITALS: BP 139/61
[2022-05-26] VITALS (8 sets, daily range): BP systolic 121–147; BP diastolic 59–76
[2022-05-26] MEDS: cefTRIAXone SOD 1 GM in D5W MINI-BAG PLUS 50 ML IV SCH (03:27)
[2022-05-26 04:41] LABS: HEMATOCRIT 23.9 % (36.0-47.0); HEMOGLOBIN 7.8 g/dl (12.0-15.5)
[2022-05-26 05:02] LABS: CALCIUM LEVEL 8.3 MG/DL (8.3-10.6); CREATININE FOR GFR 1.49 MG/DL (0.55-1.30); GLOMERULAR FILTRATION RATE 36.1 (>39); POTASSIUM SERUM 4.2 MMOL/L (3.5-5.1)
[2022-05-26] MEDS: SUCRALFATE SUSP 1GM/10ML UD PO SCH ×4 (08:11→21:20)
[2022-05-26] MEDS: PANTOPRAZOLE 40MG TAB (PROTONIX) PO SCH ×2 (08:12→21:20)
[2022-05-26] MEDS: CARVedilol 6.25 MG TAB PO SCH ×2 (08:12→21:20)
[2022-05-26] MEDS: LACTULOSE 20GM/30ML SYRUP UDC PO SCH ×2 (08:12→21:20)
[2022-05-26] MEDS: INSULIN LISPRO (NovoLOG) PER UNIT SC SCH ×4 (08:12→21:00)
[2022-05-26] MEDS: LIDOCAINE 5% (LIDODERM) PATCH TD SCH (08:12)
[2022-05-26] MEDS: PROPRANOLOL 20 MG TAB PO SCH ×2 (09:00→21:00)
[2022-05-26] MEDS ORDERED: MIRALAX *UNIT DOSE* 17GM PACKET PO PRN (09:10)
[2022-05-26] MEDS ORDERED: ANUSOL HC 25MG SUPP PR PRN (09:10)
[2022-05-26] MEDS: ANUSOL HC CREAM 30GM TOP SCH ×2 (11:29→21:21)
[2022-05-26] MEDS: DOCUSATE SODIUM 100MG CAPSULE PO SCH ×2 (11:29→21:20)
[2022-05-26] MEDS: SPIRONOLACTONE 50 MG TAB PO SCH (11:30)
[2022-05-26 13:36] LABS: HEMATOCRIT 24.9 % (36.0-47.0); HEMOGLOBIN 8.2 g/dl (12.0-15.5)
[2022-05-26] MEDS: CIPROFLOXACIN 500MG TABLET PO SCH (18:00)
[2022-05-26 18:43] LABS: HEMATOCRIT 31.6 % (36.0-47.0)
[2022-05-26 18:57] LABS: HEMOGLOBIN 10.2 g/dl (12.0-15.5)
[2022-05-26] MEDS ORDERED: ACETAMINOPHEN TAB 650MG DOSE (2X325MG) PO ONE (19:40)
[2022-05-26] MEDS ORDERED: ROSUVASTATIN 10 MG TAB (CRESTOR) PO SCH (21:00)
[2022-05-27] MEDS: CIPROFLOXACIN 500MG TABLET PO SCH (05:15)
[2022-05-27 06:00] VITALS: BP 132/56
[2022-05-27 06:17] LABS: HEMOGLOBIN 9.3 g/dl (12.0-15.5)
[2022-05-27 06:48] LABS: CALCIUM LEVEL 8.7 MG/DL (8.3-10.6); CREATININE FOR GFR 1.39 MG/DL (0.55-1.30); GLOMERULAR FILTRATION RATE 39.1 (>39); POTASSIUM SERUM 4.6 MMOL/L (3.5-5.1)
[2022-05-27] MEDS ORDERED: CARV6.25 PO (07:21)
[2022-05-27] MEDS ORDERED: SUCR1ORA PO (07:21)
[2022-05-27] MEDS ORDERED: PANT40TA29 PO (07:21)
[2022-05-27] MEDS: PROPRANOLOL 20 MG TAB PO SCH (09:00)
[2022-05-27] MEDS: DOCUSATE SODIUM 100MG CAPSULE PO SCH (09:49)
[2022-05-27] MEDS: LACTULOSE 20GM/30ML SYRUP UDC PO SCH (09:49)
[2022-05-27] MEDS: SPIRONOLACTONE 50 MG TAB PO SCH (09:49)
[2022-05-27] MEDS: PANTOPRAZOLE 40MG TAB (PROTONIX) PO SCH (09:50)
[2022-05-27] MEDS: CARVedilol 6.25 MG TAB PO SCH (09:50)
[2022-05-27] MEDS: LIDOCAINE 5% (LIDODERM) PATCH TD SCH (09:51)
[2022-05-27] MEDS: SUCRALFATE SUSP 1GM/10ML UD PO SCH ×2 (09:55→13:09)
[2022-05-27] MEDS: INSULIN LISPRO (NovoLOG) PER UNIT SC SCH ×2 (09:55→13:11)
[2022-05-27] MEDS: ANUSOL HC CREAM 30GM TOP SCH (09:57)
[2022-05-27 10:53] LABS: HEMATOCRIT 31.2 % (36.0-47.0); HEMOGLOBIN 9.9 g/dl (12.0-15.5)
== END 2022-05-27 13:44 | disposition home or self-care (01) | DRG 377 ==
LOC: EDBD 21:14 → M ED 21:14 → UNDOADMIN 05-23 01:23 → M ED INP 05-23 01:23 → ENRESERV 05-23 14:07 → M PCU 05-23 14:40 → M MSPAV 05-26 20:21
PROVIDERS: ADMIT Internal Medicine; ATTEND General Practice
PROC: 30233N1 Transfusion of Nonautologous Red Blood Cells into Peripheral Vein, Percutaneous Approach (ICD-10-PCS; 2022-05-23)
PROC: B246ZZZ Ultrasonography of Right and Left Heart (ICD-10-PCS; 2022-05-23)
PROC: 30233J1 Transfusion of Nonautologous Serum Albumin into Peripheral Vein, Percutaneous Approach (ICD-10-PCS; 2022-05-24)
PROC: 0W9G3ZZ Drainage of Peritoneal Cavity, Percutaneous Approach (ICD-10-PCS; principal; 2022-05-24 11:30)
DX: K31.811 Angiodysplasia of stomach and duodenum with bleeding (principal); I21.4 Non-ST elevation (NSTEMI) myocardial infarction; K76.6 Portal hypertension; R18.8 Other ascites; D62 Acute posthemorrhagic anemia; I85.10 Secondary esophageal varices without bleeding; I25.10 Atherosclerotic heart disease of native coronary artery without angina pectoris; K75.81 Nonalcoholic steatohepatitis (NASH); D69.6 Thrombocytopenia, unspecified; E11.22 Type 2 diabetes mellitus with diabetic chronic kidney disease; N18.9 Chronic kidney disease, unspecified; E78.5 Hyperlipidemia, unspecified; I12.9 Hypertensive chronic kidney disease with stage 1 through stage 4 chronic kidney disease, or unspecified chronic kidney disease; Z90.49 Acquired absence of other specified parts of digestive tract; Z79.84 Long term (current) use of oral hypoglycemic drugs; Z79.899 Other long term (current) drug therapy; Z88.2 Allergy status to sulfonamides; Z91.041 Radiographic dye allergy status; Z79.82 Long term (current) use of aspirin; Z95.5 Presence of coronary angioplasty implant and graft

== ENCOUNTER 2022-06-10 12:59 | Inpatient (IN) | payer MEDICARE ==
[~2022-06-10] VITALS: Ht 160 cm; Wt 55.9 kg
[~2022-06-10 12:59] MED LIST changes: +CALTTAB2 PO; +CARV6.25 PO; +LIDO15SO MT; -LIDO15SO4 MT; +LIDO2SOBTL SS; -LIDO2SOL9 SS; +OMEP1CAP73 PO; +SUCR1ORA PO; +ZETI10TA16 PO
[2022-06-10] MEDS ORDERED: MORPHINE 2 MG/ML 1ML VIAL IV ONE ×2 (13:25→19:15)
[2022-06-10 13:54] LABS: BASO % 0.9 % (0.0-1.0); EOS % 0.2 % (0.0-3.0); HEMATOCRIT 31.8 % (36.0-47.0); HEMOGLOBIN 10.3 g/dl (12.0-15.5); LYMPH # 0.8 10^3/uL (1.5-5.0); LYMPH % 16.6 % (24.0-44.0); MEAN CORPUSCULAR HEMOGLOBIN 30.7 pg (27.0-33.0); MEAN CORPUSCULAR HGB CONC 32.4 g/dl (32.0-36.5); MEAN CORPUSCULAR VOLUME 94.6 fl (80.0-96.0); MONO # 0.6 10^3/uL (0.0-0.8); MONO % 12.7 % (2.0-8.0); NEUTROPHILS # 3.2 10^3/uL (1.5-8.5); NEUTROPHILS % 69.6 % (36.0-66.0); PLATELET COUNT, AUTOMATED 157 10^3/uL (150-450); RED BLOOD COUNT 3.36 10^6/uL (4.00-5.40); WHITE BLOOD COUNT 4.6 10^3/uL (4.0-10.0)
[2022-06-10 14:06] LABS: INR 1.11; PROTHROMBIN TIME 14.5 SECONDS (12.5-14.5)
[2022-06-10 14:07] LABS: PARTIAL THROMBOPLASTIN TIME 30.4 SECONDS (24.8-34.2)
[2022-06-10 14:19] LABS: ALBUMIN 3.2 G/DL (3.2-5.2); BILIRUBIN,DIRECT 0.2 MG/DL (<0.4); BILIRUBIN,TOTAL 0.6 MG/DL (0.3-1.2); CALCIUM LEVEL 9.7 MG/DL (8.3-10.6); CREATININE FOR GFR 2.38 MG/DL (0.55-1.30); POTASSIUM SERUM 5.3 MMOL/L (3.5-5.1)
[2022-06-10] MEDS ORDERED: NS 1,000 ML IV SCH (14:35)
[2022-06-10 14:46] LABS: CK-MB VALUE MASS 2.2 NG/ML (<3.6)
[2022-06-10 14:51] LABS: MB/CK RELATIVE INDEX 2.82 (< OR =4)
[2022-06-10 15:08] LABS: CK-MB VALUE MASS 2.7 NG/ML (<3.6)
[2022-06-10 15:09] LABS: MB/CK RELATIVE INDEX 3.85 (< OR =4)
[2022-06-10 15:15] LABS: RSV AMPLIFICATION NEGATIVE (NEGATIVE)
[2022-06-10] MEDS ORDERED: IRBE150T7 PO (15:30)
[2022-06-10] MEDS ORDERED: LACT20EL PO (15:30)
[2022-06-10] MEDS ORDERED: SUCR1TAB56 PO (15:30)
[2022-06-10] MEDS ORDERED: HOME MED LIST COMPLETE! XX SCH (15:40)
[2022-06-10] MEDS ORDERED: MIRALAX *UNIT DOSE* 17GM PACKET PO PRN (16:05)
[2022-06-10] MEDS ORDERED: CALCIUM GLUCONATE 1,000 MG in D5W MINI-BAG PLUS 100 ML IV ONE (16:30)
[2022-06-10] MEDS ORDERED: PATIROMER SORBITEX CALCIUM 8.4 GM POWDER PACKET (VELTASSA) PO ONE (16:30)
[2022-06-10] MEDS: SUCRALFATE 1 GM TAB PO SCH ×2 (16:32→21:08)
[2022-06-10 17:06] LABS: HEMATOCRIT 29.6 % (36.0-47.0); HEMOGLOBIN 9.9 g/dl (12.0-15.5)
[2022-06-10] MEDS ORDERED: SODIUM BICARBONATE 150 MEQ in D5W 1,000 ML IV SCH (18:00)
[2022-06-10 18:57] LABS: CK-MB VALUE MASS 2.1 NG/ML (<3.6)
[2022-06-10 18:58] VITALS: BP 168/72
[2022-06-10 18:58] LABS: MB/CK RELATIVE INDEX 3.5 (< OR =4)
[2022-06-10] MEDS ORDERED: CARVedilol 12.5 MG TAB PO ONE (19:15)
[2022-06-10] MEDS ORDERED: MORPHINE 2 MG/ML 1ML VIAL IV PRN (19:15)
[2022-06-10] MEDS ORDERED: NITROGLYCERIN 2% OINT 1 GM *U/D* PKT TOP ONE (19:15)
[2022-06-10] MEDS: amLODIPine 5 MG TAB PO SCH (19:41)
[2022-06-10 20:13] VITALS: BP 100/54
[2022-06-10] MEDS: INSULIN LISPRO (NovoLOG) PER UNIT SC SCH (20:31)
[2022-06-10] MEDS ORDERED: ROSUVASTATIN 10 MG TAB (CRESTOR) PO SCH (21:00)
[2022-06-10] MEDS ORDERED: SUCRALFATE 1 GM TAB PO SCH (21:00)
[2022-06-10] MEDS ORDERED: CARVedilol 6.25 MG TAB PO SCH (21:00)
[2022-06-10] MEDS: PANTOPRAZOLE 40MG TAB (PROTONIX) PO SCH (21:08)
[2022-06-10] MEDS: ROSUVASTATIN 10 MG TAB (CRESTOR) PO SCH (21:09)
[2022-06-10] MEDS: PROPRANOLOL 20 MG TAB PO SCH (21:09)
[2022-06-10] MEDS: EZETIMIBE 10MG TABLET (ZETIA) PO SCH (21:09)
[2022-06-10 22:01] LABS: HEMATOCRIT 27.1 % (36.0-47.0); HEMOGLOBIN 9.1 g/dl (12.0-15.5)
[2022-06-10] MEDS ORDERED: LACTULOSE 20GM/30ML SYRUP UDC PO ONE (22:10)
[2022-06-10] MEDS: CARVedilol 12.5 MG TAB PO SCH (22:11)
[2022-06-11] VITALS (8 sets, daily range): BP systolic 96–141; BP diastolic 50–76
[2022-06-11 01:26] LABS: CK-MB VALUE MASS 1.6 NG/ML (<3.6); MAGNESIUM LEVEL 1.9 MG/DL (1.8-2.4)
[2022-06-11 01:28] LABS: MB/CK RELATIVE INDEX 3.07 (< OR =4)
[2022-06-11 04:59] LABS: BASO % 0.8 % (0.0-1.0); EOS % 0.3 % (0.0-3.0); HEMATOCRIT 26.9 % (36.0-47.0); LYMPH # 0.7 10^3/uL (1.5-5.0); LYMPH % 19.7 % (24.0-44.0); MEAN CORPUSCULAR HEMOGLOBIN 31.5 pg (27.0-33.0); MEAN CORPUSCULAR HGB CONC 33.5 g/dl (32.0-36.5); MEAN CORPUSCULAR VOLUME 94.1 fl (80.0-96.0); MONO # 0.6 10^3/uL (0.0-0.8); MONO % 15.6 % (2.0-8.0); NEUTROPHILS # 2.3 10^3/uL (1.5-8.5); NEUTROPHILS % 63.6 % (36.0-66.0); PLATELET COUNT, AUTOMATED 120 10^3/uL (150-450); RED BLOOD COUNT 2.86 10^6/uL (4.00-5.40); WHITE BLOOD COUNT 3.7 10^3/uL (4.0-10.0)
[2022-06-11 05:23] LABS: MAGNESIUM LEVEL 1.9 MG/DL (1.8-2.4)
[2022-06-11 05:24] LABS: CK-MB VALUE MASS 1.4 NG/ML (<3.6); MB/CK RELATIVE INDEX 2.91 (< OR =4)
[2022-06-11 05:26] LABS: ALBUMIN 2.8 G/DL (3.2-5.2); BILIRUBIN,DIRECT 0.4 MG/DL (<0.4); BILIRUBIN,TOTAL 0.9 MG/DL (0.3-1.2); CALCIUM LEVEL 9.8 MG/DL (8.3-10.6); CREATININE FOR GFR 2.28 MG/DL (0.55-1.30); GLOMERULAR FILTRATION RATE 22.1 (>39); POTASSIUM SERUM 4.1 MMOL/L (3.5-5.1)
[2022-06-11] MEDS: INSULIN LISPRO (NovoLOG) PER UNIT SC SCH ×4 (07:30→20:44)
[2022-06-11] MEDS ORDERED: SPIRONOLACTONE 50 MG TAB PO SCH (09:00)
[2022-06-11] MEDS: amLODIPine 5 MG TAB PO SCH ×2 (09:00→21:38)
[2022-06-11] MEDS: CARVedilol 12.5 MG TAB PO SCH ×2 (09:00→21:39)
[2022-06-11] MEDS ORDERED: amLODIPine 5 MG TAB PO SCH (09:00)
[2022-06-11] MEDS: LACTULOSE 20GM/30ML SYRUP UDC PO SCH ×4 (09:07→13:59)
[2022-06-11] MEDS: NS 1,000 ML IV SCH ×2 (09:13→17:54)
[2022-06-11] MEDS: PROPRANOLOL 20 MG TAB PO SCH ×2 (09:13→20:25)
[2022-06-11] MEDS: PANTOPRAZOLE 40MG TAB (PROTONIX) PO SCH ×2 (09:13→20:25)
[2022-06-11] MEDS: SUCRALFATE 1 GM TAB PO SCH ×4 (09:24→20:25)
[2022-06-11 13:59] LABS: CALCIUM LEVEL 9.6 MG/DL (8.3-10.6); CREATININE FOR GFR 2.15 MG/DL (0.55-1.30); GLOMERULAR FILTRATION RATE 23.7 (>39); POTASSIUM SERUM 3.9 MMOL/L (3.5-5.1)
[2022-06-11] MEDS ORDERED: LACTULOSE 20GM/30ML SYRUP UDC PR ONE (15:00)
[2022-06-11] MEDS ORDERED: GLUCOSE 4GM CHEW TABLET PO PRN (17:30)
[2022-06-11] MEDS ORDERED: INSULIN LISPRO (NovoLOG) PER UNIT SC SCH ×2 (17:30→21:00)
[2022-06-11] MEDS ORDERED: GLUCAGON INJ 1MG VIAL SC PRN (17:30)
[2022-06-11] MEDS ORDERED: DEXTROSE 50% 50ML SYRINGE IV PRN (17:30)
[2022-06-11 20:02] LABS: CALCIUM LEVEL 9.6 MG/DL (8.3-10.6); CREATININE FOR GFR 2.01 MG/DL (0.55-1.30); GLOMERULAR FILTRATION RATE 25.6 (>39); POTASSIUM SERUM 3.9 MMOL/L (3.5-5.1)
[2022-06-11] MEDS: EZETIMIBE 10MG TABLET (ZETIA) PO SCH (20:25)
[2022-06-11] MEDS: ROSUVASTATIN 10 MG TAB (CRESTOR) PO SCH (20:26)
[2022-06-11] MEDS: LEVEMIR (INSULIN DETEMIR) 1 UNITS/0.01ML SC SCH (20:45)
[2022-06-11] MEDS ORDERED: LEVEMIR (INSULIN DETEMIR) 1 UNITS/0.01ML SC SCH (21:00)
[2022-06-11 23:43] LABS: CALCIUM LEVEL 8.8 MG/DL (8.3-10.6); CREATININE FOR GFR 1.94 MG/DL (0.55-1.30); GLOMERULAR FILTRATION RATE 26.6 (>39); POTASSIUM SERUM 3.6 MMOL/L (3.5-5.1)
[2022-06-12] VITALS: BP 108/58
[2022-06-12] MEDS: NS 1,000 ML IV SCH ×2 (03:01→16:33)
[2022-06-12 04:27] VITALS: BP 109/56
[2022-06-12 06:15] LABS: BASO % 0.7 % (0.0-1.0); EOS % 0.2 % (0.0-3.0); HEMATOCRIT 27.2 % (36.0-47.0); LYMPH # 0.7 10^3/uL (1.5-5.0); LYMPH % 14.3 % (24.0-44.0); MEAN CORPUSCULAR HEMOGLOBIN 31.7 pg (27.0-33.0); MEAN CORPUSCULAR HGB CONC 33.1 g/dl (32.0-36.5); MEAN CORPUSCULAR VOLUME 95.8 fl (80.0-96.0); MONO # 0.7 10^3/uL (0.0-0.8); MONO % 14.8 % (2.0-8.0); NEUTROPHILS # 3.2 10^3/uL (1.5-8.5); NEUTROPHILS % 69.8 % (36.0-66.0); PLATELET COUNT, AUTOMATED 107 10^3/uL (150-450); RED BLOOD COUNT 2.84 10^6/uL (4.00-5.40); WHITE BLOOD COUNT 4.5 10^3/uL (4.0-10.0)
[2022-06-12 06:41] LABS: BLOOD UREA NITROGEN 30 MG/DL (9-23); CALCIUM LEVEL 8.7 MG/DL (8.3-10.6); CARBON DIOXIDE LEVEL 25 MMOL/L (20-31); CHLORIDE LEVEL 107 MMOL/L (98-107); CREATININE FOR GFR 1.83 MG/DL (0.55-1.30); GLOMERULAR FILTRATION RATE 28.5 (>39); GLUCOSE, FASTING 109 MG/DL (74-106); POTASSIUM SERUM 3.6 MMOL/L (3.5-5.1); SODIUM LEVEL 140 MMOL/L (136-145)
[2022-06-12] MEDS: INSULIN LISPRO (NovoLOG) PER UNIT SC SCH ×4 (07:30→21:19)
[2022-06-12] MEDS: SUCRALFATE 1 GM TAB PO SCH ×4 (08:11→21:19)
[2022-06-12] MEDS: LACTULOSE 20GM/30ML SYRUP UDC PO SCH ×3 (08:11→12:54)
[2022-06-12 08:15] LABS: CK-MB VALUE MASS < 1.0 NG/ML (<3.6)
[2022-06-12 08:32] VITALS: BP 121/60
[2022-06-12] MEDS: PROPRANOLOL 20 MG TAB PO SCH ×3 (08:35→21:19)
[2022-06-12] MEDS: PANTOPRAZOLE 40MG TAB (PROTONIX) PO SCH ×3 (08:35→21:19)
[2022-06-12 08:45] LABS: CPK CREATINE PHOSPHOKINASE 36 U/L (34-145); MB/CK RELATIVE INDEX 2.77 (< OR =4)
[2022-06-12] MEDS: CARVedilol 12.5 MG TAB PO SCH ×2 (08:49→21:00)
[2022-06-12] MEDS: amLODIPine 5 MG TAB PO SCH ×2 (08:50→21:00)
[2022-06-12 12:11] VITALS: BP 101/52
[2022-06-12 15:54] VITALS: BP 142/65
[2022-06-12 20:00] VITALS: BP 129/61
[2022-06-12] MEDS: LEVEMIR (INSULIN DETEMIR) 1 UNITS/0.01ML SC SCH (21:18)
[2022-06-12] MEDS: EZETIMIBE 10MG TABLET (ZETIA) PO SCH (21:19)
[2022-06-12] MEDS: ROSUVASTATIN 10 MG TAB (CRESTOR) PO SCH (21:19)
[2022-06-13] VITALS (7 sets, daily range): BP systolic 109–136; BP diastolic 52–67
[2022-06-13 05:58] LABS: BASO % 0.4 % (0.0-1.0); EOS % 0.2 % (0.0-3.0); HEMATOCRIT 25.1 % (36.0-47.0); HEMOGLOBIN 8.5 g/dl (12.0-15.5); LYMPH # 0.7 10^3/uL (1.5-5.0); LYMPH % 14.3 % (24.0-44.0); MEAN CORPUSCULAR HEMOGLOBIN 32.4 pg (27.0-33.0); MEAN CORPUSCULAR HGB CONC 33.9 g/dl (32.0-36.5); MEAN CORPUSCULAR VOLUME 95.8 fl (80.0-96.0); MONO # 0.8 10^3/uL (0.0-0.8); MONO % 15.1 % (2.0-8.0); NEUTROPHILS # 3.5 10^3/uL (1.5-8.5); NEUTROPHILS % 69.8 % (36.0-66.0); PLATELET COUNT, AUTOMATED 102 10^3/uL (150-450); RED BLOOD COUNT 2.62 10^6/uL (4.00-5.40)
[2022-06-13 06:25] LABS: CALCIUM LEVEL 8.1 MG/DL (8.3-10.6); CREATININE FOR GFR 1.77 MG/DL (0.55-1.30); GLOMERULAR FILTRATION RATE 29.6 (>39)
[2022-06-13] MEDS: SUCRALFATE 1 GM TAB PO SCH ×4 (08:14→20:51)
[2022-06-13] MEDS: amLODIPine 5 MG TAB PO SCH ×2 (08:15→20:51)
[2022-06-13] MEDS: CARVedilol 12.5 MG TAB PO SCH ×2 (08:15→20:50)
[2022-06-13] MEDS: PANTOPRAZOLE 40MG TAB (PROTONIX) PO SCH ×2 (08:15→20:51)
[2022-06-13] MEDS: INSULIN LISPRO (NovoLOG) PER UNIT SC SCH ×4 (08:15→20:52)
[2022-06-13] MEDS: PROPRANOLOL 20 MG TAB PO SCH ×2 (08:15→20:52)
[2022-06-13] MEDS: NS 1,000 ML IV SCH (08:18)
[2022-06-13] MEDS: ASPIRIN 81MG ENTERIC TABLET PO SCH (11:41)
[2022-06-13] MEDS: ROSUVASTATIN 10 MG TAB (CRESTOR) PO SCH (20:51)
[2022-06-13] MEDS: EZETIMIBE 10MG TABLET (ZETIA) PO SCH (20:51)
[2022-06-13] MEDS: LEVEMIR (INSULIN DETEMIR) 1 UNITS/0.01ML SC SCH (21:02)
[2022-06-14 04:00] VITALS: BP 117/53
[2022-06-14 06:22] LABS: BASO % 0.5 % (0.0-1.0); EOS % 0.3 % (0.0-3.0); HEMOGLOBIN 8.4 g/dl (12.0-15.5); LYMPH # 0.7 10^3/uL (1.5-5.0); LYMPH % 17.3 % (24.0-44.0); MEAN CORPUSCULAR HEMOGLOBIN 32.2 pg (27.0-33.0); MEAN CORPUSCULAR HGB CONC 33.6 g/dl (32.0-36.5); MEAN CORPUSCULAR VOLUME 95.8 fl (80.0-96.0); MONO # 0.6 10^3/uL (0.0-0.8); MONO % 14.4 % (2.0-8.0); NEUTROPHILS # 2.6 10^3/uL (1.5-8.5); NEUTROPHILS % 67.5 % (36.0-66.0); RED BLOOD COUNT 2.61 10^6/uL (4.00-5.40); WHITE BLOOD COUNT 3.8 10^3/uL (4.0-10.0)
[2022-06-14 06:46] LABS: CALCIUM LEVEL 8.3 MG/DL (8.3-10.6); CREATININE FOR GFR 1.76 MG/DL (0.55-1.30); GLOMERULAR FILTRATION RATE 29.8 (>39)
[2022-06-14 06:52] LABS: PLATELET COUNT, AUTOMATED 96 10^3/uL (150-450)
[2022-06-14 07:18] VITALS: BP 133/60
[2022-06-14] MEDS: SUCRALFATE 1 GM TAB PO SCH ×2 (07:57→11:52)
[2022-06-14] MEDS: INSULIN LISPRO (NovoLOG) PER UNIT SC SCH ×2 (07:57→11:52)
[2022-06-14] MEDS: PANTOPRAZOLE 40MG TAB (PROTONIX) PO SCH (09:17)
[2022-06-14 09:18] VITALS: BP 133/60
[2022-06-14] MEDS: ASPIRIN 81MG ENTERIC TABLET PO SCH (09:18)
[2022-06-14] MEDS: CARVedilol 12.5 MG TAB PO SCH (09:18)
[2022-06-14] MEDS: PROPRANOLOL 20 MG TAB PO SCH (09:18)
[2022-06-14] MEDS: amLODIPine 5 MG TAB PO SCH (09:18)
[2022-06-14] MEDS ORDERED: CARV12.5 PO (11:24)
[2022-06-14] MEDS ORDERED: SUCR1TA PO (11:24)
[2022-06-14] MEDS ORDERED: ASPI81TAEC PO (11:24)
[2022-06-14] MEDS ORDERED: CRES10TA PO (11:24)
== END 2022-06-14 14:38 | disposition home or self-care (01) | DRG 682 ==
LOC: EDBD 12:59 → M ED 12:59 → M ED INP 15:58 → M PCU 18:39
PROVIDERS: ADMIT General Practice; ATTEND General Practice
PROC: B246ZZZ Ultrasonography of Right and Left Heart (ICD-10-PCS; principal; 2022-06-13)
DX: N17.9 Acute kidney failure, unspecified (principal); I21.4 Non-ST elevation (NSTEMI) myocardial infarction; K76.6 Portal hypertension; I85.10 Secondary esophageal varices without bleeding; E72.20 Disorder of urea cycle metabolism, unspecified; R18.8 Other ascites; K92.2 Gastrointestinal hemorrhage, unspecified; K31.89 Other diseases of stomach and duodenum; N18.30 Chronic kidney disease, stage 3 unspecified; E11.22 Type 2 diabetes mellitus with diabetic chronic kidney disease; N20.0 Calculus of kidney; K76.82 Hepatic encephalopathy; K75.81 Nonalcoholic steatohepatitis (NASH); I25.10 Atherosclerotic heart disease of native coronary artery without angina pectoris; I12.9 Hypertensive chronic kidney disease with stage 1 through stage 4 chronic kidney disease, or unspecified chronic kidney disease; E78.5 Hyperlipidemia, unspecified; K21.9 Gastro-esophageal reflux disease without esophagitis; E87.5 Hyperkalemia; K31.819 Angiodysplasia of stomach and duodenum without bleeding; Z95.5 Presence of coronary angioplasty implant and graft; Z90.49 Acquired absence of other specified parts of digestive tract; Z79.84 Long term (current) use of oral hypoglycemic drugs; Z79.899 Other long term (current) drug therapy; Z88.2 Allergy status to sulfonamides; Z91.041 Radiographic dye allergy status; Z20.822 Contact with and (suspected) exposure to COVID-19

== ENCOUNTER → 2022-06-22 | Outpatient (CLI) | payer MEDICARE ==
[~2022-06-22] MED LIST changes: +ASPI81TAEC PO; +CARV12.5 PO
[2022-06-22 12:01] LABS: BASO # 0.1 10^3/uL (0.0-0.2); BASO % 1.1 % (0.0-1.0); EOS # 0.2 10^3/uL (0.0-0.5); EOS % 4.3 % (0.0-3.0); HEMATOCRIT 24.4 % (36.0-47.0); HEMOGLOBIN 8.1 g/dl (12.0-15.5); LYMPH # 0.8 10^3/uL (1.5-5.0); LYMPH % 14.3 % (24.0-44.0); MEAN CORPUSCULAR HEMOGLOBIN 33.3 pg (27.0-33.0); MEAN CORPUSCULAR HGB CONC 33.2 g/dl (32.0-36.5); MEAN CORPUSCULAR VOLUME 100.4 fl (80.0-96.0); MONO # 0.8 10^3/uL (0.0-0.8); MONO % 14.3 % (2.0-8.0); NEUTROPHILS # 3.5 10^3/uL (1.5-8.5); NEUTROPHILS % 65.4 % (36.0-66.0); PLATELET COUNT, AUTOMATED 144 10^3/uL (150-450); RED BLOOD COUNT 2.43 10^6/uL (4.00-5.40); WHITE BLOOD COUNT 5.3 10^3/uL (4.0-10.0)
[2022-06-22 12:27] LABS: ALBUMIN 2.9 G/DL (3.2-5.2); BILIRUBIN,TOTAL 0.7 MG/DL (0.3-1.2); CALCIUM LEVEL 8.9 MG/DL (8.3-10.6); CREATININE FOR GFR 1.76 MG/DL (0.55-1.30); GLOMERULAR FILTRATION RATE 29.8 (>39); POTASSIUM SERUM 4.5 MMOL/L (3.5-5.1); TOTAL PROTEIN 6.5 G/DL (5.7-8.2)
== END ==
LOC: M LAB 10:56
PROVIDERS: ATTEND Nurse Practitioner Adult Health
DX: D62 Acute posthemorrhagic anemia (principal); K70.31 Alcoholic cirrhosis of liver with ascites

== ENCOUNTER → 2022-06-23 | Outpatient (CLI) | payer MEDICARE | LOC: M IRPRO 09:21 | PROVIDERS: ATTEND Internal Medicine Gastroenterology | DX: R18.8 Other ascites (principal) ==

== ENCOUNTER → 2022-06-29 | Outpatient (CLI) | payer MEDICARE ==
[~2022-06-29] MED LIST changes: +FERR1TAB8 PO; +PANT-23 PO; +PROP20TA PO; +ROSU40TA4 PO; +SPIR-10 PO
== END ==
LOC: M IRPRO 13:05
PROVIDERS: ATTEND Internal Medicine Gastroenterology
DX: R18.8 Other ascites (principal)

== ENCOUNTER 2022-07-02 02:58 | Observation (INO) | payer MEDICARE ==
[2022-07-02] VITALS (11 sets, daily range): BP systolic 88–140; BP diastolic 48–71
[~2022-07-02] VITALS: Ht 160 cm; Wt 66.7 kg
[~2022-07-02 02:58] MED LIST changes: -FERR1TAB8 PO; -PANT-23 PO; -PROP20TA PO; -ROSU40TA4 PO; -SPIR-10 PO
[2022-07-02 03:58] LABS: BASO % 0.6 % (0.0-1.0); EOS % 0.2 % (0.0-3.0); LYMPH # 0.6 10^3/uL (1.5-5.0); LYMPH % 11.1 % (24.0-44.0); MEAN CORPUSCULAR HEMOGLOBIN 34.2 pg (27.0-33.0); MEAN CORPUSCULAR HGB CONC 33.2 g/dl (32.0-36.5); MEAN CORPUSCULAR VOLUME 103.2 fl (80.0-96.0); MONO # 0.7 10^3/uL (0.0-0.8); MONO % 14.7 % (2.0-8.0); NEUTROPHILS # 3.7 10^3/uL (1.5-8.5); NEUTROPHILS % 73.2 % (36.0-66.0); PLATELET COUNT, AUTOMATED 123 10^3/uL (150-450); RED BLOOD COUNT 1.87 10^6/uL (4.00-5.40)
[2022-07-02 04:10] LABS: HEMATOCRIT 19.3 % (36.0-47.0); HEMOGLOBIN 6.4 g/dl (12.0-15.5)
[2022-07-02 04:27] LABS: CK-MB VALUE MASS < 1.0 NG/ML (<3.6)
[2022-07-02 04:28] LABS: LIPASE 59 U/L (12-53)
[2022-07-02 04:29] LABS: CPK CREATINE PHOSPHOKINASE 67 U/L (34-145); MB/CK RELATIVE INDEX 1.49 (< OR =4)
[2022-07-02 04:30] LABS: ALBUMIN 2.6 G/DL (3.2-5.2); ALKALINE PHOSPHATASE 213 U/L (46-116); ALT/SGPT 30 U/L (7.0-40); AST/SGOT 28 U/L (<34); BILIRUBIN,DIRECT 0.3 MG/DL (<0.4); BILIRUBIN,TOTAL 0.6 MG/DL (0.3-1.2); BLOOD UREA NITROGEN 35 MG/DL (9-23); CALCIUM LEVEL 8.3 MG/DL (8.3-10.6); CARBON DIOXIDE LEVEL 16 MMOL/L (20-31); CHLORIDE LEVEL 111 MMOL/L (98-107); GLOMERULAR FILTRATION RATE 27.3 (>39); GLUCOSE, FASTING 161 MG/DL (74-106); POTASSIUM SERUM 5.2 MMOL/L (3.5-5.1); SODIUM LEVEL 137 MMOL/L (136-145); TOTAL PROTEIN 5.8 G/DL (5.7-8.2)
[2022-07-02 04:31] LABS: THYROID STIMULATING HORMONE 2.848 uIU/ML (0.55-4.78)
[2022-07-02 04:32] LABS: FREE T4 0.97 NG/DL (0.89-1.76)
[2022-07-02 05:20] LABS: CK-MB VALUE MASS < 1.0 NG/ML (<3.6)
[2022-07-02 05:22] LABS: CPK CREATINE PHOSPHOKINASE 56 U/L (34-145); MB/CK RELATIVE INDEX 1.78 (< OR =4)
[2022-07-02 05:32] LABS: RSV AMPLIFICATION NEGATIVE (NEGATIVE)
[2022-07-02] MEDS ORDERED: ROSU40TA4 PO (06:57)
[2022-07-02] MEDS ORDERED: CARV12.5 PO (06:57)
[2022-07-02] MEDS ORDERED: PANT-23 PO (06:58)
[2022-07-02] MEDS ORDERED: HOME MED LIST COMPLETE! XX SCH (07:00)
[2022-07-02] MEDS ORDERED: GLUCOSE 4GM CHEW TABLET PO PRN (10:35)
[2022-07-02] MEDS ORDERED: DEXTROSE 50% 50ML SYRINGE IV PRN (10:35)
[2022-07-02] MEDS ORDERED: GLUCAGON INJ 1MG VIAL SC PRN (10:35)
[2022-07-02] MEDS: INSULIN LISPRO (NovoLOG) PER UNIT SC SCH ×2 (12:00→17:30)
[2022-07-02] MEDS: PANTOPRAZOLE 40MG VIAL IV SCH ×2 (13:20→22:33)
[2022-07-02] MEDS: SUCRALFATE 1 GM TAB PO SCH ×2 (13:20→21:40)
[2022-07-02] MEDS: LACTULOSE 20GM/30ML SYRUP UDC PO SCH (13:20)
[2022-07-02 14:24] LABS: BASO % 0.8 % (0.0-1.0); EOS % 0.3 % (0.0-3.0); LYMPH # 0.6 10^3/uL (1.5-5.0); MEAN CORPUSCULAR HEMOGLOBIN 32.4 pg (27.0-33.0); MEAN CORPUSCULAR HGB CONC 32.6 g/dl (32.0-36.5); MEAN CORPUSCULAR VOLUME 99.3 fl (80.0-96.0); MONO # 0.6 10^3/uL (0.0-0.8); NEUTROPHILS # 2.7 10^3/uL (1.5-8.5); NEUTROPHILS % 67.6 % (36.0-66.0); PLATELET COUNT, AUTOMATED 107 10^3/uL (150-450); RED BLOOD COUNT 2.72 10^6/uL (4.00-5.40)
[2022-07-02 14:26] LABS: HEMOGLOBIN 8.8 g/dl (12.0-15.5)
[2022-07-02 15:58] LABS: CALCIUM LEVEL 8.3 MG/DL (8.3-10.6); CREATININE FOR GFR 1.81 MG/DL (0.55-1.30); GLOMERULAR FILTRATION RATE 28.9 (>39); MAGNESIUM LEVEL 2.2 MG/DL (1.8-2.4); POTASSIUM SERUM 5.2 MMOL/L (3.5-5.1)
[2022-07-02] MEDS ORDERED: SOD POLYSTYRENE SULFONATE SUSP 15GM 60ML UD PO ONE (17:00)
[2022-07-02 17:49] LABS: HEMATOCRIT 25.6 % (36.0-47.0); HEMOGLOBIN 8.7 g/dl (12.0-15.5)
[2022-07-02] MEDS ORDERED: INSULIN LISPRO (NovoLOG) PER UNIT SC SCH (21:00)
[2022-07-02] MEDS ORDERED: EZETIMIBE 10MG TABLET (ZETIA) PO SCH (21:00)
[2022-07-02] MEDS ORDERED: LACTULOSE 20GM/30ML SYRUP UDC PO SCH (21:00)
[2022-07-02] MEDS ORDERED: ROSUVASTATIN 10 MG TAB (CRESTOR) PO SCH (21:00)
[2022-07-03] VITALS (10 sets, daily range): BP systolic 114–161; BP diastolic 50–79
[2022-07-03 00:57] LABS: HEMATOCRIT 24.3 % (36.0-47.0)
[2022-07-03 05:51] LABS: BASO % 0.7 % (0.0-1.0); HEMATOCRIT 25.2 % (36.0-47.0); HEMOGLOBIN 8.3 g/dl (12.0-15.5); LYMPH # 0.5 10^3/uL (1.5-5.0); MEAN CORPUSCULAR HEMOGLOBIN 32.2 pg (27.0-33.0); MEAN CORPUSCULAR HGB CONC 32.9 g/dl (32.0-36.5); MEAN CORPUSCULAR VOLUME 97.7 fl (80.0-96.0); MONO # 0.8 10^3/uL (0.0-0.8); MONO % 17.2 % (2.0-8.0); NEUTROPHILS % 69.9 % (36.0-66.0); PLATELET COUNT, AUTOMATED 107 10^3/uL (150-450); RED BLOOD COUNT 2.58 10^6/uL (4.00-5.40); WHITE BLOOD COUNT 4.4 10^3/uL (4.0-10.0)
[2022-07-03 06:29] LABS: CALCIUM LEVEL 8.4 MG/DL (8.3-10.6); CREATININE FOR GFR 1.7 MG/DL (0.55-1.30); POTASSIUM SERUM 4.4 MMOL/L (3.5-5.1)
[2022-07-03] MEDS: INSULIN LISPRO (NovoLOG) PER UNIT SC SCH ×3 (07:30→17:30)
[2022-07-03] MEDS: SUCRALFATE 1 GM TAB PO SCH (08:59)
[2022-07-03] MEDS: LACTULOSE 20GM/30ML SYRUP UDC PO SCH (08:59)
[2022-07-03] MEDS ORDERED: PROP20TA PO (11:00)
[2022-07-03] MEDS ORDERED: SPIR-10 PO (11:00)
[2022-07-03] MEDS ORDERED: FURO20TA2 PO (11:00)
[2022-07-03] MEDS: PANTOPRAZOLE 40MG VIAL IV SCH (11:28)
[2022-07-03] MEDS ORDERED: IRON SUCROSE 200 MG in NS 100 ML IV ONE (12:00)
[2022-07-03] MEDS ORDERED: PROPRANOLOL 20 MG TAB PO ONE (13:45)
[2022-07-03] MEDS ORDERED: SPIRONOLACTONE 25 MG TAB PO ONE (13:45)
[2022-07-03] MEDS ORDERED: FUROSEMIDE 20 MG TAB PO ONE (13:45)
[2022-07-03] MEDS ORDERED: amLODIPine 5 MG TAB PO ONE (13:50)
[2022-07-03] MEDS ORDERED: FERR1TAB8 PO (16:20)
== END 2022-07-03 17:50 | disposition home or self-care (01) ==
LOC: M ED 02:58 → EDBD 02:58 → M ED INP 02:59 → M PCU 17:59
PROVIDERS: ADMIT Internal Medicine; ATTEND Internal Medicine
DX: D64.9 Anemia, unspecified (principal); R19.5 Other fecal abnormalities; R07.9 Chest pain, unspecified; I12.9 Hypertensive chronic kidney disease with stage 1 through stage 4 chronic kidney disease, or unspecified chronic kidney disease; K74.60 Unspecified cirrhosis of liver; R18.8 Other ascites; E87.5 Hyperkalemia; D69.6 Thrombocytopenia, unspecified; I25.10 Atherosclerotic heart disease of native coronary artery without angina pectoris; Z95.5 Presence of coronary angioplasty implant and graft; E11.9 Type 2 diabetes mellitus without complications; E78.5 Hyperlipidemia, unspecified; N18.30 Chronic kidney disease, stage 3 unspecified; K21.9 Gastro-esophageal reflux disease without esophagitis; R53.1 Weakness; K31.819 Angiodysplasia of stomach and duodenum without bleeding; I85.00 Esophageal varices without bleeding; K31.89 Other diseases of stomach and duodenum; Z88.2 Allergy status to sulfonamides; Z91.041 Radiographic dye allergy status; Z79.899 Other long term (current) drug therapy; Z79.82 Long term (current) use of aspirin; Z79.84 Long term (current) use of oral hypoglycemic drugs
CPT/HCPCS: 36415; 36430; 71045; 80048; 80076; 82550; 82553; 83605; 83690; 83735; 83880; 84439; 84443; 84484; 85014; 85018; 85025; 86850; 86870; 86900; 86901; 86905; 86920; 87631; 93005; 93041; 94760; 96365; 96375; 96376; 97161; 99285; C9113; G0378; J1756; J1815; P9016

== ENCOUNTER → 2022-07-04 | Outpatient (CLI) | payer MEDICARE ==
[~2022-07-04] MED LIST changes: +FERR1TAB8 PO; +PANT-23 PO; +PROP20TA PO; +ROSU40TA4 PO; +SPIR-10 PO
[2022-07-04 15:07] VITALS: BP 116/56
[2022-07-04 15:15] VITALS: BP 112/56
[2022-07-04 15:26] VITALS: BP 117/56
[2022-07-04 15:33] VITALS: BP 123/83
[2022-07-04 15:35] VITALS: BP 123/83
== END ==
LOC: M IRPRO 13:07
PROVIDERS: ATTEND Internal Medicine Gastroenterology
DX: R18.8 Other ascites (principal); K74.69 Other cirrhosis of liver
CPT/HCPCS: 49083; 96365; P9047

== ENCOUNTER → 2022-07-20 | Outpatient (CLI) | payer MEDICARE | LOC: M IRPRO 11:20 | PROVIDERS: ATTEND Internal Medicine Gastroenterology | DX: R18.8 Other ascites (principal); K74.69 Other cirrhosis of liver ==

== ENCOUNTER → 2022-07-26 | Outpatient (CLI) | payer MEDICARE ==
[2022-07-26 11:30] LABS: EOS # 0.1 10^3/uL (0.0-0.5); EOS % 2.4 % (0.0-3.0); HEMATOCRIT 21.1 % (36.0-47.0); LYMPH # 0.6 10^3/uL (1.5-5.0); LYMPH % 13.9 % (24.0-44.0); MEAN CORPUSCULAR HEMOGLOBIN 32.7 pg (27.0-33.0); MEAN CORPUSCULAR HGB CONC 33.2 g/dl (32.0-36.5); MEAN CORPUSCULAR VOLUME 98.6 fl (80.0-96.0); MONO # 0.6 10^3/uL (0.0-0.8); MONO % 14.1 % (2.0-8.0); NEUTROPHILS # 2.8 10^3/uL (1.5-8.5); NEUTROPHILS % 67.9 % (36.0-66.0); PLATELET COUNT, AUTOMATED 147 10^3/uL (150-450); RED BLOOD COUNT 2.14 10^6/uL (4.00-5.40); WHITE BLOOD COUNT 4.2 10^3/uL (4.0-10.0)
[2022-07-26 12:00] LABS: HEMOGLOBIN A1c 7.8 % (4.0-6.0)
[2022-07-26 12:09] LABS: ALBUMIN 2.7 G/DL (3.2-5.2); BILIRUBIN,TOTAL 0.8 MG/DL (0.3-1.2); CALCIUM LEVEL 8.4 MG/DL (8.3-10.6); CHOLESTEROL RISK RATIO 2.84 (<5); CREATININE FOR GFR 1.6 MG/DL (0.55-1.30); FREE T4 0.9 NG/DL (0.89-1.76); GLOMERULAR FILTRATION RATE 33.3 (>39); HDL CHOLESTEROL 26.4 MG/DL (>40); LDL CHOLESTEROL 28.4 MG/DL (<100); NON-HDL-C 48.6 MG/DL; PERCENT SATURATION 15.9 % (13.2-45.0); POTASSIUM SERUM 5.1 MMOL/L (3.5-5.1); THYROID STIMULATING HORMONE 1.965 uIU/ML (0.55-4.78); TOTAL PROTEIN 6.1 G/DL (5.7-8.2)
[2022-07-26 12:10] LABS: FOLATE 15.7 NG/ML (>5.4)
== END ==
LOC: M LAB 10:51
PROVIDERS: ATTEND Nurse Practitioner Adult Health
DX: K70.31 Alcoholic cirrhosis of liver with ascites (principal); E11.65 Type 2 diabetes mellitus with hyperglycemia; D50.0 Iron deficiency anemia secondary to blood loss (chronic); I10 Essential (primary) hypertension; D51.3 Other dietary vitamin B12 deficiency anemia

== ENCOUNTER → 2022-07-27 | Outpatient (CLI) | payer MEDICARE | LOC: M IRPRO 13:01 | PROVIDERS: ATTEND Internal Medicine Gastroenterology | DX: R18.8 Other ascites (principal); K74.69 Other cirrhosis of liver ==

== ENCOUNTER → 2022-08-10 | Outpatient (CLI) | payer MEDICARE ==
[~2022-08-10] MED LIST changes: -ROSU20TA5 PO; +ROSU20TA61 PO; +SENN-111 PO; -SENN18TA PO
== END ==
LOC: M IRPRO 10:35
PROVIDERS: ATTEND Internal Medicine Gastroenterology
DX: R18.8 Other ascites (principal); K74.69 Other cirrhosis of liver

== ENCOUNTER 2022-08-21 12:24 | Day surgery (SDC) | payer MEDICARE ==
[~2022-08-21] VITALS: Ht 160 cm; Wt 63.6 kg
[~2022-08-21 12:24] MED LIST changes: +NS 1,000 ML IV ONE; +OXYC-517 PO
[2022-08-21] MEDS ORDERED: fentaNYL 100 MCG/2 ML INJECTION As Ordered ONE (13:44)
[2022-08-21] MEDS ORDERED: GLYCOPYRROLATE INJ 0.2 MG/ML 2 ML VIAL As Ordered ONE (13:57)
[2022-08-21 14:13] VITALS: TEMP 96.7
[2022-08-21 14:46] VITALS: BP 107/56; O2SAT 95
== END 2022-08-21 15:06 | disposition home or self-care (01) ==
LOC: M OPP 12:24
PROVIDERS: ATTEND Internal Medicine Gastroenterology
DX: K31.811 Angiodysplasia of stomach and duodenum with bleeding (principal); I85.00 Esophageal varices without bleeding; D64.9 Anemia, unspecified; Z79.82 Long term (current) use of aspirin; Z79.84 Long term (current) use of oral hypoglycemic drugs; Z79.899 Other long term (current) drug therapy; Z88.2 Allergy status to sulfonamides; Z91.041 Radiographic dye allergy status
CPT/HCPCS: 43270; J3010

== ENCOUNTER 2022-08-30 10:27 | Emergency (ER) | payer MEDICARE ==
[~2022-08-30] VITALS: Ht 160 cm; Wt 64.1 kg
[~2022-08-30 10:27] MED LIST changes: +DICY-61 PO; -DICY10CA13 PO; -NS 1,000 ML IV ONE
[2022-08-30 15:04] VITALS: TEMP 97.8
[2022-08-30 16:46] VITALS: BP 118/56
[2022-08-30 16:57] VITALS: O2SAT 100
== END 2022-08-30 19:56 | disposition home or self-care (01) ==
LOC: M ED 10:27 → EDBD 10:27 → M ED 19:56
DX: E11.649 Type 2 diabetes mellitus with hypoglycemia without coma (principal); T38.3X5A Adverse effect of insulin and oral hypoglycemic [antidiabetic] drugs, initial encounter; K74.60 Unspecified cirrhosis of liver; Z91.041 Radiographic dye allergy status; Z88.2 Allergy status to sulfonamides; I12.9 Hypertensive chronic kidney disease with stage 1 through stage 4 chronic kidney disease, or unspecified chronic kidney disease; N18.30 Chronic kidney disease, stage 3 unspecified; I25.10 Atherosclerotic heart disease of native coronary artery without angina pectoris; E78.5 Hyperlipidemia, unspecified; Z95.5 Presence of coronary angioplasty implant and graft; Z79.899 Other long term (current) drug therapy; Z79.82 Long term (current) use of aspirin; Z79.84 Long term (current) use of oral hypoglycemic drugs

== ENCOUNTER → 2022-08-31 | Outpatient (CLI) | payer MEDICARE ==
[2022-08-31 12:41] VITALS: BP 133/64; TEMP 98.1; O2SAT 100
[2022-08-31 12:55] VITALS: BP 140/79; O2SAT 100
[2022-08-31 12:56] VITALS: BP 127/60; O2SAT 100
[2022-08-31 13:00] VITALS: BP 132/56
== END ==
LOC: M IRPRO 11:30
PROVIDERS: ATTEND Internal Medicine Gastroenterology
DX: R18.8 Other ascites (principal); K74.69 Other cirrhosis of liver
CPT/HCPCS: 49083; 96365; P9047

== ENCOUNTER 2022-09-20 19:11 | Emergency (ER) | payer MEDICARE ==
[~2022-09-20] VITALS: Ht 160 cm; Wt 70.0 kg
[2022-09-20 19:51] LABS: BASO % 0.6 % (0.0-1.0); LYMPH # 0.6 10^3/uL (1.5-5.0); LYMPH % 11.2 % (24.0-44.0); MEAN CORPUSCULAR HEMOGLOBIN 32.6 pg (27.0-33.0); MEAN CORPUSCULAR HGB CONC 31.8 g/dl (32.0-36.5); MEAN CORPUSCULAR VOLUME 102.3 fl (80.0-96.0); MONO # 0.8 10^3/uL (0.0-0.8); MONO % 15.4 % (2.0-8.0); NEUTROPHILS # 3.7 10^3/uL (1.5-8.5); NEUTROPHILS % 72.6 % (36.0-66.0); PLATELET COUNT, AUTOMATED 130 10^3/uL (150-450); RED BLOOD COUNT 1.72 10^6/uL (4.00-5.40); WHITE BLOOD COUNT 5.1 10^3/uL (4.0-10.0)
[2022-09-20 20:02] LABS: HEMOGLOBIN 5.6 g/dl (12.0-15.5)
[2022-09-20 20:03] LABS: HEMATOCRIT 17.6 % (36.0-47.0)
[2022-09-20 20:20] LABS: CK-MB VALUE MASS 1.3 NG/ML (<3.6)
[2022-09-20 20:22] LABS: MB/CK RELATIVE INDEX 2.54 (< OR =4)
[2022-09-20 20:24] LABS: THYROID STIMULATING HORMONE 1.596 uIU/ML (0.55-4.78)
[2022-09-20 20:31] LABS: ALBUMIN 2.7 G/DL (3.2-5.2); BILIRUBIN,DIRECT 0.3 MG/DL (<0.4); BILIRUBIN,TOTAL 0.7 MG/DL (0.3-1.2); CALCIUM LEVEL 8.5 MG/DL (8.3-10.6); CREATININE FOR GFR 1.37 MG/DL (0.55-1.30); GLOMERULAR FILTRATION RATE 39.8 (>39); POTASSIUM SERUM 4.2 MMOL/L (3.5-5.1); TOTAL PROTEIN 5.7 G/DL (5.7-8.2)
[2022-09-20] MEDS ORDERED: HumuLIN R (REGULAR) INSULIN (NovoLIN R) **100U/ML** PER UNIT IV ONE (20:50)
[2022-09-20 21:53] LABS: CK-MB VALUE MASS < 1.0 NG/ML (<3.6)
[2022-09-20 21:54] LABS: CPK CREATINE PHOSPHOKINASE 45 U/L (34-145); MB/CK RELATIVE INDEX 2.22 (< OR =4)
[2022-09-20 23:20] VITALS: BP 119/97; TEMP 99.6; O2SAT 100
[2022-09-20 23:52] VITALS: BP 118/54; TEMP 99.1; O2SAT 99
[2022-09-20 23:58] VITALS: O2SAT 100
[2022-09-20 23:59] LABS: INR 1.22; PROTHROMBIN TIME 15.7 SECONDS (12.5-14.5)
[2022-09-21] LABS: PARTIAL THROMBOPLASTIN TIME 35.3 SECONDS (24.8-34.2)
== END 2022-09-21 02:10 | disposition short-term general hospital (02) ==
LOC: EDBD 19:11 → M ED 19:11
DX: R07.89 Other chest pain (principal); D64.9 Anemia, unspecified; K92.2 Gastrointestinal hemorrhage, unspecified; I25.10 Atherosclerotic heart disease of native coronary artery without angina pectoris; E11.9 Type 2 diabetes mellitus without complications; E78.5 Hyperlipidemia, unspecified; E78.00 Pure hypercholesterolemia, unspecified; K74.60 Unspecified cirrhosis of liver; I25.2 Old myocardial infarction; Z95.5 Presence of coronary angioplasty implant and graft; Z91.041 Radiographic dye allergy status; Z88.2 Allergy status to sulfonamides; Z79.82 Long term (current) use of aspirin; Z79.899 Other long term (current) drug therapy; Z79.84 Long term (current) use of oral hypoglycemic drugs
CPT/HCPCS: 36430; 71045; 80048; 80076; 82550; 82553; 83690; 83880; 84443; 84484; 85025; 85610; 85730; 86850; 86870; 86900; 86901; 86920; 87486; 87581; 87633; 87798; 93005; 93041; 94760; 96374; 99285; J1815; P9016

== ENCOUNTER → 2022-10-06 | Outpatient (CLI) | payer MEDICARE ==
[2022-10-06 12:25] LABS: BASO % 0.7 % (0.0-1.0); EOS # 0.2 10^3/uL (0.0-0.5); EOS % 4.8 % (0.0-3.0); HEMATOCRIT 24.1 % (36.0-47.0); HEMOGLOBIN 7.8 g/dl (12.0-15.5); LYMPH # 0.6 10^3/uL (1.5-5.0); LYMPH % 13.6 % (24.0-44.0); MEAN CORPUSCULAR HEMOGLOBIN 31.1 pg (27.0-33.0); MEAN CORPUSCULAR HGB CONC 32.4 g/dl (32.0-36.5); MONO # 0.5 10^3/uL (0.0-0.8); MONO % 12.4 % (2.0-8.0); NEUTROPHILS # 2.9 10^3/uL (1.5-8.5); PLATELET COUNT, AUTOMATED 167 10^3/uL (150-450); RED BLOOD COUNT 2.51 10^6/uL (4.00-5.40); WHITE BLOOD COUNT 4.2 10^3/uL (4.0-10.0)
[2022-10-06 12:34] LABS: INR 1.47; PROTHROMBIN TIME 17.4 SECONDS (12.5-14.5)
[2022-10-06 12:35] LABS: PARTIAL THROMBOPLASTIN TIME 36.2 SECONDS (24.8-34.2)
[2022-10-06 12:41] LABS: HEMOGLOBIN A1c 7.4 % (4.0-6.0)
[2022-10-06 12:57] LABS: ALBUMIN 2.5 G/DL (3.2-5.2); BILIRUBIN,DIRECT 0.4 MG/DL (<0.4); BILIRUBIN,TOTAL 0.7 MG/DL (0.3-1.2); CALCIUM LEVEL 8.8 MG/DL (8.3-10.6); CREATININE FOR GFR 1.93 MG/DL (0.55-1.30); GLOMERULAR FILTRATION RATE 26.8 (>39); PERCENT SATURATION 14.9 % (13.2-45.0); POTASSIUM SERUM 4.6 MMOL/L (3.5-5.1); TOTAL PROTEIN 5.9 G/DL (5.7-8.2)
[2022-10-06 12:58] LABS: FERRITIN 232.3 NG/ML (7.3-270.7); FOLATE 9.9 NG/ML (>5.4)
== END ==
LOC: M LAB 11:29
PROVIDERS: ATTEND Physician Assistant
DX: E11.65 Type 2 diabetes mellitus with hyperglycemia (principal); D64.9 Anemia, unspecified; K70.31 Alcoholic cirrhosis of liver with ascites

== ENCOUNTER → 2022-10-10 | Outpatient (CLI) | payer MEDICARE ==
[2022-10-10 14:33] VITALS: BP 126/62; TEMP 97.6; O2SAT 100
[2022-10-10 14:37] VITALS: BP 122/59; TEMP 98; O2SAT 99
[2022-10-10 14:43] VITALS: BP 121/55; TEMP 98; O2SAT 99
[2022-10-10 14:54] VITALS: BP 122/52; TEMP 98; O2SAT 100
== END ==
LOC: M IRPRO 14:01
PROVIDERS: ATTEND Internal Medicine Gastroenterology
DX: R18.8 Other ascites (principal); K74.69 Other cirrhosis of liver
CPT/HCPCS: 49083; 96365; P9047

== ENCOUNTER → 2022-10-24 | Outpatient (CLI) | payer MEDICARE ==
[2022-10-24 13:57] VITALS: BP 141/63; TEMP 98; O2SAT 99
[2022-10-24 14:08] VITALS: BP 134/61; TEMP 98.7; O2SAT 100
[2022-10-24 14:22] VITALS: BP 131/63; TEMP 98.3; O2SAT 99
[2022-10-24 14:40] VITALS: BP 131/63; TEMP 97.5; O2SAT 100
[2022-10-24 15:00] VITALS: BP 131/63; O2SAT 100
== END ==
LOC: M IRPRO 12:15
PROVIDERS: ATTEND Internal Medicine Gastroenterology
DX: R18.8 Other ascites (principal); K74.69 Other cirrhosis of liver
CPT/HCPCS: 49083; 96365; P9047

== ENCOUNTER → 2022-11-07 | Outpatient (CLI) | payer MEDICARE ==
[~2022-11-07] MED LIST changes: +EZET10TA58 PO; +PANT40TA29; +TRAD5TAB; -ZETI10TA16 PO
[2022-11-07 12:32] VITALS: BP 107/54; TEMP 98; O2SAT 100
[2022-11-07 12:47] VITALS: BP 111/56; O2SAT 100
[2022-11-07 12:57] VITALS: BP 106/52; O2SAT 100
[2022-11-07 13:08] VITALS: BP 105/54; O2SAT 100
[2022-11-07 13:19] VITALS: BP 106/53; O2SAT 100
== END ==
LOC: M IRPRO 11:20
PROVIDERS: ATTEND Internal Medicine Gastroenterology
DX: R18.8 Other ascites (principal); K74.69 Other cirrhosis of liver
CPT/HCPCS: 49083; 96365; P9047

== ENCOUNTER 2022-12-07 07:39 | Day surgery (SDC) | payer MEDICARE ==
[~2022-12-07] VITALS: Ht 160 cm; Wt 63.4 kg
[~2022-12-07 07:39] MED LIST changes: +BASA100I SQ; +LACT10SO3 PO; +LIDOCAINE 2% 100MG/5ML SDV (FOR ANES.) As Ordered ONE; +NS 1,000 ML IV ONE; -PANT40TA29; -TRAD5TAB; +TRAD5TAB PO; +propofoL 200 MG/20 ML VIAL As Ordered ONE
[2022-12-07] MEDS ORDERED: ACETAMINOPHEN *IV* 1,000 MG in IV 1 EA IV ONE (10:15)
[2022-12-07 11:15] VITALS: BP 131/71; TEMP 98; O2SAT 100
== END 2022-12-07 11:35 | disposition home or self-care (01) ==
LOC: M OPP 07:39
PROVIDERS: ATTEND Internal Medicine Gastroenterology
DX: K51.411 Inflammatory polyps of colon with rectal bleeding (principal); K64.4 Residual hemorrhoidal skin tags; K64.8 Other hemorrhoids; D50.0 Iron deficiency anemia secondary to blood loss (chronic); K31.811 Angiodysplasia of stomach and duodenum with bleeding; I85.00 Esophageal varices without bleeding; Z79.4 Long term (current) use of insulin; Z79.52 Long term (current) use of systemic steroids; Z79.82 Long term (current) use of aspirin; Z79.83 Long term (current) use of bisphosphonates; Z79.899 Other long term (current) drug therapy; Z88.2 Allergy status to sulfonamides; Z91.041 Radiographic dye allergy status; E11.9 Type 2 diabetes mellitus without complications; Z95.5 Presence of coronary angioplasty implant and graft; Z86.74 Personal history of sudden cardiac arrest

== ENCOUNTER → 2022-12-12 | Outpatient (CLI) | payer MEDICARE ==
[~2022-12-12] MED LIST changes: -LIDOCAINE 2% 100MG/5ML SDV (FOR ANES.) As Ordered ONE; -NS 1,000 ML IV ONE; -propofoL 200 MG/20 ML VIAL As Ordered ONE
[2022-12-12 13:42] VITALS: BP 129/75; TEMP 97.4; O2SAT 100
[2022-12-12 13:56] VITALS: BP 121/58; TEMP 97.6; O2SAT 100
[2022-12-12 14:04] VITALS: BP 112/52; TEMP 97.6; O2SAT 100
== END ==
LOC: M IRPRO 12:07
PROVIDERS: ATTEND Internal Medicine Gastroenterology
DX: R18.8 Other ascites (principal); K74.69 Other cirrhosis of liver
CPT/HCPCS: 49083; 96365; P9047

== ENCOUNTER → 2022-12-26 | Outpatient (CLI) | payer MEDICARE ==
[2022-12-26 14:30] VITALS: BP 132/64; TEMP 98.2; O2SAT 100
[2022-12-26 14:34] VITALS: BP 128/62; TEMP 98; O2SAT 100
[2022-12-26 14:38] VITALS: BP 128/60; TEMP 97.9; O2SAT 100
[2022-12-26 14:40] VITALS: BP 124/59; TEMP 98; O2SAT 100
[2022-12-26 14:44] VITALS: BP 124/59; TEMP 98.1; O2SAT 100
[2022-12-26 14:46] VITALS: BP 123/58; O2SAT 100
== END ==
LOC: M IRPRO 13:45
PROVIDERS: ATTEND Internal Medicine Gastroenterology
DX: R18.8 Other ascites (principal); K74.69 Other cirrhosis of liver
CPT/HCPCS: 49083; 96374; P9047

== ENCOUNTER → 2023-01-09 | Outpatient (CLI) | payer MEDICARE ==
[2023-01-09 11:01] VITALS: BP 117/52; TEMP 97.4; O2SAT 99
[2023-01-09 11:05] VITALS: BP 114/54; O2SAT 100
[2023-01-09 11:12] VITALS: BP 107/50; O2SAT 100
[2023-01-09 11:18] VITALS: BP 116/55; O2SAT 100
[2023-01-09 11:25] VITALS: BP 139/64; O2SAT 100
== END ==
LOC: M IRPRO 10:10
PROVIDERS: ATTEND Internal Medicine Gastroenterology
DX: R18.8 Other ascites (principal); K74.69 Other cirrhosis of liver
CPT/HCPCS: 49083; 96365; P9047

== ENCOUNTER → 2023-01-23 | Outpatient (CLI) | payer MEDICARE ==
[2023-01-23 11:30] VITALS: BP 123/58; TEMP 97.2; O2SAT 100
[2023-01-23 11:41] VITALS: BP 140/63; TEMP 97.4; O2SAT 100
[2023-01-23 12:04] VITALS: BP 133/63; TEMP 97.4; O2SAT 100
[2023-01-23 12:12] VITALS: BP 122/60; TEMP 97.5; O2SAT 100
[2023-01-23 12:29] VITALS: BP 128/60; TEMP 97.5; O2SAT 100
== END ==
LOC: M IRPRO 10:36
PROVIDERS: ATTEND Internal Medicine Gastroenterology
DX: R18.8 Other ascites (principal); K74.69 Other cirrhosis of liver
CPT/HCPCS: 49083; 96365; P9047

== ENCOUNTER 2023-01-24 11:38 | Emergency (ER) | payer MEDICARE ==
[~2023-01-24] VITALS: Ht 160 cm; Wt 59.1 kg
[2023-01-24 17:01] VITALS: BP 132/63; TEMP 96.2; O2SAT 100
== END 2023-01-24 16:50 | disposition home or self-care (01) ==
LOC: EDBD 11:38 → M ED 11:38
DX: S30.0XXA Contusion of lower back and pelvis, initial encounter (principal); W18.30XA Fall on same level, unspecified, initial encounter; Y92.009 Unspecified place in unspecified non-institutional (private) residence as the place of occurrence of the external cause; I25.10 Atherosclerotic heart disease of native coronary artery without angina pectoris; E11.9 Type 2 diabetes mellitus without complications; I10 Essential (primary) hypertension; Z91.041 Radiographic dye allergy status; Z88.2 Allergy status to sulfonamides; Z88.1 Allergy status to other antibiotic agents; Z79.899 Other long term (current) drug therapy; Z79.4 Long term (current) use of insulin

== ENCOUNTER 2023-01-25 15:11 | Inpatient (IN) | payer MEDICARE ==
[~2023-01-25] VITALS: Ht 160 cm; Wt 59.1 kg
[~2023-01-25 15:11] MED LIST changes: +LIDO100S29 SS; -LIDO2SOBTL SS
[2023-01-25 15:50] LABS: VENOUS BASE EXCESS 4.7 (-2.0-2.0); VENOUS O2 SATURATION 61.3 % (60.0-80.0); VENOUS PARTIAL PRESSURE CO2 41.8 mmHg (38.0-50.0); VENOUS PARTIAL PRESSURE O2 33.4 mmHg (30.0-50.0); VENOUS PH 7.459 UNITS (7.330-7.430); VENOUS STANDARD HCO3 28.3 MMOL/L; VENOUS TOTAL CO2 30.3 MMOL/L (24.0-28.0)
[2023-01-25 16:06] LABS: BASO % 0.2 % (0.0-1.0); LYMPH # 0.7 10^3/uL (1.5-5.0); LYMPH % 16.1 % (24.0-44.0); MEAN CORPUSCULAR HEMOGLOBIN 31.5 pg (27.0-33.0); MEAN CORPUSCULAR HGB CONC 31.4 g/dl (32.0-36.5); MEAN CORPUSCULAR VOLUME 100.5 fl (80.0-96.0); MONO # 0.5 10^3/uL (0.0-0.8); MONO % 11.1 % (2.0-8.0); NEUTROPHILS # 3.1 10^3/uL (1.5-8.5); NEUTROPHILS % 72.4 % (36.0-66.0); PLATELET COUNT, AUTOMATED 165 10^3/uL (150-450); RED BLOOD COUNT 1.84 10^6/uL (4.00-5.40); WHITE BLOOD COUNT 4.2 10^3/uL (4.0-10.0)
[2023-01-25 16:11] LABS: HEMATOCRIT 18.5 % (36.0-47.0); HEMOGLOBIN 5.8 g/dl (12.0-15.5)
[2023-01-25 16:27] LABS: ALBUMIN 2.9 G/DL (3.2-5.2); BILIRUBIN,DIRECT 0.4 MG/DL (<0.4); BILIRUBIN,TOTAL 0.7 MG/DL (0.3-1.2); CALCIUM LEVEL 9.4 MG/DL (8.3-10.6); CREATININE FOR GFR 3.57 MG/DL (0.55-1.30); GLOMERULAR FILTRATION RATE 13.2 (>39); TOTAL PROTEIN 5.6 G/DL (5.7-8.2)
[2023-01-25 16:29] LABS: THYROID STIMULATING HORMONE 3.976 uIU/ML (0.55-4.78)
[2023-01-25] MEDS ORDERED: PANTOPRAZOLE 40MG VIAL IV ONE (16:50)
[2023-01-25] MEDS ORDERED: MORPHINE 2 MG/ML 1ML VIAL IV ONE (17:05)
[2023-01-25] MEDS ORDERED: MED REC IN PROGRESS XX SCH (17:45)
[2023-01-25 18:15] LABS: RSV AMPLIFICATION NEGATIVE (NEGATIVE)
[2023-01-25] MEDS ORDERED: MOM 30ML SUSPENSION UDC PO PRN (20:00)
[2023-01-25] MEDS ORDERED: DEXTROSE 50% 50ML SYRINGE IV PRN (20:25)
[2023-01-25] MEDS ORDERED: GLUCAGON INJ 1MG VIAL SC PRN (20:25)
[2023-01-25] MEDS ORDERED: GLUCOSE 4GM CHEW TABLET PO PRN (20:25)
[2023-01-25 20:26] VITALS: BP 122/60; TEMP 98.8; O2SAT 100
[2023-01-25] MEDS ORDERED: NS 1,000 ML IV SCH (20:30)
[2023-01-25 20:35] VITALS: BP 132/60; TEMP 98.5; O2SAT 100
[2023-01-25] MEDS: INSULIN LISPRO (NovoLOG) PER UNIT SC SCH (21:00)
[2023-01-25 22:40] VITALS: BP 146/70; TEMP 97.5; O2SAT 100
[2023-01-25 22:53] VITALS: BP 146/70; TEMP 97.5; O2SAT 100
[2023-01-25] MEDS: DOCUSATE SODIUM 100MG CAPSULE PO SCH (23:22)
[2023-01-25 23:50] VITALS: BP 130/61; TEMP 97.3; O2SAT 100
[2023-01-26 00:31] LABS: HEMATOCRIT 21.2 % (36.0-47.0)
[2023-01-26 00:33] LABS: HEMOGLOBIN 6.9 g/dl (12.0-15.5)
[2023-01-26 00:49] VITALS: BP 142/63; TEMP 97.5; O2SAT 100
[2023-01-26 01:04] VITALS: BP 135/63; TEMP 97.3; O2SAT 100
[2023-01-26 02:04] VITALS: BP 127/57; TEMP 97.2; O2SAT 100
[2023-01-26 03:04] VITALS: BP 139/65; TEMP 97.3; O2SAT 100
[2023-01-26 03:41] VITALS: BP 139/76; TEMP 97.2; O2SAT 100
[2023-01-26 04:40] VITALS: BP 126/60; TEMP 97.5; O2SAT 100
[2023-01-26] MEDS ORDERED: LIDOCAINE 5% (LIDODERM) PATCH TD PRN (05:05)
[2023-01-26 06:41] LABS: HEMATOCRIT 24.8 % (36.0-47.0); HEMOGLOBIN 8.2 g/dl (12.0-15.5)
[2023-01-26 06:43] LABS: HEMATOCRIT 24.1 % (36.0-47.0); HEMOGLOBIN 8.1 g/dl (12.0-15.5); MEAN CORPUSCULAR HEMOGLOBIN 31.4 pg (27.0-33.0); MEAN CORPUSCULAR HGB CONC 33.6 g/dl (32.0-36.5); MEAN CORPUSCULAR VOLUME 93.4 fl (80.0-96.0); PLATELET COUNT, AUTOMATED 110 10^3/uL (150-450); RED BLOOD COUNT 2.58 10^6/uL (4.00-5.40); WHITE BLOOD COUNT 5.4 10^3/uL (4.0-10.0)
[2023-01-26 07:12] LABS: CALCIUM LEVEL 8.7 MG/DL (8.3-10.6); CREATININE FOR GFR 3.34 MG/DL (0.55-1.30); GLOMERULAR FILTRATION RATE 14.2 (>39); POTASSIUM SERUM 3.5 MMOL/L (3.5-5.1)
[2023-01-26] MEDS: INSULIN LISPRO (NovoLOG) PER UNIT SC SCH ×4 (07:47→21:00)
[2023-01-26 09:43] LABS: HEMATOCRIT 24.6 % (36.0-47.0); HEMOGLOBIN 8.1 g/dl (12.0-15.5)
[2023-01-26] MEDS ORDERED: FLUZONE HIGH DOSE(65YR UP)QUAD/PF 240MCG/0.7ML SYRINGE IM.IMMUN ONE (10:00)
[2023-01-26] MEDS: DOCUSATE SODIUM 100MG CAPSULE PO SCH ×2 (10:09→22:11)
[2023-01-26] MEDS: PANTOPRAZOLE 40MG VIAL IV SCH ×2 (10:10→22:11)
[2023-01-26] MEDS ORDERED: MED REC IN PROGRESS XX SCH (11:15)
[2023-01-26 11:53] LABS: HEMATOCRIT 27.7 % (36.0-47.0); HEMOGLOBIN 9.1 g/dl (12.0-15.5)
[2023-01-26 18:14] LABS: HEMOGLOBIN 8.2 g/dl (12.0-15.5)
[2023-01-27 05:40] VITALS: BP 104/49; TEMP 97.9; O2SAT 97
[2023-01-27] MEDS: PANTOPRAZOLE 40MG VIAL IV SCH ×2 (09:32→21:41)
[2023-01-27] MEDS: DOCUSATE SODIUM 100MG CAPSULE PO SCH ×2 (09:32→21:41)
[2023-01-27] MEDS: INSULIN LISPRO (NovoLOG) PER UNIT SC SCH ×4 (09:33→21:00)
[2023-01-27 09:40] VITALS: BP 120/56
[2023-01-27] MEDS: TAMSULOSIN 0.4 MG CAP PO SCH (21:41)
[2023-01-28] VITALS (10 sets, daily range): BP systolic 102–146; BP diastolic 49–78; TEMP 97.3–98.6; O2SAT 97–100
[2023-01-28] MEDS: INSULIN LISPRO (NovoLOG) PER UNIT SC SCH ×5 (07:30→21:45)
[2023-01-28] MEDS: DOCUSATE SODIUM 100MG CAPSULE PO SCH ×2 (08:32→21:38)
[2023-01-28] MEDS: PANTOPRAZOLE 40MG VIAL IV SCH ×2 (08:32→21:38)
[2023-01-28 09:42] LABS: BASO % 0.4 % (0.0-1.0); HEMATOCRIT 21.8 % (36.0-47.0); HEMOGLOBIN 7.2 g/dl (12.0-15.5); LYMPH # 0.4 10^3/uL (1.5-5.0); LYMPH % 14.5 % (24.0-44.0); MEAN CORPUSCULAR HEMOGLOBIN 31.2 pg (27.0-33.0); MEAN CORPUSCULAR VOLUME 94.4 fl (80.0-96.0); MONO # 0.5 10^3/uL (0.0-0.8); NEUTROPHILS # 1.9 10^3/uL (1.5-8.5); NEUTROPHILS % 67.7 % (36.0-66.0); RED BLOOD COUNT 2.31 10^6/uL (4.00-5.40); WHITE BLOOD COUNT 2.8 10^3/uL (4.0-10.0)
[2023-01-28 10:06] LABS: PLATELET COUNT, AUTOMATED 85 10^3/uL (150-450)
[2023-01-28 10:38] LABS: ALBUMIN 2.2 G/DL (3.2-5.2); BILIRUBIN,TOTAL 1.3 MG/DL (0.3-1.2); CALCIUM LEVEL 7.8 MG/DL (8.3-10.6); CREATININE FOR GFR 2.73 MG/DL (0.55-1.30); POTASSIUM SERUM 3.5 MMOL/L (3.5-5.1); TOTAL PROTEIN 4.6 G/DL (5.7-8.2)
[2023-01-28 19:26] LABS: HEMATOCRIT 32.4 % (36.0-47.0)
[2023-01-28 19:29] LABS: HEMOGLOBIN 10.7 g/dl (12.0-15.5)
[2023-01-28] MEDS: TAMSULOSIN 0.4 MG CAP PO SCH (21:38)
[2023-01-29 05:20] VITALS: BP 143/63; TEMP 97.8; O2SAT 95
[2023-01-29] MEDS: INSULIN LISPRO (NovoLOG) PER UNIT SC SCH ×4 (08:17→23:08)
[2023-01-29] MEDS: DOCUSATE SODIUM 100MG CAPSULE PO SCH ×2 (08:17→23:08)
[2023-01-29] MEDS: PANTOPRAZOLE 40MG VIAL IV SCH ×2 (08:17→23:08)
[2023-01-29] MEDS: TAMSULOSIN 0.4 MG CAP PO SCH (23:08)
[2023-01-30 06:00] VITALS: BP 124/64; TEMP 97.7; O2SAT 97
[2023-01-30] MEDS: INSULIN LISPRO (NovoLOG) PER UNIT SC SCH ×4 (08:30→21:37)
[2023-01-30] MEDS: DOCUSATE SODIUM 100MG CAPSULE PO SCH ×2 (09:00→21:37)
[2023-01-30] MEDS: PANTOPRAZOLE 40MG VIAL IV SCH (09:47)
[2023-01-30] MEDS: TAMSULOSIN 0.4 MG CAP PO SCH (21:37)
[2023-01-31 06:00] VITALS: BP_SYST 128; BP_SYST 140; BP_DIAS 63; BP_DIAS 69; TEMP 97.5; O2SAT 99
[2023-01-31] MEDS: INSULIN LISPRO (NovoLOG) PER UNIT SC SCH ×4 (07:30→21:00)
[2023-01-31] MEDS: DOCUSATE SODIUM 100MG CAPSULE PO SCH ×2 (10:14→20:45)
[2023-01-31] MEDS: PANTOPRAZOLE 40MG TAB (PROTONIX) PO SCH ×2 (10:14→20:45)
[2023-01-31] MEDS: TAMSULOSIN 0.4 MG CAP PO SCH (20:45)
[2023-01-31 21:00] VITALS: BP 136/61; TEMP 97.7; O2SAT 99
[2023-01-31] MEDS ORDERED: LEVEMIR (INSULIN DETEMIR) 1 UNITS/0.01ML SC SCH (21:00)
[2023-02-01 05:46] LABS: HEMATOCRIT 27.9 % (36.0-47.0); HEMOGLOBIN 9.3 g/dl (12.0-15.5); MEAN CORPUSCULAR HEMOGLOBIN 30.5 pg (27.0-33.0); MEAN CORPUSCULAR HGB CONC 33.3 g/dl (32.0-36.5); MEAN CORPUSCULAR VOLUME 91.5 fl (80.0-96.0); PLATELET COUNT, AUTOMATED 107 10^3/uL (150-450); RED BLOOD COUNT 3.05 10^6/uL (4.00-5.40); WHITE BLOOD COUNT 5.9 10^3/uL (4.0-10.0)
[2023-02-01 05:57] LABS: INR 1.34; PROTHROMBIN TIME 16.1 SECONDS (12.5-14.5)
[2023-02-01 05:58] LABS: PARTIAL THROMBOPLASTIN TIME 35.5 SECONDS (24.8-34.2)
[2023-02-01 06:01] LABS: CALCIUM LEVEL 8.3 MG/DL (8.3-10.6); CREATININE FOR GFR 2.49 MG/DL (0.55-1.30); POTASSIUM SERUM 4.1 MMOL/L (3.5-5.1)
[2023-02-01 06:20] VITALS: BP 106/51; TEMP 97.9; O2SAT 98
[2023-02-01] MEDS: INSULIN LISPRO (NovoLOG) PER UNIT SC SCH ×2 (07:30→12:00)
[2023-02-01] MEDS: DOCUSATE SODIUM 100MG CAPSULE PO SCH (09:00)
[2023-02-01] MEDS: PANTOPRAZOLE 40MG TAB (PROTONIX) PO SCH (09:00)
[2023-02-03] MEDS: MORPHINE 10MG/0.5ML ORAL CONCENTRATE SOLUTION U/D SL PRN (17:01)
[2023-02-04] MEDS: MORPHINE 10MG/0.5ML ORAL CONCENTRATE SOLUTION U/D SL PRN (14:38)
[2023-02-04] MEDS: LORazepam 1 MG TAB PO PRN (15:45)
[2023-02-05] MEDS: LORazepam 1 MG TAB PO PRN (06:00)
[2023-02-05] MEDS: MORPHINE 10MG/0.5ML ORAL CONCENTRATE SOLUTION U/D SL PRN ×3 (06:01→23:05)
[2023-02-06] MEDS: MORPHINE 10MG/0.5ML ORAL CONCENTRATE SOLUTION U/D SL PRN ×3 (03:14→08:25)
[2023-02-06] MEDS: LORazepam 1 MG TAB PO PRN (09:08)
[2023-02-06] MEDS: SCOPOLAMINE 1MG TRANSDERMAL PATCH TOP PRN (16:57)
[2023-02-07] MEDS: MORPHINE 10MG/0.5ML ORAL CONCENTRATE SOLUTION U/D SL PRN (10:05)
[2023-02-07] MEDS: LORazepam 1 MG TAB PO PRN ×2 (12:57→15:53)
[2023-02-07] MEDS: ATROPINE SULFATE 1% OPHTH SOLN 2ML BTL SL PRN ×3 (13:52→18:12)
[2023-02-08] MEDS: MORPHINE 10MG/0.5ML ORAL CONCENTRATE SOLUTION U/D SL PRN ×3 (03:39→22:05)
[2023-02-08] MEDS ORDERED: MORPHINE 10MG/0.5ML ORAL CONCENTRATE SOLUTION U/D SL ONE (13:20)
[2023-02-09] MEDS: MORPHINE 10MG/0.5ML ORAL CONCENTRATE SOLUTION U/D SL PRN ×2 (00:09→06:21)
[2023-02-09] MEDS: SCOPOLAMINE 1MG TRANSDERMAL PATCH TOP PRN (17:02)
[2023-02-10] MEDS: MORPHINE 10MG/0.5ML ORAL CONCENTRATE SOLUTION U/D SL PRN ×4 (08:26→20:06)
[2023-02-10] MEDS: ATROPINE SULFATE 1% OPHTH SOLN 2ML BTL SL PRN ×3 (08:27→15:53)
[2023-02-10] MEDS: LORazepam 1 MG TAB PO PRN ×2 (10:13→18:29)
[2023-02-11] MEDS: LORazepam 1 MG TAB PO PRN ×3 (02:02→14:32)
[2023-02-11] MEDS: MORPHINE 10MG/0.5ML ORAL CONCENTRATE SOLUTION U/D SL PRN ×3 (07:50→17:57)
[2023-02-11] MEDS: ATROPINE SULFATE 1% OPHTH SOLN 2ML BTL SL PRN (13:37)
[2023-02-12] MEDS: MORPHINE 10MG/0.5ML ORAL CONCENTRATE SOLUTION U/D SL PRN (04:20)
[2023-02-13] MEDS: SCOPOLAMINE 1MG TRANSDERMAL PATCH TOP PRN (01:41)
[2023-02-13] MEDS: LORazepam 1 MG TAB PO PRN (01:51)
[2023-02-13] MEDS: ATROPINE SULFATE 1% OPHTH SOLN 2ML BTL SL PRN (01:54)
[2023-02-13] MEDS: MORPHINE 10MG/0.5ML ORAL CONCENTRATE SOLUTION U/D SL PRN (04:26)
[2023-02-13 05:26] VITALS: O2SAT 90
== END 2023-02-15 15:08 | disposition expired | DRG 377 ==
LOC: EDBD 15:11 → M ED 15:11 → M ED INP 19:58 → M MSPAV 22:34
PROVIDERS: ADMIT Family Medicine; ATTEND Internal Medicine Nephrology
PROC: 30233N1 Transfusion of Nonautologous Red Blood Cells into Peripheral Vein, Percutaneous Approach (ICD-10-PCS; principal; 2023-01-28)
DX: K31.811 Angiodysplasia of stomach and duodenum with bleeding (principal); G93.41 Metabolic encephalopathy; K76.7 Hepatorenal syndrome; K76.6 Portal hypertension; D62 Acute posthemorrhagic anemia; N17.9 Acute kidney failure, unspecified; E72.20 Disorder of urea cycle metabolism, unspecified; K76.82 Hepatic encephalopathy; Z51.5 Encounter for palliative care; Z66 Do not resuscitate; K70.31 Alcoholic cirrhosis of liver with ascites; D69.6 Thrombocytopenia, unspecified; I85.10 Secondary esophageal varices without bleeding; I25.10 Atherosclerotic heart disease of native coronary artery without angina pectoris; K72.90 Hepatic failure, unspecified without coma; E11.22 Type 2 diabetes mellitus with diabetic chronic kidney disease; I12.9 Hypertensive chronic kidney disease with stage 1 through stage 4 chronic kidney disease, or unspecified chronic kidney disease; N18.30 Chronic kidney disease, stage 3 unspecified; F10.10 Alcohol abuse, uncomplicated; E78.5 Hyperlipidemia, unspecified; Z95.5 Presence of coronary angioplasty implant and graft; K21.9 Gastro-esophageal reflux disease without esophagitis; Z79.4 Long term (current) use of insulin; Z79.899 Other long term (current) drug therapy; Z88.2 Allergy status to sulfonamides; Z91.041 Radiographic dye allergy status